=== PATIENT | female | born 1950 | race Caucasian/White ===

== ENCOUNTER → 2017-03-04 | Outpatient (CLI) | payer OTHER ==
[2017-03-04 13:47] LABS: LYME DISEASE AB IGG NEG (NEG); LYME DISEASE AB IGM NEG (NEG)
== END | disposition home or self-care (01) ==
LOC: C.LABMFLN 07:49
PROVIDERS: ATTEND Physician Assistant
DX: H91.22 Sudden idiopathic hearing loss, left ear (principal)

== ENCOUNTER 2025-03-25 11:18 | Inpatient (IN) ==
--- NOTE | 2025-03-25 11:37 | Emergency Department Note ---
Impression & Plan Hypoxia Admission ED Provider Note HPI: History obtained from The patient is a 74-year-old female with history of atrial fibrillation, on Coumadin, and amiodarone, who presents the emergency department with chief complaint of shortness of breath. Patient states she has had some progressive shortness of breath for about the past 2 weeks. Patient states that she had a CT image of her chest done without contrast on 03/11 that showed "progressive lung disease". Patient states that it also noted possible amiodarone toxicity based on some abnormal findings in her liver. Patient states she continued to have some shortness of breath and today she had a slight amount of chest pain off to the right side of her chest and therefore she came to the ER to be assessed. On arrival here to the ED the patient was noted to be hypoxic at 72% on room air and therefore was brought back and placed in a room, she is otherwise hemodynamically stable, she was placed on nasal cannula oxygen with good improvement in her initial hypoxia. ROS: - Per HPI Differential Diagnosis: Acute CHF exacerbation, pulmonary embolism, ACS, pneumonia, pleural effusion, viral upper respiratory infection with respiratory failure, amongst other potential pathologies. *Outpatient medications and allergy history reviewed. 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 Lab work shows no leukocytosis, hemoglobin is normal, platelet count is normal, CMP does not show any evidence of any critical findings. BNP is elevated at 403, troponin is negative, procalcitonin is low, TSH is within normal limits, urinalysis does not show any evidence of infection, chest x-ray shows pattern of pulmonary edema which I suspect is the reason for the patient's respiratory failure/hypoxia. She was therefore treated with IV Lasix. Patient did remained stable on nasal cannula oxygen. I discussed all of the above findings with the patient and her family at the bedside. It was noted that her INR was slightly subtherapeutic at 1.8. Patient is not tachycardic and at this point I suspect her hypoxia secondary to fluid overload. I discussed the patient's presentation with the on-call hospitalist service for [facility], patient was placed for admission to the service of Dr. Al for further management. Patient was in agreement to this plan. Consultants/Discussions held with other healthcare providers: - Hospitalist, Dr. Al Disposition discussion held by myself with: - Patient and family members at the bedside * CRITICAL CARE TIME: (45) minutes - Stabilization of hypoxia with oxygen saturation at 72% on room air requiring nasal cannula oxygen for correction, time spent at the bedside, interpretation of diagnostic studies, discussion with other healthcare providers and arrangement of admission. Diagnosis: 1. Hypoxia, acute 2. Pulmonary edema, acute 3. Elevated BNP, acute 4. 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 Subtherapeutic international normalized ratio (INR) Acute heart failure with preserved ejection fraction (HFpEF) Medical History (Updated 03/25/25 @ 15:11 by Tom Hsieh DO) PAT (paroxysmal atrial tachycardia) CKD (chronic kidney disease), stage III Tricuspid valve insufficiency Mitral valve insufficiency Pulmonary HTN Hypothyroidism [place] (hard of hearing) History of uterine fibroid Surgical History (Updated 03/25/25 @ 14:45 by May Villela PA-C) H/O mitral valve replacement History of myomectomy History of hysterectomy History of esophagogastroduodenoscopy (EGD) History of colonoscopy History of cardiac catheterization 2021 pre op valve replacement. no stents. History of heart valve replacement 02/2022. follows with Dr. Henning. History of tonsillectomy History of right hip replacement History of x 2 History of bilateral knee replacement + Rt knee revision Social History Smoking Status: Never smoker Second Hand Exposure: No; Do You Dip or Chew Tobacco: No; Hx Alcohol Use: Yes Hx Substance Use: No Preferred Language: Persian Communication Ability: Effective Hand Icer Required: No Beliefs That Will Affect Care: None Current Living Situation: Alone Feels Safe at Home: Yes Assistive Devices: Denture - Upper, Denture - Lower and Glasses Allergies Allergies Allergy/AdvReac Type Severity Reaction Status Date / Time sulfamethoxazole Allergy Rash Verified 07/09/23 07:26 [From Bactrim] trimethoprim [From Bactrim] Allergy Rash Verified 07/09/23 07:26 Home Meds Home Medications Medication Instructions Recorded Confirmed Acetaminophen Extra Strength 2 tab PO Q6 PRN Pain 01/30/21 03/25/25 amiodarone 200 mg tablet 200 mg PO QAM 07/03/23 03/25/25 furosemide 40 mg tablet 40 mg PO QAM 07/03/23 03/25/25 metoprolol succinate 25 mg 25 mg PO QAM 07/03/23 03/25/25 tablet,extended release 24 hr albuterol sulfate 90 mcg/actuation 2 inh inhalation Q4H PRN Shortness 03/25/25 03/25/25 aerosol inhaler Of Breath Or Wheezing levothyroxine 50 mcg tablet 50 mcg PO DAILY 03/25/25 03/25/25 potassium 99 mg tablet 99 mg PO DAILY 03/25/25 03/25/25 warfarin 2.5 mg tablet 1.25 mg PO MOFR@1600 03/25/25 03/25/25 warfarin 2.5 mg tablet 2.5 mg PO SUTUWETHSA@1600 03/25/25 03/25/25 Results & Data (ED) Vital Signs Vital Signs - 24 hr 03/25/25 11:26 03/25/25 11:33 03/25/25 11:51 Temperature 37.0 C Temperature Source Oral Pulse Rate 82 Pulse Rate [Apical] Respiratory Rate 22 Respiratory Effort / Characteristics Short of Breath Respiratory Depth Normal Blood Pressure 136/76 Blood Pressure [Left Arm] Blood Pressure Mean 96 Blood Pressure Mean [Left Arm] Pulse Oximetry 72 L 96 Oxygen Delivery Method Room Air Nasal Cannula Nasal Cannula Oxygen Flow Rate 4 4 Sepsis Recent Fever Within 48 Hours No Sepsis New/Unexplained Change in Mental Status N/A Sepsis Action Taken by Nursing No Action Required 03/25/25 11:52 03/25/25 13:13 Temperature Temperature Source Pulse Rate 86 Pulse Rate [Apical] 83 Respiratory Rate 20 Respiratory Effort / Characteristics Respiratory Depth Blood Pressure Blood Pressure [Left Arm] 142/78 H Blood Pressure Mean Blood Pressure Mean [Left Arm] 99 Pulse Oximetry 96 Oxygen Delivery Method Nasal Cannula Oxygen Flow Rate 5 Sepsis Recent Fever Within 48 Hours Sepsis New/Unexplained Change in Mental Status Sepsis Action Taken by Nursing Laboratory Data 03/25/25 11:51 03/25/25 11:51 Lab Results 03/25/25 03/25/25 03/25/25 Range/Units 11:51 11:55 13:10 WBC 10.57 (4.8-10.8) K/ul RBC 4.48 (4.20-5.40) M/uL Hgb 13.4 (12.0-16.0) g/dl Hct 40.3 (37.0-47.0) % MCV 90.0 (80.0-100.0) fL MCH 29.9 (25.0-34.0) pg MCHC 33.3 (32.0-36.0) g/dL RDW Std Deviation 49.8 H (36.4-46.3) fL RDW Coeff of Win 15.2 H (11.5-14.5) % Plt Count 278 (130-400) K/uL MPV 10.9 (9.4-12.4) fL Immature Gran % (Auto) 0.3 % Neut % (Auto) 77.9 % Lymph % (Auto) 6.7 % [place] % (Auto) 14.2 % Eos % (Auto) 0.6 % Baso % (Auto) 0.3 % Neut # (Auto) 8.24 H (1.40-6.50) K/uL Lymph # (Auto) 0.71 L (1.20-3.40) K/uL [place] # (Auto) 1.50 H (0.11-0.59) K/uL Eos # (Auto) 0.06 (0.00-0.50) K/uL Baso # (Auto) 0.03 (0.00-0.20) K/uL Immature Gran # (Auto) 0.03 (0.01-0.20) K/uL PT 18.3 H (9.0-12.0) Seconds INR 1.8 H (0.9-1.1) Sodium 136 (136-145) mmol/L Potassium 3.4 L (3.5-5.1) mmol/L Chloride 99 (98-107) mmol/L Carbon Dioxide 30 (21-32) mmol/L Anion Gap 7 (3-11) BUN 17 (6-23) mg/dl Creatinine 1.00 (0.6-1.2) mg/dl Est Cr Clr Drug Dosing 51.9 ml/min eGFR 58.39 BUN/Creatinine Ratio 17.0 (10-20) Glucose 127 H (70-99(Fasting)) mg/dl Calcium 8.9 (8.6-10.3) mg/dl Magnesium 1.9 (1.7-2.4) mg/dl Total Bilirubin 0.6 (0.2-1.0) mg/dl AST 26 (13-39) U/L ALT 13 (7-52) U/L Alkaline Phosphatase 135 H (34-104) U/L Troponin I High Sens 10.5 (0-14) pg/ml B-Natriuretic Peptide 403 H (0-100) pg/ml Total Protein 8.2 (6.0-8.3) gm/dl Albumin 3.6 (3.4-5.0) gm/dl Globulin 4.6 H (2.5-4.0) gm/dl Albumin/Globulin Ratio 0.8 L (0.9-2) Procalcitonin 0.10 (0-0.5) ng/ml TSH 2.583 (0.300-4.500) uIu/ml Urine Color Yellow Urine Appearance Clear (Clear) Urine pH 7.0 (4.5-7.5) Ur Specific [place] 1.007 (1.000-1.030) Urine Protein Negative (Negative) Urine Glucose (UA) Negative (Negative) Urine Ketones Negative (Negative) Urine Blood Trace H (Negative) Urine Nitrite Negative (Negative) Urine Bilirubin Negative (Negative) Urine Urobilinogen Negative (Negative) Ur Leukocyte Esterase Negative (Negative) Urine WBC (Auto) 0-5 (0-5) /hpf Urine RBC (Auto) 0-2 (0-2) /hpf U Hyaline Cast (Auto) 0-2 (0-2) /lpf U Epithel Cells (Auto) 0-2 (0-2) /hpf Urine Bacteria (Auto) None Seen (None Seen) Adenovirus (PCR) Not Detected (NotDetected) B. pertussis DNA (PCR) Not Detected (NotDetected) B.parapertussis DNA PCR Not Detected (NotDetected) C. pneumoniae DNA (PCR) Not Detected (NotDetected) Coronavirus OC43 (PCR) Not Detected (NotDetected) Coronavirus HKU1 (PCR) Not Detected (NotDetected) Coronavirus 229E (PCR) Not Detected (NotDetected) SARS-CoV-2 (PCR) Not Detected (NotDetected) Coronavirus NL63 (PCR) Not Detected (NotDetected) Human Metapneumovir PCR Not Detected (NotDetected) Influenza Type A (PCR) Not Detected (NotDetected) Influenza Type B (PCR) Not Detected (NotDetected) M. pneumoniae (PCR) Not Detected (NotDetected) Parainfluenza 1 (PCR) Not Detected (NotDetected) Parainfluenza 2 (PCR) Not Detected (NotDetected) Parainfluenza 3 (PCR) Not Detected (NotDetected) Parainfluenza 4 (PCR) Not Detected (NotDetected) RSV (PCR) Not Detected (NotDetected) Entero/Rhino (PCR) Not Detected (NotDetected) Administered Medications Discontinued Medications Furosemide (Furosemide 40 Mg/4 Ml Vial) 40 mg IV ONE ONE Stop: 03/25/25 12:53 Last Admin: 03/25/25 13:08 Dose: 40 mg Documented By: ROSALES Potassium Chloride (Potassium Chloride Crtab 20 Meq Tabcr) 40 meq PO NOW STA Stop: 03/25/25 13:21 Last Admin: 03/25/25 13:56 Dose: 40 meq Documented By: ROSALES Imaging Data Radiologist's Impression: Chest X-Ray 03/25/25 11:33 XR chest 1V portable CLINICAL HISTORY: Dyspnea. COMPARISON STUDY: No previous studies for comparison. FINDINGS: Status post median sternotomy. Heart is moderately enlarged. There is no pneumothorax. Small bilateral pleural effusions are present. There is interstitial thickening and extensive bilateral airspace opacities. IMPRESSION: 1. Cardiomegaly with small bilateral pleural effusions. Interstitial thickening suggestive of interstitial pulmonary edema. 2. Superimposed airspace opacities which may represent multifocal pneumonia or alveolar pulmonary edema. Radiographic follow-up to ensure resolution is recommended. ACT 112: Negative or not required by law. Electronically signed by: Dayo John M.D. 03/25/2025 12:47 PM Discharge Plan Visit Data Chief Complaint: Shortness of Breath/Dyspnea Stated Complaint: SOB ED Provider: Tom Hsieh Discharge Problem: Hypoxia Patient Disposition: Admitted As Inpatient Condition: Fair Forms Stand Alone Forms: [facility] [employer] Prescriptions Prescriptions: No Action Acetaminophen Extra Strength 500 mg 2 tab PO Q6 PRN (Reason: Pain) furosemide 40 mg Tablet 40 mg PO QAM amiodarone 200 mg Tablet 200 mg PO QAM Rx Instructions: Patient stopped taking 1 week ago metoprolol succinate 25 mg Tablet Extended Release 24 Hr 25 mg PO QAM levothyroxine 50 mcg tablet 50 mcg PO DAILY potassium 99 mg Tablet 99 mg PO DAILY albuterol sulfate 90 mcg/actuation HFA aerosol inhaler 2 inh INHALATION Q4H PRN (Reason: Shortness Of Breath Or Wheezing) warfarin 2.5 mg tablet 2.5 mg PO SUTUWETHSA@1600 warfarin 2.5 mg tablet 1.25 mg PO MOFR@1600 Referrals Referrals: Julius Lucas MD [Primary Care Provider] -
[2025-03-25 12:10] LABS: Basophils # (auto) 0.03 K/uL (0.00-0.20); Basophils % (auto) 0.3 %; Eosinophils # (auto) 0.06 K/uL (0.00-0.50); Eosinophils % (auto) 0.6 %; Hematocrit (blood only) 40.3 % (37.0-47.0); Hemoglobin 13.4 g/dl (12.0-16.0); Immature Granulocytes # (auto) 0.03 K/uL (0.01-0.20); Immature Granulocytes % (auto) 0.3 %; Lymphocytes # (auto) 0.71 K/uL (1.20-3.40); Lymphocytes % (auto) 6.7 %; Mean Corpuscular Hemoglobin 29.9 pg (25.0-34.0); Mean Corpuscular Hgb Conc 33.3 g/dL (32.0-36.0); Mean Platelet Volume 10.9 fL (9.4-12.4); Monocytes % (auto) 14.2 %; Neutrophils # (auto) 8.24 K/uL (1.40-6.50); Neutrophils % (auto) 77.9 %; Platelet Count 278 K/uL (130-400); RDW Coefficient of Variation 15.2 % (11.5-14.5); RDW Standard Deviation 49.8 fL (36.4-46.3); Red Blood Count 4.48 M/uL (4.20-5.40); White Blood Count 10.57 K/ul (4.8-10.8)
[2025-03-25 12:38] LABS: Albumin Globulin Ratio 0.8 (0.9-2); Albumin Level 3.6 gm/dl (3.4-5.0); Bilirubin,Total 0.6 mg/dl (0.2-1.0); Calcium 8.9 mg/dl (8.6-10.3); Creatinine Clr Calc Pharmacy 51.9 ml/min; Globulin 4.6 gm/dl (2.5-4.0); Potassium 3.4 mmol/L (3.5-5.1); Total Protein 8.2 gm/dl (6.0-8.3)
[2025-03-25 12:39] LABS: INR 1.8 (0.9-1.1); Prothrombin Time 18.3 Seconds (9.0-12.0)
[2025-03-25 12:44] LABS: Troponin I High Sensitivity 10.5 pg/ml (0-14)
--- NOTE | 2025-03-25 12:48 | XRay Report ---
XR chest 1V portable CLINICAL HISTORY: Dyspnea. COMPARISON STUDY: No previous studies for comparison. FINDINGS: Status post median sternotomy. Heart is moderately enlarged. There is no pneumothorax. Smal l bilateral pleural effusions are present. There is interstitial thickening and extensive bilateral a irspace opacities. IMPRESSION: 1. Cardiomegaly with small bilateral pleural effusions. Interstitial thickening suggestive of interst itial pulmonary edema. 2. Superimposed airspace opacities which may represent multifocal pneumonia or alveolar pulmonary ed christa. Radiographic follow-up to ensure resolution is recommended. ACT 112: Negative or not required by law. Electronically signed by: Dayo John M.D. 03/25/2025 12:47 PM
[2025-03-25 12:54] LABS: Adenovirus PCR Not Detected (NotDetected); Bordetella parapertussis PCR Not Detected (NotDetected); Bordetella pertussis PCR Not Detected (NotDetected); Chlamydia pneumoniae PCR Not Detected (NotDetected); Coronavirus 229E PCR Not Detected (NotDetected); Coronavirus CoV-2 (COVID19)PCR Not Detected (NotDetected); Coronavirus HKU1 PCR Not Detected (NotDetected); Coronavirus NL63 PCR Not Detected (NotDetected); Coronavirus OC43PCR Not Detected (NotDetected); Human Metapneumovirus PCR Not Detected (NotDetected); Influenza A PCR Not Detected (NotDetected); Influenza B PCR Not Detected (NotDetected); Mycoplasma pneumoniae PCR Not Detected (NotDetected); Parainfluenza Virus 1 PCR Not Detected (NotDetected); Parainfluenza Virus 2 PCR Not Detected (NotDetected); Parainfluenza Virus 3 PCR Not Detected (NotDetected); Parainfluenza Virus 4 PCR Not Detected (NotDetected); Respiratory Syncytial VirusPCR Not Detected (NotDetected); Rhinovirus/Enterovirus PCR Not Detected (NotDetected)
[2025-03-25] MEDS: FUROSEMIDE 40 MG/4 ML VIAL IV ONE (13:08)
--- NOTE | 2025-03-25 13:23 | History & Physical Report ---
Date of Service March 25, 2025 Assessment & Plan (1) Acute hypoxic respiratory failure: (2) Acute heart failure with preserved ejection fraction (HFpEF): (3) Pulmonary HTN: Plan: This is a 74-year-old female with PMH of paroxysmal atrial tachycardia, history of mitral valve replacement on anticoagulation, drug-induced interstitial lung disorder, HFpEF, pulmonary hypertension, CKD 3, hypothyroidism and other medical process of below who presents from home with progressive shortness of breath x 2 weeks consistent with decompensated heart failure. Initially hypoxic at 72% on room air and improved to 96% on 5 L nasal cannula In setting of HFpEF and ILD CXR with cardiomegaly with small bilateral pleural effusions. Interstitial thickening suggestive of interstitial pulmonary edema. Superimposed airspace opacities present Does not appear infectious given clinical history - afebrile, no leukocytosis, resp viral panel negative, procal negative CT PE protocol ordered for further evaluation given subtherapeutic INR as below Consider pulm eval based on CT chest results Given 40mg IV lasix in ED x 1 Monitor I&Os, daily weights, continue Lasix 40mg IV daily Wean supplemental O2 as tolerated (4) At risk for amiodarone toxicity with alf use: (5) Prolonged QT interval: Plan: Underwent outpatient CT chest from 03/11/25 revealed a hyperdense liver, suggesting amiodarone toxicity. Patient stopped taking amiodarone 1 week ago LFTs reassuring. TSH WNL ECG with prolonged QTc, continue to monitor Cardiology consulted given HFpEF and further direction given possible amiodarone toxicity Repeat ECG in AM (6) H/O mitral valve replacement: (7) Subtherapeutic international normalized ratio (INR): Plan: INR 1.8 today, will give coumadin 5mg x 1 this afternoon and recheck INR tomorrow Home regimen: 1.25mg MoFr, 2.5mg all other days (goal INR 2-3, bioprosthetic valve) (8) PAT (paroxysmal atrial tachycardia): Plan: Patient stopped amiodarone 1 week ago (had previously been on for 3 years). Continue Toprol (9) CKD (chronic kidney disease), stage III: Plan: Cr 1.0, at baseline Continue to monitor with daily BMP (10) Hypothyroidism: Plan: Continue levothyroxine DVT Ppx: coumadin Code status: FULL PCP: Shayy Dispo: Admitted to PCU Patient seen in collaboration with Dr. Al. Please see addendum. I spent a total of 75 minutes coordinating, documenting, and providing care for this patient excluding time spent in the performance of separately billed services or time spent by another provider/QHP. History of Present Illness Chief Complaint: SOB Primary Care Provider: Julius Lucas MD This is a 74-year-old female with PMH of paroxysmal atrial tachycardia, history of mitral valve replacement on anticoagulation, drug-induced interstitial lung disorder, HFpEF, pulmonary hypertension, CKD 3, hypothyroidism and other medical process of below who presents from home with progressive shortness of breath x 2 weeks. Patient has had a dry cough for the past few months and feels that she never fully recovered from a bout of pneumonia at the beginning of the year. However, she does not require home oxygen. Lives with her daughter and ambulates independently at baseline. Does take 40 mg p.o. Lasix daily for HFpEF and is compliant with medication. Had a dry cough in January and was seen in urgent care with suspected URI-completed steroid course and prescribed albuterol inhaler. Cough persisted, so underwent CT chest scan on 03/11/2025 which noted previously described irregular nodular and consolidative opacities throughout both lungs, trace bilateral pleural effusions, evidence of pulmonary arterial hypertension. Also noted a hyperdense liver, suggesting amiodarone toxicity. Patient stopped taking amiodarone 1 week ago. Is waiting to be seen in cardiology office. Developed sharp pain near her right breast earlier today that lasted for a minute at a time before resolving. Pain is nonradiating and occurred at rest. Not made any worse with exertion. No associated nausea or diaphoresis. Came to ED for further evaluation of chest pain and progressive shortness of breath. In ED, noted to be hypoxic at 72% on room air and improved to 96% on 5 L nasal cannula. Currently comfortable. Chest pain resolved prior to arrival and has not recurred. Continues to have a dry cough. No fever, chills, increased congestion, palpitations, nausea, vomiting, abdominal pain, dysuria, diarrhea or constipation. Allergies Allergy/AdvReac Type Severity Reaction Status Date / Time sulfamethoxazole Allergy Rash Verified 07/09/23 07:26 [From Bactrim] trimethoprim [From Bactrim] Allergy Rash Verified 07/09/23 07:26 Home Medications Medication Instructions Recorded Confirmed Type Acetaminophen Extra Strength 2 tab PO Q6 PRN Pain 01/30/21 03/25/25 History amiodarone 200 mg tablet 200 mg PO QAM 07/03/23 03/25/25 History furosemide 40 mg tablet 40 mg PO QAM 07/03/23 03/25/25 History metoprolol succinate 25 mg 25 mg PO QAM 07/03/23 03/25/25 History tablet,extended release 24 hr albuterol sulfate 90 mcg/actuation 2 inh inhalation Q4H PRN Shortness 03/25/25 03/25/25 History aerosol inhaler Of Breath Or Wheezing levothyroxine 50 mcg tablet 50 mcg PO DAILY 03/25/25 03/25/25 History potassium 99 mg tablet 99 mg PO DAILY 03/25/25 03/25/25 History warfarin 2.5 mg tablet 1.25 mg PO MOFR@1600 03/25/25 03/25/25 History warfarin 2.5 mg tablet 2.5 mg PO SUTUWETHSA@1600 03/25/25 03/25/25 History Past Med/Surg History Problem List (Updated 03/25/25 @ 15:11 by Tom Hsieh DO) Hypoxia (Acute) Prolonged QT interval Acute hypoxic respiratory failure 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 Subtherapeutic international normalized ratio (INR) Acute heart failure with preserved ejection fraction (HFpEF) Medical History (Updated 03/25/25 @ 15:11 by Tom Hsieh DO) PAT (paroxysmal atrial tachycardia) CKD (chronic kidney disease), stage III Tricuspid valve insufficiency Mitral valve insufficiency Pulmonary HTN Hypothyroidism [place] (hard of hearing) History of uterine fibroid Surgical History (Updated 03/25/25 @ 14:45 by May Villela PA-C) H/O mitral valve replacement History of myomectomy History of hysterectomy History of esophagogastroduodenoscopy (EGD) History of colonoscopy History of cardiac catheterization 2021 pre op valve replacement. no stents. History of heart valve replacement 02/2022. follows with Dr. Henning. History of tonsillectomy History of right hip replacement History of x 2 History of bilateral knee replacement + Rt knee revision Social History Smoking Status: Never smoker Second Hand Exposure: No; Do You Dip or Chew Tobacco: No; Hx Alcohol Use: Yes Hx Substance Use: No Preferred Language: Azeri Communication Ability: Effective Supervisor Line Department Required: No Beliefs That Will Affect Care: None Current Living Situation: Alone Feels Safe at Home: Yes Assistive Devices: Denture - Upper, Denture - Lower and Glasses Review of Systems Review of Systems: At least ten systems reviewed and negative except as noted in the HPI. Physical Exam Physical Exam: Please see Dr. Al's PE in addendum. Results & Data Results & Data Vital Signs (Past 12 Hours) Vital Signs Temp Pulse Pulse Resp BP BP Pulse Ox 03/25/25 13:13 83 20 142/78 H 96 03/25/25 11:52 86 03/25/25 11:51 96 03/25/25 11:33 03/25/25 11:26 37.0 C 82 22 136/76 72 L O2 Del Method O2 Flow Rate 03/25/25 13:13 Nasal Cannula 5 03/25/25 11:52 03/25/25 11:51 Nasal Cannula 4 03/25/25 11:33 Nasal Cannula 4 03/25/25 11:26 Room Air Laboratory Results Short CBC 03/25/25 Range/Units 11:51 WBC 10.57 (4.8-10.8) K/ul Hgb 13.4 (12.0-16.0) g/dl Hct 40.3 (37.0-47.0) % Plt Count 278 (130-400) K/uL BMP 03/25/25 11:51 Sodium 136 Potassium 3.4 L Chloride 99 Carbon Dioxide 30 BUN 17 Creatinine 1.00 Glucose 127 H Calcium 8.9 Liver Function 03/25/25 Range/Units 11:51 Total Bilirubin 0.6 (0.2-1.0) mg/dl AST 26 (13-39) U/L ALT 13 (7-52) U/L Alkaline Phosphatase 135 H (34-104) U/L Albumin 3.6 (3.4-5.0) gm/dl Urine 03/25/25 Range/Units 13:10 Urine Color Yellow Urine Appearance Clear (Clear) Urine pH 7.0 (4.5-7.5) Ur Specific [place] 1.007 (1.000-1.030) Urine Protein Negative (Negative) Urine Glucose (UA) Negative (Negative) Diagnostic Findings Chest X-Ray 03/25/25 11:33 XR chest 1V portable CLINICAL HISTORY: Dyspnea. COMPARISON STUDY: No previous studies for comparison. FINDINGS: Status post median sternotomy. Heart is moderately enlarged. There is no pneumothorax. Small bilateral pleural effusions are present. There is interstitial thickening and extensive bilateral airspace opacities. IMPRESSION: 1. Cardiomegaly with small bilateral pleural effusions. Interstitial thickening suggestive of interstitial pulmonary edema. 2. Superimposed airspace opacities which may represent multifocal pneumonia or alveolar pulmonary edema. Radiographic follow-up to ensure resolution is recommended. ACT 112: Negative or not required by law. Electronically signed by: Dayo John M.D. 03/25/2025 12:47 PM Code Status & VTE Plan VTE Prophylaxis Plan VTE Prophylaxis will be ordered: Yes Supervising Physician Co-Signing Physician Notes Patient is a 74-year-old female with history of paroxysmal atrial tachycardia, mitral valve replacement on chronic anticoagulation with Coumadin, HFpEF, pulmonary hypertension, drug-induced interstitial lung disease and other medical problems presents with history of worsening shortness of breath associated with cough for many weeks which gradually worsened especially since last 2 weeks. She also states having transient right-sided, nonradiating chest pain today which currently resolved. She denies any orthopnea, PND, weight gain, any worsening leg edema. She completed a course of steroid for URI in January. She was hypoxic in the ED requiring supplemental oxygen to maintain saturations. Outpatient CT chest showed findings suggestive of progressive lung disease and concern for possible amiodarone toxicity. CT also showed hyperdense liver. She denies any recent fever, chills, nausea, vomiting, abdominal pain, diarrhea, change in vision. She admits to quit taking amiodarone 1 week ago. Please review HPI for complete details of presentation. I personally reviewed blood work and imaging studies. INR noted to be subtherapeutic 1.8. Potassium 3.4, glucose 127, alkaline phosphatase 135, troponin 10.5, BNP 403, normal TSH, total bilirubin, AST, ALT within normal limits. Procalcitonin 0.10. Urine analysis normal. Bio fire negative. Chest x-ray showed small bilateral pleural effusions, interstitial thickening suggestive of pulmonary edema, with superimposed airspace opacities. EKG showed sinus rhythm with first-degree AV block, prolonged QTc 506. Physical Exam: Vitals signs as noted above General Appearance:Moderately built and nourished, no apparent distress Head: normocephalic, Atraumatic Eyes: normal inspection, EOMI Neck: supple, Trachea midline Respiratory/Chest: Normal breath sounds, B/L basal Crackles, , No accessory muscle use Cardiovascular: S1, S2, +murmur Abdomen/GI:Soft, Non tender, Bowel sounds present Extremities/Musculoskeletal:normal inspection, 1+ B/L LE edema Neurologic/Psych:AAOX3, grossly no focal neurological deficits Skin: normal color, warm Acute respiratory failure with hypoxia Acute on chronic HFpEF Insetting of interstitial lung disease, pulmonary hypertension Concern for amiodarone toxicity Less likely infectious process Subtherapeutic INR 1.8 Hypokalemia Prolonged QTc Will obtain chest CTA to further evaluate Received IV Lasix Patient stopped taking amiodarone 1 week ago Monitor I's and O's, daily weight, volume status Replete electrolytes as needed Request cardiology evaluation Will increase home Coumadin dose given subtherapeutic INR Monitor INR closely Avoid QTc prolonging meds Update echo as needed Continue IV Lasix for now Continue metoprolol succinate, levothyroxine Will hold off on antibiotics for now Repeat chest x-ray tomorrow Consider pulmonology evaluation based on CT results I personally interviewed and examined the patient at bedside. I have reviewed the advanced practitioner's documentation on the date of service referred in note and agree with plan. Patient's care is coordinated with May Villela PA-C. Please refer to the documentation above for details of patient's presentation and for discussion of other issues. I spent a total [id number] coordinating, documenting, and providing care for this patient excluding time spent in the performance of separately billed services or time spent by another provider/QHP.
[2025-03-25 13:29] LABS: Appearance Urine Clear (Clear); Bacteria Urine Automated None Seen (None Seen); Bilirubin Urine Negative (Negative); Blood Urine Trace (Negative); Cast Urine Automated 0-2 /lpf (0-2); Color Urine Yellow; Epithelial Cell Urine Auto 0-2 /hpf (0-2); Glucose Urine UA Negative (Negative); Ketones Urine Negative (Negative); Leukocyte Esterase Urine Negative (Negative); Nitrite Urine Negative (Negative); Protein Urine Negative (Negative); RBC Urine Automated 0-2 /hpf (0-2); Specific Gravity Urine 1.007 (1.000-1.030); Urobilinogen Urine Negative (Negative); WBC Urine Automated 0-5 /hpf (0-5)
[2025-03-25] MEDS: POTASSIUM CHLORIDE CRTAB 20 MEQ TABCR PO STA (13:56)
[2025-03-25 14:28] LABS: Magnesium 1.9 mg/dl (1.7-2.4)
[2025-03-25 14:43] LABS: Thyroid Stimulating Hormone 2.583 uIu/ml (0.300-4.500)
--- NOTE | 2025-03-25 14:50 | Cardiology Consultation ---
Date of Consultation March 25, 2025 Assessment & Plan (1) Acute hypoxic respiratory failure: (2) At risk for amiodarone toxicity with fdc use: (3) Acute heart failure with preserved ejection fraction (HFpEF): Plan Assessment: 74 year old female who presented with worsening dyspnea and recent CT chest concerning for interstitial lung disease and likely amiodarone toxicity. chest xray questions HF component and cardiology service was requested. Plan: 1. Acute hypoxic respiratory failure 2. Possible drug induced interstitial lung disease 3. Acute on Chronic HFpEF -Patient is saturating well on supplemental O2 5LPM -Self discontinued Amiodarone after recent CT chest which shows interstitial lung disease as well as evidence of a hyperdense liver. -Telemetry shows SR with 1st degree AVB, will continue to monitor. No ectopy. -BNP with mild elevation -Troponin negative -Patient received one time dose of IV Lasix upon arrival to the ER, does not appear volume overloaded on exam. -will obtain echocardiogram to assess overall structure and function, paying beka se attention to LVEF, prior mitral valve replacement and evaluate for TR. Tech currently at bedside obtaining. -Recommend pulmonology consultation. Dr. Grande has spoken directly to primary team -Avoid Amiodarone. Please continue Metoprolol succinate 25mg PO Daily as per home regimen. -Continue warfarin -TSH stable, continue Levothyroxine - Will continue to follow Case has been discussed with Dr. Grande. Further recommendations regarding plan of care as per his assessment. I spent a total of 40 minutes on the date of service in preparation, delivery, documentation of the care provided to the patient excluding any time spent in the performance of separately billed services. REN [facility] Cardiology [facility] Patient was seen and personally examined. Chart medical records and prior x-ray studies reviewed. Full assessment and plan as outlined by advanced provider as above. Care and management discussed in detail with provider and personally endorsed Impression: 74-year-old female status post mitral valve replacement with bioprosthetic (31 mm epic) February 2022 postoperative issues include difficulties with recurrent atrial arrhythmias treated with oral amiodarone. Patient presents with difficulties with gradually progressive dyspnea now hypoxia and dyspnea with minimal exertion. Chest x-rays and outpatient CT scans have demonstrated progressively worsening interstitial lung disease as well as hyperdense liver. Patient self discontinued amiodarone slightly greater than 1 week ago but still dyspneic and hypoxic on presentation. Chest x-ray today demonstrates diffuse patchy infiltrative disease Examination not notable for significant volume overload with neck veins flat at 30 degrees fine crackles basilar Preliminary echocardiogram done at bedside demonstrates normal to hyperdynamic LV function EF 65% or greater. Bioprosthetic mitral valve functioning normally without valvular insufficiency. Trace tricuspid insufficiency Recommendations: Progressive interstitial lung disease in the setting of amiodarone use suggesting possible drug-induced toxicity versus progressive underlying interstitial lung disease. Volume status does not suggest findings that would concur with pulmonary edema Patient has received 1 dose of IV furosemide May require more but cautiously with following her renal function Would recommend consultation pulmonology question indications for corticosteroids/immunosuppressive treatment History of Present Illness Reason for Consultation: Decompensated HF, concern for amio toxicity 03/11/25 [facility] History of Present Illness HPI. Patient is a pleasant 74 year female with pMHx as noted below that presents to the ER with progressively worsening shortness of breath for the past two weeks. Initially the patient was seen at urgent care in early january for a dry cough and was treated for a suspected URI and treated with a course of steroids and albuterol inhaler. Her cough persisted and she underwent a lung CT on 03/11/25 which noted progressive lung disease with trace BL effusions and additional chronic findings. Also of note is a hyperdense liver, giving consideration to Amiodarone toxicity. Upon seeing patient today she is resting comfortably in bed on supplemental O2, Rate 5LPM via nasal cannula. She denies chest pain, pressure or palpitations. Does endorse shortness of breath, but denies any pre-syncope, syncope or edema. Patient's daughters Janee and Nallely are at bedside. Patient states she stopped her Amiodarone right after the CT scan out of concern of drug induced toxicity. Patient has been compliant on all other medication therapies. she has had adjustments to her thyroid medication dosing and she also mentioned she has had rashes which likely have been s/t the amiodarone. Cardiac Problems 1. Severe MR s/p mitral valve replacement 31mm Epic valve 02/26/22 (pre MVR cardiac catheterization with angiographically normal coronaries. Mean PA pressure of 30 mmHg. Pulmonary capillary wedge pressure 21 mmHg with elevated V waves a size 40 mmHg consistent with severe mitral regurgitation) 2. PAT s/p DCCV 03/2022 but did not work; started on amiodarone 03/2022 3. Moderate AI 4. Moderate TR 5. Chronic heart failure with preserved EF diastolic/valvular, NYHA Class II 6. drug induced interstitial lung disorder (recent CT chest) 7. Pulmonary HTN 8. CKD stage III 9. Hypothyroidism EKG today shows SR with 1st degree AVB Rate 89bpm Chest xray shows IMPRESSION: 1. Cardiomegaly with small bilateral pleural effusions. Interstitial thickening suggestive of interstitial pulmonary edema. 2. Superimposed airspace opacities which may represent multifocal pneumonia or alveolar pulmonary edema. Radiographic follow-up to ensure resolution is recommended Serum K 3.4 Initial troponin negative BNP 403 Patient received one dose of Furosemide 40mg IV along with potassium supplementation. Echo ordered. Allergies Allergy/AdvReac Type Severity Reaction Status Date / Time sulfamethoxazole Allergy Rash Verified 07/09/23 07:26 [From Bactrim] trimethoprim [From Bactrim] Allergy Rash Verified 07/09/23 07:26 Home Medications Medication Instructions Recorded Confirmed Type Acetaminophen Extra Strength 2 tab PO Q6 PRN Pain 01/30/21 03/25/25 History amiodarone 200 mg tablet 200 mg PO QAM 07/03/23 03/25/25 History furosemide 40 mg tablet 40 mg PO QAM 07/03/23 03/25/25 History metoprolol succinate 25 mg 25 mg PO QAM 07/03/23 03/25/25 History tablet,extended release 24 hr albuterol sulfate 90 mcg/actuation 2 inh inhalation Q4H PRN Shortness 03/25/25 03/25/25 History aerosol inhaler Of Breath Or Wheezing levothyroxine 50 mcg tablet 50 mcg PO DAILY 03/25/25 03/25/25 History potassium 99 mg tablet 99 mg PO DAILY 03/25/25 03/25/25 History warfarin 2.5 mg tablet 1.25 mg PO MOFR@159903/25/25 03/25/25 History warfarin 2.5 mg tablet 2.5 mg PO SUTUWETHSA@159903/25/25 03/25/25 History Patient History Medical History (Updated 03/25/25 @ 15:11 by Tom Hsieh DO) PAT (paroxysmal atrial tachycardia) CKD (chronic kidney disease), stage III Tricuspid valve insufficiency Mitral valve insufficiency Pulmonary HTN Hypothyroidism [place] (hard of hearing) History of uterine fibroid Surgical History (Updated 03/25/25 @ 14:45 by May Villela PA-C) H/O mitral valve replacement History of myomectomy History of hysterectomy History of esophagogastroduodenoscopy (EGD) History of colonoscopy History of cardiac catheterization 2021 pre op valve replacement. no stents. History of heart valve replacement 02/2022. follows with Dr. Henning. 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 Beliefs That Will Affect Care: None Current Living Situation: Alone Feels Safe at Home: Yes Assistive Devices: Denture - Upper, Denture - Lower and Glasses Review of Systems Review of Systems: All systems reviewed & are unremarkable except as noted in HPI & below Physical Exam Constitutional: well developed, well nourished and + ill appearing Neck: normal visual inspection and trachea midline Respiratory: normal respiratory effort; no respiratory distress, no labored breathing and no retractions Auscultation: + diminished lung sounds (diminished bilateral bases ) and + wheezes (faint exp wheeze ); no crackles, no rales and no rhonchi Cardiovascular: Rate/Rhythm: regular rate and regular rhythm Heart Sounds: normal S1, normal S2 and + murmur (+1/6) Vessels: dorsalis pedis pulses present; no JVD Extremities: no edema Skin: no rashes, warm and dry Psychiatric: A+Ox3, euthymic affect Results & Data Vital Signs (Past 12 Hours) Vital Signs Temp Pulse Pulse Resp BP BP Pulse Ox 03/25/25 13:13 83 20 142/78 H 96 03/25/25 11:52 86 03/25/25 11:51 96 03/25/25 11:33 03/25/25 11:26 37.0 C 82 22 136/76 72 L O2 Del Method O2 Flow Rate 03/25/25 13:13 Nasal Cannula 5 03/25/25 11:52 03/25/25 11:51 Nasal Cannula 4 03/25/25 11:33 Nasal Cannula 4 03/25/25 11:26 Room Air Laboratory Results Cardiac Enzymes 03/25/25 Range/Units 11:51 AST 26 (13-39) U/L Troponin I High Sens 10.5 (0-14) pg/ml B-Natriuretic Peptide 403 H (0-100) pg/ml Coagulation 03/25/25 Range/Units 11:51 PT 18.3 H (9.0-12.0) Seconds B-Natriuretic Peptide 403 H (0-100) pg/ml CBC 03/25/25 Range/Units 11:51 WBC 10.57 (4.8-10.8) K/ul RBC 4.48 (4.20-5.40) M/uL Hgb 13.4 (12.0-16.0) g/dl Hct 40.3 (37.0-47.0) % Plt Count 278 (130-400) K/uL Neut # (Auto) 8.24 H (1.40-6.50) K/uL Lymph # (Auto) 0.71 L (1.20-3.40) K/uL [place] # (Auto) 1.50 H (0.11-0.59) K/uL Eos # (Auto) 0.06 (0.00-0.50) K/uL Baso # (Auto) 0.03 (0.00-0.20) K/uL Comprehensive Metabolic Panel 03/25/25 Range/Units 11:51 Sodium 136 (136-145) mmol/L Potassium 3.4 L (3.5-5.1) mmol/L Chloride 99 (98-107) mmol/L Carbon Dioxide 30 (21-32) mmol/L BUN 17 (6-23) mg/dl Creatinine 1.00 (0.6-1.2) mg/dl Glucose 127 H (70-99(Fasting)) mg/dl Calcium 8.9 (8.6-10.3) mg/dl AST 26 (13-39) U/L ALT 13 (7-52) U/L Alkaline Phosphatase 135 H (34-104) U/L Total Protein 8.2 (6.0-8.3) gm/dl Albumin 3.6 (3.4-5.0) gm/dl Intake and Output 03/24/25 03/25/25 03/25/25 22:59 06:59 14:59 Other: Weight 86.3 kg Weight Measurement Method Chair Scale Patient Weight 03/26/25 06:59 Weight 86.3 kg Diagnostic Findings Echocardiogram obtained from [facility] 01/05/2024 Interpretation Summary The primary indication after review was deemed appropriate and the examination was performed. The examination is adequate to evaluate the referral indication. The qualitative LV ejection fraction is 55-59% (normal). The LV wall thickness is borderline increased (concentric). Left atrial enlargement suggests diastolic left ventricular dysfunction. The left atrium is moderately enlarged (42-48 ml/m^2). The right atrium is enlarged (> 18 cm^2). s/p Mitral valve replacement 31mm Epic valve. Mean/ Peak gradient across the prosthetic mitral valve is 6.9/20 mmHg with a heart rate of 73bpm. Mild to moderate aortic regurgitation is present. There is a mitral valve bioprosthesis present. Significant mitral valve prosthesis stenosis is absent. Doppler reveals mitral regurgitation through the orifice of the prosthetic valve that is physiologic (normal). Significant mitral valve prosthesis regurgitation is absent. Mild tricuspid regurgitation is present. There is mild pulmonary regurgitation. When compared to prior study in 10/2022 there is no significant change.
[2025-03-25 15:08] LABS: Base Excess VBG 7.4 mEq/L; HCO3 VBG 32 mmol/L; Oxygen Saturation VBG < 60.0 %; PCO2 VBG 44 mmHg (38-50); PO2 VBG 30 mmHg; pH VBG 7.47 (7.36-7.41)
--- OUTSIDE RECORDS SUMMARY | 2025-03-25 15:18 | External Medical Summary | Summary of Care ---
Author Name Unknown Organization [facility] Address [address] [place] [address] Phone [phone] Care Team Providers Care Flame Hardener Name Role Phone Julius Lucas MD Primary Care Provider Reason for Visit * Reason Comments Short of Breath Cough Cough with wheezing Encounter Details Date Type Department Care Team (Latest Contact Info) Description 02/07/2025 9:00 AM EDT Convenient Care Visit [facility] [place] [address] [place] [address] Venus Nolasco PA-C [address] [facility] [address] [place] [address] Upper respiratory tract infection, unspecified type*; Dyspnea, unspecified type Allergies Active Allergy Reactions Criticality Noted Date Comments Sulfa Antibiotics 08/28/2023 Bactrim DS gave a rash documented as of this encounter (statuses as of 02/07/2025) Medications Triamcinolone Acetonide 0.1 % External Ointment (Aristocort) Apply to rash on lower legs twice daily for a week 60 g 03/10/20 23 Active Multivitamin Adult Oral Tablet Take 1 Tablet by mouth in the morning. Active Potassium 99 MG Oral Tablet Take 1 Tablet by mouth in the morning. Active Metoprolol Succinate ER 25 MG Oral Tablet Extended Release 24 Hour (toPROL XL)Indications:PA T (paroxysmal atrial tachycardia) (HCC) TAKE 1 TABLET BY MOUTH EVERY DAY 90 Tablet 3 03/26/20 24 Active Furosemide 40 MG Oral Tablet (Lasix)Indication s:Pulmonary HTN (HCC) Take 1 Tablet by mouth in the morning. 90 Tablet 3 04/28/20 24 Active Warfarin Sodium 2.5 MG Oral Tablet (Coumadin)Indicat ions:S/P MVR (mitral valve replacement) Take 0.5-1 Tablets by mouth every evening. As directed by Anticoagulation Clinic 90 Tablet 4 05/03/20 24 Active Amiodarone HCl 200 MG Oral Tablet (Cordarone)Indica tions:History of cardioversion TAKE 1 TABLET BY MOUTH EVERY DAY IN THE MORNING 90 Tablet 1 01/05/20 25 Active Levothyroxine Sodium 50 MCG Oral Tablet (Levoxyl)Indicati ons:Acquired hypothyroidism Take 1 Tablet by mouth daily first thing in the morning. 90 Tablet 1 01/05/20 25 Active predniSONE 20 MG Oral Tablet (Deltasone) Take 2 Tablets by mouth in the morning for 5 days. 10 Tablet 02/08/20 25 025 Active Albuterol Sulfate HFA 108 (90 Base) MCG/ACT Inhalation Aerosol Solution Inhale 2 Puffs by mouth every 4 hours as needed for Shortness of Breath. 6.7 g 1 02/08/20 25 Active documented as of this encounter (statuses as of 02/07/2025) Active Problems Problem Noted Date Diagnosed Date Drug-induced interstitial lung disorders 025 Hypertensive heart and kidne y disease with chronic diastolic congestive heart failure and stage 3a chronic kidney disease 01/05/2025 Acquired hypothyroidism 03/16/2024 Chronic kidney disease, stage 3a 03/01/2024 Overview: Per CKD protocol S/P revision of total knee, right 06/17/2022 History of cardioversion 04/08/2022 Abnormal gait 02/26/2022 S/P MVR (mitral valve replacement) 02/26/2022 Mitral valve insufficiency 05/25/2021 Pulmonary HTN 05/25/2021 Tricuspid valve insufficiency 05/25/2021 Chronic heart failure with preserved ejection fr action 05/25/2021 PAT (paroxysmal atrial tachycardia) 05/25/2021 At risk for venous thromboembolism (VTE) 021 Overview (02/26/2022): Problem added by Discern Expert Rule: EBN_VTERISKPROB_3 Status post bilateral knee replacements 01/25/20 21 INFORMATION 12/10/2017 Overview (12/10/2017): Rolando does not work. Osteoarthritis of hip 11/02/2015 S/P total hip arthroplasty 11/02/2015 Family history of breast cancer in sister 2012 Cataract, right eye 09/01/2013 documented as of this encounter (statuses as of 02/07/2025) Resolved Problems Problem Noted Date Diagnosed Date Resolved Date Postoperative anemia due to acute blood loss 2 10/30/2022 PAT (paroxysmal atrial tachycardia) 04/08/2022 10/24/2022 Overview (10/24/2022): duplicate Mitral valve insufficiency 10/25/2021 1 12/25/2021 Overview (10/24/2022): duplicate Tricuspid valve insufficiency 10/25/2021 10/24/2022 Overview (10/24/2022): duplicate ADVANCE DIRECTIVE INFORMATION 10/31/2006 01/13/2020 Overview (10/31/2006): Yes, Patient instructed to provide copy of advance directive for provider to review and to be scanned into Electronic Medical Record documented as of this encounter (statuses as of 02/07/2025) Immunizations Name Administration Dates Next Due Season Influenza, Quad, PF, Adjuvanted, 65+ Yrs, IM (FLUAD) 01/26/2021(Deferred: Patient Refused - Dr Caery aware) Seasonal Influenza Vac., MDV , IM, 0.5 mL (Fluzone) 08/14/2011 TDAP, Age 7 and older, IM (Adacel) 06/28/2010 documented as of this encounter Social History Tobacco Use Types Packs/Day Years Used Date Smoking Tobacco: Never Passive Smoke Exposure: Past Smokeless Tobacco: Never Tobacco Cessation:Counseling Given: Not Answered Alcohol Use Standard Drinks/Week Comments Yes 0 (1 standard drink = 0.6 oz pur e alcohol) socially PHQ-2 Answer Date Recorded PHQ Adult Total Score 0 01/05/2025 Hunger Vital Sign Answer Date Recorded Within the past 12 months, y ou worried that your food would run out before you got the money to buy more. Never true 01/05/20 25 Within the past 12 months, t he food you bought just didn't last and you didn't have money to get more. Never true 01/05/2025 Childcare Answer Date Recorded Do you feel overwhelmed with taking care of a child, family member or friend? No 01/05/2025 Does your family need help f inding childcare? (Household - for ages 0-17 years) Not on file 01/05/2025 Clothing Answer Date Recorded Have you been unable to get clothing when it was really needed? No 01/05/2025 Is your family able to get c lothes or diapers when needed? (Household - for ages 0-17 years) Not on file 01/05/2025 Personal Safety Answer Date Recorded Do you feel unsafe or have concerns for your saf ety? No 01/05/2025 Do you have concerns for you r family's safety? (Household - for ages 0-17 years) Not on file 01/05/2025 Utilities Answer Date Recorded Do you have trouble paying y our heating, water, or electric bill? No 01/05/2025 Is your family able to pay t he heat, water, or electric bill? (Household - for ages 0-17 years) Not on file 01/05/2025 Does your family have access to good internet? (Household - for ages 0-17 years) Not on file 01/05/2025 Employment Status Answer Date Recorded Are you unemployed or without regular income? No 01/05/2025 Does the household have a re gular source of income? (Household - for ages 0-17 years) Not on file 01/05/2025 Social Connections Answer Date Recorded How often do you feel lonely or isolated from th ose around you? Never 01/05/2025 Financial Resource Strain Answer Date R ecorded Do you have any trouble payi ng for your medications, or do you think you might in the future? No 01/05/2025 Does your family have troubl e paying for medicine? (Household - for ages 0-17 years) Not on file 01/05/2025 Transportation Needs Answer Date Record ed Do you have trouble getting a ride to medical visits or work? (Adult - for ages 18 years and over) Not on file 01/05/2025 Does your family have a hard time getting a ride to doctors visits? (Household - for ages 0-17 years) Not on file 01/05/2025 Has lack of transportation k ept you from medical appointments, meetings, work, or from getting things needed for daily living? Check all that apply. No 01/05/2025 Do you (or your family) have trouble finding or paying for a ride (transportation)? (Household - for ages 0-17 years) Not on file 01/05/2025 Housing Stability Answer Date Recorded Do you currently live in a s helter or have no steady place to sleep at night? No 01/05/2025 Do you think you are at risk of becoming homeless? (Adult - for ages 18 years and over) Not on file 01/05/2025 Does your family worry about paying for your home or becoming homeless? (Household - for ages 0-17 years) Not on file 0 01/05/2025 Are you homeless or worried that you might be in the future? No 01/05/2025 Are you (or your family) zahira eless or worried that you might be in the future? (Household - for ages 0-17 years) Not on file Food Insecurity Answer Date Recorded Do you need food for this week? No 08/28/2023 Are you able to get enough f ood for your family? (Household - for ages 0-17 years) Not on file 08/28/2023 Does your family need food t his week? (Household - for ages 0-17 years) Not on file 08/28/2023 Do you always have enough fo od for your family? (Household - for ages 0-17 years) Not on file 08/28/2023 Food Insecurity Answer Date Recorded Within the past 12 months, y ou worried that your food would run out before you got the money to buy more. Never true 01/05/20 25 Within the past 12 months, t he food you bought just didn't last and you didn't have money to get more. Never true 01/05/2025 Do you need food for this week? No 01/05/2025 Comments No Sex and Gender Information Value Date Recorded Sex Assigned at Female 01/13/2020 9:23 AM EST Legal Sex Female 5:00 AM EST Gender Identity Female 01/13/2020 9:23 AM EST Sexual Orientation Straight 01/13/2020 9: 23 AM EST documented as of this encounter Last Filed Vital Signs Vital Sign Reading Time Taken Comments Blood Pressure 128/72 02/07/2025 9:07 AM EDT Pulse 68 02/07/2025 9:07 AM EDT Temperature 35.4 °C (95.7 °F) 02/07/2025 9:07 AM ED T Respiratory Rate 16 02/07/2025 9:07 AM EDT Oxygen Saturation 94% 02/07/2025 9:07 AM EDT Inhaled Oxygen Concentration - - Weight 87.2 kg (192 lb 3.2 oz) 02/07/2025 9:07 A M EDT Height 170.2 cm (5' 7") 02/07/2025 9:07 AM EDT Body Mass Index 30.1 02/07/2025 9:07 AM EDT documented in this encounter Functional Status * Are you deaf or do you have serious difficulty hearing? Answer Date of Assessment Author No 06/17/2022 8:23 PM EDT Brad Gonsales ma, RN * Are you blind or do you have serious difficulty seeing, even when wearing glasses? Answer Date of Assessment Author No 06/17/2022 8:23 PM EDT Brad Gonsales ma RN * Do you have serious difficulty walking or climbing stairs? (5 years old or older) Answer Date of Assessment Author Yes 06/17/2022 8:23 PM EDT Brad Gonsales ma RN * Do you have difficulty dressing or bathing? (5 years old or older) Answer Date of Assessment Author No 06/17/2022 8:23 PM EDT Brad Gonsales ma, RN * Because of a physical, mental, or emotional condition, do you have difficulty doing errands alone such as visiting a doctor’s office or shopping? (15 years old or older) Answer Date of Assessment Author Yes 06/17/2022 8:23 PM EDT Brad Gonsales ma RN documented as of this encounter Mental Status * Because of a physical, mental, or emotional condition, do you have serious difficulty concentrating, remembering, or making decisions? (5 years old or older) Answer Entry Date Author No 06/17/2022 8:23 PM EDT Brad Gonsales ma RN documented in this encounter Patient Instructions * Patient Instructions* Venus Nolasco PA-C - 02/07/2025 10:11 AM EDT Stay well rested and hydrated. You can use the inhaler as needed for wheezing, shortness of breath. Finish the prednisone as directed. I have messaged your family doctor and they will be contacting you to make a follow up appt. Return to the clinic or go to the ER with any worsening. documented in this encounter Progress Notes * Venus Nolasco PA-C - 02/07/2025 9:32 AM EDT Subjective: Marta Villela is a 74 year old female. Chief Complaint Patient presents with Short of Breath Cough Cough with wheezing HPI: 74 yo female PMH HTN, CKD, MVR on coumadin, ILD presents c/o post nasal drainage, rhinorrhea, cough x 1 week. She states she is now feeling wheezy and slightly SOB at times. No fever, body aches, h/a, cp, abd pain, v/d. No OTC meds PMH: Patient Active Problem List Diagnosis Family history of breast cancer in sister Cataract, right eye Osteoarthritis of hip S/P total hip arthroplasty INFORMATION Status post bilateral knee replacements Mitral valve insufficiency Pulmonary HTN (HCC) Tricuspid valve insufficiency Chronic heart failure with preserved ejection fraction (HCC) PAT (paroxysmal atrial tachycardia) (HCC) Abnormal gait At risk for venous thromboembolism (VTE) S/P MVR (mitral valve replacement) History of cardioversion S/P revision of total knee, right Chronic kidney disease, stage 3a (HCC) Acquired hypothyroidism Hypertensive heart and kidney disease with chronic diastolic congestive heart failure and stage 3a chronic kidney disease (HCC) Drug-induced interstitial lung disorders (HCC) Current Outpatient Medications Medication Sig Dispense Refill Multivitamin Adult Oral Tablet Take 1 Tablet by mouth in the morning. Potassium 99 MG Oral Tablet Take 1 Tablet by mouth in the morning. Metoprolol Succinate ER 25 MG Oral Tablet Extended Release 24 Hour (toPROL XL) TAKE 1 TABLET BY MOUTH EVERY DAY 90 Tablet 3 Furosemide 40 MG Oral Tablet (Lasix) Take 1 Tablet by mouth in the morning. 90 Tablet 3 Warfarin Sodium 2.5 MG Oral Tablet (Coumadin) Take 0.5-1 Tablets by mouth every evening. As directed by Anticoagulation Clinic 90 Tablet 4 Amiodarone HCl 200 MG Oral Tablet (Cordarone) TAKE 1 TABLET BY MOUTH EVERY DAY IN THE MORNING 90 Tablet 1 Levothyroxine Sodium 50 MCG Oral Tablet (Levoxyl) Take 1 Tablet by mouth daily first thing in the morning. 90 Tablet 1 Triamcinolone Acetonide 0.1 % External Ointment (Aristocort) Apply to rash on lower legs twice daily for a week 60 g 0 No current facility-administered medications for this visit. Past Medical History: Diagnosis Date Arthritis COVID-19 12/2021 Past Surgical History: Procedure Laterality Date ARTHROPLASTY KNEE TOTAL Bilateral 01/24/2021 ROBOTIC ARTHROPLASTY KNEE TOTAL performed by Ha Wallace MD at [facility] DELIVERY x 2 COLORECTAL CANCER SCREEN; NOT AT RISK 04/28/08 normal,repeat in 10 yrs CORONARY ANGIOGRAPHY W/RIGHT+LEFT CATH 12/05/2021 CORONARY ANGIOGRAPHY W/RIGHT+LEFT CATH performed by Luke Lynn DO at [facility] DEXA SCAN/BONE MINERAL PERIPH 11/30 +0.9 and -0.6 readings; repeat in 5 years PELVIS/HIP JOINT SURGERY NEC Right 11/02/2015 ANTERIOR ARTHROPLASTY TOTAL HIP performed by Wyatt Mane MD at [facility] REMOVAL OF FIBROID UTERUS TUMOR prior to hyst. REMOVAL OF TONSILS, UNDER AGE 10 age 3 Tonsillectomy REMOVE CATARACT, INSERT LENS PROSTH 03/10/2014 left lens -Dr. Deven Beltran MD at [facility] REMOVE CATARACT, INSERT LENS PROSTH 03/30/2014 right- Dr. Beltran REPLACE MITRAL VALVE W/BYPASS N/A 02/26/2022 REPLACEMENT MITRAL VALVE performed by Jeff Arreola MD at [facility] REVISE KNEE JOINT REPLACEMENT Right 06/17/2022 TOTAL KNEE REVISION FEMUR AND TIBIA performed by Ha Wallace MD at [facility] TOTAL ABD HYSTERECTOMY W/WO REMOVAL OF TUBE(S) 1987 TOTAL HYSTERECTOMY ovaries remain Review of patient's allergies indicates: Allergen Reactions Sulfa Antibiotics Bactrim DS gave a rash Family History Problem Relation Name Age of Onset Mental Disorder Mother age 70's- Alzheimer's No Past Hx Father age 95- assisted living Cancer Sister [place] thyroid cancer- onset age early30's Breast Cancer Sister [place] Cancer Sister breast cancer- age late 30's(same person as above) No Past Hx Brother age 62 No Past Hx Sister age 68 No Past Hx Sister 60 Family Status Relation Status Mo (Not Specified) Fa (Not Specified) Sis (Not Specified) Sis (Not Specified) Bro (Not Specified) Sis (Not Specified) Sis (Not Specified) Social History Socioeconomic History Marital status: Spouse name: Not on file Number of children: Not on file Years of education: Not on file Highest education level: Not on file Occupational History Not on file Tobacco Use Smoking status: Never Passive exposure: Past Smokeless tobacco: Never Vaping Use Vaping status: Never Used Substance and Sexual Activity Alcohol use: Yes Comment: socially Drug use: No Sexual activity: Yes Other Topics Concern Not on file Social History Narrative Jaime Mosqueda. for 13 years. Two daughters. [place] and [place]. No grands yet. Marta has one brother and three sisters. Social Needs Financial Resource Strain: Low Risk (01/05/2025) Financial Resource Strain Do you have any trouble paying for your medications, or do you think you might in the future? (Adult - for ages 18 years and over): No Does your family have trouble paying for medicine? (Household - for ages 0-17 years): Not on file Food Insecurity: No Food Insecurity (01/05/2025) Food Insecurity Worried About Running Out of Food in the Last Year: Never true Ran Out of Food in the Last Year: Never true Do you need food for this week? (Adult - for ages 18 years and over): No Transportation Needs: No Transportation Needs (01/05/2025) Transportation Needs Do you have trouble getting a ride to medical visits or work? (Adult - for ages 18 years and over):Not on file Does your family have a hard time getting a ride to doctors’ visits? (Household - for ages 0-17 years): Not on file Has lack of transportation kept you from medical appointments, meetings, work, or from getting things needed for daily living? Check all that apply. (Adult - for ages 18 years and over): No Do you (or your family) have trouble finding or paying for a ride (transportation)? (Household - for ages 0-17 years): Not on file Social Connections: Socially Integrated (01/05/2025) Social Connections How often do you feel lonely or isolated from those around you? (Adult - for ages 18 years and over): Never Housing Stability: Low Risk (01/05/2025) Housing Stability Do you currently live in a fpc or have no steady place to sleep at night? (Adult - for ages 18 years and over): No Do you think you are at risk of becoming homeless? (Adult - for ages 18 years and over): Not on file Does your family worry about paying for your home or becoming homeless? (Household - for ages 0-17 years): Not on file Are you homeless or worried that you might be in the future? (Adult - for ages 18 years and over): No Are you (or your family) homeless or worried that you might be in the future? (Household - for ages0-17 years): Not on file Review of Systems All other systems reviewed and are negative. Objective: BP 128/72 | Pulse 68 | Temp 35.4 °C (95.7 °F) (Tympanic) | Resp 16 | Ht 1.702 m (5' 7") | Wt 87.2kg (192 lb 3.2 oz) | SpO2 94% | BMI 30.10 kg/m² | BSA 2.03 m² Physical Exam Vitals and nursing note reviewed. Constitutional: General: She is not in acute distress. Appearance: Normal appearance. HENT: Head: Normocephalic and atraumatic. Nose: Congestion present. Mouth/Throat: Mouth: Mucous membranes are moist. Pharynx: Oropharynx is clear. Eyes: Extraocular Movements: Extraocular movements intact. Conjunctiva/sclera: Conjunctivae normal. Pupils: Pupils are equal, round, and reactive to light. Cardiovascular: Rate and Rhythm: Normal rate. Heart sounds: No murmur heard. No friction rub. No gallop. Pulmonary: Effort: Pulmonary effort is normal. Breath sounds: Wheezing present. No decreased breath sounds, rhonchi or rales. Comments: 1-2 scattered wheezes heard, crackles noted throughout Abdominal: General: Abdomen is flat. Bowel sounds are normal. Palpations: Abdomen is soft. There is no hepatomegaly, splenomegaly or mass. Tenderness: There is no abdominal tenderness. Musculoskeletal: Cervical back: Neck supple. Skin: General: Skin is warm and dry. Findings: No rash. Neurological: General: No focal deficit present. Mental Status: She is alert and oriented to person, place, and time. Per last PCP visit, he suspects amiodarone pulmonary toxicity due to pt cough and findings on CXR. It is recommended that amiodarone be stopped and pt treated with prednisone. I am going to send message to PCP, to see if he wants to touch base with cardiology regarding amiodarone/medication management. I am going to give pt some steroids and an inhaler to help with her symptoms currently. ASSESSMENT: Upper respiratory tract infection, unspecified type (Primary) - XR CHEST 2 VIEWS Dyspnea, unspecified type Other orders - predniSONE 20 MG Oral Tablet (Deltasone); Take 2 Tablets by mouth in the morning for 5 days. - Albuterol Sulfate HFA 108 (90 Base) MCG/ACT Inhalation Aerosol Solution; Inhale 2 Puffs by mouth every 4 hours as needed for Shortness of Breath. Refer to pt handout for further instructions. Venus Nolasco PA-C documented in this encounter Nursing Notes * Zee Suarez CMA - 02/07/2025 9:06 AM EDT Marta Villela is a 74 year old female who presents to walk-in clinic today complaining of Chief Complaint Patient presents with Short of Breath Cough Cough with wheezing X 1 week. Denies anything otc. Alone in exam room. documented in this encounter Plan of Treatment Upcoming Encounters Date Type Department Care Team (Late st Contact Info) Description 03/01/2025 11:00 AM EDT Laboratory Laboratory, [place] [address] [place] [address] Demetrius Angelo [address] [place] [id number] 03/02/2025 6:15 AM EDT Anticoagulation [facility], Angelic Campbell [address] [place] [address] [place] [address] [facility] [address] [place] [id number] 06/30/2025 10:30 AM EDT Office Visit Cardiology, [place] [address] [place] [address] Milana Mahajan CRNP [address] [place] [phone] 07/21/2025 12:20 PM EDT Office Visit Family [facility] [address] [place] [phone] Julius Lucas MD [address] [place] [phone] Health Maintenance Due Date Last Done Comments Pneumococcal Vaccine: 50+ Years (1 of 1 - PCV) 1998 Zoster Vaccines (1 of 2) 1998 DTap/Tdap Vaccines (2 - Td or Tdap) 06/28/2020 06/28/2010, 09/17/2000, 11/11/1989 COVID-19 Vaccine ( - season) 2024 Influenza Vaccine (FLU shot) (#1) 2024 08/14/2011 Adult Wellness Visit 01/27/2025 01/28/2024 GFR 02/02/2025 08/05/2024, 02/22, 02/17/2024, Additional history exists Mammogram 06/11/2025 06/11/2024, 09/25, 07/29/2019, Additional history exists Albumin/Creatinine Ratio 08/05/2025 08/05/2024 CKD HGB USE SMARTSET 67707 08/05/202508/05, 02/17/2024, 11/10/2023, Additional history exists CKD PHOS USE SMARTSET 20361 08/05/202507/25, 06/22/2022, 06/21/2022, Additional history exists Depression Screening 01/05/2026 01/05/2025 TSH 01/25/2026 01/25/2025, 05/2025, 08/05/2024, Additional history exists DXA Scan 06/11/2031 06/11/2024, 02/2013, 09/27/2013, Additional history exists Fecal Occult Blood Test Discontinued 07/04/2003, 10/11 Colonoscopy Discontinued 04/28/2008 Cologuard Discontinued 06/21/2023, 05/25, 06/16/2023, Additional history exists Colorectal Cancer Screening Discontinued HPV (Gardasil) Vaccine Aged Out No lo nger eligible based on patient's age to complete this topic Hepatitis B Vaccine Aged Out No longe r eligible based on patient's age to complete this topic MENINGOCOCCAL (MENACTRA/MENVEO) Aged Out No longer eligible based on patient's age to complete this topic Meningitis B Vaccine (Bexsero/Trumemba) Aged Out No longer eligible based on patient's age to complete this topic Sigmoidoscopy Discontinued documented as of this encounter Medical Devices Implanted Type Area Family Day Care Provider Device Identifier Shelf Expiration Date Model / Serial / Lot Shell 54mm - [id number] Implanted:Qty: 1 on 11/02/2015 by Wyatt Mane MD at [facility] Right: Hip [employer] : [employer] 07/03/2020 [id number] 4E / / Trident Acetabular X3 0 36 E - [id number] Implanted:Qty: 1 on 11/02/2015 by Waytt Mane MD at [facility] Right: Hip [employer] : [employer] 08/22/2020 [id number] 6E / / Screw Acetabular 6.5mm Kristina 20m - [id number] Implanted:Qty: 1 on 11/02/2015 by Wyatt Mane MD at [facility] Right: Hip [employer] : [employer] 06/02/2020 2030-652 0-1 / / Screw Acetabular 6.5mm Kristina 25m - [id number] Implanted:Qty: 1 on 11/02/2015 by Wyatt Mane MD at [facility] Right: Hip [employer] : [employer] 08/29/2020 2030-652 5-1 / / Hip Hd Nk Alumina Mod D 36/+5 - [id number] Implanted:Qty: 1 on 11/02/2015 by Wyatt Mane MD at [facility] Right: Hip [employer] : [employer] 07/03/2020 [id number] 36 / / Stem Hip Sz6 - [id number] Implanted:Qty: 1 on 11/02/2015 by Wyatt Mane MD at [place] [facility] Right: Hip ULYSSES : ORTHOPAEDICS 07/08/2020 6721-063 5 / / Triathlon All Poly Tibial Comp - [id number] Implanted:Qty: 1 on 01/24/2021 by Ha Wallace MD at OR [facility] Right: Knee ULYSSES : ORTHOPAEDICS 11/09/2025 5534-A-4 09 / / [id number] Cement Antibiotic Bone - [id number] Implanted:Qty: 1 on 01/24/2021 by Ha Wallace MD at OR [facility] Left: Knee ULYSSES : ORTHOPAEDICS 12/24/2021 6197-9-0 10 / / [id number] Triathlon All Poly Tibial Comp - [id number] Implanted:Qty: 1 on 01/24/2021 by Ha Wallace MD at OR [facility] Left: Knee ULYSSES : ORTHOPAEDICS 10/04/2025 5534-A-4 09 / / [id number] Knee Triathlon Bead No Audi L 5 - [id number] Implanted:Qty: 1 on 01/24/2021 by Ha Wallace MD at OR [facility] Left: Knee ULYSSES : ORTHOPAEDICS 12/12/2025 5517-F-5 01 / / [id number] Cement Antibiotic Bone - [id number] Implanted:Qty: 1 on 01/24/2021 by Ha Wallace MD at OR [facility] Right: Knee ULYSSES : ORTHOPAEDICS 12/24/2021 6197-9-0 10 / / [id number] Component Femoral Rt Size 5 T - [id number] Implanted:Qty: 1 on 01/24/2021 by Ha Wallace MD at OR [facility] Right: Knee ULYSSES : ORTHOPAEDICS 12/30/2024 5510-F-5 02 / / [id number] Triathlon X3 Symmetric Patella Implanted:Qty: 1 on 01/24/2021 by Ha Wallace MD at OR [facility] Right: Knee ULYSSES : ORTHOPAEDICS 01/10/2025 5550-G-3 60-E / / [id number] Cath Thermodilution 6fr - [id number] Implanted:Qty: 1 on 12/05/2021 by Luke Lynn DO at [facility] [employer] MARY [id number] 10/31/2023 096F6P / / [id number] Suture Steel 6 B&S19 M654g - [id number] Implanted:Qty: 7 on 02/26/2022 by Jeff Arreola MD at OR [facility] N/A: Sternum JNJ : [employer] 10/23/2026 M654G / / [id number] Valve Heart Mitral Epic 31mm - [id number] - [id number] Implanted:Qty: 1 on 02/26/2022 by Jeff Arreola MD at OR [facility] N/A: Heart ST ERIN : CARDIOVASCULAR [id number] 04/18/2025 Z227-05R -00 / [id number] / [id number] Cement Antibiotic Bone - [id number] Implanted:Qty: 2 on 06/17/2022 by Ha Wallace MD at OR [facility] Right: Knee ULYSSES : ORTHOPAEDICS 08/23/2023 6197-9-0 10 / / [id number] Tibia Implanted:Qty: 1 on 06/17/2022 by Ha Wallace MD at OR [facility] Right: Knee KYE KNEE 10/07/2030 42-5420- 075-02 / / [id number] Insert Tib Sz 7-9+Cd Rt - [id number] Implanted:Qty: 1 on 06/17/2022 by Ha Wallace MD at OR [facility] Right: Knee [employer] 09/30/2026 42-5228- 005-10 / / [id number] Stem Tib Ext 9q25w122tp - [id number] Implanted:Qty: 1 on 06/17/2022 by Ha Wallace MD at OR [facility] Right: Knee [employer] 09/06/2030 42-5603- 135-12 / / [id number] Stem Extention Implanted:Qty: 1 on 06/17/2022 by Ha Wallace MD at OR [facility] Right: Knee KYE KNEE 03/16/2032 42-5601- 135-15 / / [id number] Femoral Distal Augment Implanted:Qty: 1 on 06/17/2022 by Ha Wallace MD at OR [facility] Right: Knee KYE KNEE 03/26/2032 42-5566- 062-05 / / [id number] Fem Comp Ccr Std Sz 7 - [id number] Implanted:Qty: 1 on 06/17/2022 by Ha Wallace MD at OR [facility] Right: Knee [employer] 01/28/2031 42-5046- 062-02 / / [id number] documented as of this encounter Procedures Procedure Name Priority Date/Time Associated Diagnosis Comments XR CHEST 2 VIEWS STAT 02/07/2025 9:46 AM EDT Upper respiratory tract infection, unspecified type documented in this encounter Results * XR CHEST 2 VIEWS (02/07/2025 9:46 AM EDT) Anatomical Region Laterality Modality Chest Digital Radiogra phy 02/07/2025 9:53 AM EDT Impressions 02/07/2025 9:50 AM EDT IMPRESSION 1. Persistent patchy/nodular bilateral opacities. 2. Small pleural effusions. Narrative 02/07/2025 9:50 AM EDT EXAM XR CHEST 2 VIEWS - 02/07/2025 9:46 am HISTORY "cough x 1 week, feels wheezy/SOB" TECHNIQUE Frontal and lateral views of the chest were obtained. COMPARISON XR CHEST 2 VIEWS, ACC: [id number], dated 2025-01-05 13:35:29; CT CHEST WO CONTRAST, ACC: [id number], dated 2024-09-17 10:49:16 FINDINGS There are patchy/nodular bilateral opacities again demonstrated. Small are pleural effusions. No pneumothorax. Stable cardiomediastinal silhouette. Median sternotomy wires. Procedure Note Wilfrid De La Cruz MD - 02/07/2025 EXAM XR CHEST 2 VIEWS - 02/07/2025 9:46 am HISTORY "cough x 1 week, feels wheezy/SOB" TECHNIQUE Frontal and lateral views of the chest were obtained. COMPARISON XR CHEST 2 VIEWS, ACC: [id number], dated 2025-01-05 13:35:29; CT CHEST WO CONTRAST, ACC: [id number], dated 2024-09-17 10:49:16 FINDINGS There are patchy/nodular bilateral opacities again demonstrated. Smallare pleural effusions. No pneumothorax. Stable cardiomediastinalsilhouette. Median sternotomy wires. IMPRESSION IMPRESSION 1. Persistent patchy/nodular bilateral opacities. 2. Small pleural effusions. Venus Nolasco PA-C RADIOLOGY (RAD GENERAL) Final Result documented in this encounter Visit Diagnoses Diagnosis Upper respiratory tract infection, unspecified type- Primary Dyspnea, unspecified type documented in this encounter Advance Directives * Full Code (Latest Code Status on File) Date Activated Date Inactivated Comments 06/17/2022 5:54 PM 06/22/2022 7:47 PM This order r eflects the patients wishes and were consensually agreed upon. * Full Code Date Activated Date Inactivated Comments 02/26/2022 3:22 PM 03/03/2022 4:58 PM This order re flects the patients wishes and were consensually agreed upon. * Full Code Date Activated Date Inactivated Comments 01/24/2021 3:55 PM 01/26/2021 7:59 PM This order ref lects the patients wishes and were consensually agreed upon. * Full Code Date Activated Date Inactivated Comments 11/02/2015 10:00 AM 11/04/2015 5:10 PM . Question Answer Comments Discussion of Advance Directives occurred with: Not Discussed Care Teams Flame Hardener Relationship Specialty Start Date End Date Julius Lucas MD PCP - General Family Medicine 11/29/16 documented as of this encounter
--- OUTSIDE RECORDS SUMMARY | 2025-03-25 15:18 | External Medical Summary | Summary of Care ---
Author Name Unknown Organization [facility] Address [address] [place] [address] Phone [phone] Care Team Providers Care Stockkeeper Name Role Phone Julius Lucas MD Primary Care Provider Reason for Referral * Precert (Within 10 days (routine)) - Authorized Specialty Diagnoses / Procedures Referred By Contac t Referred To Contact Radiology Diagnoses Encounter for monitoring amiodarone therapy Chronic heart failure with preserved ejection fraction (HCC) PAT (paroxysmal atrial tachycardia) (HCC) Pulmonary HTN (HCC) PURI (dyspnea on exertion) Procedures CT CHEST WO CONTRAST Milana Mahajan CRNP [address] [place] [address] Phone: tel: fax: Referral ID Status Reason Start Date Expiration Date V isits Requested Visits Authorized [id number] Authorized 03/10/2025 999 999 Reason for Visit * Reason Onset Date Comments Advice 02/09/2025 Encounter Details Date Type Department Care Team (Late st Contact Info) Description 02/09/2025 Telephone Cardiology, [facility] [address] [place] [address] Brittany Henning DO [address] [place] [phone] Advice Allergies Active Allergy Reactions Criticality Noted Date Comments Sulfa Antibiotics 08/28/2023 Bactrim DS gave a rash documented as of this encounter (statuses as of 03/10/2025) Medications Triamcinolone Acetonide 0.1 % External Ointment (Aristocort) Apply to rash on lower legs twice daily for a week 60 g 03/10/20 23 Active Multivitamin Adult Oral Tablet Take 1 Tablet by mouth in the morning. Active Potassium 99 MG Oral Tablet Take 1 Tablet by mouth in the morning. Active Furosemide 40 MG Oral Tablet (Lasix)Indication [...] morning. 90 Tablet 1 01/05/20 25 Active Albuterol Sulfate HFA 108 (90 Base) MCG/ACT Inhalation Aerosol Solution Inhale 2 Puffs by mouth every 4 hours as needed for Shortness of Breath. 6.7 g 1 02/08/20 25 Active Hospital, Clinic, or Other Facility Administered Medication Ordered Dose Route Frequency Start Date End Date Status Albuterol Sulfate (Proventil) (2.5 MG/3ML) 0.083% inhalation solution 2.5 mg 2.5 mg NEBULIZER PRN 03/10/2025 03/10/2026 Active albuterol (VENTOLIN HFA/PROVENTIL HFA) inhaler 3 Puff IN PRN 03/10/2025 03/10/2026 Active documented as of this encounter (statuses as of 03/10/2025) Active Problems Problem Noted Date Diagnosed Date [...] as of this encounter (statuses as of 03/10/2025) Resolved Problems Problem Noted Date Diagnosed Date [...] as of this encounter (statuses as of 03/10/2025) Immunizations Name Administration Dates Next Due Season Influenza, Quad, PF, Adjuvanted, 65+ Yrs, IM (FLUAD) 01/26/2021(Deferred: Patient Refused - Dr Carey aware) Seasonal Influenza Vac., MDV , IM, 0.5 mL (Fluzone) 08/14/2011 TDAP, Age 7 and older, IM (Adacel) 06/28/2010 documented as of this encounter Social History Tobacco Use Types Packs/Day Years Used Date Smoking Tobacco: Never Passive Smoke Exposure: Past Smokeless Tobacco: Never Alcohol Use Standard Drinks/Week Comments Yes 0 [...] AM EST documented as of this encounter Functional Status * Are you deaf or do you have serious difficulty hearing? Answer Date of Assessment Author No 06/17/2022 8:23 PM Brad Neri ma, RN * Are you blind or do you have serious difficulty seeing, even when wearing glasses? Answer Date of Assessment Author No 06/17/2022 8:23 PM Brad Neri ma RN * Do you have serious difficulty walking or climbing stairs? (5 years old or older) Answer Date of Assessment Author Yes 06/17/2022 8:23 PM Brad Neri ma RN * Do you have difficulty dressing or bathing? (5 years old or older) Answer Date of Assessment Author No 06/17/2022 8:23 PM Brad Neri ma RN * Because of a physical, mental, or emotional condition, do you have difficulty doing errands alone such as visiting a doctor’s office or shopping? (15 years old or older) Answer Date of Assessment Author Yes 06/17/2022 8:23 PM Brad Neri ma RN documented as of this encounter Mental Status * Because of a physical, mental, or emotional condition, do you have serious difficulty concentrating, remembering, or making decisions? (5 years old or older) Answer Entry Date Author No 06/17/2022 8:23 PM EDT Brad Gonsales ma RN documented in this encounter Miscellaneous Notes * Telephone Encounter - Milana Mahajan CRNP - 03/10/2025 1:14 PM EDT Orders placed. Thanks * Telephone Encounter - Estella John NRCMA - 03/10/2025 11:25 AM EDT Pt called back to state that she does still have the SOB with any activities and cough-dry in morning and late evening. Pt is agreeable to both tests. Please place orders. Lucina Menon * Telephone Encounter - Do Musa OSA - 03/10/2025 11:10 AM EDT Person calling: Marta Relationship to patient: patient Phone/Fax to return call: [phone] Reason for call(brief): return call Pharmacy: n/a Provider Name:Milady Detailed message to office:patient retuning call for nurses. Attempted to transfer to office, Janice stated nurse is not at the desk and requested I let patient know she will call patient back when she is available- relayed message to patient. Anytime before noon patient will be available, she will be out during the afternoon and unsure whenshe will return. Thank you CORINA Matthews * Telephone Encounter - Estella John NRCMA - 03/10/2025 10:54 AM EDT Pt's daughter called back and states that the SOB has improved but still has a dry persistent coughthat family is concerned with. This is unchanged from previous. Daughter thinks pt ahd CT chest at the beginning of the year. She is asking if there can be a different workup, reduce amount of amiodarone or an appt to discuss the cough. Per daughter PCP and urgent care both told pt that symptoms are from Amiodarone. YUE Wilcox * Telephone Encounter - Estella John NRCMA - 03/09/2025 11:35 AM EDT I left a message on patient's answering machine asking patient to call us back. * Telephone Encounter - Milana Mahajan CRNP - 03/09/2025 11:13 AM EDT [facility] office visit note reviewed. Please reach out to see if she is feeling better with the short course of steroids and inhaler. Per documentation on 02/07/25 appears that she may have been having upper respiratory symptoms possibly due to viral illness. If symptoms have improved I have a low suspicion that this is related to amiodarone if she is having persistent symptoms of SOB recommend additional workup with PFTs and a CT chest. Thank You REN Newberry * Telephone Encounter - Milo Baez OSA - 02/09/2025 11:40 AM EDT Person calling: Janee Relationship to patient: Daughter Phone/Fax to return call: [phone] Reason for call(brief): Advice Provider Name: Dr. Henning Detailed message to office: Janee is calling to request that notes from convenient care visit on 02/[address] Henning. Stated they believe pt had a SOB episode due to her Amiodarone andwould like Dr. Henning's opinion. Pt can be reached via Mychart or with a phone call, please advise. documented in this encounter Plan of Treatment Upcoming Encounters Date Type Department Care Team (Late st Contact Info) Description 03/29/2025 11:00 AM EDT Laboratory Laboratory, [place] [address] [place] [phone] [facility] [address] [place] [address] 03/30/2025 6:15 AM EDT Anticoagulation Centralized Clinical Pharmacy Services, Angelic Campbell [address] [place] [address] [place] [address] [facility], [address] [place] [address] 06/30/2025 10:30 AM EDT Office Visit Cardiology, [place] [address] [place] [address] Milana Mahajan CRNP [address] [place] [address] 07/21/2025 12:20 PM EDT Office Visit [facility] [address] [place] [phone] Julius Lucas MD [address] [place] [phone] Scheduled Orders Name Type Priority Associated Diagnoses Order Schedule CT CHEST WO CONTRAST Medical Imaging Routine Encounter for monitoring amiodarone therapy Chronic heart failure with preserved ejection fraction (HCC) PAT (paroxysmal atrial tachycardia) (HCC) Pulmonary HTN (HCC) PURI (dyspnea on exertion) Expected: 03/10/2025, Expires: 04/09/2026 SPIROMETRY B/A BRONCHODILATOR Procedures Routine Encounter for monitoring amiodarone therapy Chronic heart failure with preserved ejection fraction (HCC) PAT (paroxysmal atrial tachycardia) (HCC) Pulmonary HTN (HCC) PURI (dyspnea on exertion) Expected: 03/10/2025, Expires: 04/09/2026 LUNG VOLUMES (PLETHYSMOGRAPHY) Procedures Routine Encounter for monitoring amiodarone therapy Chronic heart failure with preserved ejection fraction (HCC) PAT (paroxysmal atrial tachycardia) (HCC) Pulmonary HTN (HCC) PURI (dyspnea on exertion) Expected: 03/10/2025, Expires: 04/09/2026 DIFFUSION CAPACITY (DLCO) Procedures Routine Encounter for monitoring amiodarone therapy Chronic heart failure with preserved ejection fraction (HCC) PAT (paroxysmal atrial tachycardia) (HCC) Pulmonary HTN (HCC) PURI (dyspnea on exertion) Expected: 03/10/2025, Expires: 04/09/2026 Health Maintenance Due Date Last Done Comments Pneumococcal Vaccine: 50+ Years (1 of 1 - PCV) 1998 Zoster Vaccines (1 of 2) 1998 DTap/Tdap Vaccines (2 - Td or Tdap) 06/28/2020 06/28/2010, 09/17/2000, 11/11/1989 COVID-19 Vaccine ( - season) 2024 Adult Wellness Visit 01/27/2025 01/28/2024 GFR 02/02/2025 08/05/2024, 02/22, 02/17/2024, Additional history exists Mammogram 06/11/2025 06/11/2024, 09/25, 07/29/2019, Additional history exists Influenza Vaccine (FLU shot) (Season Ended) 2025 08/14/2011 Albumin/Creatinine Ratio 08/05/2025 08/05/2024 CKD HGB USE SMARTSET 96994 08/05/202508/05, 02/17/2024, 11/10/2023, Additional history exists CKD PHOS USE SMARTSET 22130 08/05/202507/25, 06/22/2022, 06/21/2022, Additional history exists Depression [...] this encounter Medical Devices Implanted Type Area Zinc Plating Machine Operator Device Identifier Shelf Expiration Date Model / Serial / Lot Shell 54mm - [id number] Implanted:Qty: 1 on 11/02/2015 by Wyatt Mane MD at OR [facility] Right: Hip [employer] : ORTHOPAEDICS 07/03/2020 502-03-5 4E / / Trident Acetabular X3 0 36 E - [id number] Implanted:Qty: 1 on 11/02/2015 by Wyatt Mane MD at OR [facility] Right: Hip [employer] : ORTHOPAEDICS 08/22/2020 623-00-3 6E / / Screw Acetabular 6.5mm Kristina 20m - [id number] Implanted:Qty: 1 on 11/02/2015 by Wyatt Mane MD at OR [facility] Right: Hip [employer]ES : ORTHOPAEDICS 06/02/2020 0-1 / / Screw Acetabular 6.5mm Kristina 25m - [id number] Implanted:Qty: 1 on 11/02/2015 by Wyatt Mane MD at OR [facility] Right: Hip [employer]ES : ORTHOPAEDICS 08/29/2020652 5-1 / / Hip Hd Nk Alumina Mod D 36/+5 - [id number] Implanted:Qty: 1 on 11/02/2015 by Wyatt Mane MD at OR [facility] Right: Hip [employer]ES : ORTHOPAEDICS 07/03/2020 6570-0-2 36 / / Stem Hip Sz6 - [id number] Implanted:Qty: 1 on 11/02/2015 by Wyatt Mane MD at OR [facility] Right: Hip [employer] : ORTHOPAEDICS 07/08/2020 6721-063 5 / / Triathlon All Poly Tibial Comp - [id number] Implanted:Qty: 1 on 01/24/2021 by Ha Wallace MD at OR [facility] Right: Knee [employer] : ORTHOPAEDICS 11/09/2025 5534-A-4 09 / / [id number] Cement Antibiotic Bone - [id number] Implanted:Qty: 1 on 01/24/2021 by Ha Wallace MD at OR [facility] Left: Knee [employer] : ORTHOPAEDICS 12/24/2021 6197-9-0 10 / / [id number] Triathlon All Poly Tibial Comp - [id number] Implanted:Qty: 1 on 01/24/2021 by Ha Wallace MD at OR [facility] Left: Knee [employer] : ORTHOPAEDICS 10/04/2025 5534-A-4 09 / / [id number] Knee Triathlon Bead No Audi L 5 - [id number] Implanted:Qty: 1 on 01/24/2021 by Ha Wallace MD at OR [facility] Left: Knee [employer] : ORTHOPAEDICS 12/12/2025 5517-F-5 01 / / [id number] Cement Antibiotic Bone - [id number] Implanted:Qty: 1 on 01/24/2021 by Ha Wallace MD at OR [facility] Right: Knee [employer] : ORTHOPAEDICS 12/24/2021 6197-9-0 10 / / [id number] Component Femoral Rt Size 5 T - [id number] Implanted:Qty: 1 on 01/24/2021 by Ha Wallace MD at OR [facility] Right: Knee [employer] : ORTHOPAEDICS 12/30/2024 5510-F-5 02 / / [id number] Triathlon X3 Symmetric Patella Implanted:Qty: 1 on 01/24/2021 by Ha Wallace MD at OR [facility] Right: Knee [employer] : ORTHOPAEDICS 01/10/2025 5550-G-3 60-E / / XTTY Cath Thermodilution 6fr - [id number] Implanted:Qty: 1 on 12/05/2021 by Luke Lynn DO at [facility] [employer] [id number] 10/31/2023 096F6P / / [id number] Suture Steel 6 B&S19 M654g - [id number] Implanted:Qty: 7 on 02/26/2022 by Jeff Arreola MD at OR [facility] N/A: Sternum JNJ : [employer] 10/23/2026 M654G / / [id number] Valve Heart Mitral Epic 31mm - [id number] - [id number] Implanted:Qty: 1 on 02/26/2022 by Jeff Arreola MD at OR [facility] N/A: Heart ST ERIN : CARDIOVASCULAR [id number] 04/18/2025 G269-25J -00 / [id number] 3 / [id number] Cement Antibiotic Bone - [id number] Implanted:Qty: 2 on 06/17/2022 by aH Wallace MD at OR [facility] Right: Knee [employer] : ORTHOPAEDICS 08/23/2023 6197-9-0 10 / / [id number] Tibia Implanted:Qty: 1 on 06/17/2022 by Ha Wallace MD at OR [facility] Right: Knee [employer] 10/07/2030 42-5420- 075-02 / / [id number] Insert Tib Sz 7-9+Cd Rt - [id number] Implanted:Qty: 1 on 06/17/2022 by Ha Wallace MD at OR [facility] Right: Knee [employer] 09/30/2026 42-5228- 005-10 / / [id number] Stem Tib Ext 9w67g193sx - [id number] Implanted:Qty: 1 on 06/17/2022 by Ha Wallace MD at OR [facility] Right: Knee [employer] 09/06/2030 42-5603- 135-12 / / [id number] Stem Extention Implanted:Qty: 1 on 06/17/2022 by Ha Wallace MD at OR [facility] Right: Knee [employer]EE 03/16/2032 42-5601- 135-15 / / [id number] Femoral Distal Augment Implanted:Qty: 1 on 06/17/2022 by Ha Wallace MD at OR [facility] Right: Knee [employer] 03/26/2032 42-5566- 062- [id number] Fem Comp [facility] Std 7 - [id number] Implanted:Qty: 1 on 06/17/2022 by Ha Wallace MD at OR [facility] Right: Knee [employer] 01/28/2031 42-5046- 062- [id number] documented as of this encounter Visit Diagnoses Diagnosis Encounter for monitoring amiodarone therapy- Primary Encounter for therapeutic drug monitoring Chronic heart failure with preserved ejection fraction (HCC) PAT (paroxysmal atrial tachycardia) (HCC) Paroxysmal supraventricular tachycardia Pulmonary HTN (HCC) Other chronic pulmonary heart diseases PURI (dyspnea on exertion) Other dyspnea and respiratory abnormality documented in this encounter Advance Directives * [...] Directives occurred with: Not Discussed Care Teams Stockkeeper Relationship Specialty Start Date End Date Julius Lucas MD [address] [place] [address] PCP - General Family Medicine 03/01/25 documented as of this encounter
--- OUTSIDE RECORDS SUMMARY | 2025-03-25 15:18 | External Medical Summary | Summary of Care ---
Author Name Unknown Organization [facility] Address [address] [place] [address] Phone [phone] Care Team Providers Care Supervisor Conditioning Yard Name Role Phone Julius Lucas MD Primary [...] CHEST WO CONTRAST Milana Mahajan CRNP [address] [place] [address] Phone: tel: fax: Referral ID Status Reason Start Date Expiration Date V isits Requested Visits Authorized [id number] Authorized 03/10/2025 999 999 Reason for Visit * Precert (Within 10 days (routine)) - Authorized Specialty Diagnoses / Procedures Referred By Contac t Referred To Contact Radiology Diagnoses Encounter for monitoring amiodarone therapy Chronic heart failure with preserved ejection fraction (HCC) PAT (paroxysmal atrial tachycardia) (HCC) Pulmonary HTN (HCC) PURI (dyspnea on exertion) Procedures CT CHEST WO CONTRAST Milana Mahajan CRNP [address] [place] [address] Phone: tel: fax: Referral ID Status Reason Start Date Expiration Date V isits Requested Visits Authorized [id number] Authorized 03/10/2025 999 999 Encounter Details Date Type Department Care Team (Latest Contact Info) Description 03/11/2025 2:35 PM EDT - 03/11/2025 11:59 PM EDT Hospital Encounter Radiology, [facility] [address] [place] [address] Arrived Discharge Disposition: Home - Self Care Allergies Active Allergy Reactions Criticality Noted Date Comments Sulfa Antibiotics 08/28/2023 Bactrim DS gave a rash documented as of this encounter (statuses as of 03/12/2025) Medications Triamcinolone Acetonide 0.1 % External Ointment [...] Breath. 6.7 g 1 02/08/20 25 Active Metoprolol Succinate ER 25 MG Oral Tablet Extended Release 24 Hour (toPROL XL)Indications:PA T (paroxysmal atrial tachycardia) (HCC) Take 1 Tablet by mouth in the morning. 90 Tablet 3 03/01/20 25 Active Hospital, Clinic, or Other Facility Administered Medication Ordered Dose Route Frequency Start Date End Date Status Albuterol Sulfate (Proventil) (2.5 MG/3ML) 0.083% inhalation solution 2.5 mg 2.5 mg NEBULIZER PRN 03/10/2025 03/10/2026 Active albuterol (VENTOLIN HFA/PROVENTIL HFA) inhaler 3 Puff IN PRN 03/10/2025 03/10/2026 Active documented as of this encounter (statuses as of 03/12/2025) Active Problems Problem Noted Date Diagnosed Date [...] replacements 01/25/20 21 INFORMATION 12/10/2017 Overview (12/10/2017): [facility]iler does not work. Osteoarthritis of hip 11/02/2015 S/P total hip arthroplasty 11/02/2015 Family history of breast cancer in sister 2012 Cataract, right eye 09/01/2013 documented as of this encounter (statuses as of 03/12/2025) Resolved Problems Problem Noted Date Diagnosed Date [...] as of this encounter (statuses as of 03/12/2025) Immunizations Name Administration Dates Next Due Season [...] 01/05/2025 Does the household have a re lar source of income? (Household - for ages [...] Yes 06/17/2022 8:23 PM EDT Brad Gonsales ma, RN * Do you have difficulty dressing [...] Yes 06/17/2022 8:23 PM EDT Brad Gonsales ma, RN documented as of this encounter Mental Status * Because of a physical, mental, or emotional condition, do you have serious difficulty concentrating, remembering, or making decisions? (5 years old or older) Answer Entry Date Author No 06/17/2022 8:23 PM EDT Brad Gonsales ma, RN documented in this encounter Plan of Treatment Upcoming Encounters Date Type Department Care Team (Late st Contact Info) Description 03/29/2025 11:00 AM EDT Laboratory Laboratory, [place] [address] [place] [address] [facility] [address] [place] [address] 03/30/2025 6:15 AM EDT Anticoagulation Centralized Clinical Pharmacy Services, Angelic Shannan [address] [place] [address] [place] [address] [place] [address] 06/30/2025 10:30 AM EDT Office Visit Cardiology, [place] [address] [place] [address] Milana Mahajan CRNP [address] [place] [address] 07/21/2025 12:20 PM EDT Office Visit Family Practice, [place] [address] [place] [address] ShayyJulius hernandez MD [address] [place] [address] Pending Results Name Type Priority Associated Diagnoses Date /Time CT CHEST WO CONTRAST Medical Imaging Routine Encounter for monitoring amiodarone therapy Chronic heart failure with preserved ejection fraction (HCC) PAT (paroxysmal atrial tachycardia) (HCC) Pulmonary HTN (HCC) PURI (dyspnea on exertion) 03/11/2025 2:45 PM EDT Scheduled Orders Name Type Priority Associated Diagnoses Orde r Schedule CT CHEST WO CONTRAST Medical Imaging Routine Encounter for monitoring amiodarone therapy Chronic heart failure with preserved ejection fraction (HCC) PAT (paroxysmal atrial tachycardia) (HCC) Pulmonary HTN (HCC) PURI (dyspnea on exertion) 1 Occurrences starting 03/11/2025 until 03/11/2025 Health Maintenance Due Date Last Done Comments [...] Ratio 08/05/2025 08/05/2024 CKD HGB USE SMARTSET 79376 08/05/202508/05, 02/17/2024, 11/10/2023, Additional history exists CKD PHOS USE SMARTSET 36405 08/05/202507/25, 06/22/2022, 06/21/2022, Additional history exists Depression [...] this encounter Medical Devices Implanted Type Area Hand Ii Blocker Device Identifier Shelf Expiration Date Model / Serial / Lot Shell 54mm - [id number] Implanted:Qty: 1 on 11/02/2015 by Wyatt Mane MD at [place] [facility] [place] Right: Hip ULYSSES : ORTHOPAEDICS 07/03/2020 502-03-5 4E / / Trident Acetabular X3 0 36 E - [id number] Implanted:Qty: 1 on 11/02/2015 by Wyatt Mane MD at [place] [facility] [place] Right: Hip ULYSSES : ORTHOPAEDICS 08/22/2020 623-00-3 6E / / Screw Acetabular 6.5mm Kristina 20m - [id number] Implanted:Qty: 1 on 11/02/2015 by Wyatt Mane MD at [place] [facility] [place] Right: Hip ULYSSES : ORTHOPAEDICS 06/02/2020 0-1 / / Screw Acetabular 6.5mm Kristina 25m - [id number] Implanted:Qty: 1 on 11/02/2015 by Wyatt Mane MD at [place] [facility] [place] Right: Hip ULYSSES : ORTHOPAEDICS 08/29/2020652 5-1 / / Hip Hd Nk Alumina Mod D 36/+5 - [id number] Implanted:Qty: 1 on 11/02/2015 by Wyatt Mane MD at [place] [facility] [place] Right: Hip ULYSSES : ORTHOPAEDICS 07/03/2020 6570-0-2 36 / / Stem Hip Sz6 - [id number] Implanted:Qty: 1 on 11/02/2015 by Wyatt Mane MD at [place] [facility] [place] Right: Hip ULYSSES : ORTHOPAEDICS 07/08/2020 6721-063 5 / / Triathlon All Poly Tibial Comp - [id number] Implanted:Qty: 1 on 01/24/2021 by Ha Wallace MD at [facility] Right: Knee ULYSSES : ORTHOPAEDICS 11/09/2025 5534-A-4 09 / / [id number] Cement Antibiotic Bone - [id number] Implanted:Qty: 1 on 01/24/2021 by Ha Wallace MD at [facility] Left: Knee ULYSSES : ORTHOPAEDICS 12/24/2021 6197-9-0 10 / / [id number] Triathlon All Poly Tibial Comp - [id number] Implanted:Qty: 1 on 01/24/2021 by Ha Wallace MD at [facility] Left: Knee ULYSSES : ORTHOPAEDICS 10/04/2025 5534-A-4 09 / / [id number] Knee Triathlon Bead No Audi L 5 - [id number] Implanted:Qty: 1 on 01/24/2021 by Ha Wallace MD at [facility] Left: Knee [employer]LYSSES : ORTHOPAEDICS 12/12/2025 5517-F-5 01 / / [id number] Cement Antibiotic Bone - [id number] Implanted:Qty: 1 on 01/24/2021 by Ha Wallace MD at [facility] Right: Knee [employer]LYSSES : ORTHOPAEDICS 12/24/2021 6197-9-0 10 / / [id number] Component Femoral Rt Size 5 T - [id number] Implanted:Qty: 1 on 01/24/2021 by Ha Wallace MD at [facility] Right: Knee [employer]ES : ORTHOPAEDICS 12/30/2024 5510-F-5 02 / / [id number] Triathlon X3 Symmetric Patella Implanted:Qty: 1 on 01/24/2021 by Ha Wallace MD at [facility] Right: Knee [employer]SSES : ORTHOPAEDICS 01/10/2025 5550-G-3 60-E / / XTTY Cath Thermodilution 6fr - [id number] Implanted:Qty: 1 on 12/05/2021 by Luke Lynn DO at [facility] [employer] [id number] 10/31/2023 096F6P / / [id number] Suture Steel 6 B&S19 M654g - [id number] Implanted:Qty: 7 on 02/26/2022 by Jeff Arreola MD at [place] [facility] N/A: Sternum JNJ : [employer] 10/23/2026 M654G / / [id number] Valve Heart Mitral Epic 31mm - [id number] - [id number] Implanted:Qty: 1 on 02/26/2022 by Jeff Arreola MD at [place] [facility] [place] N/A: Heart ST ERIN : CARDIOVASCULAR [id number] 04/18/2025 V800-60H -00 / [id number] 3 / [id number] Cement Antibiotic Bone - [id number] Implanted:Qty: 2 on 06/17/2022 by Ha Wallace MD at [place] [facility] [place] Right: Knee ULYSSES : ORTHOPAEDICS 08/23/2023 6197-9-0 10 / / [id number] Tibia Implanted:Qty: 1 on 06/17/2022 by Ha Wallace MD at [place] [facility] [place] Right: Knee KYE KNEE 10/07/2030 42-5420- 075-02 / / [id number] Insert Tib Sz 7-9+Cd Rt - [id number] Implanted:Qty: 1 on 06/17/2022 by Ha Wallace MD at [place] [facility] [facility] Right: Knee [employer] 09/30/2026 42-5228- 005-10 / / [id number] Stem Tib Ext 1v70i398ti - [id number] Implanted:Qty: 1 on 06/17/2022 by Ha Wallace MD at [place] [facility] [place] Right: Knee [employer] 09/06/2030 42-5603- 135-12 / / [id number] Stem Extention Implanted:Qty: 1 on 06/17/2022 by Ha Wallace MD at [place] [facility] Right: Knee KYE KNEE 03/16/2032 42-5601- 135-15 / / [id number] Femoral Distal Augment Implanted:Qty: 1 on 06/17/2022 by Ha Wallace MD at [place] [facility] [place] [facility] Right: Knee KYE KNEE 03/26/2032 42-5566- 062-05 / / [id number] Fem Comp Ccr Std Sz 7 - [id number] Implanted:Qty: 1 on 06/17/2022 by Ha Wallace MD at [place] [facility] Right: Knee [employer] 01/28/2031 42-5046- 062-02 / / [id number] documented as of this encounter Visit Diagnoses Diagnosis Encounter for monitoring amiodarone therapy Encounter for therapeutic drug monitoring Chronic heart [...] Directives occurred with: Not Discussed Care Teams Supervisor Conditioning Yard Relationship Specialty Start Date End Date Julius Lucas MD [address] [place] [address] PCP - General Family Medicine 03/01/25 documented as of this encounter
--- OUTSIDE RECORDS SUMMARY | 2025-03-25 15:18 | External Medical Summary | Summary of Care ---
Author Name Unknown Organization [facility] Address [address] [place] [address] Phone [phone] Care Team Providers Care Chief Accountant Name Role Phone Julius Lucas MD Primary Care Provider Reason for Visit * Reason Onset Date Comments Protime Testing 02/22/2025 Encounter Details Date Type Department Care Team ([facility] st Contact Info) Description 02/22/2025 Telephone Centralized Clinical Pharmacy Services, Angelic Campbell [address] [place] [address] [place] [address] Carin Byrnes, [facility] [address] [place] [address] Protime Testing (/) Allergies Active Allergy Reactions Criticality Noted Date Comments Sulfa Antibiotics 08/28/2023 Bactrim DS gave a rash documented as of this encounter (statuses as of 02/23/2025) Medications Triamcinolone Acetonide 0.1 % External Ointment [...] BY MOUTH EVERY DAY 90 Tablet 3 02/17/20 24 Active Furosemide 40 MG Oral Tablet [...] as of this encounter (statuses as of 02/23/2025) Active Problems Problem Noted Date Diagnosed Date [...] replacements 01/25/20 21 INFORMATION 12/10/2017 Overview (12/10/2017): [facility] not work. Osteoarthritis of hip 11/02/2015 S/P total hip arthroplasty 11/02/2015 Family history of breast cancer in sister 2012 Cataract, right eye 09/01/2013 documented as of this encounter (statuses as of 02/23/2025) Resolved Problems Problem Noted Date Diagnosed Date [...] as of this encounter (statuses as of 02/23/2025) Immunizations Name Administration Dates Next Due Season [...] Gonsales ma, RN * Do you have serious difficulty [...] Author No 06/17/2022 8:23 PM EDT Brad Gonasles ma, RN documented in this encounter Miscellaneous Notes * Telephone Encounter - Carin Byrnes RPh - 02/22/2025 4:14 PM EDT PT/INR order signed Carin Byrnes Rph, Pharm.D. Clinical Pharmacist Centralized Clinical Pharmacy Services ([facility]) [phone] 02/22/2025,4:15 PM documented in this encounter Plan of Treatment Upcoming Encounters Date Type Department Care Team (Late st Contact Info) Description 03/01/2025 11:00 AM EDT Laboratory Laboratory, [place] [address] [place] [address] Demetrius Angelo [address] [place] [address] 03/02/2025 6:15 AM EDT Anticoagulation Centralized Clinical Pharmacy Services, Angelic Campbell [address] [place] [address] [place] [address] [facility] [address] [place] [address] 06/30/2025 10:30 AM EDT [facility] [place] [facility] [address] Milana Mahajan CRNP [address] [facility] [place], [place] [phone] 07/21/2025 12:20 PM EDT Office Visit 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 Other, Please specify in Comments field for 26 Occurrences starting 02/22/2025 until 02/22/2026 Health Maintenance Due Date Last Done Comments [...] Ratio 08/05/2025 08/05/2024 CKD HGB USE SMARTSET 07093 08/05/202508/05, 02/17/2024, 11/10/2023, Additional history exists CKD PHOS USE SMARTSET 32253 08/05/202507/25, 06/22/2022, 06/21/2022, Additional history exists Depression [...] this encounter Medical Devices Implanted Type Area Executive Staff Assistant Device Identifier Shelf Expiration Date Model / Serial / Lot Shell 54mm - [id number] Implanted:Qty: 1 on 11/02/2015 [place] [facility] [place] Hip ULYSSES : ORTHOPAEDICS 07/03/2020 502-03-5 4E / / Trident Acetabular X3 0 36 E - [id number] Implanted:Qty: 1 on 11/02/2015 by Wyatt Mane [place] [facility] [place]: Hip ULYSSES : ORTHOPAEDICS 08/22/2020 623-00-3 6E / / Screw Acetabular 6.5mm Kristina 20m - [id number] Implanted:Qty: 1 on 11/02/2015 by Wyatt Mane MD [place] [facility] [place]: Hip ULYSSES : ORTHOPAEDICS 06/02/20202029-652 0-1 / / Screw Acetabular 6.5mm Kristina 25m - [id number] Implanted:Qty: 1 on 11/02/2015 by Wyatt Mane [place] [facility] [place]: Hip ULYSSES : ORTHOPAEDICS 08/29/20202029-652 5-1 / / Hip Hd Nk Alumina Mod D 36/+5 - [id number] Implanted:Qty: 1 on 11/02/2015 by Wyatt Mane MD [place] [facility] [place]: Hip ULYSSES : ORTHOPAEDICS 07/03/2020 6570-0-2 36 / / Stem Hip Sz6 - [id number] Implanted:Qty: 1 on 11/02/2015 by Wyatt Mane MD [place] [facility] [place]: Hip ULYSSES : ORTHOPAEDICS 07/08/2020 6721-063 5 / / Triathlon All Poly Tibial Comp - [id number] Implanted:Qty: 1 on 01/24/2021 by Ha Wallace MD at [facility] Right: Knee ULYSSES : ORTHOPAEDICS 11/09/2025 5534-A-4 09 / / [id number] Cement Antibiotic Bone - [id number] Implanted:Qty: 1 on 01/24/2021 by Ha Wallace MD at OR [facility] Left: Knee ULYSSES : ORTHOPAEDICS 12/24/2021 6197-9-0 10 / / [id number] Triathlon All Poly Tibial Comp - [id number] Implanted:Qty: 1 on 01/24/2021 by Ha Wallace MD at [facility] Left: Knee ULYSSES : ORTHOPAEDICS 10/04/2025 5534-A-4 09 / / [id number] Knee Triathlon Bead No Audi L 5 - [id number] Implanted:Qty: 1 on 01/24/2021 by Ha Wlalace MD at [facility] Left: Knee ULYSSES : ORTHOPAEDICS 12/12/2025 5517-F-5 01 / / [id number] Cement Antibiotic Bone - [id number] Implanted:Qty: 1 on 01/24/2021 by Ha Wallace MD at [facility] Right: Knee ULYSSES : ORTHOPAEDICS 12/24/2021 6197-9-0 10 / / [id number] Component Femoral Rt Size 5 T - [id number] Implanted:Qty: 1 on 01/24/2021 by Ha Wallace MD at [facility] Right: Knee ULYSSES : ORTHOPAEDICS 12/30/2024 5510-F-5 02 / / [id number] Triathlon X3 Symmetric Patella Implanted:Qty: 1 on 01/24/2021 by Ha Wallace MD at [facility] Right: Knee ULYSSES : ORTHOPAEDICS 01/10/2025 5550-G-3 60-E / / XTTY Cath Thermodilution 6fr - [id number] Implanted:Qty: 1 on 12/05/2021 by Luke Lynn DO [place] [facility] [employer] AMRY [id number] 10/31/2023 096F6P / / [id number] Suture Steel 6 B&S19 M654g - [id number] Implanted:Qty: 7 on 02/26/2022 by Jeff Arreola MD [place] [facility] N/A: Sternum JNJ : [employer] 10/23/2026 M654G / / RPBCTE Valve Heart Mitral Epic 31mm - [id number] - [id number] Implanted:Qty: 1 on 02/26/2022 by Jeff Arreola MD at [place] [facility] N/A: Heart ST ERIN : CARDIOVASCULAR [id number] 04/18/2025 U154-30L -00 / [id number] 3 / [id number] Cement Antibiotic Bone - [id number] Implanted:Qty: 2 on 06/17/2022 by Ha Wallace MD at [place] [facility] Right: Knee ULYSSES : ORTHOPAEDICS 08/23/2023 6197-9-0 10 / / [id number] Tibia Implanted:Qty: 1 on 06/17/2022 by Ha Wallace MD [place] [facility] Right: Knee KYE K[employer] 10/07/2030 42-5420- 075-02 / / [id number] Insert Tib Sz 7-9+Cd Rt - [id number] Implanted:Qty: 1 on 06/17/2022 by Ha Wallace MD [place] [facility] Right: Knee [employer] 09/30/2026 42-5228- 005-10 / / [id number] Stem Tib Ext 5c52c084qd - [id number] Implanted:Qty: 1 on 06/17/2022 by Ha Wallace MD [place] [facility] Right: Knee [employer] 09/06/2030 42-5603- 135-12 / / [id number] Stem Extention Implanted:Qty: 1 on 06/17/2022 by Ha Wallace MD at [place] [facility] Right: Knee [employer]YE K[employer] 03/16/2032 42-5601- 135-15 / / [id number] Femoral Distal Augment Implanted:Qty: 1 on 06/17/2022 by Ha Wallace MD at [place] [facility] Right: Knee [employer]EE 03/26/2032 42-5566- 062- / / [id number] Fem Comp Ccr Std Sz 7 - [id number] Implanted:Qty: 1 on 06/17/2022 by Ha Wallace MD [place] [facility] Right: Knee [employer] 01/28/2031 42-5046- 062-02 / / [id number] documented as of this encounter 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
--- OUTSIDE RECORDS SUMMARY | 2025-03-25 15:18 | External Medical Summary | Summary of Care ---
Author Name Unknown Organization [facility] Address [address] [place] [address] Phone [phone] Care Team Providers Care District Claims Manager Name Role Phone Julius Lucas MD Primary Care Provider Reason for Visit * Reason Onset Date Comments Fax Refill 03/01/2025 Encounter Details Date Type Department Care Team (Late st Contact Info) Description 03/01/2025 Refill Cardiology, [facility] [address] [place] [phone] Natali Sloan PA-C [address] [facility] [place] [id number] PAT (paroxysmal atrial tachycardia) ([facility]) Allergies Active Allergy Reactions Criticality Noted Date Comments Sulfa Antibiotics 08/28/2023 Bactrim DS gave a rash documented as of this encounter (statuses as of 03/01/2025) Medications Triamcinolone Acetonide 0.1 % External Ointment [...] morning. 90 Tablet 3 03/01/20 25 Active Metoprolol Succinate ER 25 MG Oral Tablet Extended Release 24 Hour (toPROL XL)Indications:PA T (paroxysmal atrial tachycardia) (HCC) TAKE 1 TABLET BY MOUTH EVERY DAY 90 Tablet 3 02/17/20 24 2024 Disconti nued(Ref ill) documented as of this encounter (statuses as of 03/01/2025) Active Problems Problem Noted Date Diagnosed Date [...] replacements 01/25/20 21 INFORMATION 12/10/2017 Overview (12/10/2017): Jonahisinger does not work. Osteoarthritis of hip 11/02/2015 S/P total hip arthroplasty 11/02/2015 Family history of breast cancer in sister 2012 Cataract, right eye 09/01/2013 documented as of this encounter (statuses as of 03/01/2025) Resolved Problems Problem Noted Date Diagnosed Date [...] as of this encounter (statuses as of 03/01/2025) Immunizations Name Administration Dates Next Due Season [...] encounter Miscellaneous Notes * Telephone Encounter - Natali Sloan PA-C - 03/01/2025 1:22 PM EDT Signed Prescriptions: Disp Refills Metoprolol Succinate ER 25 MG Oral Tablet *90 Tab*3 Sig: Take 1 Tablet by mouth in the morning. Authorizing Provider: NATALI SLOAN * Telephone Encounter - Jessica Tellez CMA - 03/01/2025 12:57 PM EDT Did you pend patient's preferred pharmacy and medication before forwarding?yes Pharmacy: [facility] [address] [facility] Pending Prescriptions: Disp Refills Metoprolol Succinate ER 25 MG Oral Tablet*90 Tab*3 Sig: Take 1 Tablet by mouth in the morning. Last Visit: 06/17/2024 Next Visit: 06/30/2025 If no future appointments scheduled, and last appointment is greater than a year ago, please schedule patient for a follow-up appointment Last date the medication was ordered: 02/17/2024 Is this request for a controlled substance?No Urine Drug Screen:No results found for this or any previous visit. Patient Phone Numbers Labs: Lab Results Component Value Date/Time CREAT 1.1 (H) 08/05/2024 11:54 AM CREAT 0.8 12/06/2020 01:43 PM POTASSIUM 4.0 08/05/2024 11:54 AM POTASSIUM 3.7 02/26/2022 03:30 PM POTASSIUM 4.3 12/06/2020 01:43 PM TSH 3.10 01/25/2025 11:06 AM TSH 2.43 01/16/2017 08:04 AM LDL 150 (H) 11/11/2022 04:25 PM LDL 116 01/16/2017 08:04 AM ALT 19 08/05/2024 11:54 AM ALT 26 04/22/2008 07:54 AM HGBA1C 5.9 (H) 06/05/2022 11:56 AM HGBA1C 5.8 (H) 12/06/2020 01:43 PM documented in this encounter Plan of Treatment Upcoming Encounters Date Type Department Care Team (Late st Contact Info) Description 03/02/2025 6:15 AM EDT Anticoagulation Centralized Clinical Pharmacy Services, Angelic Campbell [address] [place] [address] [place] [address] [facility], [facility] [address] [place] [address] 06/30/2025 10:30 AM EDT Office Visit Cardiology, [place] [address] [place] [address] Milana Mahajan CRNP [address] [place] [address] 07/21/2025 12:20 PM EDT Office Visit Family Practice, [place] [address] [place] [phone] Julius Lucas MD [address] [place] [address] Health Maintenance Due Date Last Done Comments [...] Ratio 08/05/2025 08/05/2024 CKD HGB USE SMARTSET 51741 08/05/202508/05, 02/17/2024, 11/10/2023, Additional history exists CKD PHOS USE SMARTSET 43104 08/05/202507/25, 06/22/2022, 06/21/2022, Additional history exists Depression [...] this encounter Medical Devices Implanted Type Area Flux Plant Operator Device Identifier Shelf Expiration Date Model / Serial / Lot Shell 54mm - [id number] Implanted:Qty: 1 on 11/02/2015 by Wyatt Mane MD at [place] [facility] Right: Hip ULYSSES : ORTHOPAEDICS 07/03/2020 502-03-5 4E / / Trident Acetabular X3 0 36 E - [id number] Implanted:Qty: 1 on 11/02/2015 by Wyatt Mane MD at [place] [facility] Right: Hip [employer]SSES : ORTHOPAEDICS 08/22/2020 623-00-3 6E / / Screw Acetabular 6.5mm Kristina 20m - [id number] Implanted:Qty: 1 on 11/02/2015 by Wyatt Mane MD at [place] [facility] Right: Hip [employer]ES : ORTHOPAEDICS 06/02/2020 0-1 / / Screw Acetabular 6.5mm Kristina 25m - [id number] Implanted:Qty: 1 on 11/02/2015 by Wyatt Mane MD at [place] [facility] [place] Right: Hip [employer]SSES : ORTHOPAEDICS 08/29/20202 5-1 / / Hip Hd Nk Alumina Mod D 36/+5 - [id number] Implanted:Qty: 1 on 11/02/2015 by Wyatt Mane MD at [place] [facility] [place] Right: Hip [employer]ES : ORTHOPAEDICS 07/03/2020 6570-0-2 36 / / Stem Hip Sz6 - [id number] Implanted:Qty: 1 on 11/02/2015 by Wyatt Mane MD at [place] [facility] [place] Right: Hip [employer]ES : ORTHOPAEDICS 07/08/2020 6721-063 5 / / Triathlon All Poly Tibial Comp - [id number] Implanted:Qty: 1 on 01/24/2021 by Ha Wallace MD at [facility] Right: Knee [employer]ES : ORTHOPAEDICS 11/09/2025 5534-A-4 09 / / [id number] Cement Antibiotic Bone - [id number] Implanted:Qty: 1 on 01/24/2021 by Ha Wallace MD at [facility] Left: Knee [employer]ES : ORTHOPAEDICS 12/24/2021 6197-9-0 10 / / [id number] Triathlon All Poly Tibial Comp - [id number] Implanted:Qty: 1 on 01/24/2021 by Ha Wallace MD at [facility] Left: Knee [employer]ES : ORTHOPAEDICS 10/04/2025 5534-A-4 09 / / [id number] Knee Triathlon Bead No Audi L 5 - [id number] Implanted:Qty: 1 on 01/24/2021 by Ha Wallace MD at [facility] Left: Knee [employer]ES : ORTHOPAEDICS 12/12/2025 5517-F-5 01 / / [id number] Cement Antibiotic Bone - [id number] Implanted:Qty: 1 on 01/24/2021 by Ha Wallace MD at [facility] Right: Knee [employer]ES : ORTHOPAEDICS 12/24/2021 6197-9-0 10 / / [id number] Component Femoral Rt Size 5 T - [id number] Implanted:Qty: 1 on 01/24/2021 by Ha Wallace MD at [facility] Right: Knee [employer] : ORTHOPAEDICS 12/30/2024 5510-F-5 02 / / [id number] Triathlon X3 Symmetric Patella Implanted:Qty: 1 on 01/24/2021 by Ha Wallace MD at [facility] Right: Knee [employer] : ORTHOPAEDICS 01/10/2025 5550-G-3 60-E / / XTTY Cath Thermodilution 6fr - [id number] Implanted:Qty: 1 on 12/05/2021 by Luke Lynn DO at [facility] [employer] [id number] 10/31/2023 096F6P / / [id number] Suture Steel 6 B&S19 M654g - [id number] Implanted:Qty: 7 on 02/26/2022 by Jeff Arreola MD at [place] [facility] N/A: Sternum JNJ : [employer] 10/23/2026 M654G / / RPBCTE Valve Heart Mitral Epic 31mm - [id number] - [id number] Implanted:Qty: 1 on 02/26/2022 by Jeff Arreola MD at [place] [facility] N/A: Heart ST ERIN : CARDIOVASCULAR [id number] 04/18/2025 J968-03A -00 / [id number] 3 / [id number] Cement Antibiotic Bone - [id number] Implanted:Qty: 2 on 06/17/2022 by Ha Wallace MD at [place] [facility] [place] Right: Knee [employer]ES : ORTHOPAEDICS 08/23/2023 6197-9-0 10 / / [id number] Tibia Implanted:Qty: 1 on 06/17/2022 by Ha Wallace MD at [place] [facility] Right: Knee [employer] 10/07/2030 42-5420- 075-02 / / [id number] Insert Tib Sz 7-9+Cd Rt - [id number] Implanted:Qty: 1 on 06/17/2022 by Ha Wallace MD at [place] [facility] Right: Knee [employer] 09/30/2026 42-5228- 005-10 / / [id number] Stem Tib Ext 8p02m909wb - [id number] Implanted:Qty: 1 on 06/17/2022 by Ha Wallace MD at [place] [facility] Right: Knee [employer] 09/06/2030 42-5603- 135-12 / / [id number] Stem Extention Implanted:Qty: 1 on 06/17/2022 by Ha Wallace MD at [place] [facility] Right: Knee [employer] 03/16/2032 42-5601- 135-15 / / [id number] Femoral Distal Augment Implanted:Qty: 1 on 06/17/2022 by Ha Wallace MD at [place] [facility] Right: Knee [employer] 03/26/2032 42-5566- 062-05 / / [id number] Fem Comp Ccr Std Sz 7 - [id number] Implanted:Qty: 1 on 06/17/2022 by Ha Wallace MD at [place] [facility] Right: Knee [employer] 01/28/2031 42-5046- 062-02 / / [id number] documented as of this encounter Visit Diagnoses Diagnosis PAT (paroxysmal atrial tachycardia) (HCC) Paroxysmal supraventricular tachycardia documented in this encounter Advance Directives * [...] Directives occurred with: Not Discussed Care Teams District Claims Manager Relationship Specialty Start Date End Date Julius Lucas MD [address] [place] [address] PCP - General Family Medicine 03/01/25 documented as of this encounter
--- OUTSIDE RECORDS SUMMARY | 2025-03-25 15:18 | External Medical Summary | Summary of Care ---
Author Name Unknown Organization [facility] Address [address] [place] [address] Phone [phone] Care Team Providers Care Fruit Dumper Name Role Phone Julius Lucas MD Primary Care Provider Reason for Visit * Reason Comments Outpatient Testing Encounter Details Date Type Department Care Team (Late st Contact Info) Description 03/01/2025 11:00 AM EDT Laboratory Laboratory, [place] [address] [place] [phone] [place], Lab [address] [place] [address] detention current use of anticoagulant therapy Allergies Active Allergy Reactions Criticality Noted Date [...] Anticoagulation Centralized Clinical Pharmacy Services, Angelic Campbell [address] [place] [address] [place] [address] [place] [address] 06/30/2025 10:30 AM EDT Office Visit Cardiology, [place] [address] [place] [address] Milana Mahajan CRNP [address] [place] [address] 07/21/2025 12:20 PM EDT Office Visit [facility] [address] [place] [address] Julius Lucas MD [address] [place] [address] Pending Results Name Type Priority Associated Diagnoses Date /Time PT INR Lab Routine detention current use of anticoagulant therapy 03/01/2025 10:44 AM EDT Health Maintenance Due Date Last Done Comments [...] Ratio 08/05/2025 08/05/2024 CKD HGB USE SMARTSET 92365 08/05/202508/05, 02/17/2024, 11/10/2023, Additional history exists CKD PHOS USE SMARTSET 27311 08/05/202507/25, 06/22/2022, 06/21/2022, Additional history exists Depression [...] this encounter Medical Devices Implanted Type Area Noodle Press Operator Device Identifier Shelf Expiration Date Model / Serial / Lot Shell 54mm - [id number] Implanted:Qty: 1 on 11/02/2015 by Wyatt Mane MD at [facility] [place] Right: Hip [employer] : ORTHOPAEDICS 07/03/2020 502-03-5 4E / / Trident Acetabular X3 0 36 E - [id number] Implanted:Qty: 1 on 11/02/2015 by Wyatt Mane MD at [facility] Right: Hip [employer]ES : ORTHOPAEDICS 08/22/2020 623-00-3 6E / / Screw Acetabular 6.5mm Kristina 20m - [id number] Implanted:Qty: 1 on 11/02/2015 by Wyatt Mane MD at [facility] Right: Hip [employer] : ORTHOPAEDICS 06/02/2020652 0-1 / / Screw Acetabular 6.5mm Kristina 25m - [id number] Implanted:Qty: 1 on 11/02/2015 by Wyatt Mane MD at [facility] Right: Hip [employer] : ORTHOPAEDICS 08/29/2020652 5-1 / / Hip Hd Nk Alumina Mod D 36/+5 - [id number] Implanted:Qty: 1 on 11/02/2015 by Wyatt Mane MD at [place] [facility] Right: Hip [employer] : ORTHOPAEDICS 07/03/2020 6570-0-2 36 / / Stem Hip Sz6 - [id number] Implanted:Qty: 1 on 11/02/2015 by Wyatt Mane MD at [facility] Right: Hip [employer] : ORTHOPAEDICS 07/08/2020 6721-063 5 / / Triathlon All Poly Tibial Comp - [id number] Implanted:Qty: 1 on 01/24/2021 by Ha Wallace MD at OR [facility] Right: Knee [employer] : ORTHOPAEDICS 11/09/2025 5534-A-4 09 / / [id number] Cement Antibiotic Bone - [id number] Implanted:Qty: 1 on 01/24/2021 by Ha Wallace MD at OR [facility] Left: Knee [employer] : ORTHOPAEDICS 12/24/2021 6197-9-0 10 / / [id number] Triathlon All Poly Tibial Comp - [id number] Implanted:Qty: 1 on 01/24/2021 by Ha Wallace MD at [facility] Left: Knee [employer] : ORTHOPAEDICS 10/04/2025 5534-A-4 09 / / [id number] Knee Triathlon Bead No Audi L 5 - [id number] Implanted:Qty: 1 on 01/24/2021 by Ha Wallace MD at [facility] Left: Knee [employer] : ORTHOPAEDICS 12/12/2025 5517-F-5 01 / / [id number] Cement Antibiotic Bone - [id number] Implanted:Qty: 1 on 01/24/2021 by Ha Wallace MD at OR [facility] Right: Knee [employer] : ORTHOPAEDICS 12/24/2021 6197-9-0 10 / / [id number] Component Femoral Rt Size 5 T - [id number] Implanted:Qty: 1 on 01/24/2021 by Ha Wallace MD at OR [facility] Right: Knee [employer] : ORTHOPAEDICS 12/30/2024 5510-F-5 02 / / [id number] Triathlon X3 Symmetric Patella Implanted:Qty: 1 on 01/24/2021 by Ha Wallace MD at OR [facility] Right: Knee [employer] : ORTHOPAEDICS 01/10/2025 5550-G-3 60-E / / XTTY Cath Thermodilution 6fr - [id number] Implanted:Qty: 1 on 12/05/2021 by Luke Lynn DO at [facility] [employer] [id number] 10/31/2023 096F6P / / [id number] Suture Steel 6 B&S19 M654g - [id number] Implanted:Qty: 7 on 02/26/2022 by Jeff Arreola MD at [facility] N/A: Sternum JNJ : [employer] 10/23/2026 M654G / / RPBCTE Valve Heart Mitral Epic 31mm - [id number] - [id number] Implanted:Qty: 1 on 02/26/2022 by Jeff Arreola MD at [facility] N/A: Heart ST ERIN : CARDIOVASCULAR [id number] 04/18/2025 D209-48E -00 / [id number] 3 / [id number] Cement Antibiotic Bone - [id number] Implanted:Qty: 2 on 06/17/2022 by Ha Wallace MD at [facility] Right: Knee [employer] : ORTHOPAEDICS 08/23/2023 6197-9-0 10 / / [id number] Tibia Implanted:Qty: 1 on 06/17/2022 by Ha Wallace MD at [facility] Right: Knee [employer] 10/07/2030 42-5420- 075-02 / / [id number] Insert Tib Sz 7-9+Cd Rt - [id number] Implanted:Qty: 1 on 06/17/2022 by Ha Wallace MD at [facility] Right: Knee [employer] 09/30/2026 42-5228- 005-10 / / [id number] Stem Tib Ext 2l04t063tk - [id number] Implanted:Qty: 1 on 06/17/2022 by Ha Wallace MD at [facility] Right: Knee [employer] 09/06/2030 42-5603- 135-12 / / [id number] Stem Extention Implanted:Qty: 1 on 06/17/2022 by Ha Wallace MD at [facility] Right: Knee [employer] 03/16/2032 42-5601- 135-15 / / [id number] Femoral Distal Augment Implanted:Qty: 1 on 06/17/2022 by Ha Wallace MD at [facility] Right: Knee [employer] 03/26/2032 42-5566- 062- / [id number] Fem Comp Ccr Std Sz 7 - [id number] Implanted:Qty: 1 on 06/17/2022 by Ha Wallace MD at [facility] Right: Knee [employer] 01/28/2031 42-5046- 062- / [id number] documented as of this encounter Visit Diagnoses Diagnosis joint terminal attack controller current use of anticoagulant therapy documented in this encounter Advance Directives * [...] Directives occurred with: Not Discussed Care Teams Fruit Dumper Relationship Specialty Start Date End Date Julius Lucas MD [address] [place] [phone] PCP - General Family Medicine 03/01/25 documented as of this encounter
--- OUTSIDE RECORDS SUMMARY | 2025-03-25 15:18 | External Medical Summary | Summary of Care ---
Author Name Unknown Organization [facility] Address [address] [place] [address] Phone [phone] Care Team Providers Care Bioprocessing Manufacturing Technician Name Role Phone Julius Lucas MD Primary Care Provider Reason for Visit * Reason Comments Dosage Adjustment Via Phone (anticoag Cl inic) Encounter Details Date Type Department Care Team ([facility] st Contact Info) Description 03/02/2025 6:15 AM EDT Anticoagulation Centralized Clinical Pharmacy Services, Angelic Campbell [address] [place] [address] [place] [address] [place] [address] S/P MVR (mitral valve replacement)*; S/P revision of total knee, right Allergies Active Allergy Reactions Criticality Noted Date Comments Sulfa Antibiotics 08/28/2023 Bactrim DS gave a rash documented as of this encounter (statuses as of 03/02/2025) Medications Triamcinolone Acetonide 0.1 % External Ointment [...] morning. 90 Tablet 3 03/01/20 25 Active documented as of this encounter (statuses as of 03/02/2025) Active Problems Problem Noted Date Diagnosed Date [...] as of this encounter (statuses as of 03/02/2025) Resolved Problems Problem Noted Date Diagnosed Date [...] as of this encounter (statuses as of 03/02/2025) Immunizations Name Administration Dates Next Due Season [...] Gonsales ma RN documented in this encounter Progress Notes * Miri Francisco RPh - 03/02/2025 1:51 PM EDT Contacts Contact Date/Time Type Contact Phone/Fax 03/02/2025 04:15 AM EDT Email SMS () [phone] Patient not accepting updates 03/02/2025 01:48 PM EDT Phone (Outgoing) Marta Villela (Self) [phone] (M) Left Message Subjective Advised patient to contact Anticoagulation Clinic if any unusual bruising or bleeding, recent illness, changes in medication, or questions/concerns. PT/INR results, Coumadin dose instructions, and next PT/INR date communicated as noted by Pharmacist: Yes Miri Francisco RPh 03/02/2025, 1:51 PM * Carin Byrnes RPh - 03/02/2025 8:12 AM EDT Coumadin Clinic (region specific) Objective Current Warfarin Dose As of 03/02/2025 Warfarin maintenance plan: 1.25 mg (2.5 mg x 0.5) every Mon, Fri; 2.5 mg (2.5 mg x 1) all other days INR Result As of 03/02/2025 INR goal: 2.0-3.0 INR used for dosin.0 (03/01/2025) Assessment & Plan Warfarin Plan As of 03/02/2025 Full warfarin instructions: 1.25 mg every Mon, Fri; 2.5 mg all other days No change documented: Carin yBrnes serena Next INR check: 03/29/2025 Repeat PT/INR in 4 week(s) Weekly dose: not changed Additional Dosing Information: Description [facility] to contact patient with dose instructions as noted. Carin Byrnes RPh 03/02/2025, 8:12 AM documented in this encounter Plan of Treatment Upcoming Encounters Date Type Department Care Team (Late st Contact Info) Description 03/29/2025 11:00 AM EDT Laboratory Laboratory, [place] [address] [place] [address] [facility] [address] [place] [address] 03/30/2025 6:15 AM EDT Anticoagulation Centralized Clinical Pharmacy Services, Angelic Campbell [address] [place] [address] [place] [address] [place] [address] 06/30/2025 10:30 AM EDT Office Visit Cardiology, [address] [place] [address] Milana Mahajan CRNP [address] [place] [address] 07/21/2025 12:20 PM EDT Office Visit [facility] [address] [place] [address] Julius Lucas MD [address] [place] [address] Health Maintenance Due Date Last Done Comments Pneumococcal Vaccine: 50+ Years (1 of 1 - PCV) 1998 Zoster Vaccines (1 of 2) 1998 DTap/Tdap Vaccines (2 - Td or Tdap) 06/28/2020 06/28/2010, 09/17/2000, 11/11/1989 COVID-19 Vaccine ( season) 2024 Adult Wellness Visit 01/27/2025 01/28/2024 GFR 02/02/2025 08/05/2024, 02/22, 02/17/2024, Additional history exists Mammogram 06/11/2025 06/11/2024, 09/25, 07/29/2019, Additional history exists Influenza Vaccine (FLU shot) (Season Ended) 2025 08/14/2011 Albumin/Creatinine Ratio 08/05/2025 08/05/2024 CKD HGB USE SMARTSET 61349 08/05/202508/05, 02/17/2024, 11/10/2023, Additional history exists CKD PHOS USE SMARTSET 87975 08/05/202507/25, 06/22/2022, 06/21/2022, Additional history exists Depression [...] this encounter Medical Devices Implanted Type Area Director Of Application Development Device Identifier Shelf Expiration Date Model / Serial / Lot Shell 54mm - [id number] Implanted:Qty: 1 on 11/02/2015 by Wyatt Mane MD [place] [facility] [place]: Hip [employer] : [employer] 07/03/2020 502-03-5 4E / / Trident Acetabular X3 0 36 E - [id number] Implanted:Qty: 1 on 11/02/2015 by Wyatt Mane MD at [place] [facility] [place] Right: Hip [employer] : [employer] 08/22/2020 623-00-3 6E / / Screw Acetabular 6.5mm Kristina 20m - [id number] Implanted:Qty: 1 on 11/02/2015 by Wyatt Mane MD [place] [facility] [place] Right: Hip [employer] : [employer] 06/02/2020 0-1 / / Screw Acetabular 6.5mm Kristina 25m - [id number] Implanted:Qty: 1 on 11/02/2015 by Wyatt Mane MD [place] [facility] [place] Right: Hip [employer] : [employer] 08/29/2020 5-1 / / Hip Hd Nk Alumina Mod D 36/+5 - [id number] Implanted:Qty: 1 on 11/02/2015 by Wyatt Mane MD at [place] [facility] [place] Right: Hip [employer] : [employer] 07/03/2020 6570-0-2 36 / / Stem Hip Sz6 - [id number] Implanted:Qty: 1 on 11/02/2015 by Wyatt Mane MD at [place] [facility] [place] Right: Hip [employer] : [employer] 07/08/2020 6721-063 5 / / Triathlon All Poly Tibial Comp - [id number] Implanted:Qty: 1 on 01/24/2021 by Ha Wallace MD at [facility] Right: Knee [employer] : [employer] 11/09/2025 5534-A-4 09 / / [id number] Cement Antibiotic Bone - [id number] Implanted:Qty: 1 on 01/24/2021 by Ha Wallace MD at [facility] Left: Knee [employer] : [employer] 12/24/2021 6197-9-0 10 / / [id number] Triathlon All Poly Tibial Comp - [id number] Implanted:Qty: 1 on 01/24/2021 by Ha Wallace MD at [facility] Left: Knee [employer] : OR[employer] 10/04/2025 5534-A-4 09 / / [id number] Knee Triathlon Bead No Audi L 5 - [id number] Implanted:Qty: 1 on 01/24/2021 by Ha Wallace MD at [facility] Left: Knee [employer] : OR[employer] 12/12/2025 5517-F-5 01 / / [id number] Cement Antibiotic Bone - [id number] Implanted:Qty: 1 on 01/24/2021 by Ha Wallace MD at [facility] Right: Knee [employer] : OR[employer] 12/24/2021 6197-9-0 10 / / [id number] Component Femoral Rt Size 5 T - [id number] Implanted:Qty: 1 on 01/24/2021 by Ha Wallace MD at [facility] Right: Knee [employer] : [employer] 12/30/2024 5510-F-5 02 / / [id number] Triathlon X3 Symmetric Patella Implanted:Qty: 1 on 01/24/2021 by Ha Wallace MD at [facility] Right: Knee [employer] : [employer] 01/10/2025 5550-G-3 60-E / / XTTY Cath Thermodilution 6fr - [id number] Implanted:Qty: 1 on 12/05/2021 by Luke Lynn DO at [facility] [place] [employer] [id number] 10/31/2023 096F6P / / [id number] Suture Steel 6 B&S19 M654g - [id number] Implanted:Qty: 7 on 02/26/2022 by Jeff Arreola MD at [place] [facility] [place] N/A: Sternum JNJ : [employer] 10/23/2026 M654G / / [id number] Valve Heart Mitral Epic 31mm - [id number] - [id number] Implanted:Qty: 1 on 02/26/2022 by Jeff Arreola MD at [place] [facility] [place] N/A: Heart ST ERIN : CARDIOVASCULAR [id number] 04/18/2025 S574-42M -00 / [id number] / [id number] Cement Antibiotic Bone - [id number] Implanted:Qty: 2 on 06/17/2022 by Ha Wallace MD at [place] [facility] [place] Right: Knee [employer] : [employer] 08/23/2023 6197-9-0 10 / / [id number] Tibia Implanted:Qty: 1 on 06/17/2022 by Ha Wallace MD at [place] [facility] [place] Right: Knee [employer] 10/07/2030 42-5420- 075-02 / / [id number] Insert Tib Sz 7-9+Cd Rt - [id number] Implanted:Qty: 1 on 06/17/2022 by Ha Wallace MD at [place] [facility] [place] Right: Knee [employer] 09/30/2026 42-5228- 005-10 / / [id number] Stem Tib Ext 1m20d141bg - [id number] Implanted:Qty: 1 on 06/17/2022 by Ha Wallaec MD at [place] [facility] [place] Right: Knee [employer] 09/06/2030 42-5603- 135-12 / / [id number] Stem Extention Implanted:Qty: 1 on 06/17/2022 by Ha Wallace MD at [place] [facility] [place] Right: Knee [employer] 03/16/2032 42-5601- 135-15 / / [id number] Femoral Distal Augment Implanted:Qty: 1 on 06/17/2022 by Ha Wallace MD at [place] [facility] [place] Right: Knee [employer] 03/26/2032 42-5566- 062-05 / / [id number] Fem Comp Ccr Std Sz 7 - [id number] Implanted:Qty: 1 on 06/17/2022 by Ha Wallace MD at [place] [facility] [place] Right: Knee [employer] 01/28/2031 42-5046- 062- / [id number] documented as of this encounter Visit Diagnoses Diagnosis S/P MVR (mitral valve replacement)- Primary Heart valve replaced by other means S/P revision of total knee, right documented in this encounter Advance Directives * [...] Directives occurred with: Not Discussed Care Teams Bioprocessing Manufacturing Technician Relationship Specialty Start Date End Date Julius Lucas MD [address] [place] [id number] PCP - General Family Medicine 03/01/25 documented as of this encounter
--- OUTSIDE RECORDS SUMMARY | 2025-03-25 15:18 | External Medical Summary ---
Author Name Unknown Address Unknown Organization K1F:[facility] - [address] [place] [address] Laboratory Report Ordering Provider Test Date Status JASON ESCALONA 03/01/2025 10:44:20 Final Standing order for pt/inr.
Please draw pt/inr every 1 to 4 weeks as requested
Results to [facility]

Warfarin Therapy
INR: 2.0-3.0 conventional anticoagulation
INR: 2.5-3.5 high intensity anticoagulation Observation Date Value Abnormality Reference (Units ) Status PT 03/01/2025 10:44:20 23.2 Above high normal 11 .6-15.2 (seconds) Final INR 03/01/2025 10:44:20 2.0 Above high normal 0. 8-1.2 Final Performing Location [facility] - [address] [place] [address]
--- OUTSIDE RECORDS SUMMARY | 2025-03-25 15:19 | External Medical Summary | Summary of Care ---
Author Name Unknown Organization [facility] Address [address] [facility] [place] [address] Phone [phone] Care Team Providers Care Business Management Associate Name Role Phone Julius Lucas MD Primary Care Provider Reason for Visit * Reason Comments Dosage Adjustment Via Phone (anticoag Cl inic) * Evaluate & Treat - Unlimited Visits (Within 10 days (routine)) - Authorized Specialty Diagnoses / Procedures Referred By Contulices t Referred To Contact ANTI-COAG CLINIC / Pharmacy Diagnoses S/P MVR (mitral valve replacement) Carin Byrnes, [facility] [address] [place] [address] Phone: tel: fax: Referral ID Status Reason Start Date Expiration Date Visits Requested Visits Authorized [id number] Authorized Specialty Services Required 12/01/2024 05/30/2025 99 99 Encounter Details Date Type Department Care Team (Late st Contact Info) Description 12/29/2024 6:15 AM EST Anticoagulation Centralized Clinical Pharmacy Services, [facility] [address] [place] [address] [place] [address] [place] [address] S/P MVR (mitral valve replacement)*; S/P revision of total knee, right Allergies Active Allergy Reactions Criticality Noted Date Comments Sulfa Antibiotics 08/28/2023 Bactrim DS gave a rash documented as of this encounter (statuses as of 12/29/2024) Medications Triamcinolone Acetonide 0.1 % External Ointment (Aristocort) Apply to rash on lower legs twice daily for a week 60 g 03/10/20 23 Active Amiodarone HCl 200 MG Oral Tablet (Cordarone)Indica tions:History of cardioversion TAKE 1 TABLET BY MOUTH EVERY DAY IN THE MORNING 90 Tablet 3 01/05/20 24 Active Multivitamin Adult Oral Tablet Take 1 [...] Clinic 90 Tablet 4 05/03/20 24 Active Levothyroxine Sodium 50 MCG Oral Tablet (Levoxyl)Indicati ons:Hypothyroidis m due to acquired atrophy of thyroid (at least 30 min prior to breakfast or other meds)TAKE 1/2 TABLET BY MOUTH IN THE MORNING. (AT LEAST 30 MIN PRIOR TO BREAKFAST OR OTHER MEDS). 45 Tablet 1 11/19/20 24 Active documented as of this encounter (statuses as of 12/29/2024) Active Problems Problem Noted Date Diagnosed Date Acquired hypothyroidism 03/16/2024 Chronic kidney disease, stage [...] as of this encounter (statuses as of 12/29/2024) Resolved Problems Problem Noted Date Diagnosed Date [...] as of this encounter (statuses as of 12/29/2024) Immunizations Name Administration Dates Next Due Season [...] Date Recorded PHQ Adult Total Score 0 08/28/2023 Hunger Vital Sign Answer Date Recorded Within the past 12 months, y ou worried that your food would run out before you got the money to buy more. Never true 08/28/20 23 Within the past 12 months, t he food you bought just didn't last and you didn't have money to get more. Never true 08/28/2023 Childcare Answer Date Recorded Do you feel overwhelmed with taking care of a child, family member or friend? No 08/28/2023 Does your family need help f inding childcare? (Household - for ages 0-17 years) Not on file 08/28/2023 Clothing Answer Date Recorded Have you been unable to get clothing when it was really needed? No 08/28/2023 Is your family able to get c lothes or diapers when needed? (Household - for ages 0-17 years) Not on file 08/28/2023 Personal Safety Answer Date Recorded Do you feel unsafe or have concerns for your saf ety? No 08/28/2023 Do you have concerns for you r family's safety? (Household - for ages 0-17 years) Not on file 08/28/2023 Utilities Answer Date Recorded Do you have trouble paying y our heating, water, or electric bill? No 08/28/2023 Is your family able to pay t he heat, water, or electric bill? (Household - for ages 0-17 years) Not on file 08/28/2023 Does your family have access to good internet? (Household - for ages 0-17 years) Not on file 08/28/2023 Employment Status Answer Date Recorded Are you unemployed or without regular income? No 08/28/2023 Does the household have a re gular source of income? (Household - for ages 0-17 years) Not on file 08/28/2023 Social Connections Answer Date Recorded How often do you feel lonely or isolated from th ose around you? Rarely 08/28/2023 Financial Resource Strain Answer Date R ecorded Do you have any trouble payi ng for your medications, or do you think you might in the future? No 08/28/2023 Does your family have troubl e paying for medicine? (Household - for ages 0-17 years) Not on file 08/28/2023 Transportation Needs Answer Date Record ed READ ONLY Do you have troubl e getting a ride to medical visits or work? Never True 08/28/2023 Does your family have a hard time getting a ride to doctors visits? (Household - for ages 0-17 years) Not on file 08/28/2023 Has lack of transportation k ept you from medical appointments, meetings, work, or from getting things needed for daily living? Check all that apply. (Adult - for ages 18 years and over) Not on file 08/28/2023 Do you (or your family) have trouble finding or paying for a ride (transportation)? (Household - for ages 0-17 years) Not on file 08/28/2023 Housing Stability Answer Date Recorded Do you currently live in a s helter or have no steady place to sleep at night? No 08/28/2023 READ ONLY Do you think you a re at risk of becoming homeless? No 08/28/2023 Does your family worry about paying for your home or becoming homeless? (Household - for ages 0-17 years) Not on file 1 Are you homeless or worried that you might be in the future? (Adult - for ages 18 years and over) Not on file Are you (or your family) zahira eless [...] ages 0-17 years) Not on file 08/28/2023 Comments No Sex and Gender Information Value [...] Author Yes 06/17/2022 8:23 PM Brad Neri ma, RN documented as of this encounter Mental Status * Because of a physical, mental, or emotional condition, do you have serious difficulty concentrating, remembering, or making decisions? (5 years old or older) Answer Entry Date Author No 06/17/2022 8:23 PM Brad Neri ma, RN documented in this encounter Progress Notes * Carin Byrnes RPh - 12/29/2024 2:25 PM EST Tracker updated Carin Byrnes Rph, Pharm.D. Clinical Pharmacist Centralized Clinical Pharmacy Services ([facility]) [phone] 12/29/2024,2:25 PM * Judit Prakash [facility] - 12/29/2024 10:18 AM EST Contacts Contact Date/Time Type Contact Phone/Fax 12/29/2024 10:12 AM EST Phone (Outgoing) Marta Villela (Self) [phone] (M) Spoke to Patient Subjective Patient Findings Positives: Other complaints (Patient reports she takes 1.25MG every M/F;2.5MG AOD - [facility] Marie aware,Patient to continue with this dose.) Negatives: Signs/symptoms of thrombosis, Signs/symptoms of bleeding, Change in health, Change in alcohol use, Change in activity, Upcoming invasive procedure, Missed doses, Extra doses, Change in medications, Change in diet/appetite, Bruising Advised patient to contact Anticoagulation Clinic if any unusual bruising or bleeding, recent illness, changes in medication, or questions/concerns. PT/INR results, Coumadin dose instructions, and next PT/INR date communicated as noted by Pharmacist: Yes JUDIT PRAKASH CPhT 12/29/2024, 10:18 AM * Carin Byrnes RPh - 12/29/2024 8:49 AM EST Coumadin Clinic (region specific) Objective Current Warfarin Dose As of 12/29/2024 Warfarin maintenance plan: 1.25 mg (2.5 mg x 0.5) every Fri; 2.5 mg (2.5 mg x 1) all other days INR Result As of 12/29/2024 INR goal: 2.0-3.0 INR used for dosin.8 (12/28/2024) Assessment & Plan Warfarin Plan As of 12/29/2024 Full warfarin instructions: 1.25 mg every Fri; 2.5 mg all other days No change documented: Carin Byrnes RPh Next INR check: 01/25/2025 Patient is eligible for [facility] Mail Order. Please ask patient if they are interested in switching medications to GMO. Repeat PT/INR in 4 week(s) Weekly dose: not changed Additional Dosing Information: Description [facility] to contact patient with dose instructions as noted. Carin Byrnes RPh 12/29/2024, 8:49 AM documented in this encounter Plan of Treatment Upcoming Encounters Date Type Department Care Team (Late st Contact Info) Description 01/05/2025 12:20 PM EST Office Visit Family Practice, [place] [address] [place] [address] Julius Lucas MD [address] [place] [address] 01/25/2025 11:00 AM EST Laboratory Laboratory, [place] [address] [place] [address] [place] [address] [place] [address] 01/26/2025 6:15 AM EST Anticoagulation Centralized Clinical Pharmacy Services, [address] [place] [address] [place] [address] Scheduled Referrals Name Type Priority Associated Diagnoses Orde r Schedule ANTI-COAGULATION REFERRAL OP Referral Within 10 days (routine) S/P MVR (mitral valve replacement) Ordered: 12/01/2024 Health Maintenance Due Date Last Done Comments Pneumococcal Vaccine: 50+ Years (1 of 1 - PCV) 1998 Zoster Vaccines (1 of 2) 1998 DTap/Tdap Vaccines (2 - Td or Tdap) 06/28/2020 06/28/2010, 09/17/2000, 11/11/1989 COVID-19 Vaccine ( - season) 2024 Influenza Vaccine (FLU shot) (#1) 2024 08/14/2011 Depression Screening 08/28/2024 08/28/2023 Adult Wellness Visit 01/27/2025 01/28/2024 GFR 02/02/2025 08/05/2024, 02/22, 02/17/2024, Additional history exists Mammogram 06/11/2025 06/11/2024, 09/25, 07/29/2019, Additional history exists Albumin/Creatinine Ratio 08/05/2025 08/05/2024 CKD HGB USE SMARTSET 21998 08/05/202508/05, 02/17/2024, 11/10/2023, Additional history exists CKD PHOS USE SMARTSET 28601 08/05/202507/25, 06/22/2022, 06/21/2022, Additional history exists TSH 11/30/2025 11/30/2024, 07/25, 04/06/2024, Additional history exists DXA Scan 06/11/2031 06/11/2024, [...] this encounter Medical Devices Implanted Type Area Welding Machine Operator Electro Gas Device Identifier Shelf Expiration Date Model / Serial / Lot Shell 54mm - [id number] Implanted:Qty: 1 on 11/02/2015 by Wyatt Mane MD at [place] [facility] [place] Right: Hip ULYSSES : ORTHOPAEDICS 07/03/2020 502-03-5 4E / / Trident Acetabular X3 0 36 E - [id number] Implanted:Qty: 1 on 11/02/2015 by Wyatt Mane MD at OR [facility] [place] Right: Hip ULYSSES : ORTHOPAEDICS 08/22/2020 623-00-3 6E / / Screw Acetabular 6.5mm Kristina 20m - [id number] Implanted:Qty: 1 on 11/02/2015 by Wyatt Mane MD at [place] [facility] [place] Right: Hip ULYSSES : ORTHOPAEDICS 06/02/2020 2030-652 0-1 / / Screw Acetabular 6.5mm Kristina 25m - [id number] Implanted:Qty: 1 on 11/02/2015 by Wyatt Mane MD at [place] [facility] [place] Right: Hip ULYSSES : ORTHOPAEDICS 08/29/2020 2030-652 5-1 / / Hip Hd Nk Alumina Mod D 36/+5 - [id number] Implanted:Qty: 1 on 11/02/2015 by Wyatt Mane MD at OR [facility] [place] Right: Hip ULYSSES : ORTHOPAEDICS 07/03/2020 6570-0-2 36 / / Stem Hip Sz6 - [id number] Implanted:Qty: 1 on 11/02/2015 by Wyatt Mane MD at [place] [facility] [place] Right: Hip ULYSSES : ORTHOPAEDICS 07/08/2020 6721-063 5 / / Triathlon All Poly Tibial Comp - [id number] Implanted:Qty: 1 on 01/24/2021 by Ha Wallace MD at OR [facility] Right: Knee ULYSSES : ORTHOPAEDICS 11/09/2025 5534-A-4 09 / / [id number] Cement Antibiotic Bone - [id number] Implanted:Qty: 1 on 01/24/2021 by aH Wallace MD at OR [facility] Left: Knee ULYSSES : ORTHOPAEDICS 12/24/2021 6197-9-0 10 / / [id number] Triathlon All Poly Tibial Comp - [id number] Implanted:Qty: 1 on 01/24/2021 by Ha Wallace MD at OR [facility] Left: Knee ULYSSES : ORTHOPAEDICS 10/04/2025 5534-A-4 09 / / [id number] Knee Triathlon Bead No Audi L 5 - [id number] Implanted:Qty: 1 on 01/24/2021 by Ha Wallace MD at OR [facility] Left: Knee ULYSSES : ORTHOPAEDICS 12/12/2025 5517-F-5 01 / / [id number] Cement Antibiotic Bone - [id number] Implanted:Qty: 1 on 01/24/2021 by Ha Wallace MD at OR [facility] Right: Knee ULYSSES : ORTHOPAEDICS 12/24/2021 6197-9-0 10 / / [id number] Femoral Rt Size 5 T - [id number] Implanted:Qty: 1 on 01/24/2021 by Ha Wallace MD at OR [facility] Right: Knee [employer]LYSSES : ORTHOPAEDICS 12/30/2024 5510-F-5 02 / / [id number] Triathlon X3 Symmetric Patella Implanted:Qty: 1 on 01/24/2021 by Ha Wallace MD at OR [facility] Right: Knee [employer]LY[employer]ES : ORTHOPAEDICS 01/10/2025 5550-G-3 60-E / / XTTY Cath Thermodilution 6fr - [id number] Implanted:Qty: 1 on 12/05/2021 by Luke Lynn DO at [facility] [place] [employer] MARY [id number] 10/31/2023 096F6P / / [id number] Suture Steel 6 B&S19 M654g - [id number] Implanted:Qty: 7 on 02/26/2022 by Jeff Arreola MD at OR [facility] [place] N/A: Sternum JNJ : [employer] 10/23/2026 M654G / / [id number] Valve Heart Mitral Epic 31mm - [id number] - [id number] Implanted:Qty: 1 on 02/26/2022 by Jeff Arreola MD at OR [facility] [place] N/A: Heart ST ERIN : CARDIOVASCULAR [id number] 04/18/2025 L240-94J -00 / [id number] / [id number] Cement Antibiotic Bone - [id number] Implanted:Qty: 2 on 06/17/2022 by Ha Wallace MD at OR [facility] [place] Right: Knee [employer]LYSSES : ORTHOPAEDICS 08/23/2023 6197-9-0 10 / / [id number] Tibia Implanted:Qty: 1 on 06/17/2022 by Ha Wallace MD at OR [facility] [place] Right: Knee KYE KNEE 10/07/2030 42-5420- 075-02 / / [id number] Insert Tib Sz 7-9+Cd Rt - [id number] Implanted:Qty: 1 on 06/17/2022 by Ha Wallace MD at OR [facility] [place] Right: Knee [employer] 09/30/2026 42-5228- 005-10 / / [id number] Stem Tib Ext 6c71c099mk - [id number] Implanted:Qty: 1 on 06/17/2022 by Ha Wallace MD at OR [facility] [place] Right: Knee [employer] 09/06/2030 42-5603- 135-12 / / [id number] Stem Extention Implanted:Qty: 1 on 06/17/2022 by Ha Wallace MD at [place] [facility] [place] Right: Knee KYE KNEE 03/16/2032 42-5601- 135-15 / / [id number] Femoral Distal Augment Implanted:Qty: 1 on 06/17/2022 by Ha Wallace MD at [place] [facility] [place] Right: Knee KYE KNEE 03/26/2032 42-5566- 062-05 / / [id number] Fem Comp Ccr Std Sz 7 - [id number] Implanted:Qty: 1 on 06/17/2022 by Ha Wallace MD at [place] [facility] [place] Right: Knee [employer] 01/28/2031 42-5046- 062-02 / / [id number] documented as of this encounter Visit Diagnoses [...] Directives occurred with: Not Discussed Care Teams Business Management Associate Relationship Specialty Start Date End Date Shayy, Julius Franz, MD [address] [facility] [place] [address] PCP - General Family Medicine 11/29/16 documented as of this encounter
--- OUTSIDE RECORDS SUMMARY | 2025-03-25 15:19 | External Medical Summary ---
Author Name Unknown Address Unknown Organization K1F:[facility] - [address] [place] [address] Laboratory Report Ordering Provider Test Date Status TEAGAN DSOUZA 01/25/2025 11:06:41 Final Warfarin Therapy
INR: 2 .0-3.0 conventional anticoagulation
INR: 2.5- 3.5 high intensity anticoagulation Observation Date Value Abnormality Reference (Units ) Status PT 01/25/2025 11:06:41 26.2 Above high normal 11 .6-15.2 (seconds) Final INR 01/25/2025 11:06:41 2.4 Above high normal 0. 8-1.2 Final Performing Location [facility] - [address] [place] [address]
--- OUTSIDE RECORDS SUMMARY | 2025-03-25 15:19 | External Medical Summary | Summary of Care ---
Author Name Unknown Organization [facility] Address [address] [place] [address] Phone [phone] Care Team Providers Care Miner Name Role Phone Julius Lucas MD Primary Care Provider Reason for Visit * Reason Comments Outpatient Testing Encounter Details Date Type Department Care Team (Late st Contact Info) Description 01/25/2025 11:00 AM EST Laboratory Laboratory, [place] [address] [place] [id number] [place], [address] [place] [address] S/P MVR (mitral valve replacement); S/P revision of total knee, right; Anticoagulation management encounter; Acquired hypothyroidism Allergies Active Allergy Reactions Criticality Noted Date Comments Sulfa Antibiotics 08/28/2023 Bactrim DS gave a rash documented as of this encounter (statuses as of 01/25/2025) Medications Triamcinolone Acetonide 0.1 % External Ointment [...] morning. 90 Tablet 1 01/05/20 25 Active documented as of this encounter (statuses as of 01/25/2025) Active Problems Problem Noted Date Diagnosed Date [...] as of this encounter (statuses as of 01/25/2025) Resolved Problems Problem Noted Date Diagnosed Date [...] as of this encounter (statuses as of 01/25/2025) Immunizations Name Administration Dates Next Due Season [...] of Assessment Author No 06/17/2022 8:23 PM EDBrad Reinoso ma, RN * Are you blind or do you have serious difficulty seeing, even when wearing glasses? Answer Date of Assessment Author No 06/17/2022 8:23 PM Brad Neri ma, RN * Do you have serious difficulty walking or climbing stairs? (5 years old or older) Answer Date of Assessment Author Yes 06/17/2022 8:23 PM DEE DEET Brad Gonsales ma, RN * Do you have difficulty dressing or bathing? (5 years old or older) Answer Date of Assessment Author No 06/17/2022 8:23 PM Brad Neri ma, RN * Because of a physical, [...] 8:23 PM Brad Neri ma RN documented in this encounter Plan of Treatment Upcoming Encounters Date Type Department Care Team (Late st Contact Info) Description 01/26/2025 6:15 AM EST Anticoagulation Centralized Clinical Pharmacy Services, [facility] Shannan [address] [place] [address] [place] [address] [place] [address] 06/30/2025 10:30 AM EDT Office Visit Cardiology, [place] [address] [place] [address] Milana Mahajan CRNP [address] [place] [address] 07/21/2025 12:20 PM EDT Office Visit [facility] [address] [place] [address] Julius Lucas MD [address] [place] [address] Pending Results Name Type Priority Associated Diagnoses Date /Time PT INR Lab Routine S/P MVR (mitral valve replacement) S/P revision of total knee, right Anticoagulation management encounter 01/25/2025 11:06 AM EST TSH Lab Routine Acquired hypothyroidism 01/25/2025 11:06 AM EST Health Maintenance Due Date Last Done Comments [...] Ratio 08/05/2025 08/05/2024 CKD HGB USE SMARTSET 83246 08/05/202508/05, 02/17/2024, 11/10/2023, Additional history exists CKD PHOS USE SMARTSET 96686 08/05/202507/25, 06/22/2022, 06/21/2022, Additional history exists TSH 11/30/2025 11/30/2024, 07/25, 04/06/2024, Additional history exists Depression Screening 01/05/2026 01/05/2025 DXA Scan 06/11/2031 06/11/2024, 02/2013, 09/27/2013, Additional [...] this encounter Medical Devices Implanted Type Area Utilities Equipment Repairer Device Identifier Shelf Expiration Date Model / Serial / Lot Shell 54mm - [id number] Implanted:Qty: 1 on 11/02/2015 by Wyatt Mane MD at OR [facility] Right: Hip ULYSSES : ORTHOPAEDICS 07/03/2020 502-03-5 4E / / Trident Acetabular X3 0 36 E - [id number] Implanted:Qty: 1 on 11/02/2015 by Wyatt Mane MD at OR [facility] Right: Hip ULYSSES : ORTHOPAEDICS 08/22/2020 623-00-3 6E / / Screw Acetabular 6.5mm Kristina 20m - [id number] Implanted:Qty: 1 on 11/02/2015 by Wyatt Mane MD at OR [facility] Right: Hip ULYSSES : ORTHOPAEDICS 06/02/202065 0-1 / / Screw Acetabular 6.5mm Kristina 25m - [id number] Implanted:Qty: 1 on 11/02/2015 by Wyatt Mane MD at OR [facility] Right: Hip ULYSSES : ORTHOPAEDICS 08/29/2020652 5-1 / / Hip Hd Nk Alumina Mod D 36/+5 - [id number] Implanted:Qty: 1 on 11/02/2015 by Wyatt Mane MD at OR [facility] Right: Hip ULYSSES : ORTHOPAEDICS 07/03/2020 6570-0-2 36 / / Stem Hip Sz6 - [id number] Implanted:Qty: 1 on 11/02/2015 by Wyatt Mane MD at OR [facility] Right: Hip ULYSSES : ORTHOPAEDICS 07/08/2020 6721-063 5 / / Triathlon All Poly Tibial Comp - [id number] Implanted:Qty: 1 on 01/24/2021 by Ha Wallace MD at [facility] Right: Knee ULYSSES : ORTHOPAEDICS 11/09/2025 5534-A-4 09 / / [id number] Cement Antibiotic Bone - [id number] Implanted:Qty: 1 on 01/24/2021 by Ha Wallace MD at OR [facility] Left: Knee ULYSSES : ORTHOPAEDICS 12/24/2021 6197-9-0 10 / / [id number] Triathlon All Poly Tibial Comp - [id number] Implanted:Qty: 1 on 01/24/2021 by Ha Wallace MD at OR [facility] Left: Knee ULYSSES : ORTHOPAEDICS 10/04/2025 5534-A-4 09 / / [id number] Knee Triathlon Bead No Audi L 5 - [id number] Implanted:Qty: 1 on 01/24/2021 by Ha Wallace MD at OR [facility] Left: Knee ULYSSES : ORTHOPAEDICS 12/12/2025 5517-F-5 01 / / [id number] Cement Antibiotic Bone - [id number] Implanted:Qty: 1 on 01/24/2021 by Ha Wallace MD at [facility] Right: Knee ULYSSES : ORTHOPAEDICS 12/24/2021 6197-9-0 10 / / [id number] Component Femoral Rt Size 5 T - [id number] Implanted:Qty: 1 on 01/24/2021 by Ha Wallace MD at [facility] Right: Knee ULYSSES : ORTHOPAEDICS 12/30/2024 5510-F-5 02 / / [id number] Triathlon X3 Symmetric Patella Implanted:Qty: 1 on 01/24/2021 by Ha Wallace MD at OR [facility] Right: Knee ULYSSES : ORTHOPAEDICS 01/10/2025 5550-G-3 60-E / / XTTY Cath Thermodilution 6fr - [id number] Implanted:Qty: 1 on 12/05/2021 by Luke Lynn DO at [facility] [email or web address] [place] [id number] 10/31/2023 096F6P / / [id number] Suture Steel 6 B&S19 M654g - [id number] Implanted:Qty: 7 on 02/26/2022 by Jeff Arreola MD at OR [facility] N/A: Sternum JNJ : [employer] 10/23/2026 M654G / / RPBCTE Valve Heart Mitral Epic 31mm - [id number] - [id number] Implanted:Qty: 1 on 02/26/2022 by Jeff Arreola MD at OR [facility] N/A: Heart ST ERIN : CARDIOVASCULAR [id number] 04/18/2025 Y580-54U -00 / [id number] 3 / [id number] Cement Antibiotic Bone - [id number] Implanted:Qty: 2 on 06/17/2022 by Ha Wallace MD at OR [facility] Right: Knee ULYSSES : ORTHOPAEDICS 08/23/2023 6197-9-0 10 / / [id number] Tibia Implanted:Qty: 1 on 06/17/2022 by Ha Wallace MD at OR [facility] Right: Knee KYE KNEE 10/07/2030 42-5420- 075-02 / / [id number] Insert Tib Sz 7-9+Cd Rt - [id number] Implanted:Qty: 1 on 06/17/2022 by Ha Wallace MD at OR [facility] Right: Knee [employer] 09/30/2026 42-5228- 005-10 / / [id number] Stem Tib Ext 0t12t948lp - [id number] Implanted:Qty: 1 on 06/17/2022 by Ha Wallace MD at OR [facility] Right: Knee [employer] 09/06/2030 42-5603- 135-12 / / [id number] Stem Extention Implanted:Qty: 1 on 06/17/2022 by Ha Wallace MD at OR [facility] Right: Knee KYE KNEE 03/16/2032 42-5601- 135-15 / / [id number] Femoral Distal Augment Implanted:Qty: 1 on 06/17/2022 by Ha Wallace MD at OR [facility] Right: Knee KYE KNEE 03/26/2032 42-5566- 062- / [id number] Fem Comp Ccr Std Sz 7 - [id number] Implanted:Qty: 1 on 06/17/2022 by Ha Wallace MD at OR [facility] Right: Knee [employer] 01/28/2031 42-5046- 062- / [id number] documented as of this encounter Visit Diagnoses Diagnosis S/P MVR (mitral valve replacement) Heart valve replaced by other means S/P revision of total knee, right Anticoagulation management encounter Encounter for therapeutic drug monitoring Acquired hypothyroidism Unspecified hypothyroidism documented in this encounter Advance Directives * [...] Directives occurred with: Not Discussed Care Teams Miner Relationship Specialty Start Date End Date Julius Lucas MD PCP - General Family Medicine 11/29/16 documented as of this encounter
--- OUTSIDE RECORDS SUMMARY | 2025-03-25 15:19 | External Medical Summary | Summary of Care ---
Author Name Unknown Organization [facility] Address [address] [place] [address] Phone [phone] Care Team Providers Care Pipe Chipper Name Role Phone Julius Lucas MD Primary Care Provider Reason for Visit * Reason Comments Follow Up Pt arrives today for an 8 month follow up appointment. Discuss lab results. Encounter Details Date Type Department Care Team ([facility] st Contact Info) Description 01/05/2025 12:20 PM EST Office Visit [facility] [address] [place] [address] Julius Lucas MD [address] [place] [address] Pulmonary HTN ([facility])*; PAT (paroxysmal atrial tachycardia) ([facility]); Chronic kidney disease, stage 3a ([facility]); Interstitial lung abnormality present on imaging study; Hypertensive heart and kidney disease with chronic diastolic congestive heart failure and stage 3a chronic kidney disease (HCC); Acquired hypothyroidism; Drug-induced interstitial lung disorders ([facility]) Allergies Active Allergy Reactions Criticality Noted Date Comments Sulfa Antibiotics 08/28/2023 Bactrim DS gave a rash documented as of this encounter (statuses as of 01/07/2025) Medications Triamcinolone Acetonide 0.1 % External Ointment [...] morning. 90 Tablet 1 01/05/20 25 Active Levothyroxine Sodium 50 MCG Oral Tablet (Levoxyl)Indicati ons:Hypothyroidis m due to acquired atrophy of thyroid (at least 30 min prior to breakfast or other meds)TAKE 1/2 TABLET BY MOUTH IN THE MORNING. (AT LEAST 30 MIN PRIOR TO BREAKFAST OR OTHER MEDS). 45 Tablet 1 11/19/20 24 2024 Disconti nued(Ref ill) Amiodarone HCl 200 MG Oral Tablet (Cordarone)Indica tions:History of cardioversion TAKE 1 TABLET BY MOUTH EVERY DAY IN THE MORNING 90 Tablet 3 12/31/19 25 2024 Disconti nued(Ref ill) documented as of this encounter (statuses as of 01/07/2025) Active Problems Problem Noted Date Diagnosed Date [...] as of this encounter (statuses as of 01/07/2025) Resolved Problems Problem Noted Date Diagnosed Date [...] as of this encounter (statuses as of 01/07/2025) Immunizations Name Administration Dates Next Due Season [...] money to buy more. Never true 01/05/20 Within the past 12 months, t he [...] Sign Reading Time Taken Comments Blood Pressure 124/72 01/05/2025 12:23 PM EST Pulse 64 01/05/2025 12:23 PM EST Temperature 36.1 °C (96.9 °F) 01/05/2025 12:[address] Respiratory Rate 16 01/05/2025 12:23 PM EST Oxygen Saturation 99% 01/05/2025 12:23 PM EST Inhaled Oxygen Concentration - - Weight 89.2 kg (196 lb 9.6 oz) 01/05/2025 12:23 PM EST Height 167.4 cm (5' 5.9") 01/05/2025 12:23 PM ES T Body Mass Index 31.83 01/05/2025 12:23 PM EST documented in this encounter Functional Status * Are you deaf or do you have serious difficulty hearing? Answer Date of Assessment Author No 06/17/2022 8:23 PM Brad Neri ma RN * Are you blind or do [...] documented in this encounter Progress Notes * Julius Lucas MD - 01/06/2025 10:50 PM EST Identification: Marta Villela is an 74 year old female who reports to clinic . Reports to the nurse: Chief Complaint Patient presents with Follow Up Pt arrives today for an 8 month follow up appointment. Discuss lab results. Chief Complaint to myself: check up History of Present Illness: Brief Clinical History Ms. Villela is a 74 year old female last seen in [facility] on 12/08/2024 by Nithin Martínez She has a h/o the following chronic conditions indicated on the problem list: Chronic Conditions Chronic heart failure with preserved ejection fraction (HCC) PAT (paroxysmal atrial tachycardia) (HCC) Pulmonary HTN (HCC) Nursing Notes: Nany Zepeda CCMA 01/05/25 1225 Signed Chief Complaint Patient presents with Follow Up Pt arrives today for an 8 month follow up appointment. Discuss lab results. HPI: Very pleasant 74-year-old female reports to clinic for routine checkup Like to review her thyroid testing Her breathing has been doing pretty good and she is functioning at home without any difficulty We reviewed her testing we reviewed her upcoming appointments in her healthcare maintenance Review of Systems: Patient denies: Constitutional: Fevers, chills, sweats or night sweats Eyes: Visual changes or eye redness/discharge Ears, nose, mouth, throat: Sinus congestion or ear pain Cardiovascular: Chest pressure or paroxysmal nocturnal dyspnea Respiratory: Chronic cough or hemoptysis GI: Vomiting or melanotic stool : Dysuria hematuria Patient Active Problem List Diagnosis Date Noted Hypertensive heart and kidney disease with chronic diastolic congestive heart failure and stage 3a chronic kidney disease (HCC) [I13.0, I50.32, N18.31] 01/05/2025 Acquired hypothyroidism [E03.9] 03/16/2024 Chronic kidney disease, stage 3a (HCC) [N18.31] 03/01/2024 Per CKD protocol S/P revision of total knee, right [Z96.651] 06/17/2022 History of cardioversion [Z92.89] 04/08/2022 Abnormal gait [R26.9] 02/26/2022 S/P MVR (mitral valve replacement) [Z95.2] 02/26/2022 Mitral valve insufficiency [I34.0] 05/25/2021 Pulmonary HTN (HCC) [I27.20] 05/25/2021 Tricuspid valve insufficiency [I07.1] 05/25/2021 Chronic heart failure with preserved ejection fraction (HCC) [I50.32] 05/25/2021 PAT (paroxysmal atrial tachycardia) ([facility]) [I47.19] 05/25/2021 At risk for venous thromboembolism (VTE) [Z91.89] 01/27/2021 Problem added by Discern Expert Rule: EBN_VTERISKPROB_3 Status post bilateral knee replacements [Z96.653] 01/24/2021 INFORMATION [INFO] 12/10/2017 Rolando does not work. Osteoarthritis of hip [M16.9] 11/02/2015 S/P total hip arthroplasty [Z96.649] 11/02/2015 Family history of breast cancer in sister [Z80.3] 09/01/2013 Cataract, right eye [H26.9] 09/01/2013 Past Medical History: Diagnosis Date Arthritis COVID-19 12/2021 Past Surgical History: Procedure Laterality Date ARTHROPLASTY KNEE TOTAL Bilateral 01/24/2021 ROBOTIC ARTHROPLASTY KNEE TOTAL performed by Ha Wallace MD at [facility] DELIVERY x 2 COLORECTAL CANCER SCREEN; NOT AT RISK 04/28/08 normal,repeat in 10 yrs CORONARY ANGIOGRAPHY W/RIGHT+LEFT CATH 12/05/2021 CORONARY ANGIOGRAPHY W/RIGHT+LEFT CATH performed by Luke Lynn DO at [facility] DEXA SCAN/BONE MINERAL PERIPH 11/30 +0.9 and -0.6 readings; repeat in 5 years PELVIS/HIP JOINT SURGERY NEC Right 11/02/2015 ANTERIOR ARTHROPLASTY TOTAL HIP performed by Wyatt Mane MD at [facility] REMOVAL OF FIBROID UTERUS TUMOR prior to hyst. REMOVAL OF TONSILS, UNDER AGE 10 age 3 Tonsillectomy REMOVE CATARACT, INSERT LENS PROSTH 03/10/2014 left lens -Dr. Deven Beltran MD at [facility] REMOVE CATARACT, INSERT LENS PROSTH 03/30/2014 right- Dr. Beltran REPLACE MITRAL VALVE W/BYPASS N/A 02/26/2022 REPLACEMENT MITRAL VALVE performed by Jeff Arreola MD at [facility] REVISE KNEE JOINT REPLACEMENT Right 06/17/2022 TOTAL KNEE REVISION FEMUR AND TIBIA performed by Ha Wallace MD at [facility] TOTAL ABD HYSTERECTOMY W/WO REMOVAL OF TUBE(S) 1987 TOTAL HYSTERECTOMY ovaries remain I reviewed current medications: Current Outpatient Medications Medication Sig Dispense Refill Levothyroxine Sodium 50 MCG Oral Tablet (Levoxyl) Take 1 Tablet by mouth daily first thing in the morning. 90 Tablet 1 Warfarin Sodium 2.5 MG Oral Tablet (Coumadin) Take 0.5-1 Tablets by mouth every evening. As directed by Anticoagulation Clinic 90 Tablet 4 Furosemide 40 MG Oral Tablet (Lasix) Take 1 Tablet by mouth in the morning. 90 Tablet 3 Metoprolol Succinate ER 25 MG Oral Tablet Extended Release 24 Hour (toPROL XL) TAKE 1 TABLET BY MOUTH EVERY DAY 90 Tablet 3 Multivitamin Adult Oral Tablet Take 1 Tablet by mouth in the morning. Potassium 99 MG Oral Tablet Take 1 Tablet by mouth in the morning. Triamcinolone Acetonide 0.1 % External Ointment (Aristocort) Apply to rash on lower legs twice daily for a week 60 g 0 Amiodarone HCl 200 MG Oral Tablet (Cordarone) TAKE 1 TABLET BY MOUTH EVERY DAY IN THE MORNING 90 Tablet 1 No current facility-administered medications for this visit. I reviewed allergies: Review of patient's allergies indicates: Allergen Reactions Sulfa Antibiotics Bactrim DS gave a rash I reviewed Family/Social History: Family History Problem Relation Name Age of Onset Mental Disorder Mother age 70's- Alzheimer's No Past Hx Father age 95- assisted living Cancer Sister Unice thyroid cancer- onset age early30's Breast Cancer Sister Unice Cancer Sister breast cancer- age late 30's(same person as above) No Past Hx Brother age 62 No Past Hx Sister age 68 No Past Hx Sister 60 Social History Socioeconomic History Marital status: Spouse [...] Jaime Mosqueda. for 13 years. Two daughters. [place] and [place]. No grands yet. Marta has one brother [...] Stability Do you currently live in a longterm or have no steady place to sleep [...] - for ages0-17 years): Not on file OBJECTIVE: Filed Vitals: 01/05/25 1223 BP: 124/72 Pulse: 64 Resp: 16 Temp: 96.9 °F (36.1 °C) TempSrc: Temporal Artery SpO2: 99% Weight: 196 lb 9.6 oz (89.2 kg) Height: 5' 5.9" (1.674 m) BP Readings from Last 7 Encounters: 01/05/25 124/72 12/08/24 122/78 09/06/24 138/78 08/05/24 154/82 06/17/24 126/74 05/20/24 140/68 04/28/24 138/80 Wt Readings from Last 7 Encounters: 01/05/25 196 lb 9.6 oz (89.2 kg) 12/08/24 200 lb 9.6 oz (91 kg) 09/06/24 201 lb 9.6 oz (91.4 kg) 08/05/24 206 lb (93.4 kg) 06/17/24 211 lb 3.2 oz (95.8 kg) 05/20/24 217 lb 9.6 oz (98.7 kg) 04/28/24 219 lb 8 oz (99.6 kg) General Appearance: Alert, cooperative, and in no distress. Pupils were reactive to light equally bilaterally and conjunctiva were not inflamed. Eye lids clear External ear canals without exudate and observed portions of tympanic membranes revealed good lightreflex and landmarks noted. Oral Pharynx is moist with no tonsillar hypertrophy, erythema or exudate noted Lips and buccal mucosa unremarkable. Neck: Supple, no lymphadenopathy noted, no masses, thyroid is symmetric. Pulmonary: Interstitial findings throughout the lung hope Heart with regular rate and rhythm S1-S2 prominent murmur Marta was seen today for follow up. Diagnoses and all orders for this visit: Pulmonary HTN (HCC) PAT (paroxysmal atrial tachycardia) (HCC) Chronic kidney disease, stage 3a (HCC) Interstitial lung abnormality present on imaging study - XR CHEST 2 VIEWS Hypertensive heart and kidney disease with chronic diastolic congestive heart failure and stage 3a chronic kidney disease (HCC) Acquired hypothyroidism - Levothyroxine Sodium 50 MCG Oral Tablet (Levoxyl); Take 1 Tablet by mouth daily first thing in the morning. Increase her thyroid medication Follow-up chest x-ray. 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 We reviewed Health Care Maintenance, and any Health Care Maintenance that is not ordered, the patient declined. I spent a total of 40-54 minutes (exact time 42 mins) on the date of service in preparation, delivery, and documentation of the care provided to Marta Villela excluding any time spent in the performance of separately billed services or time spent by another provider/QHP. Creatinine Results: Lab Results Component Value Date/Time CREATININE - [facility] 1.1 (H) 08/05/2024 11:54 AM CREATININE - [facility] 1.1 (H) 03/11/2024 11:11 AM CREATININE - [facility] 1.1 (H) 02/17/2024 02:53 PM CREATININE - [facility] 0.8 12/06/2020 01:43 PM CREATININE - [facility] 0.9 08/24/2020 09:18 AM CREATININE - [facility] 0.8 04/06/2018 09:52 AM CREATININE, RANDOM URINE - [facility] 13 08/05/2024 12:10 PM Hemoglobin A1C last 3 results: Lab Results Component Value Date/Time HEMATOCRIT POCT - [facility] 38 02/26/2022 03:30 PM HEMATOCRIT POCT - [facility] 34 (L) 02/26/2022 02:17 PM HEMATOCRIT POCT - [facility] 28 (L) 02/26/2022 01:34 PM HEMATOCRIT, WHOLE BLOOD - [facility] 33.5 (L) 02/26/2022 08:26 PM HEMATOCRIT, WHOLE BLOOD - [facility] 33.2 (L) 02/26/2022 06:16 PM HEMATOCRIT, WHOLE BLOOD - [facility] 35.8 (L) 02/26/2022 04:27 PM HEMOGLOBIN A1C - [facility] 5.9 (H) 06/05/2022 11:56 AM HEMOGLOBIN A1C - [facility] 6.2 (H) 02/13/2022 02:32 PM HEMOGLOBIN A1C - [facility] 5.8 (H) 12/06/2020 01:43 PM HEMOGLOBIN I-STAT POCT - [facility] 12.9 02/26/2022 03:30 PM HEMOGLOBIN I-STAT POCT - [facility] 11.6 (L) 02/26/2022 02:17 PM HEMOGLOBIN I-STAT POCT - [facility] 9.5 (L) 02/26/2022 01:34 PM HEMOGLOBIN, MEASURED POCT - [facility] 13.5 12/05/2021 11:15 AM HEMOGLOBIN, MEASURED POCT - [facility] 13.3 12/05/2021 11:14 AM @LABBRIEFR@ There are no Patient Instructions on file for this visit. 07/21/2025 Julius Lucas MD 01/06/2025 10:50 PM This chart was completed in part utilizing [employer] Speech Voice Recognition Software. Grammatical errors, random word insertions, prounoun errors, and incomplete sentences are an occasional consequence of this system due to software limitations, ambient noise, and hardware issues. Any formal questions or concerns about the content, text, or information contained within the body of this dictation should be directly addressed to the provider for clarification. documented in this encounter Nursing Notes * Nany Zepeda CCMA - 01/05/2025 12:21 PM EST Chief Complaint Patient presents with Follow Up Pt arrives today for an 8 month follow up appointment. Discuss lab results. documented in this encounter Plan of Treatment Upcoming Encounters Date Type Department Care Team (Late st Contact Info) Description 01/25/2025 11:00 AM EST Laboratory Laboratory, [place] [address] [place] [id number] Demetrius [place] [address] [place] [address] 01/26/2025 6:15 AM EST Anticoagulation [facility], [place]ic Campbell [address] [place] [address] [place] [address] [place] [address] 06/30/2025 10:30 AM EDT [facility] [place] [address] [facility] [address] Milana Mahajan CRNP [address] [place] [address] 07/21/2025 12:20 PM EDT Office Visit Family [facility], [place] [address] [place] [address] Julius Lucas MD [address] [place] [address] Scheduled Orders Name Type Priority Associated Diagnoses Orde r Schedule TSH Lab Routine Acquired hypothyroidism Expected: 01/06/2025 (Approximate), Expires: 01/06/2026 Health Maintenance Due Date Last Done Comments [...] Ratio 08/05/2025 08/05/2024 CKD HGB USE SMARTSET 18635 08/05/202508/05, 02/17/2024, 11/10/2023, Additional history exists CKD PHOS USE SMARTSET 60141 08/05/202507/25, 06/22/2022, 06/21/2022, Additional history exists TSH [...] this encounter Medical Devices Implanted Type Area Clinical Laboratory Technologist Device Identifier Shelf Expiration Date Model / Serial / Lot Shell 54mm - [id number] Implanted:Qty: 1 on 11/02/2015 by Wyatt Mane MD at OR [facility] Right: Hip [employer]SSES : ORTHOPAEDICS 07/03/2020 502-03-5 4E / / Trident Acetabular X3 0 36 E - [id number] Implanted:Qty: 1 on 11/02/2015 by Wyatt Mane MD at OR [facility] Right: Hip [employer] : ORTHOPAEDICS 08/22/2020 623-00-3 6E / / Screw Acetabular 6.5mm Kristina 20m - [id number] Implanted:Qty: 1 on 11/02/2015 by Wyatt Mane MD at OR [facility] Right: Hip [employer] : ORTHOPAEDICS 06/02/2020 2030-652 0-1 / / Screw Acetabular 6.5mm Kristina 25m - [id number] Implanted:Qty: 1 on 11/02/2015 by Wyatt Mane MD at OR [facility] Right: Hip [employer] : ORTHOPAEDICS 08/29/2020 2030-652 5-1 / / Hip Hd Nk Alumina Mod D 36/+5 - [id number] Implanted:Qty: 1 on 11/02/2015 by Wyatt Mane MD at OR [facility] Right: Hip [employer] : ORTHOPAEDICS 07/03/2020 6570-0-2 36 / / Stem Hip Sz6 - [id number] Implanted:Qty: 1 on 11/02/2015 by Wyatt Mane MD at OR [facility] Right: Hip [employer] : ORTHOPAEDICS 07/08/2020 6721-063 5 / / Triathlon All Poly Tibial Comp - [id number] Implanted:Qty: 1 on 01/24/2021 by Ha Wallace MD at OR [facility] Right: Knee [employer] : ORTHOPAEDICS 11/09/2025 5534-A-4 / / [id number] Cement Antibiotic Bone - [id number] Implanted:Qty: 1 on 01/24/2021 by Ha Wallace MD at OR [facility] Left: Knee [employer] : ORTHOPAEDICS 12/24/2021 6197-9-0 10 / / [id number] Triathlon All Poly Tibial Comp - [id number] Implanted:Qty: 1 on 01/24/2021 by Ha Wallace MD at OR [facility] Left: Knee [employer] : ORTHOPAEDICS 10/04/2025 5534-A-4 09 / / [id number] Knee Triathlon Bead No Audi L 5 - [id number] Implanted:Qty: 1 on 01/24/2021 by Ha Wallace MD at OR [facility] Left: Knee [employer] : ORTHOPAEDICS 12/12/2025 5517-F-5 01 / / [id number] Cement Antibiotic Bone - [id number] Implanted:Qty: 1 on 01/24/2021 by Ha Wallace MD at OR [facility] Right: Knee [employer] : ORTHOPAEDICS 12/24/2021 6197-9-0 10 / / [id number] Femoral Rt Size 5 T - [id number] Implanted:Qty: 1 on 01/24/2021 by Ha Wallace MD at OR [facility] Right: Knee [employer] : ORTHOPAEDICS 12/30/2024 5510-F-5 02 / / [id number] Triathlon X3 Symmetric Patella Implanted:Qty: 1 on 01/24/2021 by Ha Wallace MD at OR [facility] Right: Knee [employer] : ORTHOPAEDICS 01/10/2025 5550-G-3 60-E / / [id number] Cath Thermodilution 6fr - [id number] Implanted:Qty: 1 on 12/05/2021 by Luke Lynn DO at [facility] JOSEPH [employer] MARY [id number] 10/31/2023 096F6P / / [id number] Suture Steel 6 B&S19 M654g - [id number] Implanted:Qty: 7 on 02/26/2022 by Jeff Arreola MD at OR [facility] N/A: Sternum JNJ : [employer] 10/23/2026 M654G / / [id number] Valve Heart Mitral Epic 31mm - [id number] - [id number] Implanted:Qty: 1 on 02/26/2022 by Jeff Arreola MD at OR [facility] N/A: Heart ST ERIN : CARDIOVASCULAR [id number] 04/18/2025 I566-13B -00 / [id number] / [id number] Cement Antibiotic Bone - [id number] Implanted:Qty: 2 on 06/17/2022 by Ha Wallace MD at OR [facility] Right: Knee [employer] : ORTHOPAEDICS 08/23/2023 6197-9-0 10 / / [id number] Tibia Implanted:Qty: 1 on 06/17/2022 by Ha Wallace MD at OR [facility] Right: Knee [employer] 10/07/2030 42-5420- 075-02 / / [id number] Insert Tib Sz 7-9+Cd Rt - [id number] Implanted:Qty: 1 on 06/17/2022 by Ha Wallace MD at OR [facility] Right: Knee [employer] 09/30/2026 42-5228- 005-10 / / [id number] Stem Tib Ext [id number] - [id number] Implanted:Qty: 1 on 06/17/2022 by Ha Wallace MD at OR [facility] Right: Knee [employer] 09/06/2030 42-5603- 135-12 / / [id number] Stem Extention Implanted:Qty: 1 on 06/17/2022 by Ha Wallace MD at OR [facility] Right: Knee KYE KNEE 03/16/2032 42-5601- 135-15 / / [id number] Femoral Distal Augment Implanted:Qty: 1 on 06/17/2022 by Ha Wallace MD at OR [facility] Right: Knee [employer] KNEE 03/26/2032 42-5566- 062- / / [id number] Fem Comp Ccr Std Sz 7 - [id number] Implanted:Qty: 1 on 06/17/2022 by Ha Wallace MD at OR [facility] Right: Knee [employer] 01/28/2031 42-5046- 062- / / [id number] documented as of this encounter Procedures Procedure Name Priority Date/Time Associated Diagnosis Comments XR CHEST 2 VIEWS Routine 01/05/2025 1:22 PM EST Interstitial lung abnormality present on imaging study documented in this encounter Results * XR CHEST 2 VIEWS (01/05/2025 1:22 PM EST) Anatomical Region Laterality Modality Chest Digital Radiogra phy 01/05/2025 3:28 PM EST Impressions 01/05/2025 3:25 PM EST IMPRESSION 1. Slightly improved bilateral airspace opacities. 2. Questionable trace left pleural effusion. Narrative 01/05/2025 3:25 PM EST EXAM XR CHEST 2 VIEWS-01/05/2025 1:22 pm HISTORY interstitial findings on lung exam, see previous chest CT, for follow up COMPARISON Chest radiograph 08/05/2024. CT chest 09/17/2024. TECHNIQUE PA and lateral views of the chest are examined. FINDINGS Slightly improved patchy bilateral airspace opacities. Questionable trace left pleural effusion. The pulmonary vasculature and cardiomediastinal silhouette are within normal limits status post median sternotomy. No acute osseous finding. Procedure Note Sidney Sandoval MD - 01/05/2025 EXAM XR CHEST 2 VIEWS-01/05/2025 1:22 pm HISTORY interstitial findings on lung exam, see previous chest CT, for follow up COMPARISON Chest radiograph 08/05/2024. CT chest 09/17/2024. TECHNIQUE PA and lateral views of the chest are examined. FINDINGS Slightly improved patchy bilateral airspace opacities. Questionable traceleft pleural effusion. The pulmonary vasculature and cardiomediastinalsilhouette are within normal limits status post median sternotomy. Noacute osseous finding. IMPRESSION IMPRESSION 1. Slightly improved bilateral airspace opacities. 2. Questionable trace left pleural effusion. Julius Lucas MD RADIOLOGY ([facility] ) Final Result documented in this encounter Visit Diagnoses Diagnosis Pulmonary HTN (HCC)- Primary Other chronic pulmonary heart diseases PAT (paroxysmal atrial tachycardia) (HCC) Paroxysmal supraventricular tachycardia Chronic kidney disease, stage 3a (HCC) Interstitial lung abnormality present on imaging study Hypertensive heart and kidney disease with chronic diastolic congestive heart failure and stage 3a chronic kidney disease (HCC) Acquired hypothyroidism Unspecified hypothyroidism Drug-induced interstitial lung disorders (HCC) Other specified allergic alveolitis and pneumonitis documented in this encounter Advance Directives * [...] Directives occurred with: Not Discussed Care Teams Pipe Chipper Relationship Specialty Start Date End Date Julius Lucas MD [address] [facility] [place] [address] PCP - General Family Medicine 11/29/16 documented as of this encounter
--- OUTSIDE RECORDS SUMMARY | 2025-03-25 15:19 | External Medical Summary | Summary of Care ---
Author Name Unknown Organization [facility] Address [address] [place] [address] Phone [phone] Care Team Providers Care Manager Merchandise Name Role Phone Julius Lucas MD Primary Care Provider Encounter Details Date Type Department Care Team (Late st Contact Info) Description 12/14/2024 Population Health External Data Unspecified Department Allergies Active Allergy Reactions Criticality Noted Date Comments Sulfa Antibiotics 08/28/2023 Bactrim DS gave a rash documented as of this encounter (statuses as of 12/14/2024) Medications Triamcinolone Acetonide 0.1 % External Ointment [...] as of this encounter (statuses as of 12/14/2024) Active Problems Problem Noted Date Diagnosed Date [...] as of this encounter (statuses as of 12/14/2024) Resolved Problems Problem Noted Date Diagnosed Date [...] as of this encounter (statuses as of 12/14/2024) Immunizations Name Administration Dates Next Due Season [...] Care Team (Late st Contact Info) Description 12/28/2024 11:00 AM EST Laboratory Laboratory, [place] [address] [place] [address] [place], [address] [place] [address] 12/29/2024 6:15 AM EST Anticoagulation Centralized Clinical Pharmacy Services, [address] [place] [address] [place] [address] 01/05/2025 12:20 PM EST Office Visit Family Practice, [place] [address] [place] [address] Julius Lucas MD [address] [place] [phone] Health Maintenance Due Date Last Done Comments Pneumococcal Vaccine: 50+ Years (1 of 1 - PCV) 1998 Zoster Vaccines (1 of 2) 1998 DTap/Tdap Vaccines (2 - Td or Tdap) 06/28/2020 06/28/2010, 09/17/2000, 11/11/1989 COVID-19 Vaccine ( - 2023- season) 2024 Influenza Vaccine (FLU shot) (#1) 2024 08/14/2011 Depression Screening 08/28/2024 08/28/2023 Adult Wellness Visit 01/27/2025 01/28/2024 GFR 02/02/2025 08/05/2024, 02/22, 02/17/2024, Additional history exists Mammogram 06/11/2025 06/11/2024, 09/25, 07/29/2019, Additional history exists Albumin/Creatinine Ratio 08/05/2025 08/05/2024 CKD HGB USE SMARTSET 93919 08/05/202508/05, 02/17/2024, 11/10/2023, Additional history exists CKD PHOS USE SMARTSET 02587 08/05/202507/25, 06/22/2022, 06/21/2022, Additional history exists TSH [...] this encounter Medical Devices Implanted Type Area Tentmaker Device Identifier Shelf Expiration Date Model / Serial / Lot Shell 54mm - [id number] Implanted:Qty: 1 on 11/02/2015 by Wyatt Mane MD at [place] [facility] Right: Hip ULYSSES : ORTHOPAEDICS 07/03/2020 502-03-5 4E / / Trident Acetabular X3 0 36 E - [id number] Implanted:Qty: 1 on 11/02/2015 by Wyatt Mane MD at OR [facility] Right: Hip ULYSSES : ORTHOPAEDICS 08/22/2020 623-00-3 6E / / Screw Acetabular 6.5mm Kristina 20m - [id number] Implanted:Qty: 1 on 11/02/2015 by Wyatt Mane MD at OR [facility] Right: Hip ULYSSES : ORTHOPAEDICS 06/02/20202029-652 0-1 / / Screw Acetabular 6.5mm Kristina 25m - [id number] Implanted:Qty: 1 on 11/02/2015 by Wyatt Mane MD at [place] [facility] Right: Hip ULYSSES : ORTHOPAEDICS 08/29/20202029-652 5-1 / / Hip Hd Nk Alumina Mod D 36/+5 - [id number] Implanted:Qty: 1 on 11/02/2015 by Wyatt Mane MD at OR [facility] Right: Hip ULYSSES : ORTHOPAEDICS 07/03/2020 6570-0-2 36 / / Stem Hip Sz6 - [id number] Implanted:Qty: 1 on 11/02/2015 by Wyatt Mane MD at [place] [facility] Right: Hip [employer]SSES : ORTHOPAEDICS 07/08/2020 6721-063 5 / / Triathlon All Poly Tibial Comp - [id number] Implanted:Qty: 1 on 01/24/2021 by Ha Wallace MD at OR [facility] Right: Knee ULYSSES : ORTHOPAEDICS 11/09/2025 5534-A-4 09 / / [id number] Cement Antibiotic Bone - [id number] Implanted:Qty: 1 on 01/24/2021 by Ha Wallace MD at OR [facility] Left: Knee [employer]LYSSES : ORTHOPAEDICS 12/24/2021 6197-9-0 10 / / [id number] Triathlon All Poly Tibial Comp - [id number] Implanted:Qty: 1 on 01/24/2021 by Ha Wallace MD at OR [facility] Left: Knee [employer]LYSSES : ORTHOPAEDICS 10/04/2025 5534-A-4 09 / / [id number] Knee Triathlon Bead No Audi L 5 - [id number] Implanted:Qty: 1 on 01/24/2021 by Ha Wallace MD at OR [facility] Left: Knee [employer]LYSSES : ORTHOPAEDICS 12/12/2025 5517-F-5 01 / / [id number] Cement Antibiotic Bone - [id number] Implanted:Qty: 1 on 01/24/2021 by Ha Wallace MD at OR [facility] Right: Knee [employer]SSES : ORTHOPAEDICS 12/24/2021 6197-9-0 10 / / [id number] Component Femoral Rt Size 5 T - [id number] Implanted:Qty: 1 on 01/24/2021 by Ha Wallace MD at OR [facility] Right: Knee [employer]SSES : ORTHOPAEDICS 12/30/2024 5510-F-5 02 / / [id number] Triathlon X3 Symmetric Patella Implanted:Qty: 1 on 01/24/2021 by Ha Wallace MD at OR [facility] Right: Knee [employer]ES : ORTHOPAEDICS 01/10/2025 5550-G-3 60-E / / XTTY Cath Thermodilution 6fr - [id number] Implanted:Qty: 1 on 12/05/2021 by Luke Lynn DO at [facility]ARD[facility] [employer]PH [employer] MARY [id number] 10/31/2023 096F6P / / [id number] Suture Steel 6 B&S19 M654g - [id number] Implanted:Qty: 7 on 02/26/2022 by Jeff Arreola MD at OR [facility] N/A: Sternum JNJ : [employer] 10/23/2026 M654G / / RPBCTE Valve Heart Mitral Epic 31mm - [id number] - [id number] Implanted:Qty: 1 on 02/26/2022 by Jeff Arreola MD at OR [facility] N/A: Heart ST ERIN : CARDIOVASCULAR [id number] 04/18/2025 F460-98N -00 / [id number] / [id number] Cement Antibiotic Bone - [id number] Implanted:Qty: 2 on 06/17/2022 by Ha Wallace MD at OR [facility] Right: Knee [employer]LYSSES : ORTHOPAEDICS 08/23/2023 6197-9-0 10 / / [id number] Tibia Implanted:Qty: 1 on 06/17/2022 by Ha Wallace MD at OR [facility] Right: Knee KYE KNEE 10/07/2030 42-5420- 075-02 / / [id number] Insert Tib Sz 7-9+Cd Rt - [id number] Implanted:Qty: 1 on 06/17/2022 by Ha Wallace MD at OR [facility] Right: Knee [employer] 09/30/2026 42-5228- 005-10 / / [id number] Stem Tib Ext 0s10i391gw - [id number] Implanted:Qty: 1 on 06/17/2022 by Ha Wallace MD at OR [facility] Right: Knee [employer] 09/06/2030 42-5603- 135-12 / / [id number] Stem Extention Implanted:Qty: 1 on 06/17/2022 by Ha Wallace MD at OR [facility] Right: Knee KYE KNEE 03/16/2032 42-5601- 135-15 / / [id number] Femoral Distal Augment Implanted:Qty: 1 on 06/17/2022 by Ha Wallace MD at [place] [facility] Right: Knee KYE KNEE 03/26/2032 42-5566- 062- / / [id number] Fem Comp Ccr Std Sz 7 - [id number] Implanted:Qty: 1 on 06/17/2022 by Ha Wallace MD at [place] [facility] Right: Knee [employer] 01/28/2031 42-5046- 062-02 / / [id number] documented as of this encounter Advance Directives * Full Code [...] Directives occurred with: Not Discussed Care Teams Manager Merchandise Relationship Specialty Start Date End Date Julius Lucas MD [address] [facility] [place] [address] PCP - General Family Medicine 11/29/16 documented as of this encounter
--- OUTSIDE RECORDS SUMMARY | 2025-03-25 15:19 | External Medical Summary | Summary of Care ---
Author Name Unknown Organization [facility] Address [address] [facility] [place] [address] Phone [phone] Care Team Providers Care Traveling Secretary Name Role Phone Julius Lucas MD Primary Care Provider Reason for Visit * Reason Comments Dosage Adjustment Via Phone (anticoag Cl inic) Encounter Details Date Type Department Care Team ([facility] st Contact Info) Description 01/26/2025 6:15 AM EST Anticoagulation Centralized Clinical Pharmacy Services, Angelic Campbell [address] [place] [address] [place] [address] [facility] [place] [address] S/P MVR (mitral valve replacement)*; S/P revision of total knee, right Allergies Active Allergy Reactions Criticality Noted Date Comments Sulfa Antibiotics 08/28/2023 Bactrim DS gave a rash documented as of this encounter (statuses as of 01/26/2025) Medications Triamcinolone Acetonide 0.1 % External Ointment [...] as of this encounter (statuses as of 01/26/2025) Active Problems Problem Noted Date Diagnosed Date [...] as of this encounter (statuses as of 01/26/2025) Resolved Problems Problem Noted Date Diagnosed Date [...] as of this encounter (statuses as of 01/26/2025) Immunizations Name Administration Dates Next Due Season [...] Gonsales ma, RN documented in this encounter Progress Notes * Carin Byrnes RPh - 01/26/2025 9:54 AM EST Agree with plan. Carin Byrnes Rph, Pharm.D. Clinical Pharmacist [facility] [phone] 01/26/2025,9:54 AM * Clif Glynn, PHARM Student - 01/26/2025 8:35 AM EST Medication Therapy Disease Management - Anticoagulation Patient: Marta Villela | : 1950 Subjective Contacts Contact Date/Time Type Contact Phone/Fax 01/26/2025 09:58 AM EST Phone (Outgoing) Marta Villela (Self) [phone] (M) Spoke to Patient Patient-Reported Symptoms: Patient Findings Negatives: Signs/symptoms of bleeding, Change in health, Upcoming invasive procedure, Missed doses,Extra doses, Change in medications, Change in diet/appetite, Bruising Objective Current Warfarin Dose As of 01/26/2025 Warfarin maintenance plan: 1.25 mg (2.5 mg x 0.5) every Mon, Fri; 2.5 mg (2.5 mg x 1) all other days INR Result As of 01/26/2025 INR goal: 2.0-3.0 INR used for dosin.4 (01/25/2025) Assessment & Plan Warfarin Plan As of 01/26/2025 Full warfarin instructions: 1.25 mg every Mon, Fri; 2.5 mg all other days No change documented: Clif Glynn, PHARM Student Next INR check: 03/01/2025 Repeat PT/INR in 5 week(s) Weekly dose: not changed Additional Dosing Information: Description Petey Frank, PHARM Student Clinical Pharmacist 01/26/2025, 8:35 AM Cosigned by Carin Byrnes RP at 01/26/2025 4:00 PM EST documented in this encounter Plan of Treatment Upcoming Encounters Date Type Department Care Team (Late st Contact Info) Description 03/01/2025 11:00 AM EDT Laboratory Laboratory, [place] [address] [place] [address] [place], [address] [place] [address] 03/02/2025 6:15 AM EDT Anticoagulation Centralized Clinical Pharmacy Services, Angelic Campbell [address] [place] [address] [place] [address] [place] [address] 06/30/2025 10:30 AM EDT Office [address]iology[address] [address] Milana Mahajan CR[facility] [address] [facility] [address] 07/21/2025 12:20 PM EDT Office Visit [facility] [address] [place] [address] Julius Lucas MD [address] [place] [phone] Health Maintenance Due Date Last Done Comments [...] Ratio 08/05/2025 08/05/2024 CKD HGB USE SMARTSET 54237 08/05/202508/05, 02/17/2024, 11/10/2023, Additional history exists CKD PHOS USE SMARTSET 01977 08/05/202507/25, 06/22/2022, 06/21/2022, Additional history exists Depression [...] this encounter Medical Devices Implanted Type Area Player Services Representative Device Identifier Shelf Expiration Date Model / Serial / Lot Shell 54mm - [id number] Implanted:Qty: 1 on 11/02/2015 by Wyatt Mane MD at [place] [facility] Right: Hip ULYSSES : ORTHOPAEDICS 07/03/2020 502-03-5 4E / / Trident Acetabular X3 0 36 E - [id number] Implanted:Qty: 1 on 11/02/2015 by Wyatt aMne MD at [place] [facility] Right: Hip ULYSSES : ORTHOPAEDICS 08/22/2020 623-00-3 6E / / Screw Acetabular 6.5mm Kristina 20m - [id number] Implanted:Qty: 1 on 11/02/2015 by Wyatt Mane MD at [place] [facility] Right: Hip ULYSSES : ORTHOPAEDICS 06/02/2020652 0-1 / / Screw Acetabular 6.5mm Kristina 25m - [id number] Implanted:Qty: 1 on 11/02/2015 by Wyatt Mane MD at [place] [facility] Right: Hip ULYSSES : ORTHOPAEDICS 08/29/2020652 5-1 / / Hip Hd Nk Alumina Mod D 36/+5 - [id number] Implanted:Qty: 1 on 11/02/2015 by Wyatt Mane MD at [place] [facility] Right: Hip ULYSSES : ORTHOPAEDICS 07/03/2020 6570-0-2 36 / / Stem Hip Sz6 - [id number] Implanted:Qty: 1 on 11/02/2015 by Wyatt Mane MD at [place] [facility] Right: Hip ULYSSES : ORTHOPAEDICS 07/08/2020 6721-063 5 / / Triathlon All Poly Tibial Comp - [id number] Implanted:Qty: 1 on 01/24/2021 by Ha Wallace MD at OR [facility] Right: Knee ULYSSES : ORTHOPAEDICS 11/09/2025 5534-A-4 09 / / [id number] Cement Antibiotic Bone - [id number] Implanted:Qty: 1 on 01/24/2021 by Ha Wallace MD at OR [facility] Left: Knee ULYSSES : ORTHOPAEDICS 12/24/2021 6197-9-0 10 / / [id number] Triathlon All Poly Tibial Comp - [id number] Implanted:Qty: 1 on 01/24/2021 by Ha Wallace MD at OR [facility] Left: Knee ULYSSES : ORTHOPAEDICS 10/04/2025 5534-A-4 09 / / [id number] Knee Triathlon Bead No Audi L 5 - [id number] Implanted:Qty: 1 on 01/24/2021 by Ha Wallace MD at OR [facility] Left: Knee ULYSSES : ORTHOPAEDICS 12/12/2025 5517-F-5 01 / / [id number] Cement Antibiotic Bone - [id number] Implanted:Qty: 1 on 01/24/2021 by Ha Wallace MD at OR [facility] Right: Knee ULYSSES : ORTHOPAEDICS 12/24/2021 6197-9-0 10 / / [id number] Component Femoral Rt Size 5 T - [id number] Implanted:Qty: 1 on 01/24/2021 by Ha Wallace MD at OR [facility] Right: Knee ULYSSES : ORTHOPAEDICS 12/30/2024 5510-F-5 02 / / [id number] Triathlon X3 Symmetric Patella Implanted:Qty: 1 on 01/24/2021 by Ha Wallace MD at OR [facility] Right: Knee ULYSSES : ORTHOPAEDICS 01/10/2025 5550-G-3 60-E / / XTTY Cath Thermodilution 6fr - [id number] Implanted:Qty: 1 on 12/05/2021 by Luke Lynn DO at [facility]ARD[facility] [employer] MARY [id number] 10/31/2023 096F6P / / [id number] Suture Steel 6 B&S19 M654g - [id number] Implanted:Qty: 7 on 02/26/2022 by Jeff Arreola MD at [place] [facility] N/A: Sternum JNJ : [employer] 10/23/2026 M654G / / RPBCTE Valve Heart Mitral Epic 31mm - [id number] - [id number] Implanted:Qty: 1 on 02/26/2022 by Jeff Arreola MD at [place] [facility] N/A: Heart ST ERIN : CARDIOVASCULAR [id number] 04/18/2025 Z181-97G -00 / [id number] 3 / [id number] Cement Antibiotic Bone - [id number] Implanted:Qty: 2 on 06/17/2022 by Ha Wallace MD at [place] [facility] Right: Knee ULYSSES : ORTHOPAEDICS 08/23/2023 6197-9-0 10 / / [id number] Tibia Implanted:Qty: 1 on 06/17/2022 by Ha Wallace MD at [place] [facility] Right: Knee KYE KNEE 10/07/2030 42-5420- 075-02 / / [id number] Insert Tib Sz 7-9+Cd Rt - [id number] Implanted:Qty: 1 on 06/17/2022 by Ha Wallace MD at [place] [facility] Right: Knee [employer] 09/30/2026 42-5228- 005-10 / / [id number] Stem Tib Ext [id number] - [id number] Implanted:Qty: 1 on 06/17/2022 by Ha Wallace MD at [place] [facility] Right: Knee [employer] 09/06/2030 42-5603- 135-12 / / [id number] Stem Extention Implanted:Qty: 1 on 06/17/2022 by Ha Wallace MD at [place] [facility] Right: Knee KYE K[employer] 03/16/2032 42-5601- 135-15 / / [id number] Femoral Distal Augment Implanted:Qty: 1 on 06/17/2022 by Ha Wallace MD at [place] [facility] Right: Knee KEY KNEE 03/26/2032 42-5566- 062- [id number] Fem Comp Ccr Std Sz 7 - [id number] Implanted:Qty: 1 on 06/17/2022 by Ha Wallace MD at [place] [facility] Right: Knee [employer] 01/28/2031 42-5046- 062- [id number] documented as of this encounter Visit Diagnoses [...] Directives occurred with: Not Discussed Care Teams Traveling Secretary Relationship Specialty Start Date End Date Julius Lucas MD PCP - General Family Medicine 11/29/16 documented as of this encounter"
--- OUTSIDE RECORDS SUMMARY | 2025-03-25 15:19 | External Medical Summary | Summary of Care ---
Author Name Unknown Organization [facility] Address [address] [place] [address] Phone [phone] Care Team Providers Care Deaf Interpreter Name Role Phone Julius Lucas MD Primary Care Provider Reason for Visit * Reason Comments eRx-Medication Refill Encounter Details Date Type Department Care Team (Late st Contact Info) Description 12/30/2024 Refill [facility], [place] [address] [facility] [place] [phone] Arun Mahajan CRNP [address] [place], [place] [phone] History of cardioversion Allergies Active Allergy Reactions Criticality Noted Date Comments Sulfa Antibiotics 08/28/2023 Bactrim DS gave a rash documented as of this encounter (statuses as of 12/31/2024) Medications Triamcinolone Acetonide 0.1 % External Ointment (Aristocort) Apply to rash on lower legs twice daily for a week 60 g 023 Active Multivitamin Adult Oral Tablet Take 1 Tablet by mouth in the morning. Active Potassium 99 MG Oral Tablet Take 1 Tablet by mouth in the morning. Active Metoprolol Succinate ER 25 MG Oral Tablet Extended Release 24 Hour (toPROL XL)Indications:P AT (paroxysmal atrial tachycardia) (HCC) TAKE 1 TABLET BY MOUTH EVERY DAY 90 Tablet 3 024 Active Furosemide 40 MG Oral Tablet (Lasix)Indicatio ns:Pulmonary HTN (HCC) Take 1 Tablet by mouth in the morning. 90 Tablet 3 024 Active Warfarin Sodium 2.5 MG Oral Tablet (Coumadin)Indica tions:S/P MVR (mitral valve replacement) Take 0.5-1 Tablets by mouth every evening. As directed by Anticoagulation Clinic 90 Tablet 4 024 Active Levothyroxine Sodium 50 MCG Oral Tablet (Levoxyl)Indicat ions:Hypothyroid ism due to acquired atrophy of thyroid (at least 30 min prior to breakfast or other meds)TAKE 1/2 TABLET BY MOUTH IN THE MORNING. (AT LEAST 30 MIN PRIOR TO BREAKFAST OR OTHER MEDS). 45 Tablet 1 024 Active Amiodarone HCl 200 MG Oral Tablet (Cordarone)Indic ations:History of cardioversion TAKE 1 TABLET BY MOUTH EVERY DAY IN THE MORNING 90 Tablet 3 025 Active Amiodarone HCl 200 MG Oral Tablet (Cordarone)Indic ations:History of cardioversion TAKE 1 TABLET BY MOUTH EVERY DAY IN THE MORNING 90 Tablet 3 024 2024 Discontinued documented as of this encounter (statuses as of 12/31/2024) Active Problems Problem Noted Date Diagnosed Date [...] replacements 01/25/20 21 INFORMATION 12/10/2017 Overview (12/10/2017): [facility] does not work. Osteoarthritis of hip 11/02/2015 S/P total hip arthroplasty 11/02/2015 Family history of breast cancer in sister 2012 Cataract, right eye 09/01/2013 documented as of this encounter (statuses as of 12/31/2024) Resolved Problems Problem Noted Date Diagnosed Date [...] as of this encounter (statuses as of 12/31/2024) Immunizations Name Administration Dates Next Due Season [...] 08/28/2023 Does the household have a re lar [...] Gonsales ma, RN documented in this encounter Miscellaneous Notes * Telephone Encounter - Arun Mahajan CRNP - 12/31/2024 7:44 AM ESTSigned Prescriptions: Disp Refills Amiodarone HCl 200 MG Oral Tablet (Cordaro*90 Tab*3 Sig: TAKE 1 TABLET BY MOUTH EVERY DAY IN THE MORNING Authorizing Provider: ARUN MAHAJAN * Telephone Encounter - Hank Zuleta [facility] - 12/30/2024 2:01 PM EST Pending Prescriptions: Disp Refills Amiodarone HCl 200 MG Oral Tablet [Pharmac*90 Tab*3 Sig: TAKE 1 TABLET BY MOUTH EVERY DAY IN THE MORNING * Telephone Encounter - Hank Zuleta RPh - 12/30/2024 2:00 PM EST [facility] is currently not authorized to approve refills for the pended medication(s) per refill protocol. Please approve if appropriate. Thanks, Hank Zuleta, PharmD Clinical Pharmacist Centralized Clinical Pharmacy Services [phone] 12/30/2024, 2:00 PM documented in this encounter Plan of Treatment Upcoming Encounters Date Type Department Care Team (Late st Contact Info) Description 01/05/2025 12:20 PM EST Office Visit [facility] [address] [place] [address] Julius Lucas MD [address] [place] [address] 01/25/2025 11:00 AM EST Laboratory Laboratory, [place] [address] [place] [address] [place], Lab [address] [place] [address] 01/26/2025 6:15 AM EST Anticoagulation [facility] Services, Angelic Campbell [address] [place] [address] [place] [address] [place] [address] 06/30/2025 10:30 AM EDT Office Visit Cardiology, [place] [address] [place] [address] Arun Mahajan CRNP [address] [place] [address] Health Maintenance Due Date Last Done Comments [...] Ratio 08/05/2025 08/05/2024 CKD HGB USE SMARTSET 23836 08/05/202508/05, 02/17/2024, 11/10/2023, Additional history exists CKD PHOS USE SMARTSET 76709 08/05/202507/25, 06/22/2022, 06/21/2022, Additional history exists TSH [...] this encounter Medical Devices Implanted Type Area Bicycle Courier Device Identifier Shelf Expiration Date Model / Serial / Lot Shell 54mm - [id number] Implanted:Qty: 1 on 11/02/2015 by Wyatt Mane MD [place] [facility] [place]: Hip ULYSSES : ORTHOPAEDICS 07/03/2020 502-03-5 4E / / Trident Acetabular X3 0 36 E - [id number] Implanted:Qty: 1 on 11/02/2015 by Wyatt Mane MD at [place] [facility] Right: Hip ULYSSES : ORTHOPAEDICS 08/22/2020 623-00-3 6E / / Screw Acetabular 6.5mm Kristina 20m - [id number] Implanted:Qty: 1 on 11/02/2015 by Wyatt Mane MD at [place] [facility] Right: Hip ULYSSES : ORTHOPAEDICS 06/02/2020652 0-1 / / Screw Acetabular 6.5mm Kristina 25m - [id number] Implanted:Qty: 1 on 11/02/2015 by Wyatt Mane MD at [place] [facility] Right: Hip ULYSSES : ORTHOPAEDICS 08/29/20202029-652 5-1 / / Hip Hd Nk Alumina Mod D 36/+5 - [id number] Implanted:Qty: 1 on 11/02/2015 by Wyatt Mane MD at [place] [facility] Right: Hip ULYSSES : ORTHOPAEDICS 07/03/2020 6570-0-2 36 / / Stem Hip Sz6 - [id number] Implanted:Qty: 1 on 11/02/2015 by Wyatt Mane MD at [place] [facility] Right: Hip ULYSSES : ORTHOPAEDICS 07/08/2020 6721-063 5 / / Triathlon All Poly Tibial Comp - [id number] Implanted:Qty: 1 on 01/24/2021 by Ha Wallace MD at OR [facility] Right: Knee U[employer]SSES : ORTHOPAEDICS 11/09/2025 5534-A-4 / / [id number] Cement Antibiotic Bone - [id number] Implanted:Qty: 1 on 01/24/2021 by Ha Wallace MD at OR [facility] Left: Knee [employer]LYSSES : ORTHOPAEDICS 12/24/2021 6197-9-0 10 / / [id number] Triathlon All Poly Tibial Comp - [id number] Implanted:Qty: 1 on 01/24/2021 by Ha Wallcae MD at OR [facility] Left: Knee [employer]LYSSES : ORTHOPAEDICS 10/04/2025 5534-A-4 09 / / [id number] Knee Triathlon Bead No Audi L 5 - [id number] Implanted:Qty: 1 on 01/24/2021 by Ha Wallace MD at OR [facility] Left: Knee [employer]LYSSES : ORTHOPAEDICS 12/12/2025 5517-F-5 01 / / [id number] Cement Antibiotic Bone - [id number] Implanted:Qty: 1 on 01/24/2021 by Ha Wallace MD at OR [facility] Right: Knee [employer]SSES : ORTHOPAEDICS 12/24/2021 6197-9-0 10 / / [id number] Component Femoral Rt Size 5 T - [id number] Implanted:Qty: 1 on 01/24/2021 by Ha Wallace MD at OR [facility] Right: Knee [employer]LYSSES : ORTHOPAEDICS 12/30/2024 5510-F-5 02 / / [id number] Triathlon X3 Symmetric Patella Implanted:Qty: 1 on 01/24/2021 by Ha Wallace MD at OR [facility] Right: Knee [employer]SSES : ORTHOPAEDICS 01/10/2025 5550-G-3 60-E / / XTTY Cath Thermodilution 6fr - [id number] Implanted:Qty: 1 on 12/05/2021 by Luke Lynn DO at [facility] [employer] MARY [id number] 10/31/2023 096F6P / / [id number] Suture Steel 6 B&S19 M654g - [id number] Implanted:Qty: 7 on 02/26/2022 by Jeff Arreola MD at [place] [facility] N/A: Sternum JNJ : [employer] 10/23/2026 M654G / / RPBCTE Valve Heart Mitral Epic 31mm - [id number] - [id number] Implanted:Qty: 1 on 02/26/2022 by Jeff Arreola MD at [place] [facility] N/A: Heart ST ERIN : CARDIOVASCULAR [id number] 04/18/2025 Y656-38L -00 / [id number] 3 / [id number] 3 Cement Antibiotic Bone - [id number] Implanted:Qty: 2 on 06/17/2022 by Ha Wallace MD at [place] [facility] Right: Knee ULYSSES : ORTHOPAEDICS 08/23/2023 6197-9-0 10 / [id number] Tibia Implanted:Qty: 1 on 06/17/2022 by Ha Wallace MD at [place] [facility] Right: Knee KYE KNEE 10/07/2030 42-5420- 075-02 / / [id number] Insert Tib Sz 7-9+Cd Rt - [id number] Implanted:Qty: 1 on 06/17/2022 by Ha Wallace MD at [place] [facility] Right: Knee [employer] 09/30/2026 42-5228- 005- / / [id number] Stem Tib Ext 2l64e151lq - [id number] Implanted:Qty: 1 on 06/17/2022 by Ha Wallace MD at [place] [facility] Right: Knee [employer] 09/06/2030 42-5603- 135-12 / / [id number] Stem Extention Implanted:Qty: 1 on 06/17/2022 by Ha Wallace MD at [place] [facility] Right: Knee [employer] 03/16/2032 42-5601- 135-15 / / [id number] Femoral Distal Augment Implanted:Qty: 1 on 06/17/2022 by Ha Wallace MD at [place] [facility] Right: Knee K[employer]EE 03/26/2032 42-5566- 062-05 / / [id number] Fem Comp Ccr Std Sz 7 - [id number] Implanted:Qty: 1 on 06/17/2022 by Ha Wallace MD at [place] [facility] Right: Knee [employer] 01/28/2031 42-5046- 062-02 / / [id number] documented as of this encounter Visit Diagnoses Diagnosis History of cardioversion Personal history of surgery to heart and great vessels, presenting hazards to health documented in this encounter Advance Directives * [...] Directives occurred with: Not Discussed Care Teams Deaf Interpreter Relationship Specialty Start Date End Date Julius Lucas MD [address] [facility] [address] [place] [address] PCP - General Family Medicine 11/29/16 documented as of this encounter
--- OUTSIDE RECORDS SUMMARY | 2025-03-25 15:19 | External Medical Summary ---
Author Name Unknown Address Unknown Organization K01:LABORATORY [facility] - [address] [place] [address] Laboratory Report Ordering Provider Test Date Status WILMAR NUGENT 01/25/2025 11:06:41 Final Observation Date Value Abnormality Reference (Units ) Status TSH 01/25/2025 11:06:41 3.10 0.27-4.20 (uIU/mL) Final Performing Location LABORATORY [facility] - [address] [place] [address]
--- OUTSIDE RECORDS SUMMARY | 2025-03-25 15:19 | External Medical Summary | Summary of Care ---
Author Name Unknown Organization [facility] Address [address] [place] [address] Phone [phone] Care Team Providers Care Society Reporter Name Role Phone Raffi Urban MD Primary Care Provider Reason for Visit * Reason Onset Date Comments Medication Refill 01/05/2025 Encounter Details Date Type Department Care Team ([facility] st Contact Info) Description 01/05/[address] [place], [place] [phone] [facility] [address] [place], [place] [phone] History of cardioversion Allergies Active Allergy Reactions Criticality Noted Date Comments Sulfa Antibiotics 08/28/2023 Bactrim DS gave a rash documented as of this encounter (statuses as of 01/05/2025) Medications Triamcinolone Acetonide 0.1 % External Ointment [...] morning. 90 Tablet 1 01/05/20 25 Active Amiodarone HCl 200 MG Oral Tablet (Cordarone)Indica tions:History of cardioversion TAKE 1 TABLET BY MOUTH EVERY DAY IN THE MORNING 90 Tablet 3 12/31/19 25 2024 Disconti nued(Ref ill) documented as of this encounter (statuses as of 01/05/2025) Active Problems Problem Noted Date Diagnosed Date Hypertensive heart and kidne y disease with [...] as of this encounter (statuses as of 01/05/2025) Resolved Problems Problem Noted Date Diagnosed Date [...] as of this encounter (statuses as of 01/05/2025) Immunizations Name Administration Dates Next Due Season [...] Neri ma, RN documented in this encounter Miscellaneous Notes * Telephone Encounter - Raffi Urban MD - 01/05/2025 1:48 PM EST Signed Prescriptions: Disp Refills Amiodarone HCl 200 MG Oral Tablet (Cordaro*90 Tab*1 Sig: TAKE 1TABLET BY MOUTH EVERY DAY IN THE MORNINGAuthorizing Provider: RAFFI URBAN documented in this encounter Plan of Treatment Upcoming Encounters Date Type Department Care Team (Late st Contact Info) Description 01/25/2025 11:00 AM EST Laboratory Laboratory, [place] [address] [place] [address] [place], [address] [place] [address] 01/26/2025 6:15 AM EST Anticoagulation Central[facility] Pharmacy Services, Angelic Campbell [address] [place] [address] [place] [address] [place] [address] 06/30/2025 10:30 AM EDT Office Visit Cardiology, [place] [address] [place] [address] Milana Mahajan CRNP [address] [place] [address] 07/21/2025 12:20 PM EDT Office Visit Family Practice, [place] [address] [place] [phone] Raffi Urban MD [address] [place] [phone] Health Maintenance Due Date Last Done Comments [...] Ratio 08/05/2025 08/05/2024 CKD HGB USE SMARTSET 16650 08/05/202508/05, 02/17/2024, 11/10/2023, Additional history exists CKD PHOS USE SMARTSET 17918 08/05/202507/25, 06/22/2022, 06/21/2022, Additional history exists TSH [...] this encounter Medical Devices Implanted Type Area Production Control Expert Device Identifier Shelf Expiration Date Model / Serial / Lot Shell 54mm - [id number] Implanted:Qty: 1 on 11/02/2015 by Wyatt Mane [place] [facility] [place] Hip ULYSSES : ORTHOPAEDICS 07/03/2020 502-03-5 4E / / Trident Acetabular X3 0 36 E - [id number] Implanted:Qty: 1 on 11/02/2015 by Wyatt Mane MD [place] [facility] [place]: Hip ULYSSES : ORTHOPAEDICS 08/22/2020 623-00-3 6E / / Screw Acetabular 6.5mm Kristina 20m - [id number] Implanted:Qty: 1 on 11/02/2015 by Wyatt Mane MD [place] [facility] [place]: Hip ULYSSES : ORTHOPAEDICS 06/02/2020 2030-652 0-1 / / Screw Acetabular 6.5mm Kristina 25m - [id number] Implanted:Qty: 1 on 11/02/2015 by Wyatt Mane MD [place] [facility] [place]: Hip ULYSSES : ORTHOPAEDICS 08/29/2020 2030-652 5-1 / / Hip Hd Nk Alumina Mod D 36/+5 - [id number] Implanted:Qty: 1 on 11/02/2015 by Wyatt Mane MD [place] [facility] [place]: Hip ULYSSES : ORTHOPAEDICS 07/03/2020 6570-0-2 36 / / Stem Hip Sz6 - [id number] Implanted:Qty: 1 on 11/02/2015 by Wyatt Mane MD [place] [facility] [place]: Hip ULYSSES : ORTHOPAEDICS 07/08/2020 6721-063 5 / / Triathlon All Poly Tibial Comp - [id number] Implanted:Qty: 1 on 01/24/2021 by Ha Wallace MD at OR [facility] Right: Knee ULYSSES : ORTHOPAEDICS 11/09/2025 5534-A-4 09 / / [id number] Cement Antibiotic Bone - [id number] Implanted:Qty: 1 on 01/24/2021 by Ha Wallace MD at OR [facility] Left: Knee ULYSSSE : ORTHOPAEDICS 12/24/2021 6197-9-0 10 / / [id number] Triathlon All Poly Tibial Comp - [id number] Implanted:Qty: 1 on 01/24/2021 by Ha Wallace MD at OR [facility] Left: Knee ULYSSSE : ORTHOPAEDICS 10/04/2025 5534-A-4 09 / / [id number] Knee Triathlon Bead No Audi L 5 - [id number] Implanted:Qty: 1 on 01/24/2021 by Ha Wallace MD at OR [facility] Left: Knee ULYSSES : ORTHOPAEDICS 12/12/2025 5517-F-5 01 / / [id number] Cement Antibiotic Bone - [id number] Implanted:Qty: 1 on 01/24/2021 by Ha Wallace MD at OR [facility] Right: Knee ULYSSES : ORTHOPAEDICS 12/24/2021 6197-9-0 10 / / [id number] Component Femoral Rt Size 5 T - [id number] Implanted:Qty: 1 on 01/24/2021 by Ha Wallace MD at OR [facility] Right: Knee ULYSSES : ORTHOPAEDICS 12/30/2024 5510-F-5 02 / / [id number] Triathlon X3 Symmetric Patella Implanted:Qty: 1 on 01/24/2021 by Ha Wallace MD at OR [facility] Right: Knee ULYSSES : ORTHOPAEDICS 01/10/2025 5550-G-3 60-E / / XTTY Cath Thermodilution 6fr - [id number] Implanted:Qty: 1 on 12/05/2021 by Luke Lynn DO [place] [facility] [email or web address] MARY [id number] 10/31/2023 096F6P / / [id number] Suture Steel 6 B&S19 M654g - [id number] Implanted:Qty: 7 on 02/26/2022 by Jeff Arreola MD [place] [facility] N/A: Sternum JNJ : [employer] 10/23/2026 M654G / / RPBCTE Valve Heart Mitral Epic 31mm - [id number] - [id number] Implanted:Qty: 1 on 02/26/2022 by Jeff Arreola MD [place] [facility] N/A: Heart ST ERIN : CARDIOVASCULAR [id number] 04/18/2025 B235-61L -00 / [id number] 3 / [id number] 3 Cement Antibiotic Bone - [id number] Implanted:Qty: 2 on 06/17/2022 by Ha Wallace MD [place] [facility] [place]: Knee ULYSSES : ORTHOPAEDICS 08/23/2023 6197-9-0 10 / / [id number] Tibia Implanted:Qty: 1 on 06/17/2022 by Ha Wallace MD [place] [facility] Right: Knee KYE KNEE 10/07/2030 42-5420- 075-02 / / [id number] Insert Tib Sz 7-9+Cd Rt - [id number] Implanted:Qty: 1 on 06/17/2022 by Ha Wallace MD [place] [facility] Right: Knee [employer] 09/30/2026 42-5228- 005-10 / / [id number] Stem Tib Ext 4t53d054ev - [id number] Implanted:Qty: 1 on 06/17/2022 by Ha Wallace MD [place] [facility] Right: Knee [employer] 09/06/2030 42-5603- 135-12 / / [id number] Stem Extention Implanted:Qty: 1 on 06/17/2022 by Ha Wallace MD [place] [facility] Right: Knee KYE K[employer] 03/16/2032 42-5601- 135-15 / / [id number] Femoral Distal Augment Implanted:Qty: 1 on 06/17/2022 by Ha Wallace MD [place] [facility] Right: Knee [employer]YE K[employer]EE 03/26/2032 42-5566- 062-05 / / [id number] Fem Comp Ccr Std Sz 7 - [id number] Implanted:Qty: 1 on 06/17/2022 by Ha Wallace MD [place] [facility] Right: Knee [employer] 01/28/2031 42-5046- 062-02 / / [id number] documented as of this encounter Visit Diagnoses [...] Directives occurred with: Not Discussed Care Teams Society Reporter Relationship Specialty Start Date End Date Raffi Urban MD [address] [place] [address] [place] [address] PCP - General Family Medicine 11/29/16 documented as of this encounter
--- OUTSIDE RECORDS SUMMARY | 2025-03-25 15:19 | External Medical Summary | Summary of Care ---
Author Name Unknown Organization [facility] Address [address] [place] [address] Phone [phone] Care Team Providers Care Shotgun Shell Assembly Machine Adjuster Name Role Phone Julius Lucas MD Primary Care Provider Reason for Visit * Reason Comments Outpatient Testing Encounter Details Date Type Department Care Team (Late st Contact Info) Description 12/28/2024 11:00 AM EST Laboratory Laboratory, [place] [address] [place] [phone] [place], [facility] [address] [place] [phone] S/P MVR (mitral valve replacement); S/P revision of total knee, right; Anticoagulation management encounter Allergies Active Allergy Reactions Criticality Noted Date Comments Sulfa Antibiotics 08/28/2023 Bactrim DS gave a rash documented as of this encounter (statuses as of 12/28/2024) Medications Triamcinolone Acetonide 0.1 % External Ointment [...] as of this encounter (statuses as of 12/28/2024) Active Problems Problem Noted Date Diagnosed Date [...] as of this encounter (statuses as of 12/28/2024) Resolved Problems Problem Noted Date Diagnosed Date [...] as of this encounter (statuses as of 12/28/2024) Immunizations Name Administration Dates Next Due Season [...] No 08/28/2023 Does the household have a [facility] source of income? (Household - for ages [...] Neri ma, RN * Do you have difficulty [...] Neri ma, RN documented in this encounter Plan of Treatment Upcoming Encounters Date Type Department Care Team (Late st Contact Info) Description 12/29/2024 6:15 AM EST Anticoagulation [facility] Clinical Pharmacy Services, [place] [address] [place] [address] [place] [address] 01/05/2025 12:20 PM EST Office Visit Family [facility] [address] [place] [phone] Julius Lucas MD [address] [place] [address] Health Maintenance Due Date Last Done Comments Pneumococcal Vaccine: 50+ Years (1 of 1 - PCV) 1998 Zoster Vaccines (1 of 2) 1998 DTap/Tdap Vaccines (2 - Td or Tdap) 06/28/2020 06/28/2010, 09/17/2000, 11/11/1989 COVID-19 Vaccine (1 - 2023- season) 2024 Influenza Vaccine (FLU shot) (#1) 2024 08/14/2011 Depression Screening 08/28/2024 08/28/2023 Adult Wellness Visit 01/27/2025 01/28/2024 GFR 02/02/2025 08/05/2024, 02/22, 02/17/2024, Additional history exists Mammogram 06/11/2025 06/11/2024, 09/25, 07/29/2019, Additional history exists Albumin/Creatinine Ratio 08/05/2025 08/05/2024 CKD HGB USE SMARTSET 91198 08/05/202508/05, 02/17/2024, 11/10/2023, Additional history exists CKD PHOS USE SMARTSET 73913 08/05/202507/25, 06/22/2022, 06/21/2022, Additional history exists TSH [...] this encounter Medical Devices Implanted Type Area Sales Representative Education Courses Device Identifier Shelf Expiration Date Model / Serial / Lot Shell 54mm - [id number] Implanted:Qty: 1 on 11/02/2015 by Wyatt Mane MD at [place] [facility] Right: Hip [employer]ES : ORTHOPAEDICS 07/03/2020 502-03-5 4E / / Trident Acetabular X3 0 36 E - [id number] Implanted:Qty: 1 on 11/02/2015 by Wyatt Mane MD at [place] [facility] Right: Hip [employer]ES : ORTHOPAEDICS 08/22/2020 623-00-3 6E / / Screw Acetabular 6.5mm Kristina 20m - [id number] Implanted:Qty: 1 on 11/02/2015 by Wyatt Mane MD at [place] [facility] Right: Hip [employer] : ORTHOPAEDICS 06/02/20202029-652 0-1 / / Screw Acetabular 6.5mm Kristina 25m - [id number] Implanted:Qty: 1 on 11/02/2015 by Wyatt Mane MD at [place] [facility] Right: Hip [employer]ES : ORTHOPAEDICS 08/29/20202029-652 5-1 / / Hip Hd Nk Alumina Mod D 36/+5 - [id number] Implanted:Qty: 1 on 11/02/2015 by Wyatt Mane MD at [place] [facility] Right: Hip [employer]ES : ORTHOPAEDICS 07/03/2020 6570-0-2 36 / / Stem Hip Sz6 - [id number] Implanted:Qty: 1 on 11/02/2015 by Wyatt Mane MD at [place] [facility] Right: Hip [employer] : ORTHOPAEDICS 07/08/2020 6721-063 5 / / Triathlon All Poly Tibial Comp - [id number] Implanted:Qty: 1 on 01/24/2021 by Ha Wallace MD at OR [facility] Right: Knee [employer] : ORTHOPAEDICS 11/09/2025 5534-A-4 09 / / [id number] Cement Antibiotic Bone - [id number] Implanted:Qty: 1 on 01/24/2021 by Ha Wallace MD at OR [facility] Left: Knee [employer] : ORTHOPAEDICS 12/24/2021 6197-9-0 10 / / [id number] Triathlon All Poly Tibial Comp - [id number] Implanted:Qty: 1 on 01/24/2021 by Ha Wallace MD at OR [facility] Left: Knee [employer]ES : ORTHOPAEDICS 10/04/2025 5534-A-4 09 / / [id number] Knee Triathlon Bead No Audi L 5 - [id number] Implanted:Qty: 1 on 01/24/2021 by Ha Wallace MD at OR [facility] Left: Knee [employer]ES : ORTHOPAEDICS 12/12/2025 5517-F-5 01 / / [id number] Cement Antibiotic Bone - [id number] Implanted:Qty: 1 on 01/24/2021 by Ha Wallace MD at OR [facility] Right: Knee [employer] : ORTHOPAEDICS 12/24/2021 6197-9-0 10 / / [id number] Femoral Rt Size 5 T - [id number] Implanted:Qty: 1 on 01/24/2021 by Ha Wallace MD at OR [facility] Right: Knee [employer] : ORTHOPAEDICS 12/30/2024 5510-F-5 02 / / [id number] Triathlon X3 Symmetric Patella Implanted:Qty: 1 on 01/24/2021 by Ha Wallace MD at OR [facility] Right: Knee [employer] : ORTHOPAEDICS 01/10/2025 5550-G-3 60-E / / XTTY Cath Thermodilution 6fr - [id number] Implanted:Qty: 1 on 12/05/2021 by Luke Lynn DO at [facility] [employer] MARY [id number] 10/31/2023 096F6P / / [id number] Suture Steel 6 B&S19 M654g - [id number] Implanted:Qty: 7 on 02/26/2022 by Jeff Arreola MD at [place] [facility] N/A: Sternum JNJ : [employer] 10/23/2026 M654G / / [id number] Valve Heart Mitral Epic 31mm - [id number] - [id number] Implanted:Qty: 1 on 02/26/2022 by Jeff Arreola MD at [place] [facility] N/A: Heart ST ERIN : CARDIOVASCULAR [id number] 04/18/2025 N823-06A -00 / [id number] / [id number] Cement Antibiotic Bone - [id number] Implanted:Qty: 2 on 06/17/2022 by Ha Wallace MD at [place] [facility] Right: Knee [employer]ES : ORTHOPAEDICS 08/23/2023 6197-9-0 10 / / [id number] Tibia Implanted:Qty: 1 on 06/17/2022 by Ha Wallace MD at [place] [facility] Right: Knee K[employer] 10/07/2030 42-5420- 075-02 / / [id number] Insert Tib Sz 7-9+Cd Rt - [id number] Implanted:Qty: 1 on 06/17/2022 by Ha Wallace MD at [place] [facility] Right: Knee [employer] 09/30/2026 42-5228- 005-10 / / [id number] Stem Tib Ext 5m33y207ts - [id number] Implanted:Qty: 1 on 06/17/2022 by Ha Wallace MD at [place] [facility] Right: Knee [employer] 09/06/2030 42-5603- 135-12 / / [id number] Stem Extention Implanted:Qty: 1 on 06/17/2022 by Ha Wallace MD at [place] [facility] Right: Knee [employer] 03/16/2032 42-5601- 135-15 / / [id number] Femoral Distal Augment Implanted:Qty: 1 on 06/17/2022 by Ha Wallace MD at [place] [facility] Right: Knee [employer] 03/26/2032 42-5566- 062-05 / / [id number] Fem Comp Ccr Std Sz 7 - [id number] Implanted:Qty: 1 on 06/17/2022 by Ha Wallace MD at [place] [facility] Right: Knee [employer] 01/28/2031 42-5046- 062-02 / / [id number] documented as of this encounter Procedures Procedure Name Priority Date/Time Associated Diagnosis Comments PT INR Routine 12/28/2024 11:01 AM EST S/P MVR (mitral valve replacement) S/P revision of total knee, right Anticoagulation management encounter documented in this encounter Results * (ABNORMAL) PT INR (12/28/2024 11:01 AM EST) Prothrombin Time 29.7(H) 11.6 - 15.2 seconds 12/28/2024 4:42 PM EST LABORATORY [facility] INR 2.8(H) 0.8 - 1.2 12/28/2024 4:42 PM EST LABORATORY GL Blood Venous blood specimen / Unknown Venipuncture / Unknown 12/28/2024 11:01 AM EST 12/28/2024 11:01 AM EST Narrative LAB[facility]ATORY [facility] - 12/28/2024 4:42 PM EST Warfarin Therapy INR: 2.0-3.0 conventional anticoagulation INR: 2.5-3.5 high intensity anticoagulation us Juan M R Zakia [facility] LAB BLOOD ORDERABLES Final R esult LAB[facility]ATORY [facility] [address] [facility] [place] [address] documented in this encounter Visit Diagnoses Diagnosis S/P MVR (mitral valve replacement) Heart valve replaced by other means S/P revision of total knee, right Anticoagulation management encounter Encounter for therapeutic drug monitoring documented in this encounter Advance Directives * [...] Directives occurred with: Not Discussed Care Teams Shotgun Shell Assembly Machine Adjuster Relationship Specialty Start Date End Date Julius Lucas MD [facility] [address] [facility] [place] [address] PCP - General Family Medicine 11/29/16 documented as of this encounter
--- OUTSIDE RECORDS SUMMARY | 2025-03-25 15:19 | External Medical Summary ---
Author Name Unknown Address Unknown Organization K1F:[facility]AT[facility] - [address] [place] [address] Laboratory Report Ordering Provider Test Date Status TEAGAN DSOUZA 12/28/2024 11:01:44 Final Warfarin Therapy
INR: 2 .0-3.0 conventional anticoagulation
INR: 2.5- 3.5 high intensity anticoagulation Observation Date Value Abnormality Reference (Units ) Status PT 12/28/2024 11:01:44 29.7 Above high normal 11 .6-15.2 (seconds) Final INR 12/28/2024 11:01:44 2.8 Above high normal 0. 8-1.2 Final Performing Location [facility] - [address] [place] [address]
--- OUTSIDE RECORDS SUMMARY | 2025-03-25 15:20 | External Medical Summary ---
Author Name Unknown Address Unknown Organization K1F:[facility]AT[facility] - [address] [place] [address] Laboratory Report Ordering Provider Test Date Status TEAGAN DSOUZA 10/25/2024 11:33:15 Final Warfarin Therapy
INR: 2 .0-3.0 conventional anticoagulation
INR: 2.5- 3.5 high intensity anticoagulation Observation Date Value Abnormality Reference (Units ) Status PT 10/25/2024 11:33:15 20.7 Above high normal 11 .6-15.2 (seconds) Final INR 10/25/2024 11:33:15 1.8 Above high normal 0. 8-1.2 Final Performing Location LABORATORY [facility] - [address] [place] [address]
--- OUTSIDE RECORDS SUMMARY | 2025-03-25 15:20 | External Medical Summary | Summary of Care ---
Author Name Unknown Organization [facility] Address [address] [place] [address] Phone [phone] Care Team Providers Care Doorperson Name Role Phone Julius Lucas MD Primary Care Provider Reason for Visit * Reason Comments Outpatient Testing Encounter Details Date Type Department Care Team (Late st Contact Info) Description 10/25/2024 11:10 AM EST Laboratory Laboratory, [place] [address] [place] [id number] [place], Lab [address] [place] [address] S/P MVR (mitral valve replacement); S/P revision of total knee, right; Anticoagulation management encounter Allergies Active Allergy Reactions Criticality Noted Date Comments Sulfa Antibiotics 08/28/2023 Bactrim DS gave a rash documented as of this encounter (statuses as of 10/25/2024) Medications Triamcinolone Acetonide 0.1 % External Ointment [...] m due to acquired atrophy of thyroid TAKE 1/2 TABLET BY MOUTH IN THE MORNING. (AT LEAST 30 MIN PRIOR TO BREAKFAST OR OTHER MEDS). 45 Tablet 3 08/24/20 24 Active documented as of this encounter (statuses as of 10/25/2024) Active Problems Problem Noted Date Diagnosed Date [...] as of this encounter (statuses as of 10/25/2024) Resolved Problems Problem Noted Date Diagnosed Date [...] as of this encounter (statuses as of 10/25/2024) Immunizations Name Administration Dates Next Due Season [...] y our heating, water, or electric bill? (Adult - for ages 18 years and over) Not on file 08/30/2024 Is your family able to pay t he heat, water, or electric bill? (Household - for ages 0-17 years) Not on file 08/30/2024 Does your family have access to good internet? (Household - for ages 0-17 years) Not on file 08/30/2024 Employment Status Answer Date Recorded Are you unemployed or without regular income? No 08/28/2023 Does the household have a re lar source of income? (Household - for ages 0-17 years) Not on file 08/28/2023 Social Connections Answer Date Recorded How often do you feel lonely or isolated from those around you? (Adult - for ages 18 years and over) Not on file 08/30/2024 Financial Resource Strain Answer Date R ecorded [...] 9:23 AM EST Sexual Orientation Straight 01/13/2020 9 :23 AM EST documented as of this encounter [...] Entry Date Author No 06/17/2022 8:23 PM EDBrad Reinoso ma, RN documented in this encounter Plan of Treatment Upcoming Encounters Date Type Department Care Team (Late st Contact Info) Description 10/26/2024 6:15 AM EST Anticoagulation Centralized Clinical Pharmacy Services, [place] [address] [place] [address] [place] [address] [place] [address] 01/05/2025 12:20 PM EST Office Visit [facility] [address] [place] [phone] Julius Lucas MD [address] [place] [phone] Pending Results Name Type Priority Associated Diagnoses Date /Time PT INR Lab Routine S/P MVR (mitral valve replacement) S/P revision of total knee, right Anticoagulation management encounter 10/25/2024 11:33 AM EST Health Maintenance Due Date Last Done Comments Zoster Vaccines (1 of 2) 1998 Pneumococcal Vaccine: 65+ Years (1 of 1 - PCV) 2013 DTap/Tdap Vaccines (2 - Td or Tdap) 06/28/2020 06/28/2010, 09/17/2000, 11/11/1989 COVID-19 Vaccine (1 - season) 2024 Influenza Vaccine (FLU shot) (#1) 2024 08/14/2011 Depression Screening 08/28/2024 08/28/2023 Adult Wellness Visit 01/27/2025 01/28/2024 GFR 02/02/2025 08/05/2024, 02/22, 02/17/2024, Additional history exists Mammogram 06/11/2025 06/11/2024, 09/25, 07/29/2019, Additional history exists Albumin/Creatinine Ratio 08/05/2025 08/05/2024 CKD HGB USE SMARTSET 40316 08/05/202508/05, 02/17/2024, 11/10/2023, Additional history exists CKD PHOS USE SMARTSET 99300 08/05/202507/25, 06/22/2022, 06/21/2022, Additional history exists TSH 08/05/2025 08/05/2024, 03/24, 02/17/2024, Additional history exists DXA Scan 06/11/2031 06/11/2024, [...] this encounter Medical Devices Implanted Type Area Birth Certificate Clerk Device Identifier Shelf Expiration Date Model / Serial / Lot Shell 54mm - [id number] Implanted:Qty: 1 on 11/02/2015 by Wyatt Mane MD at [facility] Right: Hip [employer] : ORTHOPAEDICS 07/03/2020 502-03-5 4E / / Trident Acetabular X3 0 36 E - [id number] Implanted:Qty: 1 on 11/02/2015 [place] Wy[place] [facility] [place]: Hip [employer]ES : ORTHOPAEDICS 08/22/2020 623-00-3 6E / / Screw Acetabular 6.5mm Kristina 20m - [id number] Implanted:Qty: 1 on 11/02/2015 by Wyatt Mane MD [place] [facility] Right: Hip [employer] : ORTHOPAEDICS 06/02/20202029-652 0-1 / / Screw Acetabular 6.5mm Kristina 25m - [id number] Implanted:Qty: 1 on 11/02/2015 by Wyatt Mane MD [place] [facility] Right: Hip [employer] : ORTHOPAEDICS 08/29/20202029-652 5-1 / / Hip Hd Nk Alumina Mod D 36/+5 - [id number] Implanted:Qty: 1 on 11/02/2015 by Wyatt Mane MD [place] [facility] Right: Hip [employer] : ORTHOPAEDICS 07/03/2020 6570-0-2 36 / / Stem Hip Sz6 - [id number] Implanted:Qty: 1 on 11/02/2015 by Wyatt Mane MD [place] [facility] Right: Hip [employer] : ORTHOPAEDICS 07/08/2020 6721-063 5 / / Triathlon All Poly Tibial Comp - [id number] Implanted:Qty: 1 on 01/24/2021 by Ha Wallace MD at OR [facility] Right: Knee [employer] : ORTHOPAEDICS 11/09/2025 5534-A-4 09 / / [id number] Cement Antibiotic Bone - [id number] Implanted:Qty: 1 on 01/24/2021 by Ha Wallace MD at OR [facility] Left: Knee [employer] : ORTHOPAEDICS 12/24/2021 6197-9-0 10 / / [id number] Triathlon All Poly Tibial Comp - [id number] Implanted:Qty: 1 on 01/24/2021 by Ha Wallace MD at OR [facility] Left: Knee [employer] : ORTHOPAEDICS 10/04/2025 5534-A-4 09 / / [id number] Knee Triathlon Bead No Audi L 5 - [id number] Implanted:Qty: 1 on 01/24/2021 by Ha Wallace MD at OR [facility] Left: Knee [employer] : ORTHOPAEDICS 12/12/2025 5517-F-5 01 / / [id number] Cement Antibiotic Bone - [id number] Implanted:Qty: 1 on 01/24/2021 by Ha Wallace MD at [facility] Right: Knee [employer] : ORTHOPAEDICS 12/24/2021 6197-9-0 10 / / [id number] Component Femoral Rt Size 5 T - [id number] Implanted:Qty: 1 on 01/24/2021 by Ha Wallace MD at [facility] Right: Knee [employer] : ORTHOPAEDICS 12/30/2024 5510-F-5 02 / / [id number] Triathlon X3 Symmetric Patella Implanted:Qty: 1 on 01/24/2021 by Ha Wallace MD at [facility] Right: Knee [employer] : ORTHOPAEDICS 01/10/2025 5550-G-3 60-E / / XTTY Cath Thermodilution 6fr - [id number] Implanted:Qty: 1 on 12/05/2021 by Luke Lynn DO at [facility] [employer] [id number] 10/31/2023 096F6P / / [id number] Suture Steel 6 B&S19 M654g - [id number] Implanted:Qty: 7 on 02/26/2022 by Jeff Arreola MD [place] [facility] N/A: Sternum JNJ : [employer] 10/23/2026 M654G / / [id number] Valve Heart Mitral Epic 31mm - [id number] - [id number] Implanted:Qty: 1 on 02/26/2022 by Jeff Arreola MD at [place] [facility] N/A: Heart ST ERIN : CARDIOVASCULAR [id number] 04/18/2025 I996-46S -00 / [id number] 3 / [id number] Cement Antibiotic Bone - [id number] Implanted:Qty: 2 on 06/17/2022 by Ha Wallace MD at [place] [facility] Right: Knee [employer] : ORTHOPAEDICS 08/23/2023 6197-9-0 10 / / [id number] Tibia Implanted:Qty: 1 on 06/17/2022 by Ha Wallace MD at [place] [facility] Right: Knee [employer] 10/07/2030 42-5420- 075-02 / / [id number] Insert Tib Sz 7-9+Cd Rt - [id number] Implanted:Qty: 1 on 06/17/2022 by Ha Wallace MD [place] [facility] Right: Knee [employer] 09/30/2026 42-5228- 005-10 / / [id number] Stem Tib Ext 2b94y835xi - [id number] Implanted:Qty: 1 on 06/17/2022 by Ha Wallace MD [place] [facility] Right: Knee [employer] 09/06/2030 42-5603- 135-12 / / [id number] Stem Extention Implanted:Qty: 1 on 06/17/2022 by Ha Wallace MD at [place] [facility] Right: Knee [employer] 03/16/2032 42-5601- 135-15 / / [id number] Femoral Distal Augment Implanted:Qty: 1 on 06/17/2022 by Ha Wallace MD at [place] [facility] Right: Knee [employer] 03/26/2032 42-5566- 062-05 / / [id number] Fem Comp Ccr Std Sz 7 - [id number] Implanted:Qty: 1 on 06/17/2022 by Ha Wallace MD [place] [facility] Right: Knee [employer] 01/28/2031 42-5046- 062-02 / / [id number] documented as of this encounter Visit Diagnoses [...] Directives occurred with: Not Discussed Care Teams Doorperson Relationship Specialty Start Date End Date Julius Lucas MD [address] [address] [place] [address] PCP - General Family Medicine 11/29/16 documented as of this encounter
--- OUTSIDE RECORDS SUMMARY | 2025-03-25 15:20 | External Medical Summary | Summary of Care ---
Author Name Unknown Organization [facility] Address [address] [place] [address] Phone [phone] Care Team Providers Care Stopper Maker Name Role Phone Julius Lucas MD Primary Care Provider Reason for Visit * Reason Comments Dosage Adjustment Via Phone (anticoag Cl inic) Encounter Details Date Type Department Care Team ([facility] st Contact Info) Description 10/26/2024 6:15 AM EST Anticoagulation Centralized Clinical Pharmacy Services, Angelic Campbell [address] [place] [address] [place] [address] [facility] [place] [address] S/P MVR (mitral valve replacement)*; S/P revision of total knee, right Allergies Active Allergy Reactions Criticality Noted Date Comments Sulfa Antibiotics 08/28/2023 Bactrim DS gave a rash documented as of this encounter (statuses as of 10/26/2024) Medications Triamcinolone Acetonide 0.1 % External Ointment [...] as of this encounter (statuses as of 10/26/2024) Active Problems Problem Noted Date Diagnosed Date [...] as of this encounter (statuses as of 10/26/2024) Resolved Problems Problem Noted Date Diagnosed Date [...] as of this encounter (statuses as of 10/26/2024) Immunizations Name Administration Dates Next Due Season [...] PM EDT Brad Gonsales ma RN * Because of a physical, mental, or emotional condition, do you have difficulty doing errands alone such as visiting a doctor’s office or shopping? (15 years old or older) Answer Date of Assessment Author Yes 06/17/2022 8:23 PM EDBrad Reinoso ma RN documented as of this encounter Mental Status * Because of a physical, mental, or emotional condition, do you have serious difficulty concentrating, remembering, or making decisions? (5 years old or older) Answer Entry Date Author No 06/17/2022 8:23 PM EDBrad Reinoso ma, RN documented in this encounter Progress Notes * Lindsay Michael CPhT - 10/26/2024 10:58 AM EST Contacts Contact Date/Time Type Contact Phone/Fax 10/26/2024 10:53 AM EST Phone (Outgoing) Marta Villela (Self) [phone] (M) Spoke to Patient Subjective Patient Findings Negatives: Signs/symptoms of thrombosis, Signs/symptoms of bleeding, [...] date communicated as noted by Pharmacist: Yes LINDSAY MICHAEL CPhT 10/26/2024, 10:58 AM * Carin Byrnes [facility] - 10/26/2024 8:58 AM EST Images from the original note were not included. Coumadin Clinic (region specific) Objective Current Warfarin Dose As of 10/26/2024 Warfarin maintenance plan: 1.25 mg (2.5 mg x 0.5) every Mon, Fri; 2.5 mg (2.5 mg x 1) all other days INR Result As of 10/26/2024 INR goal: 2.0-3.0 INR used for dosin.8 (10/25/2024) Assessment & Plan Warfarin Plan As of 10/26/2024 Full warfarin instructions: 10/26: 5 mg; Otherwise 1.25 mg every Mon, Fri; 2.5 mg all other days Next INR check: 11/29/2024 Repeat PT/INR in 5 week(s) Weekly dose: not changed Additional Dosing Information: Description [facility] to contact patient with dose instructions as noted. Carin Byrnes RPh 10/26/2024, 8:58 AM documented in this encounter Plan of Treatment Upcoming Encounters Date Type Department Care Team (Late st Contact Info) Description 11/29/2024 11:00 AM EST Laboratory Laboratory, [place] [address] [place] [address] [place] [address] [place] [address] 11/30/2024 6:15 AM EST Anticoagulation Centralized Clinical Pharmacy Services, [facility] Shannan [address] [place] [address] [place] [address] [place] [address] 01/05/2025 12:20 PM EST Office Visit Family [facility], [place] [address] [place] [phone] Julius Lucas MD [address] [place] [phone] Health Maintenance Due Date Last Done Comments Zoster Vaccines (1 of 2) 1998 Pneumococcal Vaccine: 65+ Years (1 of 1 - PCV) 2013 DTap/Tdap Vaccines (2 - Td or Tdap) 06/28/2020 06/28/2010, 09/17/2000, 11/11/1989 COVID-19 Vaccine ( season) 2024 Influenza Vaccine (FLU shot) (#1) 2024 08/14/2011 Depression Screening 08/28/2024 08/28/2023 Adult Wellness Visit 01/27/2025 01/28/2024 GFR 02/02/2025 08/05/2024, 02/22, 02/17/2024, Additional history exists Mammogram 06/11/2025 06/11/2024, 09/25, 07/29/2019, Additional history exists Albumin/Creatinine Ratio 08/05/2025 08/05/2024 CKD HGB USE SMARTSET 50005 08/05/202508/05, 02/17/2024, 11/10/2023, Additional history exists CKD PHOS USE SMARTSET 40493 08/05/202507/25, 06/22/2022, 06/21/2022, Additional history exists TSH [...] this encounter Medical Devices Implanted Type Area Safety Companion Device Identifier Shelf Expiration Date Model / Serial / Lot Shell 54mm - [id number] Implanted:Qty: 1 on 11/02/2015 by Wyatt Mane MD at [place] [facility] Right: Hip [employer] : [employer] 07/03/2020 502-03-5 4E / / Trident Acetabular X3 0 36 E - [id number] Implanted:Qty: 1 on 11/02/2015 by Wyatt Mane MD at [place] [facility] Right: Hip [employer] : [employer] 08/22/2020 623-00-3 6E / / Screw Acetabular 6.5mm Kristina 20m - [id number] Implanted:Qty: 1 on 11/02/2015 by Wyatt Mane MD at [place] [facility] Right: Hip [employer] : [employer] 06/02/20202029-652 0-1 / / Screw Acetabular 6.5mm Kristina 25m - [id number] Implanted:Qty: 1 on 11/02/2015 by Wyatt Mane MD at [place] [facility] Right: Hip [employer] : [employer] 08/29/2020 2030-652 5-1 / / Hip Hd Nk Alumina Mod D 36/+5 - [id number] Implanted:Qty: 1 on 11/02/2015 by Wyatt Mane MD at [place] [facility] Right: Hip [employer] : [employer] 07/03/2020 6570-0-2 36 / / Stem Hip Sz6 - [id number] Implanted:Qty: 1 on 11/02/2015 by Wyatt Mane MD at [place] [facility] Right: Hip [employer] : [employer] 07/08/2020 6721-063 5 / / Triathlon All Poly Tibial Comp - [id number] Implanted:Qty: 1 on 01/24/2021 by Ha Wallace MD at OR [facility] Right: Knee [employer] : [employer] 11/09/2025 5534-A-4 09 / / [id number] Cement Antibiotic Bone - [id number] Implanted:Qty: 1 on 01/24/2021 by Ha Wallace MD at OR [facility] Left: Knee [employer] : OR[employer] 12/24/2021 6197-9-0 10 / / [id number] Triathlon All Poly Tibial Comp - [id number] Implanted:Qty: 1 on 01/24/2021 by Ha Wallace MD at OR [facility] Left: Knee [employer] : ORTH[employer] 10/04/2025 5534-A-4 09 / / [id number] Knee Triathlon Bead No Audi L 5 - [id number] Implanted:Qty: 1 on 01/24/2021 by Ha Wallace MD at OR [facility] Left: Knee [employer] : ORTH[employer] 12/12/2025 5517-F-5 01 / / [id number] Cement Antibiotic Bone - [id number] Implanted:Qty: 1 on 01/24/2021 by Ha Wallace MD at OR [facility] Right: Knee [employer] : OR[employer] 12/24/2021 6197-9-0 10 / / [id number] Component Femoral Rt Size 5 T - [id number] Implanted:Qty: 1 on 01/24/2021 by Ha Wallace MD at OR [facility] Right: Knee [employer] : [employer] 12/30/2024 5510-F-5 02 / / [id number] Triathlon X3 Symmetric Patella Implanted:Qty: 1 on 01/24/2021 by Ha Wallace MD at OR [facility] Right: Knee [employer] : OR[employer] 01/10/2025 5550-G-3 60-E / / XTTY Cath Thermodilution 6fr - [id number] Implanted:Qty: 1 on 12/05/2021 by Luke Lynn DO at [facility] [employer] M[employer] [id number] 10/31/2023 096F6P / / [id number] Suture Steel 6 B&S19 M654g - [id number] Implanted:Qty: 7 on 02/26/2022 by Jeff Arreola MD at [place] [facility] N/A: Sternum JNJ : [employer] 10/23/2026 M654G / / [id number] Valve Heart Mitral Epic 31mm - [id number] - [id number] Implanted:Qty: 1 on 02/26/2022 by Jeff Arreola MD at [place] [facility] N/A: Heart ST ERIN : CARDIOVASCULAR [id number] 04/18/2025 Z410-02B -00 / [id number] / [id number] Cement Antibiotic Bone - [id number] Implanted:Qty: 2 on 06/17/2022 by Ha Wallace MD at [place] [facility] Right: Knee [employer] : OR[employer] 08/23/2023 6197-9-0 10 / [id number] Tibia Implanted:Qty: 1 on 06/17/2022 by Ha Wallace MD at [place] [facility] Right: Knee [employer] 10/07/2030 42-5420- 075- / / [id number] Insert Tib Sz 7-9+Cd Rt - [id number] Implanted:Qty: 1 on 06/17/2022 by Ha Wallace MD at [place] [facility] Right: Knee [employer] 09/30/2026 42-5228- 005- / / [id number] Stem Tib Ext 9y34r170cg - [id number] Implanted:Qty: 1 on 06/17/2022 by Ha Wallace MD at [place] [facility] Right: Knee [employer] 09/06/2030 42-5603- 135-12 / / [id number] Stem Extention Implanted:Qty: 1 on 06/17/2022 by Ha Wallace MD at [place] [facility] Right: Knee [employer] 03/16/2032 42-5601- 135-15 / / [id number] Femoral Distal Augment Implanted:Qty: 1 on 06/17/2022 by Ha Wallace MD at [place] [facility] Right: Knee [employer] 03/26/2032 42-5566- 062- / / [id number] Fem Comp Ccr Std Sz 7 - [id number] Implanted:Qty: 1 on 06/17/2022 by Ha Wallace MD at [place] [facility] Right: Knee [employer] 01/28/2031 42-5046- 062- / / [id number] documented as of this encounter Visit Diagnoses [...] Directives occurred with: Not Discussed Care Teams Stopper Maker Relationship Specialty Start Date End Date Julius Lucas MD [address] [address] [place] [phone] PCP - General Family Medicine 11/29/16 documented as of this encounter
--- OUTSIDE RECORDS SUMMARY | 2025-03-25 15:20 | External Medical Summary | Summary of Care ---
Author Name Unknown Organization [facility] Address [address] [place] [address] Phone [phone] Care Team Providers Care Catalog Specialist Name Role Phone Julius Lucas MD Primary Care Provider Reason for Visit * Reason Comments Acute Pt is here for pain on the right side of her face that goes from her ear to her jaw, pt states that it hurts to chew and swallow Encounter Details Date Type Department Care Team (Late st Contact Info) Description 12/08/2024 3:20 PM EST Office Visit [facility] [address] [place] [phone] Nithin Broderick [address] [place] [address] Facial pain*; Chronic kidney disease, stage 3a ([facility]); Acquired hypothyroidism; Chronic heart failure with preserved ejection fraction ([facility]); PAT (paroxysmal atrial tachycardia) ([facility]); Pulmonary HTN ([facility]) Allergies Active Allergy Reactions Criticality Noted Date Comments Sulfa Antibiotics 08/28/2023 Bactrim DS gave a rash documented as of this encounter (statuses as of 12/08/2024) Medications Triamcinolone Acetonide 0.1 % External Ointment [...] MEDS). 45 Tablet 1 11/19/20 24 Active predniSONE 20 MG Oral Tablet (Deltasone) Take 2 Tablets by mouth in the morning for 5 days. 10 Tablet 12/08/19 25 025 Active documented as of this encounter (statuses as of 12/08/2024) Active Problems Problem Noted Date Diagnosed Date [...] as of this encounter (statuses as of 12/08/2024) Resolved Problems Problem Noted Date Diagnosed Date [...] as of this encounter (statuses as of 12/08/2024) Immunizations Name Administration Dates Next Due Season [...] Past Smokeless Tobacco: Never Tobacco Cessation:Counseling Given: No Alcohol Use Standard Drinks/Week Comments Yes 0 [...] Sign Reading Time Taken Comments Blood Pressure 122/78 12/08/2024 3:12 PM EST Pulse 73 12/08/2024 3:12 PM EST Temperature 36 °C (96.8 °F) 12/08/2024 3:12 PM EST Respiratory Rate 16 12/08/2024 3:12 PM EST Oxygen Saturation 97% 12/08/2024 3:12 PM EST Inhaled Oxygen Concentration - - Weight 91 kg (200 lb 9.6 oz) 12/08/2024 3:12 PM EST Height 167.6 cm (5' 5.98") 12/08/2024 3:12 PM ES T Body Mass Index 32.39 12/08/2024 3:12 PM EST documented in this encounter Functional Status * Are you deaf or do you have serious difficulty hearing? Answer Date of Assessment Author No 06/17/2022 8:23 PM EDT Brad Gonsales ma RN * Are you blind or do you have serious difficulty seeing, even when wearing glasses? Answer Date of Assessment Author No 06/17/2022 8:23 PM EDT Brad Gonsales ma RN * Do you have serious difficulty walking or climbing stairs? (5 years old or older) Answer Date of Assessment Author Yes 06/17/2022 8:23 PM DEE DEET Brad Gonsales ma RN * Do you [...] Entry Date Author No 06/17/2022 8:23 PM DEE DEET Brad Gonsales ma RN documented in this encounter Progress Notes * Nithin Broderick, - 12/08/2024 3:23 PM EST Subjective: Marta Villela is a 74 year old female. Chief Complaint Patient presents with Acute Pt is here for pain on the right side of her face that goes from her ear to her jaw, pt states thatit hurts to chew and swallow HPI: patient presents today with LEFT (reported as right previously) facial pain. Starts just in front of the left ear, moving forward along jaw line. Started yesterday, never had before. Pain constant but worse with jaw movement. Using APAP at home for this. Does using hearing aids- not sure if related, etc. PHM: Patient Active Problem List Diagnosis Family history [...] kidney disease, stage 3a (HCC) Acquired hypothyroidism Current Outpatient Medications Medication Sig Dispense Refill Triamcinolone Acetonide 0.1 % External Ointment (Aristocort) Apply to rash on lower legs twice daily for a week 60 g 0 Amiodarone HCl 200 MG Oral Tablet (Cordarone) TAKE 1 TABLET BY MOUTH EVERY DAY IN THE MORNING 90 Tablet 3 Multivitamin Adult Oral Tablet [...] directed by Anticoagulation Clinic 90 Tablet 4 Levothyroxine Sodium 50 MCG Oral Tablet (Levoxyl) (at least 30 min prior to breakfast or other meds)TAKE 1/2 TABLET BY MOUTH IN THE MORNING. (AT LEAST 30 MIN PRIOR TO BREAKFAST OR OTHER MEDS). 45 Tablet 1 predniSONE 20 MG Oral Tablet (Deltasone) Take 2 Tablets by mouth in the morning for 5 days. 10 Tablet 0 No current facility-administered medications for this visit. Past Medical History: Diagnosis Date Arthritis COVID-19 12/2021 Past Surgical History: Procedure Laterality Date ARTHROPLASTY KNEE TOTAL Bilateral 01/24/2021 ROBOTIC ARTHROPLASTY KNEE TOTAL performed by Ha Wallace MD at [facility] DELIVERY x 2 COLORECTAL CANCER SCREEN; NOT AT RISK 04/28/08 normal,repeat in 10 yrs CORONARY ANGIOGRAPHY W/RIGHT+LEFT CATH 12/05/2021 CORONARY ANGIOGRAPHY W/RIGHT+LEFT CATH performed by Luke Lynn DO at [facility] DEXA SCAN/BONE MINERAL PERIPH 11/30 +0.9 and -0.6 readings; repeat in 5 years PELVIS/HIP JOINT SURGERY NEC Right 11/02/2015 ANTERIOR ARTHROPLASTY TOTAL HIP performed by Wyatt Mane MD at [facility] REMOVAL OF FIBROID UTERUS TUMOR prior to hyst. REMOVAL OF TONSILS, UNDER AGE 10 age 3 Tonsillectomy REMOVE CATARACT, INSERT LENS PROSTH 03/10/2014 left lens -Dr. Deven Beltran MD at [facility] REMOVE CATARACT, INSERT LENS PROSTH 03/30/2014 right- Dr. Beltran REPLACE MITRAL VALVE W/BYPASS N/A 02/26/2022 REPLACEMENT MITRAL VALVE performed by Jeff Arreola MD at [facility] REVISE KNEE JOINT REPLACEMENT Right 06/17/2022 TOTAL KNEE REVISION FEMUR AND TIBIA performed by Ha Wallace MD at [facility] TOTAL ABD HYSTERECTOMY W/WO REMOVAL OF TUBE(S) 1987 TOTAL HYSTERECTOMY ovaries remain Family History Problem Relation Name Age of Onset Mental Disorder Mother age 70's- Alzheimer's No Past Hx Father age 95- assisted living Cancer Sister Unice thyroid cancer- onset age early30's Breast Cancer Sister Unice Cancer Sister breast cancer- age late 30's(same person as above) No Past Hx Brother age 62 No Past Hx Sister age 68 No Past Hx Sister 60 Review of patient's allergies indicates: Allergen Reactions Sulfa Antibiotics Bactrim DS gave a rash Extensive ROS Constitutional (f/c/wt/vision/hearing): Negative Resp (cough/sob/barger): Negative CV (cp/palp/fluttering/diaphoresis/barger/pnd):Negative GI (n/v/d/hrtburn): Negative Objective: BP 122/78 | Pulse 73 | Temp 96.8 °F (36 °C) (Tympanic) | Resp 16 | Ht 5' 5.98" (1.676 m) | Wt 200lb 9.6 oz (91 kg) | SpO2 97% | BMI 32.39 kg/m² | BSA 2.06 m² Physical Exam: General: alert, healthy, and no distress Head: Normocephalic, No masses, lesions, tenderness or abnormalities Ears: External ears normal, Canals clear, TM's Normal Oropharynx: no exudate, no erythema, lips, buccal mucosa, and tongue normal, mucous membranes are moist, and had dentures- no ulcerations appreciated. Neck: supple, no adenopathy, no bruits, no masses. Skin: skin color, texture, turgor are normal, no rashes or significant lesions ASSESSMENT: ICD-10-CM 1. Facial pain R51.9 2. Chronic kidney disease, stage 3a (HCC) N18.31 3. Acquired hypothyroidism E03.9 4. Chronic heart failure with preserved ejection fraction (HCC) I50.32 5. PAT (paroxysmal atrial tachycardia) ([facility]) I47.19 6. Pulmonary HTN ([facility]) I27.20 PLAN: (R51.9) Facial pain (primary encounter diagnosis) Plan: Overall benign appearance- possible facial nerve irrigation. Possible start of Shingles- instructed to watch out for rash. No infection otherwise. Will start prednisone burst- if not improving in 5-7 days or getting worse, contact the office. If getting rash, contact the office. (N18.31) Chronic kidney disease, stage 3a (HCC) (E03.9) Acquired hypothyroidism (I50.32) Chronic heart failure with preserved ejection fraction (HCC) (I47.19) PAT (paroxysmal atrial tachycardia) ([facility]) (I27.20) Pulmonary HTN ([facility]) Plan: Continue to follow with PCP at regular check up exams for this. Follow Up: Return if symptoms worsen or fail to improve. Return to the office as ordered. Return sooner if having any other problems or concerns. Nithin Broderick DO documented in this encounter Nursing Notes * Angelina Best CCMA - 12/08/2024 3:11 PM EST Chief Complaint Patient presents with Acute Pt is here for pain on the right side of her face that goes from her ear to her jaw, pt states thatit hurts to chew and swallow documented in this encounter Plan of Treatment Upcoming Encounters Date Type Department Care Team (Late st Contact Info) Description 12/28/2024 11:00 AM EST Laboratory Laboratory, [place] [address] [place] [phone] [place], [facility] [address] [place] [phone] 12/29/2024 6:15 AM EST Anticoagulation [facility] Clinical Pharmacy Services, Angelic Campbell [address] [place] [address] [place] [address] [place] [address] 01/05/2025 12:20 PM EST Office Visit Family Practice, [place] [address] [place] [phone] Julius Lucas MD [address] [place] [phone] Health Maintenance Due Date Last Done Comments [...] Ratio 08/05/2025 08/05/2024 CKD HGB USE SMARTSET 31236 08/05/202508/05, 02/17/2024, 11/10/2023, Additional history exists CKD PHOS USE SMARTSET 77578 08/05/202507/25, 06/22/2022, 06/21/2022, Additional history exists TSH [...] this encounter Medical Devices Implanted Type Area Environmental Designer Device Identifier Shelf Expiration Date Model / Serial / Lot Shell 54mm - [id number] Implanted:Qty: 1 on 11/02/2015 by Wyatt Mane MD at [place] [facility] Right: Hip ULYSSES : ORTHOPAEDICS 07/03/2020 502-03-5 4E / / Trident Acetabular X3 0 36 E - [id number] Implanted:Qty: 1 on 11/02/2015 by Wyatt Mane MD at [place] [facility] Right: Hip [employer]ES : ORTHOPAEDICS 08/22/2020 623-00-3 6E / / Screw Acetabular 6.5mm Kristina 20m - [id number] Implanted:Qty: 1 on 11/02/2015 by Wyatt Mane MD at [place] [facility] Right: Hip [employer]ES : ORTHOPAEDICS 06/02/2020 2030-652 0-1 / / Screw Acetabular 6.5mm Kristina 25m - [id number] Implanted:Qty: 1 on 11/02/2015 by Wyatt Mane MD at [place] [facility] Right: Hip [employer]ES : ORTHOPAEDICS 08/29/2020 2030-652 5-1 / / Hip Hd Nk Alumina Mod D 36/+5 - [id number] Implanted:Qty: 1 on 11/02/2015 by Wyatt Mane MD at [place] [facility] Right: Hip [employer]ES : ORTHOPAEDICS 07/03/2020 6570-0-2 36 / / Stem Hip Sz6 - [id number] Implanted:Qty: 1 on 11/02/2015 by Wyatt Mane MD at [place] [facility] Right: Hip [employer]ES : ORTHOPAEDICS 07/08/2020 6721-063 5 / / Triathlon All Poly Tibial Comp - [id number] Implanted:Qty: 1 on 01/24/2021 by Ha Wallace MD at OR [facility] Right: Knee [employer] : ORTHOPAEDICS 11/09/2025 5534-A-4 / / [id number] Cement Antibiotic Bone - [id number] Implanted:Qty: 1 on 01/24/2021 by Ha Wallace MD at OR [facility] Left: Knee [employer] : ORTHOPAEDICS 12/24/2021 6197-9-0 10 / / [id number] Triathlon All Poly Tibial Comp - [id number] Implanted:Qty: 1 on 01/24/2021 by Ha Wallace MD at OR [facility] Left: Knee [employer]ES : ORTHOPAEDICS 10/04/2025 5534-A-4 / / [id number] Knee Triathlon Bead No Audi L 5 - [id number] Implanted:Qty: 1 on 01/24/2021 by Ha Wallace MD at OR [facility] Left: Knee [employer]ES : ORTHOPAEDICS 12/12/2025 5517-F-5 01 / / [id number] Cement Antibiotic Bone - [id number] Implanted:Qty: 1 on 01/24/2021 by Ha Wallace MD at OR [facility] Right: Knee [employer]LY[employer]ES : ORTHOPAEDICS 12/24/2021 6197-9-0 10 / / [id number] Component Femoral Rt Size 5 T - [id number] Implanted:Qty: 1 on 01/24/2021 by Ha Wallace MD at OR [facility] Right: Knee [employer] : ORTHOPAEDICS 12/30/2024 5510-F-5 02 / / [id number] Triathlon X3 Symmetric Patella Implanted:Qty: 1 on 01/24/2021 by Ha Wallace MD at OR [facility] Right: Knee [employer] : ORTHOPAEDICS 01/10/2025 5550-G-3 60-E / / XTTY Cath Thermodilution 6fr - [id number] Implanted:Qty: 1 on 12/05/2021 by Luke Lynn DO at [facility] [employer] MARY [id number] 10/31/2023 096F6P / / [id number] Suture Steel 6 B&S19 M654g - [id number] Implanted:Qty: 7 on 02/26/2022 by Jeff Arreola MD at [place] [facility] N/A: Sternum JNJ : [employer] 10/23/2026 M654G / / [id number] Valve Heart Mitral Epic 31mm - [id number] - [id number] Implanted:Qty: 1 on 02/26/2022 by Jeff Arreola MD at [place] [facility] N/A: Heart ST ERIN : CARDIOVASCULAR [id number] 04/18/2025 I590-59X -00 / [id number] / [id number] Cement Antibiotic Bone - [id number] Implanted:Qty: 2 on 06/17/2022 by Ha Wallace MD at [place] [facility] Right: Knee [employer]LY[employer]ES : ORTHOPAEDICS 08/23/2023 6197-9-0 10 / / [id number] Tibia Implanted:Qty: 1 on 06/17/2022 by Ha Wallace MD at [place] [facility] Right: Knee KYE KNEE 10/07/2030 42-5420- 075-02 / / [id number] Insert Tib Sz 7-9+Cd Rt - [id number] Implanted:Qty: 1 on 06/17/2022 by Ha Wallace MD at [place] [facility] Right: Knee [employer] 09/30/2026 42-5228- 005-10 / / [id number] Stem Tib Ext 5f65p221fz - [id number] Implanted:Qty: 1 on 06/17/2022 by Ha Wallace MD at [place] [facility] Right: Knee [employer] 09/06/2030 42-5603- 135-12 / / [id number] Stem Extention Implanted:Qty: 1 on 06/17/2022 by Ha Wallace MD at [place] [facility] Right: Knee KYE KNEE 03/16/2032 42-5601- 135-15 / / [id number] Femoral Distal Augment Implanted:Qty: 1 on 06/17/2022 by Ha Wallace MD at [place] [facility] Right: Knee KYE KNEE 03/26/2032 42-5566- 062-05 / / [id number] Fem Comp Ccr Std Sz 7 - [id number] Implanted:Qty: 1 on 06/17/2022 by Ha Wallace MD at [place] [facility] Right: Knee [employer] 01/28/2031 42-5046- 062-02 / / [id number] documented as of this encounter Visit Diagnoses Diagnosis Facial pain- Primary Headache Chronic kidney disease, stage 3a (HCC) Acquired hypothyroidism Unspecified hypothyroidism Chronic heart failure with preserved ejection fraction (HCC) PAT (paroxysmal atrial tachycardia) (HCC) Paroxysmal supraventricular tachycardia Pulmonary HTN (HCC) Other chronic pulmonary heart diseases documented in this encounter Advance Directives * [...] Directives occurred with: Not Discussed Care Teams Catalog Specialist Relationship Specialty Start Date End Date Julius Lucas MD [address] [facility] [address] [place] [address] PCP - General Family Medicine 11/29/16 documented as of this encounter
--- OUTSIDE RECORDS SUMMARY | 2025-03-25 15:20 | External Medical Summary | Summary of Care ---
Author Name Unknown Organization [facility] Address [address] [place] [address] Phone [phone] Care Team Providers Care Humidifier Attendant Name Role Phone Julius Lucas MD Primary Care Provider Reason for Visit * Reason Comments Dosage Adjustment Via Phone (anticoag Cl inic) Encounter Details Date Type Department Care Team ([facility] st Contact Info) Description 12/01/2024 6:15 AM EST Anticoagulation Centralized Clinical Pharmacy Services, Angelic Campbell [address] [place] [address] [place] [address] [facility] [place] [address] S/P MVR (mitral valve replacement)*; S/P revision of total knee, right Allergies Active Allergy Reactions Criticality Noted Date Comments Sulfa Antibiotics 08/28/2023 Bactrim DS gave a rash documented as of this encounter (statuses as of 12/01/2024) Medications Triamcinolone Acetonide 0.1 % External Ointment [...] as of this encounter (statuses as of 12/01/2024) Active Problems Problem Noted Date Diagnosed Date [...] as of this encounter (statuses as of 12/01/2024) Resolved Problems Problem Noted Date Diagnosed Date [...] as of this encounter (statuses as of 12/01/2024) Immunizations Name Administration Dates Next Due Season [...] No 08/28/2023 Does the household have a [facility] source of income? (Household - for ages [...] documented in this encounter Progress Notes * Janice Shankar PHARM Tech - 12/01/2024 9:06 AM EST Contacts Contact Date/Time Type Contact Phone/Fax 12/01/2024 09:03 AM EST Phone (Outgoing) Marta Villela (Self) [phone] (M) Spoke to Patient Subjective Patient Findings Negatives: Signs/symptoms of bleeding, Change in health, Change in activity, Upcoming invasive procedure, Missed doses, Extra doses, Change in medications, Change in diet/appetite, Bruising Advised patient to contact Anticoagulation Clinic if any unusual bruising or bleeding, recent illness, changes in medication, or questions/concerns. PT/INR results, Coumadin dose instructions, and next PT/INR date communicated as noted by Pharmacist: Yes JOSE ALBERTO Purdy 12/01/2024, 9:06 AM * Carin Byrnes [facility] - 12/01/2024 8:52 AM EST Images from the original note were not included. Coumadin Clinic (region specific) Objective Current Warfarin Dose As of 12/01/2024 Warfarin maintenance plan: 1.25 mg (2.5 mg x 0.5) every Mon, Fri; 2.5 mg (2.5 mg x 1) all other days INR Result As of 12/01/2024 INR goal: 2.0-3.0 INR used for dosin.9 (11/30/2024) Assessment & Plan Warfarin Plan As of 12/01/2024 Full warfarin instructions: 12/01: 3.75 mg; Otherwise 1.25 mg every Fri; 2.5 mg all other days Next INR check: 12/28/2024 Repeat PT/INR in 4 week(s) Weekly dose: increased Additional Dosing Information: Description [facility] to contact patient with dose instructions as noted. Carin Byrnes RPh 12/01/2024, 8:53 AM documented in this encounter Plan of Treatment Upcoming Encounters Date Type Department Care Team (Late st Contact Info) Description 12/28/2024 11:00 AM EST Laboratory Laboratory, [place] [address] [place] [address] [place], [facility] [address] [place] [address] 12/29/2024 6:15 AM EST Anticoagulation Centralized Clinical Pharmacy Services, Minerzina Campbell [address] [place] [address] [place] [address] [place] [address] 01/05/2025 12:20 PM EST Office Visit Family Practice, [place] [address] [place] [address] Julius Lucas MD [address] [place] [address] Health Maintenance Due Date Last Done Comments [...] Ratio 08/05/2025 08/05/2024 CKD HGB USE SMARTSET 25393 08/05/202508/05, 02/17/2024, 11/10/2023, Additional history exists CKD PHOS USE SMARTSET 33165 08/05/202507/25, 06/22/2022, 06/21/2022, Additional history exists TSH [...] this encounter Medical Devices Implanted Type Area Shrimp Peeling Machine Tender Device Identifier Shelf Expiration Date Model / Serial / Lot Shell 54mm - [id number] Implanted:Qty: 1 on 11/02/2015 by Waytt Mane MD at [place] [facility] Right: Hip [employer]ES : ORTHOPAEDICS 07/03/2020 502-03-5 4E / / Trident Acetabular X3 0 36 E - [id number] Implanted:Qty: 1 on 11/02/2015 by Wyatt Mane MD at OR [facility] Right: Hip [employer]ES : ORTHOPAEDICS 08/22/2020 623-00-3 6E / / Screw Acetabular 6.5mm Kristina 20m - [id number] Implanted:Qty: 1 on 11/02/2015 by Wyatt Mane MD at OR [facility] Right: Hip [employer]ES : ORTHOPAEDICS 06/02/20202029-652 0-1 / / Screw Acetabular 6.5mm Kristina 25m - [id number] Implanted:Qty: 1 on 11/02/2015 by Wyatt Mane MD at OR [facility] Right: Hip [employer]ES : ORTHOPAEDICS 08/29/20202029-652 5-1 / / Hip Hd Nk Alumina Mod D 36/+5 - [id number] Implanted:Qty: 1 on 11/02/2015 by Wyatt Mane MD at OR [facility] Right: Hip ULY[employer]ES : ORTHOPAEDICS 07/03/2020 6570-0-2 36 / / Stem Hip Sz6 - [id number] Implanted:Qty: 1 on 11/02/2015 by Wyatt Mane MD at OR [facility] Right: Hip [employer]ES : ORTHOPAEDICS 07/08/2020 6721-063 5 / / Triathlon All Poly Tibial Comp - [id number] Implanted:Qty: 1 on 01/24/2021 by Ha Wallace MD at OR [facility] Right: Knee [employer]ES : ORTHOPAEDICS 11/09/2025 5534-A-4 09 / / [id number] Cement Antibiotic Bone - [id number] Implanted:Qty: 1 on 01/24/2021 by Ha Wallace MD at OR [facility] Left: Knee [employer]ES : ORTHOPAEDICS 12/24/2021 6197-9-0 10 / / [id number] Triathlon All Poly Tibial Comp - [id number] Implanted:Qty: 1 on 01/24/2021 by Ha Wallace MD at OR [facility] Left: Knee ULYSSES : ORTHOPAEDICS 10/04/2025 5534-A-4 09 / / [id number] Knee Triathlon Bead No Audi L 5 - [id number] Implanted:Qty: 1 on 01/24/2021 by Ha Wallace MD at OR [facility] Left: Knee ULY[employer]ES : ORTHOPAEDICS 12/12/2025 5517-F-5 01 / / [id number] Cement Antibiotic Bone - [id number] Implanted:Qty: 1 on 01/24/2021 by Ha Wallace MD at OR [facility] Right: Knee [employer]ES : ORTHOPAEDICS 12/24/2021 6197-9-0 10 / / [id number] Femoral Rt Size 5 T - [id number] Implanted:Qty: 1 on 01/24/2021 by Ha Wallace MD at OR [facility] Right: Knee ULY[employer]ES : ORTHOPAEDICS 12/30/2024 5510-F-5 02 / / [id number] Triathlon X3 Symmetric Patella Implanted:Qty: 1 on 01/24/2021 by Ha Wallace MD at OR [facility] Right: Knee [employer]ES : ORTHOPAEDICS 01/10/2025 5550-G-3 60-E / / XTTY Cath Thermodilution 6fr - [id number] Implanted:Qty: 1 on 12/05/2021 by Luke Lynn DO at [facility] [employer] [id number] 10/31/2023 096F6P / / [id number] Suture Steel 6 B&S19 M654g - [id number] Implanted:Qty: 7 on 02/26/2022 by Jeff Arreola MD at OR [facility] N/A: Sternum JNJ : [employer] 10/23/2026 M654G / / RPBCTE Valve Heart Mitral Epic 31mm - [id number] - [id number] Implanted:Qty: 1 on 02/26/2022 by Jeff Arreola MD at OR [facility] N/A: Heart ST ERIN : CARDIOVASCULAR [id number] 04/18/2025 S173-89F -00 / [id number] Cement Antibiotic Bone - [id number] Implanted:Qty: 2 on 06/17/2022 by Ha Wallace MD at OR [facility] Right: Knee [employer]ES : ORTHOPAEDICS 08/23/2023 6197-9-0 10 / [id number] Tibia Implanted:Qty: 1 on 06/17/2022 by Ha Wallace MD at OR [facility] Right: Knee KYE KNEE 10/07/2030 42-5420- 075-02 / / [id number] Insert Tib Sz 7-9+Cd Rt - [id number] Implanted:Qty: 1 on 06/17/2022 by Ha Wallace MD at OR [facility] Right: Knee [employer] 09/30/2026 42-5228- 005-10 / / [id number] Stem Tib Ext 8o57w809cy - [id number] Implanted:Qty: 1 on 06/17/2022 by Ha Wallace MD at [place] [facility] Right: Knee [employer] 09/06/2030 42-5603- 135-12 / / [id number] Stem Extention Implanted:Qty: 1 on 06/17/2022 by Ha Wallace MD at OR [facility] Right: Knee KYE KNEE 03/16/2032 42-5601- 135-15 / / [id number] Femoral Distal Augment Implanted:Qty: 1 on 06/17/2022 by Ha Wallace MD at OR [facility] Right: Knee [employer]YE K[employer]EE 03/26/2032 42-5566- 062- / / [id number] Fem Comp Ccr Std Sz 7 - [id number] Implanted:Qty: 1 on 06/17/2022 by Ha Wallace MD at [place] [facility] Right: Knee [employer] 01/28/2031 42-5046- 062-02 / / [id number] documented as of this encounter Visit Diagnoses [...] Directives occurred with: Not Discussed Care Teams Humidifier Attendant Relationship Specialty Start Date End Date Julius Lucas MD [address] [place] [address] [place] [address] PCP - General Family Medicine 11/29/16 documented as of this encounter
--- OUTSIDE RECORDS SUMMARY | 2025-03-25 15:20 | External Medical Summary | Summary of Care ---
Author Name Unknown Organization [facility] Address [address] [place] [address] Phone [phone] Care Team Providers Care Button Buttonhole Marker Name Role Phone Julius Lucas MD Primary Care Provider Reason for Visit * Reason Onset Date Comments Med Request 11/19/2024 Encounter Details Date Type Department Care Team (Late st Contact Info) Description 11/19/2024 Telephone [facility] [address] [place] [address] Julius Lucas MD [address] [place] [address] Med Request Allergies Active Allergy Reactions Criticality Noted Date Comments Sulfa Antibiotics 08/28/2023 Bactrim DS gave a rash documented as of this encounter (statuses as of 11/23/2024) Medications Triamcinolone Acetonide 0.1 % External Ointment [...] 24 Active Furosemide 40 MG Oral Tablet (Lasix)Indicatio [...] MEDS). 45 Tablet 1 11/19/20 24 Active Levothyroxine Sodium 50 MCG Oral Tablet (Levoxyl)Indicat ions:Hypothyroid ism due to acquired atrophy of thyroid TAKE 1/2 TABLET BY MOUTH IN THE MORNING. (AT LEAST 30 MIN PRIOR TO BREAKFAST OR OTHER MEDS). 45 Tablet 3 08/24/20 24 024 Disconti nued(Ref ill) documented as of this encounter (statuses as of 11/23/2024) Active Problems Problem Noted Date Diagnosed Date [...] as of this encounter (statuses as of 11/23/2024) Resolved Problems Problem Noted Date Diagnosed Date [...] as of this encounter (statuses as of 11/23/2024) Immunizations Name Administration Dates Next Due Diptheria/Tetanus Adult (TD) 11/11/1989 PPD 07/01/2003 Season Influenza, Quad, PF, Adjuvanted, 65+ Yrs, IM (FLUAD) 01/26/2021(Deferred: Patient Refused - Dr Carey aware) Seasonal Influenza Vac., MDV , IM, 0.5 mL (Fluzone) 08/14/2011 TD - Tetanus/Diptheria (ADULT) 09/17/2000 TDAP, Age 7 and older, IM (Adacel) [...] PM DEE DEET Brad Gonsales ma, RN documented as of this encounter Mental Status * Because of a physical, mental, or emotional condition, do you have serious difficulty concentrating, remembering, or making decisions? (5 years old or older) Answer Entry Date Author No 06/17/2022 8:23 PM Brad Neri ma, RN documented in this encounter Miscellaneous Notes * Telephone Encounter - Jeanine Harris CPhT - 11/23/2024 9:22 AM EST Pt calling to request Levothyroxine Sodium 50 MCG Oral Tablet (Levoxyl) . Informed pt that RX is available at their pharmacy. Pt verbalized understanding and stated they will check with their pharmacy regarding this medication. Thank you, Britt Harris CPhT [facility] ([facility]) 11/23/2024,9:22 AM * Telephone Encounter - Reyna Costa LPN - 11/19/2024 9:54 AM EST Did you pend patient's preferred pharmacy and medication before forwarding?yes Pharmacy: [facility] [address] [facility] Pending Prescriptions: Disp Refills Levothyroxine Sodium 50 MCG Oral Tablet (*45 Tab*3 Sig: (at least 30 min prior to breakfast or other meds) Last Visit: 08/05/2024 (in office), Visit date not found (telemedicine) Next Visit: 01/05/2025 If no future appointments scheduled, and last appointment is greater than a year ago, please schedule patient for a follow-up appointment Last date the medication was ordered: 08/24/24 Is this request for a controlled substance?No Urine Drug Screen:No results found for this or any previous visit. Patient Phone Numbers Labs: Lab Results Component Value Date/Time CREAT 1.1 (H) 08/05/2024 11:54 AM CREAT 0.8 12/06/2020 01:43 PM POTASSIUM 4.0 08/05/2024 11:54 AM POTASSIUM 3.7 02/26/2022 03:30 PM POTASSIUM 4.3 12/06/2020 01:43 PM TSH 3.89 08/05/2024 11:54 AM TSH 2.43 01/16/2017 08:04 AM LDL 150 (H) 11/11/2022 04:25 PM LDL 116 01/16/2017 08:04 AM ALT 19 08/05/2024 11:54 AM ALT 26 04/22/2008 07:54 AM HGBA1C 5.9 (H) 06/05/2022 11:56 AM HGBA1C 5.8 (H) 12/06/2020 01:43 PM * Telephone Encounter - Macie Vega OSA - 11/19/2024 9:47 AM EST Pt requesting refill for levothyroxine. documented in this encounter Plan of Treatment Upcoming Encounters Date Type Department Care Team (Late st Contact Info) Description 11/29/2024 11:00 AM EST Laboratory Laboratory, [place] [address] [place] [address] [place], [facility] [address] [place] [address] 11/30/2024 6:15 AM EST Anticoagulation Centralized Clinical Pharmacy Services, [facility] [place] [address] [place] [address] [place] [address] [place] [address] 01/05/2025 12:20 PM EST Office Visit Family Practice, [place] [address] [place] [address] Julius Lucas MD [address] [place] [address] Scheduled Orders Name Type Priority Associated Diagnoses Orde r Schedule TSH Lab Routine Hypothyroidism due to acquired atrophy of thyroid Expected: 11/19/2024 (Approximate), Expires: 11/19/2025 Health Maintenance Due Date Last Done Comments Pneumococcal Vaccine: 50+ Years (1 of 1 - PCV) 1998 Zoster Vaccines (1 of 2) 1998 DTap/Tdap Vaccines (2 - Td or Tdap) 06/28/2020 06/28/2010, 09/17/2000, 11/11/1989 COVID-19 Vaccine ( - season) 2024 Influenza Vaccine (FLU shot) (#1) 2024 08/14/2011 Depression Screening 08/28/2024 08/28/2023 Adult Wellness Visit 01/27/2025 01/28/2024 GFR 02/02/2025 08/05/2024, 04/06/2024, 02/17/2024, Additional history exists Mammogram 06/11/2025 06/11/2024, 09/25, 07/29/2019, Additional history exists Albumin/Creatinine Ratio 08/05/2025 08/05/2024 CKD HGB USE SMARTSET 87579 08/05/202508/05, 02/17/2024, 11/10/2023, Additional history exists CKD PHOS USE SMARTSET 29629 08/05/202507/25, 06/22/2022, 06/21/2022, Additional history exists TSH [...] this encounter Medical Devices Implanted Type Area Vp Product Management Device Identifier Shelf Expiration Date Model / Serial / Lot Shell 54mm - [id number] Implanted:Qty: 1 on 11/02/2015 by Wyatt Mane MD at OR [facility] Right: Hip ULYSSES : ORTHOPAEDICS 07/03/2020 502-03-5 4E / / Trident Acetabular X3 0 36 E - [id number] Implanted:Qty: 1 on 11/02/2015 by Wyatt Mane MD at OR [facility] Right: Hip ULYSSES : ORTHOPAEDICS 08/22/2020 623-00-3 6E / / Screw Acetabular 6.5mm Kristina 20m - [id number] Implanted:Qty: 1 on 11/02/2015 by Wyatt Mane MD at OR [facility] Right: Hip ULYSSES : ORTHOPAEDICS 06/02/2020 0-1 / / Screw Acetabular 6.5mm Kristina 25m - [id number] Implanted:Qty: 1 on 11/02/2015 by Wyatt Mane MD at OR [facility] Right: Hip ULYSSES : ORTHOPAEDICS 08/29/2020 5-1 / / Hip Hd Nk Alumina Mod D 36/+5 - [id number] Implanted:Qty: 1 on 11/02/2015 by Wyatt Mane MD at OR [facility] Right: Hip [employer]ES : ORTHOPAEDICS 07/03/2020 6570-0-2 36 / / Stem Hip Sz6 - [id number] Implanted:Qty: 1 on 11/02/2015 by Wyatt Mane MD at OR [facility] Right: Hip [employer]ES : ORTHOPAEDICS 07/08/2020 6721-063 5 / / Triathlon All Poly Tibial Comp - [id number] Implanted:Qty: 1 on 01/24/2021 by Ha Wallace MD at OR [facility] Right: Knee [employer]ES : ORTHOPAEDICS 11/09/2025 5534-A-4 / / [id number] Cement Antibiotic Bone - [id number] Implanted:Qty: 1 on 01/24/2021 by Ha Wallace MD at OR [facility] Left: Knee [employer]ES : ORTHOPAEDICS 12/24/2021 6197-9-0 10 / / [id number] Triathlon All Poly Tibial Comp - [id number] Implanted:Qty: 1 on 01/24/2021 by Ha Wallace MD at OR [facility] Left: Knee [employer]ES : ORTHOPAEDICS 10/04/2025 5534-A-4 09 / / [id number] Knee Triathlon Bead No Audi L 5 - [id number] Implanted:Qty: 1 on 01/24/2021 by Ha Wallace MD at OR [facility] Left: Knee [employer]ES : ORTHOPAEDICS 12/12/2025 5517-F-5 01 / / [id number] Cement Antibiotic Bone - [id number] Implanted:Qty: 1 on 01/24/2021 by Ha Wallace MD at OR [facility] Right: Knee [employer]ES : ORTHOPAEDICS 12/24/2021 6197-9-0 10 / / [id number] Component Femoral Rt Size 5 T - [id number] Implanted:Qty: 1 on 01/24/2021 by Ha Wallace MD at OR [facility] Right: Knee [employer]ES : ORTHOPAEDICS 12/30/2024 5510-F-5 02 / / [id number] Triathlon X3 Symmetric Patella Implanted:Qty: 1 on 01/24/2021 by Ha Wallace MD at OR [facility] Right: Knee [employer]ES : ORTHOPAEDICS 01/10/2025 5550-G-3 60-E / / XTTY Cath Thermodilution 6fr - [id number] Implanted:Qty: 1 on 12/05/2021 by Luke Lynn DO at [facility]ARD[facility] [employer] M[employer] [id number] 10/31/2023 096F6P / / [id number] Suture Steel 6 B&S19 M654g - [id number] Implanted:Qty: 7 on 02/26/2022 by Jeff Arreola MD at OR [facility] N/A: Sternum JNJ : [employer] 10/23/2026 M654G / / RPBCTE Valve Heart Mitral Epic 31mm - [id number] - [id number] Implanted:Qty: 1 on 02/26/2022 by Jeff Arreola MD at OR [facility] N/A: Heart ST ERIN : CARDIOVASCULAR [id number] 04/18/2025 I410-02S -00 / [id number] 3 / [id number] Cement Antibiotic Bone - [id number] Implanted:Qty: 2 on 06/17/2022 by Ha Wallace MD at OR [facility] Right: Knee ULYSSES : ORTHOPAEDICS 08/23/2023 6197-9-0 10 / / [id number] Tibia Implanted:Qty: 1 on 06/17/2022 by Ha Wallace MD at OR [facility] Right: Knee [employer] 10/07/2030 42-5420- 075-02 / / [id number] Insert Tib Sz 7-9+Cd Rt - [id number] Implanted:Qty: 1 on 06/17/2022 by Ha Wallace MD at OR [facility] Right: Knee [employer] 09/30/2026 42-5228- 005-10 / / [id number] Stem Tib Ext [id number] - [id number] Implanted:Qty: 1 on 06/17/2022 by Ha Wallace MD at OR [facility] Right: Knee [employer] 09/06/2030 42-5603- 135-12 / / [id number] Stem Extention Implanted:Qty: 1 on 06/17/2022 by Ha Wallace MD at OR [facility] Right: Knee [employer] 03/16/2032 42-5601- 135-15 / / [id number] Femoral Distal Augment Implanted:Qty: 1 on 06/17/2022 by Ha Wallace MD at OR [facility] Right: Knee [employer] 03/26/2032 42-5566- 062-05 / / [id number] Fem Comp Ccr Std Sz 7 - [id number] Implanted:Qty: 1 on 06/17/2022 by Ha Wallace MD at OR [facility] Right: Knee [employer] 01/28/2031 42-5046- 062-02 / / [id number] documented as of this encounter Visit Diagnoses Diagnosis Hypothyroidism due to acquired atrophy of thyroid documented in this encounter Advance Directives * [...] Directives occurred with: Not Discussed Care Teams Button Buttonhole Marker Relationship Specialty Start Date End Date Julius Lucas MD [address] [facility] [address] [facility] [place] [address] PCP - General Family Medicine 11/29/16 documented as of this encounter
--- OUTSIDE RECORDS SUMMARY | 2025-03-25 15:20 | External Medical Summary ---
Author Name Unknown Address Unknown Organization [id number]:LABORATORY [facility] - [address] [place] [address] Laboratory Report Ordering Provider Test Date Status TEAGAN DSOUZA 11/30/2024 11:09:34 Final Warfarin Therapy
INR: 2 .0-3.0 conventional anticoagulation
INR: 2.5- 3.5 high intensity anticoagulation Observation Date Value Abnormality Reference (Units ) Status PT 11/30/2024 11:09:34 22.4 Above high normal 11 .6-15.2 (seconds) Final INR 11/30/2024 11:09:34 1.9 Above high normal 0. 8-1.2 Final Performing Location [facility] - [address] [place] [address]
--- OUTSIDE RECORDS SUMMARY | 2025-03-25 15:20 | External Medical Summary | Summary of Care ---
Author Name Unknown Organization [facility] Address [address] [place] [address] Phone [phone] Care Team Providers Care Nozzle Cement Sprayer Helper Name Role Phone Julius Lucas MD Primary Care Provider Reason for Visit * Reason Comments Outpatient Testing Encounter Details Date Type Department Care Team (Late st Contact Info) Description 11/30/2024 11:00 AM [facility] Laboratory Laboratory, [place] [address] [place] [id number] [place], [facility] [address] [place] [address] S/P MVR (mitral valve replacement); S/P revision of total knee, right; Anticoagulation management encounter; Hypothyroidism due to acquired atrophy of thyroid Allergies Active Allergy Reactions Criticality Noted Date Comments Sulfa Antibiotics 08/28/2023 Bactrim DS gave a rash documented as of this encounter (statuses as of 11/30/2024) Medications Triamcinolone Acetonide 0.1 % External Ointment [...] as of this encounter (statuses as of 11/30/2024) Active Problems Problem Noted Date Diagnosed Date [...] replacements 01/25/20 21 INFORMATION 12/10/2017 Overview (12/10/2017): MyRoberter does not work. Osteoarthritis of hip 11/02/2015 S/P total hip arthroplasty 11/02/2015 Family history of breast cancer in sister 2012 Cataract, right eye 09/01/2013 documented as of this encounter (statuses as of 11/30/2024) Resolved Problems Problem Noted Date Diagnosed Date [...] as of this encounter (statuses as of 11/30/2024) Immunizations Name Administration Dates Next Due Season [...] No 08/28/2023 Does the household have a [facility] source of income? (Household - for [...] Gonsales ma RN documented in this encounter Plan of Treatment Upcoming Encounters Date Type Department Care Team (Late st Contact Info) Description 12/01/2024 6:15 AM EST Anticoagulation [facility], [facility] [address] [place] [address] [place] [address] [place] [address] 01/05/2025 12:20 PM EST Office Visit [facility] [address] [place] [phone] Julius Lucas MD [address] [place] [address] Pending Results Name Type Priority Associated Diagnoses Date /Time PT INR Lab Routine S/P MVR (mitral valve replacement) S/P revision of total knee, right Anticoagulation management encounter 11/30/2024 11:09 AM EST TSH Lab Routine Hypothyroidism due to acquired atrophy of thyroid 11/30/2024 11:09 AM EST Health Maintenance Due Date Last [...] Ratio 08/05/2025 08/05/2024 CKD HGB USE SMARTSET 68019 08/05/202508/05, 02/17/2024, 11/10/2023, Additional history exists CKD PHOS USE SMARTSET 51334 08/05/202507/25, 06/22/2022, 06/21/2022, Additional history exists TSH [...] this encounter Medical Devices Implanted Type Area Assembler Tractor Device Identifier Shelf Expiration Date Model / Serial / Lot Shell 54mm - [id number] Implanted:Qty: 1 on 11/02/2015 by Wyatt Mane MD at [place] [facility] Right: Hip ULYSSES : ORTHOPAEDICS 07/03/2020 502-03-5 4E / / Trident Acetabular X3 0 36 E - [id number] Implanted:Qty: 1 on 11/02/2015 by Wyatt Mane MD at [place] [facility] Right: Hip [employer]LYSSES : ORTHOPAEDICS 08/22/2020 623-00-3 6E / / Screw Acetabular 6.5mm Kristina 20m - [id number] Implanted:Qty: 1 on 11/02/2015 by Wyatt Mane MD at [place] [facility] Right: Hip [employer]LYSSES : ORTHOPAEDICS 06/02/20202029-652 0-1 / / Screw Acetabular 6.5mm Kristina 25m - [id number] Implanted:Qty: 1 on 11/02/2015 by Wyatt Mane MD at [place] [facility] Right: Hip [employer]ES : ORTHOPAEDICS 08/29/20202029-652 5-1 / / Hip Hd Nk Alumina Mod D 36/+5 - [id number] Implanted:Qty: 1 on 11/02/2015 by Wyatt Mane MD at [place] [facility] Right: Hip ULYSSES : ORTHOPAEDICS 07/03/2020 6570-0-2 36 / / Stem Hip Sz6 - [id number] Implanted:Qty: 1 on 11/02/2015 by Wyatt Mane MD at [place] [facility] Right: Hip [employer]ES : ORTHOPAEDICS 07/08/2020 6721-063 5 / / Triathlon All Poly Tibial Comp - [id number] Implanted:Qty: 1 on 01/24/2021 by Ha Wallace MD at OR [facility] Right: Knee [employer]ES : ORTHOPAEDICS 11/09/2025 5534-A-4 09 / / [id number] Cement Antibiotic Bone - [id number] Implanted:Qty: 1 on 01/24/2021 by Ha Wallace MD at OR [facility] Left: Knee ULY[employer]ES : ORTHOPAEDICS 12/24/2021 6197-9-0 10 / / [id number] Triathlon All Poly Tibial Comp - [id number] Implanted:Qty: 1 on 01/24/2021 by Ha Wallace MD at OR [facility] Left: Knee [employer]ES : ORTHOPAEDICS 10/04/2025 5534-A-4 / / [id number] Knee Triathlon Bead No Audi L 5 - [id number] Implanted:Qty: 1 on 01/24/2021 by Ha Wallace MD at OR [facility] Left: Knee [employer]ES : ORTHOPAEDICS 12/12/2025 5517-F-5 01 / / [id number] Cement Antibiotic Bone - [id number] Implanted:Qty: 1 on 01/24/2021 by Ha Wallace MD at OR [facility] Right: Knee [employer]ES : ORTHOPAEDICS 12/24/2021 6197-9-0 10 / / [id number] Femoral Rt Size 5 T - [id number] Implanted:Qty: 1 on 01/24/2021 by Ha Wallace MD at OR [facility] Right: Knee [employer]ES : ORTHOPAEDICS 12/30/2024 5510-F-5 02 / / [id number] Triathlon X3 Symmetric Patella Implanted:Qty: 1 on 01/24/2021 by Ha Wallace MD at OR [facility] Right: Knee [employer]ES : ORTHOPAEDICS 01/10/2025 5550-G-3 60-E / / XTTY Cath Thermodilution 6fr - [id number] Implanted:Qty: 1 on 12/05/2021 by Luke Lynn DO at [facility] [employer] [id number] 10/31/2023 096F6P / / [id number] Suture Steel 6 B&S19 M654g - [id number] Implanted:Qty: 7 on 02/26/2022 by Jeff Arreola MD at [place] [facility] N/A: Sternum JNJ : [employer] 10/23/2026 M654G / / RPBCTE Valve Heart Mitral Epic 31mm - [id number] - [id number] Implanted:Qty: 1 on 02/26/2022 by Jeff Arreola MD at OR [facility] N/A: Heart ST ERIN : CARDIOVASCULAR [id number] 04/18/2025 H652-07W -00 / [id number] 3 / [id number] Cement Antibiotic Bone - [id number] Implanted:Qty: 2 on 06/17/2022 by Ha Wallace MD at OR [facility] Right: Knee ULYSSES : ORTHOPAEDICS 08/23/2023 6197-9-0 10 / [id number] Tibia Implanted:Qty: 1 on 06/17/2022 by Ha Wallace MD at OR [facility] Right: Knee [employer] 10/07/2030 42-5420- 075-02 / / [id number] Insert Tib Sz 7-9+Cd Rt - [id number] Implanted:Qty: 1 on 06/17/2022 by Ha Wallace MD at [place] [facility] Right: Knee [employer] 09/30/2026 42-5228- 005-10 / / [id number] Stem Tib Ext [id number] - [id number] Implanted:Qty: 1 on 06/17/2022 by Ha Wallace MD at [place] [facility] Right: Knee [employer] 09/06/2030 42-5603- 135-12 / / [id number] Stem Extention Implanted:Qty: 1 on 06/17/2022 by Ha Wallace MD at [place] [facility] Right: Knee [employer] 03/16/2032 42-5601- 135-15 / / [id number] Femoral Distal Augment Implanted:Qty: 1 on 06/17/2022 by Ha Wallace MD at OR [facility] Right: Knee [employer] 03/26/2032 42-5566- 062-05 / / [id number] Fem Comp Ccr Std Sz 7 - [id number] Implanted:Qty: 1 on 06/17/2022 by Ha Wallace MD at [place] [facility] Right: Knee [employer] 01/28/2031 42-5046- 062-02 / / [id number] documented as of this encounter Visit Diagnoses Diagnosis S/P MVR (mitral valve replacement) Heart valve replaced by other means S/P revision of total knee, right Anticoagulation management encounter Encounter for therapeutic drug monitoring Hypothyroidism due to acquired atrophy of thyroid [...] Directives occurred with: Not Discussed Care Teams Nozzle Cement Sprayer Helper Relationship Specialty Start Date End Date Julius Lucas MD [address] [facility] [address] [facility] [place] [address] PCP - General Family Medicine 11/29/16 documented as of this encounter
--- OUTSIDE RECORDS SUMMARY | 2025-03-25 15:20 | External Medical Summary ---
Author Name Unknown Address Unknown Organization K01:[facility] [place] [address] [place] [address] Laboratory Report Ordering Provider Test Date Status EMILI NUGENTLTZFUS 11/30/2024 11:09:34 Final Observation Date Value Abnormality Reference (Units ) Status TSH 11/30/2024 11:09:34 4.71 Above high normal 0. 27-4.20 (uIU/mL) Final Performing Location [facility] - [address] [place] [place] [address]
--- OUTSIDE RECORDS SUMMARY | 2025-03-25 15:20 | External Medical Summary | Summary of Care ---
Author Name Unknown Organization [facility] Address [address] [place] [address] Phone [phone] Care Team Providers Care Supervisor Twisting Department Name Role Phone Julius Lucas MD Primary Care Provider Reason for Visit * Reason Onset Date Comments Med Request 11/19/2024 Encounter Details Date Type Department Care Team (Late st Contact Info) Description 11/19/2024 Telephone [facility] [address] [place] [address] Julius Lucas MD [address] [place] [address] Med Request Allergies Active Allergy Reactions Criticality Noted Date Comments Sulfa Antibiotics 08/28/2023 Bactrim DS gave a rash documented as of this encounter (statuses as of 11/19/2024) Medications Triamcinolone Acetonide 0.1 % External Ointment [...] as of this encounter (statuses as of 11/19/2024) Active Problems Problem Noted Date Diagnosed Date [...] as of this encounter (statuses as of 11/19/2024) Resolved Problems Problem Noted Date Diagnosed Date [...] as of this encounter (statuses as of 11/19/2024) Immunizations Name Administration Dates Next Due Season [...] encounter Miscellaneous Notes * Telephone Encounter - Reyna Costa LPN - 11/19/2024 9:54 AM EST Did you pend patient's preferred pharmacy and medication before forwarding?yes Pharmacy: [facility] - [address] Pending Prescriptions: Disp Refills Levothyroxine Sodium 50 [...] or any previous visit. Patient Phone Numbers mobile [phone] Labs: Lab Results Component Value Date/Time CREAT [...] Description 11/29/2024 11:00 AM EST Laboratory Laboratory, [place] [address] [place] [address] [place] [address] [place] [address] 11/30/2024 6:15 AM EST Anticoagulation Centralized Clinical Pharmacy Services, Angelic Campbell [address] [place] [address] [place] [address] [place] [address] 01/05/2025 12:20 PM EST Office Visit [facility] [address] [place] [address] Julius Lucas MD [address] [place] [id number] Scheduled Orders Name Type Priority Associated Diagnoses [...] Ratio 08/05/2025 08/05/2024 CKD HGB USE SMARTSET 42700 08/05/202508/05, 02/17/2024, 11/10/2023, Additional history exists CKD PHOS USE SMARTSET 55820 08/05/202507/25, 06/22/2022, 06/21/2022, Additional history exists TSH [...] this encounter Medical Devices Implanted Type Area Juice Bar Team Member Device Identifier Shelf Expiration Date Model / Serial / Lot Shell 54mm - [id number] Implanted:Qty: 1 on 11/02/2015 by [place] [facility] [place] Hip ULYSSES : ORTHOPAEDICS 07/03/2020 502-03-5 4E / / Trident Acetabular X3 0 36 E - [id number] Implanted:Qty: 1 on 11/02/2015 [place] Wyatt M[place] [facility] Hip ULYSSES : ORTHOPAEDICS 08/22/2020 623-00-3 6E / / Screw Acetabular 6.5mm Kristina 20m - [id number] Implanted:Qty: 1 on 11/02/2015 by Wyatt Mane [place] [facility] [place]: Hip ULYSSES : ORTHOPAEDICS 06/02/20202029-652 0-1 / / Screw Acetabular 6.5mm Kristina 25m - [id number] Implanted:Qty: 1 on 11/02/2015 by Wyatt M[place] [facility]: Hip ULYSSES : ORTHOPAEDICS 08/29/20202029-652 5-1 / / Hip Hd Nk Alumina Mod D 36/+5 - [id number] Implanted:Qty: 1 on 11/02/2015 by Wyatt Mane [place] [facility]: Hip ULYSSES : ORTHOPAEDICS 07/03/2020 6570-0-2 36 / / Stem Hip Sz6 - [id number] Implanted:Qty: 1 on 11/02/2015 by Wyatt M[place] [facility]: Hip ULYSSES : ORTHOPAEDICS 07/08/2020 6721-063 5 / / Triathlon All Poly Tibial Comp - [id number] Implanted:Qty: 1 on 01/24/2021 by Ha Wallace MD at [facility] Right: Knee ULYSSES : ORTHOPAEDICS 11/09/2025 5534-A-4 09 / / [id number] Cement Antibiotic Bone - [id number] Implanted:Qty: 1 on 01/24/2021 by Ha Wallace MD at OR [facility] Left: Knee ULYSSES : ORTHOPAEDICS 12/24/2021 6197-9-0 10 / / [id number] Triathlon All Poly Tibial Comp - [id number] Implanted:Qty: 1 on 01/24/2021 by Ha Wallace MD at OR [facility] Left: Knee ULYSSES : ORTHOPAEDICS 10/04/2025 5534-A-4 09 / / [id number] Knee Triathlon Bead No Audi L 5 - [id number] Implanted:Qty: 1 on 01/24/2021 by Ha Wallace MD at OR [facility] Left: Knee ULYSSES : ORTHOPAEDICS 12/12/2025 5517-F-5 01 / / [id number] Cement Antibiotic Bone - [id number] Implanted:Qty: 1 on 01/24/2021 by Ha Wallace MD at OR [facility] Right: Knee ULYSSES : ORTHOPAEDICS 12/24/2021 6197-9-0 10 / / [id number] Component Femoral Rt Size 5 T - [id number] Implanted:Qty: 1 on 01/24/2021 by Ha Wallace MD at OR [facility] Right: Knee ULYSSES : ORTHOPAEDICS 12/30/2024 5510-F-5 02 / / [id number] Triathlon X3 Symmetric Patella Implanted:Qty: 1 on 01/24/2021 by Ha Wallace MD at OR [facility] Right: Knee ULYSSES : ORTHOPAEDICS 01/10/2025 5550-G-3 60-E / / XTTY Cath Thermodilution 6fr - [id number] Implanted:Qty: 1 on 12/05/2021 by Luke Lynn DO [place] [facility] [employer] MARY [id number] 10/31/2023 096F6P / / [id number] Suture Steel 6 B&S19 M654g - [id number] Implanted:Qty: 7 on 02/26/2022 by Jeff Arreola MD [place] [facility] N/A: Sternum JNJ : [employer] 10/23/2026 M654G / / RPBCTE Valve Heart Mitral Epic 31mm - [id number] - [id number] Implanted:Qty: 1 on 02/26/2022 by eJff Arreola MD [place] [facility] N/A: Heart ST ERIN : CARDIOVASCULAR [id number] 04/18/2025 Q552-53N -00 / [id number] 3 / [id number] Cement Antibiotic Bone - [id number] Implanted:Qty: 2 on 06/17/2022 by Ha Wallace MD [place] [facility] [place]: Knee ULYSSES : ORTHOPAEDICS 08/23/2023 6197-9-0 10 / [id number] Tibia Implanted:Qty: 1 on 06/17/2022 by Ha Wallace MD [place] [facility] [place]: Knee KYE KNEE 10/07/2030 42-5420- 075-02 / / [id number] Insert Tib Sz 7-9+Cd Rt - [id number] Implanted:Qty: 1 on 06/17/2022 by Ha Wallace MD [place] [facility] [place]: Knee [employer] 09/30/2026 42-5228- 005-10 / / [id number] Stem Tib Ext 7l40m624ts - [id number] Implanted:Qty: 1 on 06/17/2022 by Ha Wallace MD [place] [facility] [place]: Knee [employer] 09/06/2030 42-5603- 135-12 / / [id number] Stem Extention Implanted:Qty: 1 on 06/17/2022 by Ha Wallace MD [place] [facility] [place]: Knee [employer] 03/16/2032 42-5601- 135-15 / / [id number] Femoral Distal Augment Implanted:Qty: 1 on 06/17/2022 by Ha Wallace MD [place] [facility] [place]: Knee KYE KNEE 03/26/2032 42-5566- 062-05 / / [id number] Fem Comp Ccr Std Sz 7 - [id number] Implanted:Qty: 1 on 06/17/2022 by Ha Wallace MD at [facility] Right: Knee [employer] 01/28/2031 42-5046- 062-02 [id number] documented as of this encounter Visit Diagnoses [...] occurred with: Not Discussed Care Teams Supervisor Twisting Department Relationship Specialty Start Date End Date Julius Lucas MD [address] [address] [place] [address] PCP - General Family Medicine 11/29/16 documented as of this encounter
--- OUTSIDE RECORDS SUMMARY | 2025-03-25 15:20 | External Medical Summary | Summary of Care ---
Author Name Unknown Organization [facility] Address [address] [place] [address] Phone [phone] Care Team Providers Care Tissue Coordinator Name Role Phone Julius Lucas MD Primary Care Provider Reason for Referral * Evaluate & Treat - Unlimited Visits (Within 10 days (routine)) - Authorized Specialty Diagnoses / Procedures Referred By Contac t Referred To Contact ANTI-COAG CLINIC / Pharmacy Diagnoses S/P MVR (mitral valve replacement) Carin Byrnes, [facility] [address] [place] [address] Phone: tel: fax: Referral ID Status Reason Start Date Expiration Date Visits Requested Visits Authorized [id number] Authorized Specialty Services Required 12/01/2024 05/30/2025 99 99 Question Answer Referral Priority Within 10 days (routine) Where should this appointment be scheduled? [facility] Anticoagulation referral for management of: Warfarin Indication and INR goal for Warfarin Management: Mitral valve replacement, goal INR 2.0 to 3.0 Relevant History: N/A Enoxaparin bridging required? No Minimum frequency patient should be seen in person for medication management: as appropriate per clinical condition and patient status By my signature, I understand that my patient Marta Villela will have her medication therapy managed by the [facility] ([facility]) per established policies, procedures, and protocols. I also certify that this referral may serve as an initiation of service for the management of drug therapy in the above noted patient. [facility] providers will be responsible for scheduling patient visits, obtaining appropriate laboratory studies, and adjusting medication management therapy per patient's need, in addition to those roles spelled out in the clinic policy, procedures, and drug management protocols. I understand that the service provided by the [facility] is voluntary and have informed patient that they can refuse the service at their discretion. I am aware that the [facility] Clinic will provide me with a copy of the patient encounter via my [employer] [employer]. I authorize the [facility] to carry out these activities on my behalf. I consider this program to be a necessary part of the patient's medical care. Carin Byrnes RP Reason for Visit * Reason Onset Date Comments Referral 12/01/2024 Encounter Details Date Type Department Care Team (Late st Contact Info) Description 12/01/2024 Telephone Centralized Clinical Pharmacy Services, Angelic Campbell [address] [place] [address] [place] [address] Carin Byrnes [facility] [address] [place] [address] Referral Allergies Active Allergy Reactions Criticality Noted Date [...] No 08/28/2023 Does the household have a up health systemr source of income? (Household - for ages [...] Telephone Encounter - Carin Byrnes RPh - 12/01/2024 8:59 AM EST Please approve pended referral for ongoing ACC management. Thank you, Carin Byrnse Rph, Pharm.D. Clinical Pharmacist [facility] Clinical [facility] Services ([facility]) [phone] 12/01/2024,9:01 AM documented in this encounter Plan of Treatment Upcoming Encounters Date Type Department Care Team (Late st Contact Info) Description 12/28/2024 11:00 AM EST Laboratory Laboratory, [place] [address] [place] [address] [place], [facility] [address] [place] [address] 12/29/2024 6:15 AM EST Anticoagulation Centralized Clinical Pharmacy Services, Angelic Campbell [address] [place] [address] [place] [address] [facility], [address] [place] [address] 01/05/2025 12:20 PM EST Office Visit [facility] [address] [place] [address] Julius Lucas MD [address] [place] [address] Scheduled Referrals Name Type Priority Associated Diagnoses [...] Ratio 08/05/2025 08/05/2024 CKD HGB USE SMARTSET 42287 08/05/202508/05, 02/17/2024, 11/10/2023, Additional history exists CKD PHOS USE SMARTSET 90537 08/05/202507/25, 06/22/2022, 06/21/2022, Additional history exists TSH [...] this encounter Medical Devices Implanted Type Area [employer] Device Identifier Shelf Expiration Date Model / Serial / Lot Shell 54mm - [id number] Implanted:Qty: 1 on 11/02/2015 by Wyatt Mane MD [place] [facility] [place]: Hip ULYSSES : ORTHOPAEDICS 07/03/2020 502-03-5 4E / / Trident Acetabular X3 0 36 E - [id number] Implanted:Qty: 1 on 11/02/2015 by Wyatt Mane MD [place] [facility] [place] Right: Hip ULYSSES : ORTHOPAEDICS 08/22/2020 623-00-3 6E / / Screw Acetabular 6.5mm Kristina 20m - [id number] Implanted:Qty: 1 on 11/02/2015 by Wyatt Mane MD [place] [facility] [place]: Hip ULYSSES : ORTHOPAEDICS 06/02/20202029-652 0-1 / / Screw Acetabular 6.5mm Kristina 25m - [id number] Implanted:Qty: 1 on 11/02/2015 by Wyatt Mane MD [place] [facility] [place] Right: Hip ULYSSES : ORTHOPAEDICS 08/29/20202029-652 5-1 / / Hip Hd Nk Alumina Mod D 36/+5 - [id number] Implanted:Qty: 1 on 11/02/2015 by Wyatt Mane MD [place] [facility] [place] Right: Hip ULYSSES : ORTHOPAEDICS 07/03/2020 6570-0-2 36 / / Stem Hip Sz6 - [id number] Implanted:Qty: 1 on 11/02/2015 by Wyatt Mane MD [place] [facility] [place] Right: Hip ULYSSES : ORTHOPAEDICS 07/08/2020 6721-063 5 / / Triathlon All Poly Tibial Comp - [id number] Implanted:Qty: 1 on 01/24/2021 by Ha Wallace MD at [facility] Right: Knee ULYSSES : ORTHOPAEDICS 11/09/2025 5534-A-4 09 / / [id number] Cement Antibiotic Bone - [id number] Implanted:Qty: 1 on 01/24/2021 by Ha Wallace MD at OR [facility] Left: Knee ULYSSES : ORTHOPAEDICS 12/24/2021 6197-9-0 10 / / [id number] Triathlon All Poly Tibial Comp - [id number] Implanted:Qty: 1 on 01/24/2021 by Ha Wallace MD at OR [facility] Left: Knee ULYSSES : ORTHOPAEDICS 10/04/2025 5534-A-4 09 / / [id number] Knee Triathlon Bead No Audi L 5 - [id number] Implanted:Qty: 1 on 01/24/2021 by Ha Wallace MD at OR [facility] Left: Knee ULYSSES : ORTHOPAEDICS 12/12/2025 5517-F-5 01 / / [id number] Cement Antibiotic Bone - [id number] Implanted:Qty: 1 on 01/24/2021 by Ha Wallace MD at OR [facility] Right: Knee ULYSSES : ORTHOPAEDICS 12/24/2021 6197-9-0 10 / / [id number] Component Femoral Rt Size 5 T - [id number] Implanted:Qty: 1 on 01/24/2021 by Ha Wallace MD at OR [facility] Right: Knee ULYSSES : ORTHOPAEDICS 12/30/2024 5510-F-5 02 / / [id number] Triathlon X3 Symmetric Patella Implanted:Qty: 1 on 01/24/2021 by Ha Wallace MD at OR [facility] Right: Knee ULYSSES : ORTHOPAEDICS 01/10/2025 5550-G-3 60-E / / XTTY Cath Thermodilution 6fr - [id number] Implanted:Qty: 1 on 12/05/2021 by Luke Lynn DO at [facility] [place] [employer] [id number] 10/31/2023 096F6P / / [id number] Suture Steel 6 B&S19 M654g - [id number] Implanted:Qty: 7 on 02/26/2022 by Jeff Arreola MD at [place] [facility] [place] N/A: Sternum JNJ : [employer] 10/23/2026 M654G / / RPBCTE Valve Heart Mitral Epic 31mm - [id number] - [id number] Implanted:Qty: 1 on 02/26/2022 by Jeff Arreola MD at [place] [facility] [place] N/A: Heart ST ERIN : CARDIOVASCULAR [id number] 04/18/2025 A982-12E -00 / [id number] 3 / [id number] Cement Antibiotic Bone - [id number] Implanted:Qty: 2 on 06/17/2022 by Ha Wallace MD at [place] [facility] [place] Right: Knee ULYSSES : ORTHOPAEDICS 08/23/2023 6197-9-0 10 / / [id number] Tibia Implanted:Qty: 1 on 06/17/2022 by Ha Wallace MD at [place] [facility] [place] Right: Knee KYE [employer] 10/07/2030 42-5420- 075-02 / / [id number] Insert Tib Sz 7-9+Cd Rt - [id number] Implanted:Qty: 1 on 06/17/2022 by Ha Wallace MD at [place] [facility] [place] Right: Knee [employer] 09/30/2026 42-5228- 005-10 / / [id number] Stem Tib Ext 2i46k624ae - [id number] Implanted:Qty: 1 on 06/17/2022 by Ha Wallace MD at [place] [facility] [place] Right: Knee [employer] 09/06/2030 42-5603- 135-12 / / [id number] Stem Extention Implanted:Qty: 1 on 06/17/2022 by Ha Wallace MD at [place] [facility] Right: Knee [employer] K[employer] 03/16/2032 42-5601- 135-15 / / [id number] Femoral Distal Augment Implanted:Qty: 1 on 06/17/2022 by Ha Wallace MD at [place] [facility] [place] Right: Knee [employer]YE K[employer]EE 03/26/2032 42-5566- 062-05 / / [id number] Fem Comp Ccr Std Sz 7 - [id number] Implanted:Qty: 1 on 06/17/2022 by Ha Wallace MD at [place] [facility] Right: Knee [employer] 01/28/2031 42-5046- 062-02 [id number] documented as of this encounter Visit Diagnoses Diagnosis S/P MVR (mitral valve replacement)- Primary Heart valve replaced by other means documented in this encounter Advance Directives * [...] Directives occurred with: Not Discussed Care Teams Tissue Coordinator Relationship Specialty Start Date End Date Julius Lucas MD [address] [facility] [place] [address] PCP - General Family Medicine 11/29/16 documented as of this encounter
[2025-03-25] MEDS ORDERED: LEVALBUTEROL HCL 0.63 MG/3 ML NEB NEB PRN (15:31)
[2025-03-25] MEDS: WARFARIN SOD 5 MG TAB PO ONE (15:49)
--- NOTE | 2025-03-25 15:50 | Pulmonary Consultation ---
Date of Consultation March 25, 2025 Assessment & Plan (1) Acute hypoxic respiratory failure: (2) Abnormal chest x-ray: (3) Short of breath on exertion: (4) Acute heart failure with preserved ejection fraction (HFpEF): (5) Pulmonary HTN: Plan Chest x-ray 03/25/2025 personally reviewed: Portable film, patchy alveolar opacities appreciated bilaterally, increased cardiac silhouette, blunting of bilateral costophrenic angles 2D echo 01/05/2024: EF 55-60%, borderline concentric LVH, diastolic dysfunction, LA moderately enlarged, mild to moderate AR, mild TR -- Acute hypoxic respiratory failure Does have lymphopenia on CBC BNP 403 Respiratory BioFire negative for everything Procalcitonin 0.10 Differential for the abnormality includes but not limited to infectious process Noninfectious process includes autoimmune disease like sarcoidosis, amiodarone toxicity also possibility I would order autoimmune work-up including RAJ with reflex, rheumatoid factor, anti-CCP, CRP, ESR, PARISA Usually amiodarone toxicity can be considered in somebody who is taking amiodarone >/= 200 mg a day for 6 to 12 months --History of paroxysmal atrial tachycardia Was started on amiodarone 03/2022, discontinued February 2025 --Pulmonary hypertension Likely a combination of type II and type III --HFpEF with mechanical mitral valve On warfarin Plan: Strict in and out Get CT of the chest to look at the lung parenchyma Autoimmune workup BiPAP 10/ nightly and as needed shortness of breath Keep O2 saturation between 90-92% given the history of pulmonary hypertension Whether to consider bronchoscopy or not will be decided based on the CAT scan finding. I will try to get images from [place] as well which she has done not too long ago We need to keep in mind given the patient's HFpEF, mitral valve replacement, she will be at high risk for bleeding with bronchoscopy Case was discussed with primary team, RN at bedside All questions and queries of the patient as well as patient's daughters were answered in depth I spent more than 75 minutes looking in the chart, images, discussing the plan of care with the patient, RN as well as primary team Please note the above document was generated using voice recognition software. It may contain grammatical, syntax or spelling errors.Any formal questions or concerns about the content, text or information contained within the body of this dictation should be directly addressed to the provider for clarification. History of Present Illness History of Present Illness 74-year-old female presented to the hospital with complaints of shortness of breath Past medical history: HFpEF, pulmonary hypertension, CKD, hypothyroidism, paroxysmal atrial tachycardia, s/p MVR Pulmonary consulted for hypoxia At the time of examination patient's daughters were in the room Patient was having dinner. She was not in any respiratory distress She was saturating 94-95% on 4 L nasal cannula She stated that she has been having issues with her breathing for approximately 10-14 days. Progressively getting worse She has been complaining of cough as well. She did have pneumonia approximately couple of months ago for which she was given antibiotics and steroids. She did have a CT chest then approximately 4-6 weeks ago for which she was given prednisone Had some chest pain earlier today lasting for a minute or so, nonradiating, resolved on its own. Patient was started on amiodarone approximately in 2021, she was taking 200 mg on a daily basis. She stopped taking it 3 weeks ago. Denies any fever or chills No dysuria or diarrhea No hematuria, no hematochezia, no epistaxis No personal or family history of any autoimmune disease like lupus, sarcoid, Sjogren's, rheumatoid No Raynaud's No dry eyes, no dry mouth, no difficulty swallowing Social history: Lifetime non-smoker. Worked on a farm for approximately 10 years Pets: Dog at home. No birds or poultry nearby Allergies Allergy/AdvReac Type Severity Reaction Status Date / Time sulfamethoxazole Allergy Rash Verified 07/09/23 07:26 [From Bactrim] trimethoprim [From Bactrim] Allergy Rash Verified 07/09/23 07:26 Home Medications Medication Instructions Recorded Confirmed Type Acetaminophen Extra Strength 2 tab PO Q6 PRN Pain 01/30/21 03/25/25 History amiodarone 200 mg tablet 200 mg PO QAM 07/03/23 03/25/25 History furosemide 40 mg tablet 40 mg PO QAM 07/03/23 03/25/25 History metoprolol succinate 25 mg 25 mg PO QAM 07/03/23 03/25/25 History tablet,extended release 24 hr albuterol sulfate 90 mcg/actuation 2 inh inhalation Q4H PRN Shortness 03/25/25 03/25/25 History aerosol inhaler Of Breath Or Wheezing levothyroxine 50 mcg tablet 50 mcg PO DAILY 03/25/25 03/25/25 History potassium 99 mg tablet 99 mg PO DAILY 03/25/25 03/25/25 History warfarin 2.5 mg tablet 1.25 mg PO MOFR@1600 03/25/25 03/25/25 History warfarin 2.5 mg tablet 2.5 mg PO SUTUWETHSA@1600 03/25/25 03/25/25 History Patient History Medical History (Updated 03/25/25 @ 17:07 by Goran Lemos MD, [facility]) PAT (paroxysmal atrial tachycardia) CKD (chronic kidney disease), stage III Tricuspid valve insufficiency Mitral valve insufficiency Pulmonary HTN Hypothyroidism [place] (hard of hearing) History of uterine fibroid Surgical History (Updated 03/25/25 @ 14:45 by May Villela PA-C) H/O mitral valve replacement History of myomectomy History of hysterectomy History of esophagogastroduodenoscopy (EGD) History of colonoscopy History of cardiac catheterization 2021 pre op valve replacement. no stents. History of heart valve replacement 02/2022. follows with Dr. Henning. History of tonsillectomy History of right hip replacement History of x 2 History of bilateral knee replacement + Rt knee revision Social History Smoking Status: Never smoker Second Hand Exposure: No; Do You Dip or Chew Tobacco: No; Hx Alcohol Use: Yes Alcohol type: wine Hx Substance Use: No Preferred Language: Latvian Communication Ability: Effective Waxer Tender Required: No Beliefs That Will Affect Care: None Current Living Situation: Family Current Living Situation Comment: lives with daughter Feels Safe at Home: Yes Assistive Devices: Denture - Upper, Denture - Lower, Glasses and Hearing Aid - Bilateral Review of Systems 2 Review of Systems: All systems reviewed & are unremarkable except as noted in HPI & below Physical Exam 2 Physical Exam: Constitutional: No acute distress HEENT: EOMI, PERRLA Respiratory system: Decreased air entry bilaterally, no wheeze, no rhonchi, positive crackles appreciated bilaterally, more on the right side CVS: S1-S2 positive, mechanical heart sound, positive 2 out of 6 systolic murmur appreciated best at apex Abdomen: Soft, nontender, nondistended, positive bowel sounds x4 Extremities: +2 pulses bilaterally radialis/ dorsalis pedis, no cyanosis, +1 pitting edema bilateral lower extremity Neuro: Awake alert oriented x3 Psych: Normal mood and affect G/U: No Dupree Skin: no rashes, warm and dry Lymphatic: no cervical or axillary lymphadenopathy Results & Data Results & Data Vital Signs (Past 12 Hours) Vital Signs Temp Pulse Pulse Resp BP BP Pulse Ox 03/25/25 15:00 78 20 127/67 97 03/25/25 13:13 83 20 142/78 H 96 03/25/25 11:52 86 03/25/25 11:51 96 03/25/25 11:33 03/25/25 11:26 37.0 C 82 22 136/76 72 L O2 Del Method O2 Flow Rate 03/25/25 15:00 Nasal Cannula 5 03/25/25 13:13 Nasal Cannula 5 03/25/25 11:52 03/25/25 11:51 Nasal Cannula 4 03/25/25 11:33 Nasal Cannula 4 03/25/25 11:26 Room Air Laboratory Results 03/25/25 11:51 03/25/25 11:51 PG Care Time/CCT Total # of Minutes Spent Total Time Spent with Patient: Total time spent is greater than 50% in coordination of care (as documented) at patient's floor/unit and/or counseling patient: Coding Level of Care Code 67187 INT INP/OBS CARE 3/75MIN Diagnoses Acute hypoxic respiratory failure J96.01 Abnormal chest x-ray R93.89 Short of breath on exertion R06.02 Acute heart failure with preserved ejection fraction (HFpEF) I50.31 Pulmonary HTN I27.20
[2025-03-25] MEDS: OPTIRAY 320 125ml IV ONE (15:56)
[2025-03-25] MEDS ORDERED: POLYETHYLENE (MIRALAX) 17 GM PACK PO PRN (16:16)
[2025-03-25] MEDS ORDERED: ALBUTEROL HFA 8 GM INHALER INH PRN (16:16)
--- NOTE | 2025-03-25 17:15 | CT Scan Report ---
EXAM: CT angio chest PE protocol CLINICAL HISTORY: Pulmonary Embolism. TECHNIQUE: Contiguous 3.[address] angiographic images of the chest were acquired PE protocol with the administration of intravenous contrast. Coronal and sagittal reconstructions were obtained. One of these 3D techniques was utilized: Maximum Intensity Pixel (MIP), 3D Reconstructed Images, Volume Rendered Images, Surface Shaded Rendering. One of the following dose reduction techniques were utilized for this exam: Automated exposure control, adjustment of the mA and/or kV according to patient size, and use of iterative reconstruction. COMPARISON: None. FINDINGS: Aorta: The ascending aorta is dilated, measuring 3.6 cm for followup. No evidence of aneurysm, dissection. Atherosclerotic changes are seen involving the aorta and its main branches. Aortic arch and descending thoracic aorta are unremarkable. Pulmonary Arteries: Pulmonary arteries are normal in size and opacification. No evidence of pulmonary embolism. No stenosis or filling defects. Superior Vena Cava (SVC) and Inferior Vena Cava (IVC): Normal opacification and caliber. No evidence of thrombus or obstruction. Coronary Arteries: Coronary arteries are well-opacified. No significant stenosis or atherosclerotic changes. Mediastinum: Multiple enlarged mediastinal lymph nodes the largest subcarinal measuring 2.5 cm in short axis Heart: Cardiomegaly with enlarged left atrium with mitral valvular thesis and pericardial been calcifications No pericardial effusion. Lungs: Multiple bilateral nodules, areas of ground glass density and areas of consolidation showing air bronchograms are seen scattered at both lungs No pleural effusion or thickening. Bones: No fractures or lytic/sclerotic lesions of the visualized bony structures. Spondylodegenerative changes of the thoracic spine are noted. Diffuse osteopenic texture is noted. Mid line sternotomy sutures are noted. Soft Tissues: Normal appearance of the visualized soft tissues. No abnormal masses or fluid collections. Upper abdominal cuts revealed multiple hepatic and splenic calcific foci likely representing old granulomatous disease. IMPRESSION: 1. No CT evidence of pulmonary embolism. 2. Extensive pulmonary infiltrates and nodular opacities seen involving both lungs suggesting an inflammatory process with the possibility of an underlying neoplastic process cannot be totally excluded. Clinical correlation and follow-up CT are advised 3. Multiple enlarged mediastinal lymph nodes the largest subcarinal measuring 2.5 cm in short axis, Suggesting pathological lymphadenopathy. Electronically signed by Kennedy Fernandez 03-25-2025 5:15 PM
[2025-03-25 17:33] LABS: C Reactive Protein 23.61 mg/dl (0-0.5)
[2025-03-25] MEDS ORDERED: methylPREDNISolone 125 MG/2 ML VIAL IV SCH (18:05)
[2025-03-25] MEDS: methylPREDNISolone 40 MG in SYRINGE 0 ML IV SCH (18:26)
[2025-03-25] MEDS: DOXYCYCLINE HYCLATE 100 MG CAP PO SCH (18:27)
[2025-03-25] MEDS: cefTRIAXone SODIUM 2,000 MG/50 ML BAG IV SCH (18:27)
--- NOTE | 2025-03-25 23:20 | Electrocardiogram Report ---
Test Reason : Blood Pressure : */* mmHG Vent. Rate : 89 BPM Atrial Rate : 89 BPM P-R Int : 232 ms QRS Dur : 100 ms QT Int : 416 ms P-R-T Axes : * -9 46 degrees QTcB Int : 506 ms Sinus rhythm with 1st degree A-V block Moderate voltage criteria for LVH, may be normal variant ( R in aVL , Polo product ) Prolonged QT Abnormal ECG No previous ECGs available Confirmed by Gary Chambers ([id number]) on 03/25/2025 11:20:33 PM Referred By: Confirmed By: Gary Chambers
[2025-03-26] MEDS: LEVOTHYROXINE SODIUM 50 MCG TABLET PO SCH (05:42)
[2025-03-26 06:45] LABS: Hematocrit (blood only) 36.7 % (37.0-47.0); Mean Corpuscular Hemoglobin 29.6 pg (25.0-34.0); Mean Corpuscular Hgb Conc 32.7 g/dL (32.0-36.0); Mean Corpuscular Volume 90.4 fL (80.0-100.0); Platelet Count 274 K/uL (130-400); RDW Standard Deviation 49.8 fL (36.4-46.3); Red Blood Count 4.06 M/uL (4.20-5.40); White Blood Count 6.98 K/ul (4.8-10.8)
[2025-03-26 07:09] LABS: Albumin Globulin Ratio 0.7 (0.9-2); Albumin Level 3.1 gm/dl (3.4-5.0); Bilirubin,Total 0.4 mg/dl (0.2-1.0); Calcium 8.8 mg/dl (8.6-10.3); Creatinine Clr Calc Pharmacy 53.7 ml/min; Globulin 4.3 gm/dl (2.5-4.0); Potassium 3.7 mmol/L (3.5-5.1); Total Protein 7.4 gm/dl (6.0-8.3)
--- NOTE | 2025-03-26 07:22 | Pulmonology Progress Note ---
Date of Service March 26, 2025 Assessment & Plan (1) Acute hypoxic respiratory failure: (2) Abnormal chest x-ray: (3) Short of breath on exertion: (4) Acute heart failure with preserved ejection fraction (HFpEF): (5) Pulmonary HTN: Plan CT chest 03/25/2025 personally reviewed: Diffuse patchy alveolar opacities appreciated bilaterally, more pronounced in bilateral lower lobes Cardiomegaly Significant subcarinal and right hilar lymphadenopathy The CAT scan seems to be worse compared to the one which was done on 03/11/2025 I was even able to look at the chest x-ray from 07/2024 and patient did have evidence of opacities Likely seems to be getting worse. 2D echo 01/05/2024: EF 55-60%, borderline concentric LVH, diastolic dysfunction, LA moderately enlarged, mild to moderate AR, mild TR -- Acute hypoxic respiratory failure Does have lymphopenia on CBC BNP 403 Respiratory BioFire negative for everything Procalcitonin 0.10 ESR 117, CRP 23.61 Differential for the abnormality includes but not limited to infectious process and/or malignancy Noninfectious process includes autoimmune disease like sarcoidosis, amiodarone toxicity also possibility Follow-up autoimmune work-up including RAJ with reflex, rheumatoid factor, anti- CCP, CRP, ESR, PARISA Usually amiodarone toxicity can be considered in somebody who is taking amiodarone >/= 200 mg a day for 6 to 12 months --History of paroxysmal atrial tachycardia Was started on amiodarone 03/2022, discontinued February 2025 --Pulmonary hypertension Likely a combination of type II and type III --HFpEF with mechanical mitral valve On warfarin Plan: In/out: -328, urine output 1078 CAT scan of the chest from yesterday as well as from 03/11/2025 personally reviewed. There is definitely worsening in the alveolar opacities bilaterally. I do think she is good to benefit from bronchoscopy We need to keep in mind given the patient's HFpEF, mitral valve replacement, she will be at high risk for bleeding with bronchoscopy I had in-depth discussion with patient as well as patient's daughters who are at bedside. Pros and cons of bronchoscopy versus conservative treatment with prednisone and diuretics was explained Patient opted for conservative treatment which I think is reasonable Given amiodarone toxicity is in the differential, usually treatment for amiodarone toxicity is 40-60 mg of prednisone on a daily basis and when there is improvement then taper off over 2-6 months. There have been cases where people needed even a year of prednisone. She will need Bactrim prophylaxis while she is on prednisone as well as pantoprazole Continue with 40 mg twice daily which will be almost 1 Mg per KG Continue with diuretics Keep O2 saturation between 90-92% given the history of pulmonary hypertension Case was discussed with primary team, counseling aide at bedside I spent more than 50 minutes looking in the chart, images, discussing the plan of care with the patient, RN as well as primary team Please note the above document was generated using voice recognition software. It may contain grammatical, syntax or spelling errors.Any formal questions or concerns about the content, text or information contained within the body of this dictation should be directly addressed to the provider for clarification. Admission and Anticipated Discharge Date Admission Date: March 25, 2025 Subjective Patient seen and examined at bedside. No acute distress, no adverse events overnight She was saturating 96-97% on 3 to nasal cannula, I went down to 1 L. I was able to go and see the patient again to talk to the daughters and she was saturating 94-95% on 1 L and I took her off oxygen Overall she stated she is feeling better when it comes to her breathing Denied any chest pain, no unusual headache or blurry vision Diuresing well No abdominal pain Review of Systems 2 Review of Systems: All systems reviewed & are unremarkable except as noted in Subjective Physical Exam 2 Physical Exam: Constitutional: No acute distress HEENT: EOMI, PERRLA Respiratory system: Decreased air entry bilaterally, no wheeze, no rhonchi, positive crackles appreciated bilaterally, more on the right side, question Velcro-like CVS: S1-S2 positive, mechanical heart sound, positive 2 out of 6 systolic murmur appreciated best at apex Abdomen: Soft, nontender, nondistended, positive bowel sounds x4 Extremities: +2 pulses bilaterally radialis/ dorsalis pedis, no cyanosis, +1 pitting edema bilateral lower extremity Neuro: Awake alert oriented x3 Psych: Normal mood and affect G/U: No Dupree Skin: no rashes, warm and dry Lymphatic: no cervical or axillary lymphadenopathy Results & Data Results & Data Vital Signs (Past 12 Hours) Vital Signs Temp Pulse Pulse Resp BP Pulse Ox O2 Del Method 03/26/25 04:45 36.4 C L 72 16 112/62 92 Nasal Cannula 03/25/25 23:54 36.6 C 67 18 117/65 94 Nasal Cannula 03/25/25 21:53 71 03/25/25 20:00 37.2 C 74 18 118/65 94 Nasal Cannula 03/25/25 19:48 Nasal Cannula O2 Flow Rate 03/26/25 04:45 4 03/25/25 23:54 4 03/25/25 21:53 03/25/25 20:00 3 03/25/25 19:48 3 Laboratory Results 03/26/25 06:16 03/26/25 06:16 PG Care Time/CCT Total # of Minutes Spent Total Time Spent with Patient: Total time spent is greater than 50% in coordination of care (as documented) at patient's floor/unit and/or counseling patient: Coding Level of Care Code 92855 SUB INP/OBS CARE 3/50MIN Diagnoses Acute hypoxic respiratory failure J96.01 Abnormal chest x-ray R93.89 Short of breath on exertion R06.02 Acute heart failure with preserved ejection fraction (HFpEF) I50.31 Pulmonary HTN I27.20
[2025-03-26] MEDS ORDERED: ENOXAPARIN 1 MG/KG SC SCH (08:00)
--- NOTE | 2025-03-26 08:17 | Cardiology Progress Note ---
Date of Service March 26, 2025 Assessment & Plan (1) Acute hypoxic respiratory failure: (2) At risk for amiodarone toxicity with termite helper use: (3) Acute heart failure with preserved ejection fraction (HFpEF): Plan Assessment: 74 year old female who presented with worsening dyspnea and recent CT chest concerning for interstitial lung disease and likely amiodarone toxicity. chest xray questions HF component and cardiology service was requested. Plan: 1. Acute hypoxic respiratory failure 2. Possible drug induced interstitial lung disease 3. Acute on Chronic HFpEF -Patient is saturating well on supplemental O2 5LPM -Self discontinued Amiodarone after recent CT chest which shows interstitial lung disease as well as evidence of a hyperdense liver. -Telemetry shows SR with 1st degree AVB, will continue to monitor. No ectopy. -BNP with mild elevation -Troponin negative -Patient received one time dose of IV Lasix upon arrival to the ER, does not appear volume overloaded on exam. -will obtain echocardiogram to assess overall structure and function, paying close attention to LVEF, prior mitral valve replacement and evaluate for TR. Tech currently at bedside obtaining. -Recommend pulmonology consultation. Dr. Grande has spoken directly to primary team -Avoid Amiodarone. Please continue Metoprolol succinate 25mg PO Daily as per home regimen. -Continue warfarin -TSH stable, continue Levothyroxine - Will continue to follow 03/26/2025: -Patient is resting comfortably in bed without acute concern. She remains on supplemental O2 which has made breathing easier, and today requires lower demand. -Diuresed overnight. Trace Pedal edema. -328cc fluid balance -Strict I&O with daily weights on standing scale. Close monitoring of renal function, and serum electrolytes. -Goal serum K > 4.0 and Serum Mag > 2.0 -BNP shows mild elevation; however, patient has a history of a bioprosthetic mitral valve which will have known increased atrial pressures and often show an elevated BNP. No evidence of JVD and no significant volume overlaod on exam. -Will give Furosemide 40mg IV x1 dose this AM -Start spironolactone 12.5mg PO QD with close monitoring of labs. -Continue Metoprolol succinate 25mg PO QD as per current regimen. continue to monitor on telemetry for atrial arrhythmias -Pulmonology on consult, appreciate all recommendations with regards to evidence of interstitial lung disease Case has been discussed with Dr. Grande. Further recommendations regarding plan of care as per his assessment. I spent a total of 30 minutes on the date of service in preparation, delivery, documentation of the care provided to the patient excluding any time spent in the performance of separately billed services. REN Terrazas [facility] Cardiology [facility] Patient was seen and personally examined. Chart medical records and prior x-ray studies reviewed. Full assessment and plan as outlined by advanced provider as above. Care and management discussed in detail with provider and personally endorsed Impression: 74-year-old female status post mitral valve replacement with bioprosthetic (31 mm epic) February 2022 postoperative issues include difficulties with recurrent atrial arrhythmias treated with oral amiodarone. Patient presents with difficulties with gradually progressive dyspnea now hypoxia and dyspnea with minimal exertion. Chest x-rays and outpatient CT scans have demonstrated progressively worsening interstitial lung disease as well as hyperdense liver. Patient self discontinued amiodarone slightly greater than 1 week ago but still dyspneic and hypoxic on presentation. Chest x-ray today demonstrates diffuse patchy infiltrative disease Examination not notable for significant volume overload with neck veins flat at 30 degrees fine crackles basilar Preliminary echocardiogram done at bedside demonstrates normal to hyperdynamic LV function EF 65% or greater. Bioprosthetic mitral valve functioning normally without valvular insufficiency. Trace tricuspid insufficiency Recommendations: Progressive interstitial lung disease in the setting of amiodarone use suggesting possible drug-induced toxicity versus progressive underlying interstitial lung disease. Volume status does not suggest findings that would concur with pulmonary edema Patient has received 1 dose of IV furosemide May require more but cautiously with following her renal function Would recommend consultation pulmonology question indications for corticosteroids/immunosuppressive treatment Admission and Anticipated Discharge Date Admission Date: March 25, 2025 Supervising Physician Co-Signing Physician Notes Patient was seen and personally examined. Full assessment and plan as outlined by advanced provider as above. 74-year-old female admitted with acute hypoxic respiratory failure with diffuse interstitial lung disease progressive from x-ray in July 2024. Appreciate pulmonology input Echocardiogram with preserved LV systolic function normally functioning bioprosthesis. No profound pulmonary hypertension on current study. Plan as above additional dose of IV furosemide and begin spironolactone Subjective 03/26/2025: Patient seen and examined in follow up today. Feeling better than yesterday. Patient remains on supplemental O2 2.5LPM (decrease from time of arrival) and is saturating well. No chest pain, pressure or palpitations, no pre-syncope, syncope. Labs, vitals, diagnostics, telemetry and documentation reviewed. Telemetry reviewed showing SR with 1st degree AVB 70's no acute events overnight. Review of Systems Review of Systems: All systems reviewed & are unremarkable except as noted in HPI & below Physical Exam Constitutional: well developed, well nourished and + ill appearing Neck: normal visual inspection and trachea midline Respiratory: normal respiratory effort; no respiratory distress, no labored breathing and no retractions Auscultation: + diminished lung sounds (diminished bilateral bases ) and + wheezes (faint exp wheeze ); no crackles, no rales and no rhonchi Cardiovascular: Rate/Rhythm: regular rate and regular rhythm Heart Sounds: normal S1, normal S2 and + murmur (+1/6) Vessels: dorsalis pedis pulses present; no JVD Extremities: no edema Skin: no rashes, warm and dry Psychiatric: A+Ox3, euthymic affect Results & Data Vital Signs (Past 12 Hours) Vital Signs Temp Pulse Pulse Resp BP Pulse Ox O2 Del Method 03/26/25 07:37 37.1 C 70 18 119/61 95 Nasal Cannula 03/26/25 04:45 36.4 C L 72 16 112/62 92 Nasal Cannula 03/25/25 23:54 36.6 C 67 18 117/65 94 Nasal Cannula 03/25/25 21:53 71 O2 Flow Rate 03/26/25 07:37 2.5 03/26/25 04:45 4 03/25/25 23:54 4 03/25/25 21:53 Laboratory Results Cardiac Enzymes 03/25/25 03/25/25 03/25/25 Range/Units 11:51 16:56 22:29 AST 26 (13-39) U/L Troponin I High Sens 10.5 12.5 12.7 (0-14) pg/ml B-Natriuretic Peptide 403 H (0-100) pg/ml 03/26/25 Range/Units 06:16 AST 17 (13-39) U/L Troponin I High Sens (0-14) pg/ml B-Natriuretic Peptide 377 H (0-100) pg/ml Coagulation 03/25/25 03/26/25 Range/Units 11:51 06:16 PT 18.3 H 20.0 H (9.0-12.0) Seconds B-Natriuretic Peptide 403 H 377 H (0-100) pg/ml CBC 03/25/25 03/26/25 Range/Units 11:51 06:16 WBC 10.57 6.98 (4.8-10.8) K/ul RBC 4.48 4.06 L (4.20-5.40) M/uL Hgb 13.4 12.0 (12.0-16.0) g/dl Hct 40.3 36.7 L (37.0-47.0) % Plt Count 278 274 (130-400) K/uL Neut # (Auto) 8.24 H (1.40-6.50) K/uL Lymph # (Auto) 0.71 L (1.20-3.40) K/uL [place] # (Auto) 1.50 H (0.11-0.59) K/uL Eos # (Auto) 0.06 (0.00-0.50) K/uL Baso # (Auto) 0.03 (0.00-0.20) K/uL Comprehensive Metabolic Panel 03/25/25 03/26/25 Range/Units 11:51 06:16 Sodium 136 136 (136-145) mmol/L Potassium 3.4 L 3.7 (3.5-5.1) mmol/L Chloride 99 98 (98-107) mmol/L Carbon Dioxide 30 33 H (21-32) mmol/L BUN 17 16 (6-23) mg/dl Creatinine 1.00 0.94 (0.6-1.2) mg/dl Glucose 127 H 130 H (70-99(Fasting)) mg/dl Calcium 8.9 8.8 (8.6-10.3) mg/dl AST 26 17 (13-39) U/L ALT 13 12 (7-52) U/L Alkaline Phosphatase 135 H 122 H (34-104) U/L Total Protein 8.2 7.4 (6.0-8.3) gm/dl Albumin 3.6 3.1 L (3.4-5.0) gm/dl Intake and Output 03/25/25 03/26/25 03/26/25 22:59 06:59 14:59 Intake Total 750 / 750 Output Total 753 / 1078 325 / 1078 Balance -3 / -328 -325 / -328 Intake: IV 50 / 50 cefTRIAXone SODIUM 2,000 mg In 50 / 50 50 ml @ 100 mls/hr IV Q24H [facility] Rx#:[id number] Oral 700 / 700 Output: Urine 753 / 1078 325 / 1078 Other: # Unmeasured Voids 1 Weight 82.5 kg 81.6 kg Weight Measurement Method Standing Scale Standing Scale
--- NOTE | 2025-03-26 09:09 | XRay Report ---
EXAM: XR chest 1V portable CLINICAL HISTORY: F/u TECHNIQUE: An X-ray image of the chest is obtained in AP projection. COMPARISON: Prior CR 03/25/2025 FINDINGS: Pulmonary Parenchyma: Bilateral scattered ill-defined patchy consolidations and ground glass opacity nodules, more evident at middle and lower lung zones. Enlarged both hilar shadows were enlarged. Blunting of the left costophrenic angle is seen. Heart and Mediastinum: Heart size and shape are normal. No mediastinal widening or masses. No hilar or mediastinal lymphadenopathy. Median sternotomy sutures. Bony Thorax: Bony thorax appears intact without fractures or deformities. Soft Tissues: Soft tissues overlying the chest wall are unremarkable. IMPRESSION: - Bilateral scattered ill-defined patchy consolidations and ground glass opacity nodules, more evident at middle and lower lung zones( stable). Clinical lab correlation is advised. - Enlarged both hilar shadows. (Stable ) Electronically signed by Kennedy Fernandez 03-26-2025 09:08 AM
[2025-03-26] MEDS: SPIRONOLACTONE 12.5 MG TAB PO SCH (10:02)
[2025-03-26] MEDS: POTASSIUM CHLORIDE CRTAB 20 MEQ TABCR PO SCH (10:02)
[2025-03-26] MEDS: METOPROLOL SUCC 25MG EXT REL TAB PO SCH (10:03)
[2025-03-26] MEDS: PANTOprazole 40 MG TAB PO SCH (10:03)
[2025-03-26] MEDS: FUROSEMIDE 40 MG/4 ML VIAL IV ONE (10:03)
[2025-03-26] MEDS: ENOXAPARIN 80 MG/0.8 ML SYR SQ SCH (10:03)
[2025-03-26] MEDS: ACETAMINOPHEN 325 MG TAB PO PRN (10:03)
--- NOTE | 2025-03-26 11:39 | Hospitalist Progress Note ---
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 Reviewed pulmonary consultation and recommendations. Planning for possible bronchoscopy. Will hold warfarin, full dose Lovenox for mechanical aortic valve, can hold just prior to anticipated bronchoscopy Reviewed cardiology recommendations, agree with additional Lasix today, diuresis dosing daily based on evaluation Antibiotics and steroids started on pulmonary recommendation for possible inflammatory infectious process contributing to her hypoxia Continue to monitor intake output and daily weight Encourage activity as able Titrate oxygen as able, continue to use BiPAP at night. Updated patient's daughter, Grecia, via phone Admission and Anticipated Discharge Date Admission Date: March 25, 2025 Subjective Patient reports feeling a little bit better with her breathing this morning. No chest pain. Physical Exam Physical Exam: Constitutional: Alert, no acute distress HEENT: Mucous membranes moist. Lungs: Decreased, few crackles at bases, no wheezes CV: S1-S2, regular Abdomen: Soft, nontender, nondistended Extremities: Trace to 1+ pitting pretibial edema Neuro: No focal deficits Psych: Cooperative, normal mood Results & Data Results & Data Vital Signs (Past 12 Hours) Vital Signs Temp Pulse Resp BP Pulse Ox O2 Del Method O2 Flow Rate 03/26/25 07:37 37.1 C 70 18 119/61 95 Nasal Cannula 2.5 03/26/25 04:45 36.4 C L 72 16 112/62 92 Nasal Cannula 4 03/25/25 23:54 36.6 C 67 18 117/65 94 Nasal Cannula 4 Diagnostic Findings Reviewed imaging, laboratory and diagnostic studies. Pertinent findings as below. Hemoglobin 12.0 ESR 117 INR 2.0 Carbon dioxide 33 Creatinine 0.94 C-reactive protein 23.6 B LAMP MECH[employer]IC 377
[2025-03-26] MEDS: WARFARIN SOD 2.5 MG TAB PO SCH ×2 (17:37→18:32)
[2025-03-27 06:21] LABS: Hematocrit (blood only) 36.2 % (37.0-47.0); Hemoglobin 11.9 g/dl (12.0-16.0); Mean Corpuscular Hemoglobin 29.7 pg (25.0-34.0); Mean Corpuscular Hgb Conc 32.9 g/dL (32.0-36.0); Mean Corpuscular Volume 90.3 fL (80.0-100.0); Mean Platelet Volume 11.2 fL (9.4-12.4); Platelet Count 307 K/uL (130-400); RDW Coefficient of Variation 15.2 % (11.5-14.5); Red Blood Count 4.01 M/uL (4.20-5.40); White Blood Count 14.71 K/ul (4.8-10.8)
[2025-03-27 06:44] LABS: Albumin Globulin Ratio 0.8 (0.9-2); BUN Creatinine Ratio 28.3 (10-20); Bilirubin,Total 0.2 mg/dl (0.2-1.0); Creatinine Clr Calc Pharmacy 51.2 ml/min; Magnesium 2.1 mg/dl (1.7-2.4); Potassium 4.6 mmol/L (3.5-5.1)
[2025-03-27 06:47] LABS: INR 3.3 (0.9-1.1); Prothrombin Time 31.9 Seconds (9.0-12.0)
--- NOTE | 2025-03-27 08:19 | Cardiology Progress Note ---
Date of Service March 27, 2025 Assessment & Plan (1) Acute hypoxic respiratory failure: (2) At risk for amiodarone toxicity with long term acute care registered nurse use: (3) Acute heart failure with preserved ejection fraction (HFpEF): Plan Assessment: 74 year old female who presented with worsening dyspnea and recent CT chest concerning for interstitial lung disease and likely amiodarone toxicity. chest xray questions HF component and cardiology service was requested. Plan: 1. Acute hypoxic respiratory failure 2. Possible drug induced interstitial lung disease 3. Acute on Chronic HFpEF -Patient is saturating well on supplemental O2 5LPM -Self discontinued Amiodarone after recent CT chest which shows interstitial lung disease as well as evidence of a hyperdense liver. -Telemetry shows SR with 1st degree AVB, will continue to monitor. No ectopy. -BNP with mild elevation -Troponin negative -Patient received one time dose of IV Lasix upon arrival to the ER, does not appear volume overloaded on exam. -will obtain echocardiogram to assess overall structure and function, paying close attention to LVEF, prior mitral valve replacement and evaluate for TR. Tech currently at bedside obtaining. -Recommend pulmonology consultation. Dr. Grande has spoken directly to primary team -Avoid Amiodarone. Please continue Metoprolol succinate 25mg PO Daily as per home regimen. -Continue warfarin -TSH stable, continue Levothyroxine - Will continue to follow 03/26/2025: -Patient is resting comfortably in bed without acute concern. She remains on supplemental O2 which has made breathing easier, and today requires lower demand. -Diuresed overnight. Trace Pedal edema. -328cc fluid balance -Strict I&O with daily weights on standing scale. Close monitoring of renal function, and serum electrolytes. -Goal serum K > 4.0 and Serum Mag > 2.0 -BNP shows mild elevation; however, patient has a history of a bioprosthetic mitral valve which will have known increased atrial pressures and often show an elevated BNP. No evidence of JVD and no significant volume overlaod on exam. -Will give Furosemide 40mg IV x1 dose this AM -Start spironolactone 12.5mg PO QD with close monitoring of labs. -Continue Metoprolol succinate 25mg PO QD as per current regimen. continue to monitor on telemetry for atrial arrhythmias -Pulmonology on consult, appreciate all recommendations with regards to evidence of interstitial lung disease 03/27/2025: -patient is resting comfortably in bed without acute concern. She remains on supplemental O2; however, did attempt to ambulate in halls yesterday without. Sats dropped and she needed to resume. -Continues to diurese well. Trace pedal edema. -1580cc fluid balance. Trace pedal edema. Patient received one dose of IV lasix today as ordered by Primary team. Reassess volume status and labs in the AM. -Strict I&O with daily weights on standing scale. Close monitoring of renal function, and serum electrolytes. -Goal serum K > 4.0 and Serum Mag > 2.0 -Serum K 4.6. Continue Spironolactone. Pending labs tomorrow, may need to stop potassium supplementation to avoid hyperkalemia -Review of telemetry shows SR with 1st degree AV block. Continue Metoprolol succinate 25mg PO QD, continue to monitor on telemetry -Pulmonology on consult, appreciate all recommendations with regards to management of interstitial lung disease/Amio induced toxicity. -Continue warfarin as per current regimen, ok to hold if necessary for procedure. -Sputum culture pending Case has been discussed with Dr. Grande. Further recommendations regarding plan of care as per his assessment. I spent a total of 30 minutes on the date of service in preparation, delivery, documentation of the care provided to the patient excluding any time spent in the performance of separately billed services. REN Terrazas [facility] Cardiology [facility] Patient was seen and personally examined. Chart medical records and prior x-ray studies reviewed. Full assessment and plan as outlined by advanced provider as above. Care and management discussed in detail with provider and personally endorsed Impression: 74-year-old female status post mitral valve replacement with bioprosthetic (31 mm epic) February 2022 postoperative issues include difficulties with recurrent atrial arrhythmias treated with oral amiodarone. Patient presents with difficulties with gradually progressive dyspnea now hypoxia and dyspnea with minimal exertion. Chest x-rays and outpatient CT scans have demonstrated progressively worsening interstitial lung disease as well as hyperdense liver. Patient self discontinued amiodarone slightly greater than 1 week ago but still dyspneic and hypoxic on presentation. Admission and Anticipated Discharge Date Admission Date: March 25, 2025 Supervising Physician Co-Signing Physician Notes Patient was seen and personally examined. Full assessment and plan as outlined by advanced provider as above. Care management discussed and personally endorsed 74-year-old female admitted with acute hypoxic respiratory failure with diffuse interstitial lung disease progressive from x-ray in July 2024. Appreciate pulmonology input Echocardiogram with preserved LV systolic function normally functioning mitral valve bioprosthesis. No profound pulmonary hypertension on current study. Patient appears to be responding to corticosteroids but remains hypoxic with ambulation and at rest. Will continue diuretics. Dose ordered for today. Renal function tolerating. Discussed patient may require bronchoscopy as part of evaluation. Patient with bioprosthetic mitral valve on warfarin. Anticoagulant may be held for procedure if planned with bridge anticoagulation Subjective 03/27/2025: Patient seen and examined in follow up today. Feeling better today. Offers no acute concerns. She was out of bed yesterday ambulating with her daughters in the [place] without O2, unfortunately her O2 sats dropped and she required supplementation. No chest pain, pressure or palpitations. trace lower extremity edema Labs, vitals, diagnostics, telemetry and documentation reviewed. Telemetry reviewed showing SR with 1st degree AVB. No acute events overnight. Review of Systems Review of Systems: All systems reviewed & are unremarkable except as noted in HPI & below Physical Exam Constitutional: well developed and well nourished; no acute distress Neck: normal visual inspection and trachea midline Respiratory: normal respiratory effort; no respiratory distress, no labored breathing and no retractions Auscultation: + diminished lung sounds (diminished bilateral bases ); no crackles, no rales and no rhonchi Cardiovascular: Rate/Rhythm: regular rate and regular rhythm Heart Sounds: normal S1, normal S2 and + murmur (+1/6) Vessels: dorsalis pedis pulses present; no JVD Extremities: no edema Skin: no rashes, warm and dry Psychiatric: A+Ox3, euthymic affect Results & Data Vital Signs (Past 12 Hours) Vital Signs Temp Pulse Pulse Resp BP Pulse Ox O2 Del Method 03/27/25 07:45 36.7 C 69 19 120/64 94 Nasal Cannula 03/27/25 03:50 36.5 C 66 17 119/67 90 Nasal Cannula 03/27/25 00:18 36.6 C 65 16 100/55 L 91 Room Air 03/26/25 21:39 68 O2 Flow Rate 03/27/25 07:45 1.5 03/27/25 03:50 2 03/27/25 00:18 05/03/25 21:39 Laboratory Results Cardiac Enzymes 03/27/25 Range/Units 05:44 AST 14 (13-39) U/L Coagulation 03/27/25 Range/Units 05:44 PT 31.9 H (9.0-12.0) Seconds CBC 03/27/25 Range/Units 05:44 WBC 14.71 H (4.8-10.8) K/ul RBC 4.01 L (4.20-5.40) M/uL Hgb 11.9 L (12.0-16.0) g/dl Hct 36.2 L (37.0-47.0) % Plt Count 307 (130-400) K/uL Comprehensive Metabolic Panel 03/27/25 Range/Units 05:44 Sodium 136 (136-145) mmol/L Potassium 4.6 D (3.5-5.1) mmol/L Chloride 102 (98-107) mmol/L Carbon Dioxide 31 (21-32) mmol/L BUN 28 H (6-23) mg/dl Creatinine 0.99 (0.6-1.2) mg/dl Glucose 147 H (70-99(Fasting)) mg/dl Calcium 9.0 (8.6-10.3) mg/dl AST 14 (13-39) U/L ALT 11 (7-52) U/L Alkaline Phosphatase 115 H (34-104) U/L Total Protein 7.0 (6.0-8.3) gm/dl Albumin 3.0 L (3.4-5.0) gm/dl Intake and Output 03/26/25 03/27/25 03/27/25 22:59 06:59 14:59 Intake Total 870 / 870 Output Total 900 / 2450 1050 / 2450 Balance -30 / -1580 -1050 / -1580 Intake: IV 50 / 50 cefTRIAXone SODIUM 2,000 mg In 50 / 50 50 ml @ 100 mls/hr IV Q24H [facility] Rx#:[id number] Oral 820 / 820 Output: Urine 900 / 2450 1050 / 2450 Other: Weight 82.3 kg Weight Measurement Method Standing Scale Diagnostic Findings Echocardiogram 03/26/2025 -LV normal in size -LVEF 55-60% -NOrmal LV wall motion -Grade I diastolic dysfunction -Aortic valve sclerosis is moderate, without significant aortic stenosis -Bioprosthetic mitral valve -Gradients normal for this type of valve -No MR -Trace TR -No findings of pulmonary HTN
[2025-03-27] MEDS: CEFDINIR 300 MG CAP PO SCH (08:38)
[2025-03-27] MEDS: FUROSEMIDE 40 MG/4 ML VIAL IV ONE (08:38)
[2025-03-27] MEDS: predniSONE 20 MG TAB PO SCH (08:38)
--- NOTE | 2025-03-27 09:20 | Electrocardiogram Report ---
Test Reason : Blood Pressure : */* mmHG Vent. Rate : 66 BPM Atrial Rate : 66 BPM P-R Int : 254 ms QRS Dur : 100 ms QT Int : 442 ms P-R-T Axes : 35 -5 49 degrees QTcB Int : 463 ms Sinus rhythm with 1st degree A-V block with with sinus arrhythmia Left ventricular hypertrophy Lateral Q waves cannot r/o old PA Abnormal ECG When compared with ECG of 25-Mar-2025 11:45, Premature atrial complexes are now Present Confirmed by Jasmyn Ron (Ross) on 03/27/2025 9:20:34 AM Referred By: REFERRED SELF Confirmed By: Jasmyn Ron
--- NOTE | 2025-03-27 10:35 | Pulmonology Progress Note ---
Date of Service March 27, 2025 Assessment & Plan (1) Acute hypoxic respiratory failure: (2) Abnormal chest x-ray: (3) Short of breath on exertion: (4) Acute heart failure with preserved ejection fraction (HFpEF): (5) Pulmonary HTN: Plan CT chest 03/25/2025 personally reviewed: Diffuse patchy alveolar opacities appreciated bilaterally, more pronounced in bilateral lower lobes Cardiomegaly Significant subcarinal and right hilar lymphadenopathy The CAT scan seems to be worse compared to the one which was done on 03/11/2025 I was even able to look at the chest x-ray from 07/2024 and patient did have evidence of opacities 2D echo 01/05/2024: EF 55-60%, borderline concentric LVH, diastolic dysfunction, LA moderately enlarged, mild to moderate AR, mild TR -- Acute hypoxic respiratory failure Does have lymphopenia on CBC BNP 403 Respiratory BioFire negative for everything Procalcitonin 0.10 ESR 117, CRP 23.61 Differential for the abnormality includes but not limited to infectious process and/or malignancy Noninfectious process includes autoimmune disease like sarcoidosis, amiodarone toxicity also possibility Follow-up autoimmune work-up including RAJ with reflex, rheumatoid factor, anti- CCP, CRP, ESR, PARISA Usually amiodarone toxicity can be considered in somebody who is taking amiodarone >/= 200 mg a day for 6 to 12 months CAT scan of the chest from yesterday as well as from 03/11/2025 personally reviewed. There is definitely worsening in the alveolar opacities bilaterally. I do think she is good to benefit from bronchoscopy We need to keep in mind given the patient's HFpEF, mitral valve replacement, she will be at high risk for bleeding with bronchoscopy I had in-depth discussion with patient as well as patient's daughters who are at bedside. Pros and cons of bronchoscopy versus conservative treatment with prednisone and diuretics was explained Patient opted for conservative treatment which I think is reasonable --History of paroxysmal atrial tachycardia Was started on amiodarone 03/2022, discontinued February 2025 --Pulmonary hypertension Likely a combination of type II and type III --HFpEF with mechanical mitral valve On warfarin Plan: In/out: - 1.5 L, urine output 2450, -1.9 L since coming to the hospital Continue with diuretics Given amiodarone toxicity is in the differential, usually treatment for amiodarone toxicity is 40-60 mg of prednisone on a daily basis and when there is improvement then taper off over 2-6 months. There have been cases where people needed even a year of prednisone. On discharge would recommend the following, 50 mg prednisone to be taken for 2 weeks followed by 40 mg for 2 weeks and then decrease by 5 mg every 10 days. Pantoprazole on a daily basis while on prednisone Bactrim prophylaxis Otrwam-Kthxwmtqq-Ypcvul while on prednisone > 20 mg a day Follow-up autoimmune workup Keep O2 saturation between 90-92% given the history of pulmonary hypertension Case was discussed with primary team, daughters at bedside as well as patient's Please note the above document was generated using voice recognition software. It may contain grammatical, syntax or spelling errors.Any formal questions or concerns about the content, text or information contained within the body of this dictation should be directly addressed to the provider for clarification. Admission and Anticipated Discharge Date Admission Date: March 25, 2025 Subjective Patient seen and examined at bedside. No acute distress, no adverse events overnight She was saturating 95 to 96% on 2 L nasal cannula. I discontinued the oxygen but at the end of the visit she desaturated to 87-88%. I went and put the oxygen back on at 1 L She did desaturate significantly when she is exerting Overall she says she is feeling better compared to when she came to the hospital Has been diuresing well No nausea vomiting, fair appetite Denies any chest pain Review of Systems 2 Review of Systems: All systems reviewed & are unremarkable except as noted in Subjective Physical Exam 2 Physical Exam: Constitutional: No acute distress HEENT: EOMI, PERRLA Respiratory system: Decreased air entry bilaterally, no wheeze, no rhonchi, positive crackles appreciated bilaterally, more on the right side, question Velcro-like CVS: S1-S2 positive, mechanical heart sound, positive 2 out of 6 systolic murmur appreciated best at apex Abdomen: Soft, nontender, nondistended, positive bowel sounds x4 Extremities: +2 pulses bilaterally radialis/ dorsalis pedis, no cyanosis, +1 pitting edema bilateral lower extremity Neuro: Awake alert oriented x3 Psych: Normal mood and affect G/U: No [place] Skin: no rashes, warm and dry Lymphatic: no cervical or axillary lymphadenopathy Results & Data Results & Data Vital Signs (Past 12 Hours) Vital Signs Temp Pulse Pulse Resp BP Pulse Ox O2 Del Method 03/27/25 09:00 64 03/27/25 09:00 Nasal Cannula 03/27/25 07:45 36.7 C 69 19 120/64 94 Nasal Cannula 03/27/25 03:50 36.5 C 66 17 119/67 90 Nasal Cannula 03/27/25 00:18 36.6 C 65 16 100/55 L 91 Room Air O2 Flow Rate 03/27/25 09:00 03/27/25 09:00 1.5 03/27/25 07:45 1.5 03/27/25 03:50 2 03/27/25 00:18 Laboratory Results 03/27/25 05:44 03/27/25 05:44 PG Care Time/CCT Total # of Minutes Spent Total Time Spent with Patient: Total time spent is greater than 50% in coordination of care (as documented) at patient's floor/unit and/or counseling patient: Coding Level of Care Code 28461 SUB INP/OBS CARE 2/35MIN Diagnoses Acute hypoxic respiratory failure J96.01 Abnormal chest x-ray R93.89 Short of breath on exertion R06.02 Acute heart failure with preserved ejection fraction (HFpEF) I50.31 Pulmonary HTN I27.20
--- NOTE | 2025-03-27 10:35 | Hospitalist Progress Note ---
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 Patient still appears somewhat volume overloaded, Lasix 40 mg IV x 1 dose today, continue to monitor her weight and intake and output Transition to oral antibiotics Transition to oral prednisone Encouraged activity Continue titrate oxygen to off as able Possibly discharge home with or without oxygen, anticipate need for two-step oxygen testing tomorrow Continue to monitor electrolytes INR is now therapeutic for her valve, discontinue Lovenox, adjust warfarin dose Admission and Anticipated Discharge Date Admission Date: March 25, 2025 Subjective Patient states that she feels her breathing is a little bit better compared to yesterday. But did get hypoxic with ambulation yesterday. At rest she is doing well and maintaining O2 sat Physical Exam Physical Exam: Constitutional: Alert HEENT: Mucous membranes moist. Lungs: Decreased breath sounds, crackles and rales at bases CV: S1-S2, regular Abdomen: Soft, nontender, nondistended Extremities: Pretibial edema Neuro: No focal deficits Psych: Cooperative, normal mood Results & Data Results & Data Vital Signs (Past 12 Hours) Vital Signs Temp Pulse Pulse Resp BP Pulse Ox O2 Del Method 03/27/25 09:00 64 03/27/25 09:00 Nasal Cannula 03/27/25 07:45 36.7 C 69 19 120/64 94 Nasal Cannula 03/27/25 03:50 36.5 C 66 17 119/67 90 Nasal Cannula 03/27/25 00:18 36.6 C 65 16 100/55 L 91 Room Air O2 Flow Rate 03/27/25 09:00 03/27/25 09:00 1.5 03/27/25 07:45 1.5 03/27/25 03:50 2 03/27/25 00:18 Diagnostic Findings Reviewed imaging, laboratory and diagnostic studies. Pertinent findings as below. Intake and output reviewed, weight slightly increased compared to yesterday WBCs 14.7, increased due to steroids Hemoglobin 0.9 INR 3.3 Electrolytes stable Creatinine 0.99
[2025-03-27] MEDS: WARFARIN SOD 2 MG TAB PO SCH (16:37)
[2025-03-28 06:41] LABS: BUN Creatinine Ratio 35.3 (10-20); Calcium 8.8 mg/dl (8.6-10.3); Creatinine Clr Calc Pharmacy 50.1 ml/min; Potassium 4.8 mmol/L (3.5-5.1)
[2025-03-28 06:47] LABS: INR 3.7 (0.9-1.1); Prothrombin Time 36.1 Seconds (9.0-12.0)
[2025-03-28 07:38] VITALS: BP 119/61; TEMP 97.7
[2025-03-28] MEDS: predniSONE 50 MG TAB PO SCH (10:01)
--- NOTE | 2025-03-28 10:23 | Cardiology Progress Note ---
Date of Service March 28, 2025 Assessment & Plan (1) Acute hypoxic respiratory failure: (2) At risk for amiodarone toxicity with jail use: (3) Acute heart failure with preserved ejection fraction (HFpEF): Plan Assessment: 74 year old female who presented with worsening dyspnea and recent CT chest concerning for interstitial lung disease and likely amiodarone toxicity. chest xray questions HF component and cardiology service was requested. Plan: 1. Acute hypoxic respiratory failure 2. Possible drug induced interstitial lung disease 3. Acute on Chronic HFpEF -Patient is saturating well on supplemental O2 5LPM -Self discontinued Amiodarone after recent CT chest which shows interstitial lung disease as well as evidence of a hyperdense liver. -Telemetry shows SR with 1st degree AVB, will continue to monitor. No ectopy. -BNP with mild elevation -Troponin negative -Patient received one time dose of IV Lasix upon arrival to the ER, does not appear volume overloaded on exam. -will obtain echocardiogram to assess overall structure and function, paying close attention to LVEF, prior mitral valve replacement and evaluate for TR. Tech currently at bedside obtaining. -Recommend pulmonology consultation. Dr. Grande has spoken directly to primary team -Avoid Amiodarone. Please continue Metoprolol succinate 25mg PO Daily as per home regimen. -Continue warfarin -TSH stable, continue Levothyroxine - Will continue to follow 03/26/2025: -Patient is resting comfortably in bed without acute concern. She remains on supplemental O2 which has made breathing easier, and today requires lower demand. -Diuresed overnight. Trace Pedal edema. -328cc fluid balance -Strict I&O with daily weights on standing scale. Close monitoring of renal function, and serum electrolytes. -Goal serum K > 4.0 and Serum Mag > 2.0 -BNP shows mild elevation; however, patient has a history of a bioprosthetic mitral valve which will have known increased atrial pressures and often show an elevated BNP. No evidence of JVD and no significant volume overlaod on exam. -Will give Furosemide 40mg IV x1 dose this AM -Start spironolactone 12.5mg PO QD with close monitoring of labs. -Continue Metoprolol succinate 25mg PO QD as per current regimen. continue to monitor on telemetry for atrial arrhythmias -Pulmonology on consult, appreciate all recommendations with regards to evidence of interstitial lung disease 03/27/2025: -patient is resting comfortably in bed without acute concern. She remains on supplemental O2; however, did attempt to ambulate in halls yesterday without. Sats dropped and she needed to resume. -Continues to diurese well. Trace pedal edema. -1580cc fluid balance. Trace pedal edema. Patient received one dose of IV lasix today as ordered by Primary team. Reassess volume status and labs in the AM. -Strict I&O with daily weights on standing scale. Close monitoring of renal function, and serum electrolytes. -Goal serum K > 4.0 and Serum Mag > 2.0 -Serum K 4.6. Continue Spironolactone. Pending labs tomorrow, may need to stop potassium supplementation to avoid hyperkalemia -Review of telemetry shows SR with 1st degree AV block. Continue Metoprolol succinate 25mg PO QD, continue to monitor on telemetry -Pulmonology on consult, appreciate all recommendations with regards to management of interstitial lung disease/Amio induced toxicity. -Continue warfarin as per current regimen, ok to hold if necessary for procedure. -Sputum culture pending March 28, 2025: Very pleasant 74 year old female with history of severe mitral regurgitation status post mitral valve replacement with a 31 mm epic bioprosthetic valve on February 26, 2022. Catheterization prior to mitral valve replacement with angiographically normal coronary arteries. Patient prescribed amiodarone since March 2022 for PAT, admitted now with worsening dyspnea with hypoxemia, imaging with progressive interstitial lung disease raising concern for amiodarone induced pulmonary toxicity. Amiodarone discontinued. Patient has received diuresis during hospitalization. Volume status appears normovolemic today. Recommendations: * Amiodarone discontinued this admission. Do not resume. * Hold diuretics today, likely resuming oral furosemide tomorrow at prior to arrival dose of 40 mg/day * Continue spironolactone for now though decrease to 12.5 mg only on MWF. * Monitor potassium and renal function closely. * Xxze-eqs-imcdney potassium supplement to be discontinued. * Continue metoprolol. * Hold anticoagulation today given observed supratherapeutic INR. Daughter Janee Pendleton MARQUITA Ext [phone] updated as requested by patient. Patient would like to establish with Dr. Boo post hospitalization. Admission and Anticipated Discharge Date Admission Date: March 25, 2025 Supervising Physician Co-Signing Physician Notes Attending attestation: Case reviewed with the advanced practitioner. I have personally performed a history and physical examination on the patient. I have reviewed the advanced practitioner's documentation on the date of service referenced in note, and I agree with, and take responsibility for the plan of care. Subjective: Patient notes subjective improvement in presenting symptoms of shortness of breath. Exam: Bilateral crackles noted at the bases Data: Most recent chest x-ray reviewed, difficult to distinguish between interstitial edema and findings of interstitial lung disease. Sinus rhythm noted on telemetry. EKG performed 04/22/2025 interpreted by: Sinus rhythm at 66 bpm with first-degree AV block and sinus arrhythmia.Age-indeterminate lateral infarct cannot be excluded. Summary of transthoracic echocardiogram performed 03/26/2025: Moderate concentric left ventricular hypertrophy is present No regional wall motion abnormalities LVEF normal in the range of 55 to 60% Grade 1 diastolic dysfunction Aortic valve sclerosis, moderate, without significant aortic valve stenosis There is a bioprosthetic mitral valve The diastolic gradient across the bioprosthesis is within normal limits. There is no mitral regurgitation Trace tricuspid regurgitation is present Doppler findings do not suggest pulmonary hypertension Impression/ Plan: As noted above -Amiodarone discontinued -Oral diuretic therapy initiated -Pulmonary medicine input noted and appreciated. Continue prednisone, cefdinir. -Hold Coumadin for INR 3.7 I spent a total of 25 minutes coordinating, documenting, and providing care for this patient excluding time spent in the performance of separately billed services or time spent by another provider. Andrés Boo, Subjective Patient seen and examined. Chart, medications, telemetry reviewed. Breathing is much better as compared to admission. Ongoing desaturation with ambulation No chest pain or palpitations. Mild stable orthopnea without PND. Prior to arrival diuretic regimen with furosemide 40 mg/day with [id number]-[id number] potassium supplement Telemetry: Sinus with a first-degree AV block, heart rates in the 60s and 70s March 25, 2025 TTE ([facility], Dr. Grande): Normal size LV. Moderate concentric LVH. Normal LV wall motion. EF 55 to 60%. Grade 1 diastolic dysfunction. Moderate aortic valve sclerosis without significant stenosis. Bioprosthetic mitral valve appearing to open well, with normal mitral valve peak and/or mean gradients. No mitral regurgitation. Trace tricuspid regurgitation. Physical Exam Physical Exam: General: A&Ox3. NAD. HENT: Normocephalic. Atraumatic. Eyes: PER. Conjunctiva pink, sclera clear. Neck: No JVD. Heart: RRR. Grade II/ systolic murmur heart best at the left upper sternal border. No rub. Lungs: Dry inspratory crackles, right greater than left. No wheeze. Abdomen: +BS. No organomegaly. Extremities: Varicosities. No significant edema. No clubbing. No cyanosis. Limited neurological examination is without focal deficits. Pulses: Posterior tibial=1/4. Results & Data Vital Signs (Past 12 Hours) Vital Signs Temp Pulse Pulse Pulse Pulse Pulse Resp 03/28/25 08:55 78 78 76 72 03/28/25 07:36 36.5 C 66 19 03/28/25 07:00 03/28/25 02:56 36.7 C 65 18 03/27/25 23:14 36.3 C L 67 16 Resp Resp Resp Resp BP Pulse Ox Pulse Ox 03/28/25 08:55 18 18 16 16 86 L 03/28/25 07:36 119/61 90 03/28/25 07:00 03/28/25 02:56 110/60 94 03/27/25 23:14 121/65 93 Pulse Ox Pulse Ox Pulse Ox Pulse Ox O2 Del Method O2 Del Method O2 Flow Rate 03/28/25 08:55 93 83 L 93 03/28/25 07:36 Nasal Cannula 1 03/28/25 07:00 98 Nasal Cannula 03/28/25 02:56 Nasal Cannula 1.0 03/27/25 23:14 Nasal Cannula 1.0 O2 Flow Rate O2 Flow Rate O2 Flow Rate 03/28/25 08:55 2 3 03/28/25 07:36 03/28/25 07:00 1.5 03/28/25 02:56 03/27/25 23:14 Laboratory Results Coagulation 03/28/25 Range/Units 06:00 PT 36.1 H (9.0-12.0) Seconds Comprehensive Metabolic Panel 03/28/25 Range/Units 06:00 Sodium 136 (136-145) mmol/L Potassium 4.8 (3.5-5.1) mmol/L Chloride 101 (98-107) mmol/L Carbon Dioxide 32 (21-32) mmol/L BUN 36 H (6-23) mg/dl Creatinine 1.02 (0.6-1.2) mg/dl Glucose 140 H (70-99(Fasting)) mg/dl Calcium 8.8 (8.6-10.3) mg/dl Intake and Output 03/27/25 03/28/25 03/28/25 22:59 06:59 14:59 Intake Total 350 / 1550 200 / 1550 350 / 350 Output Total 700 / 2501 650 / 2501 Balance -350 / -951 -450 / -951 350 / 350 Intake: Oral 350 / 1550 200 / 1550 350 / 350 Output: Urine 700 / 2500 650 / 2500 Other: Weight 83.7 kg Weight Measurement Method Standing Scale
--- NOTE | 2025-03-28 11:13 | Discharge Summary ---
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 Also had an increasing cough. In the emergency room was noted to be hypoxic and required oxygen supplementation. Imaging in the ER was concerning for progressive interstitial lung disease. There was concern for possible amiodarone lung toxicity as well as possible volume overload and infection. Patient was admitted to a monitored setting. Cardiology and pulmonary consultations were obtained. She was evaluated by cardiology and her echocardiogram was updated echocardiogram showed normal ejection fraction and normal appearing prosthetic mitral valve but no significant pulmonary hypertension. Did recommend some IV diuresis with Lasix. She responded well to this diuresis and her oxygen requirements decreased. She was evaluated by pulmonary. They recommended treating with steroids for possible amiodarone lung toxicity and initial for lung disease. There is also concern with some lymphadenopathy that she may have an infectious process contributing and was started on antibiotics. Through the course of her hospitalization able to decrease her oxygen requirement to room air while at rest, however she had significant desaturation with activity. Two-step testing indicated that she required 3 L of oxygen with activity for her at home. This was coordinated through case management. There was discussion about being on a prolonged prednisone taper initially this was recommended along with PJP PE prophylaxis. However, patient has a significant allergy to Bactrim. Recommendations from pulmonary on the day of discharge was to treat with prednisone for 2 weeks, follow-up in their office to determine if prolonged steroids were required and to discuss alternatives to Bactrim prophylaxis at that time. However, would not need prophylaxis on the day of discharge. Patient was started on some Aldactone for additional diuresis. Cardiology recommending she continue her usual oral Lasix at discharge. She would not need any potassium supplementation with the introduction of Aldactone. On presentation her INR was subtherapeutic for her mechanical valve. She was initially started on Lovenox in anticipation of possible bronchoscopy. After conversation with pulmonary patient decided not to proceed with bronchoscopy and her warfarin was resumed. On the day of discharge her INR was therapeutic for her valve. She will continue her warfarin dosing and monitoring of her INR as outpatient as previous. Time of discharge daughters at the bedside and was also updated the plan of care and instructions. She will follow-up with her outpatient specialist and PCP. She will get an INR per her usual process on Friday with a decreased dose of warfarin at the time of discharge. Completed short course of antibiotics for presumed lung infection and outpatient follow-up with the specialist with additional laboratory testing for her lung disease as directed by pulmonary. Notes For Next Care Provider Follow-up with pulmonary determination need for ongoing steroids and following up the laboratory studies and potential rediscussion of bronchoscopy Follow-up with cardiology as directed to their office INR per usual process on Friday Patient requires oxygen 3 L nasal cannula with activity Medication Changes From Visit Prednisone 50 mg for amiodarone toxicity Amiodarone discontinued Aldactone 3 times weekly for diuresis Cefdinir and doxycycline for presumed lung infection Admission HPI Per Admitting Provider This is a 74-year-old female with PMH of paroxysmal atrial tachycardia, history of mitral valve replacement on anticoagulation, drug-induced interstitial lung disorder, HFpEF, pulmonary hypertension, CKD 3, hypothyroidism and other medical process of below who presents from home with progressive shortness of breath x 2 weeks. Patient has had a dry cough for the past few months and feels that she never fully recovered from a bout of pneumonia at the beginning of the year. However, she does not require home oxygen. Lives with her daughter and ambulates independently at baseline. Does take 40 mg p.o. Lasix daily for HFpEF and is compliant with medication. Had a dry cough in January and was seen in urgent care with suspected URI-completed steroid course and prescribed albuterol inhaler. Cough persisted, so underwent CT chest scan on 03/11/2025 which noted previously described irregular nodular and consolidative opacities throughout both lungs, trace bilateral pleural effusions, evidence of pulmonary arterial hypertension. Also noted a hyperdense liver, suggesting amiodarone toxicity. Patient stopped taking amiodarone 1 week ago. Is waiting to be seen in cardiology office. Developed sharp pain near her right breast earlier today that lasted for a minute at a time before resolving. Pain is nonradiating and occurred at rest. Not made any worse with exertion. No associated nausea or diaphoresis. Came to ED for further evaluation of chest pain and progressive shortness of breath. In ED, noted to be hypoxic at 72% on room air and improved to 96% on 5 L nasal cannula. Currently comfortable. Chest pain resolved prior to arrival and has not recurred. Continues to have a dry cough. No fever, chills, increased congestion, palpitations, nausea, vomiting, abdominal pain, dysuria, diarrhea or constipation. Admission Exam Per Admitting Provider See H&P Discharge Exam Constitutional: Alert HEENT: Mucous membranes moist. Lungs: Decreased breath sounds, few crackles at bases CV: S1-S2, regular, mechanical click Abdomen: Soft, nontender, nondistended Extremities: No significant edema Neuro: No focal deficits Psych: Cooperative, normal mood Updated Medication List Medication Instructions Recorded Confirmed Type Acetaminophen Extra Strength 2 tab PO Q6 PRN Pain 01/30/21 03/25/25 History furosemide 40 mg tablet 40 mg PO QAM 07/03/23 03/25/25 History metoprolol succinate 25 mg 25 mg PO QAM 07/03/23 03/25/25 History tablet,extended release 24 hr albuterol sulfate 90 mcg/actuation 2 inh inhalation Q4H PRN Shortness 03/25/25 03/25/25 History aerosol inhaler Of Breath Or Wheezing levothyroxine 50 mcg tablet 50 mcg PO DAILY 03/25/25 03/25/25 History cefdinir 300 mg capsule 300 mg PO BID 3 days #6 caps 03/28/25 Rx doxycycline hyclate 100 mg capsule 100 mg PO BID 3 days #6 caps 03/28/25 Rx pantoprazole 40 mg tablet,delayed 40 mg PO QAM #30 tabs 03/28/25 Rx release prednisone 50 mg tablet 50 mg PO DAILY #14 tabs 03/28/25 Rx spironolactone 25 mg tablet 12.5 mg (1/2 x 25 mg) PO MOWEFR 03/28/25 Rx #30 tabs warfarin 2.5 mg tablet 1.25 mg (1/2 x 2.5 mg) PO DAILY #0 03/28/25 03/25/25 Rx tabs Hospital Stay Data Consultations 03/25/25 13:10 ED Decision to Admit Stat 03/25/25 14:02 Consult Cardiology Routine 03/25/25 15:21 Consult Pulmonology Routine Diagnostic Imagining Performed 03/25/25 14:32 CT angio chest PE protocol Routine Reviewed imaging, laboratory and diagnostic studies. Pertinent findings as below. INR 3.7 Electrolytes within normal range Creatinine 1.02 Glucose 140 Echocardiogram showed ejection fraction 55 to 60%, no pulmonary hypertension Sputum culture light normal misbah WBCs 14.7 increased due to steroids Hemoglobin 11.9 Hematocrit 36.2 Platelets of 307 Pending Results Patient Have Any Pending Studies at Discharge: Yes Discharge Instructions Given to Patient (Per Discharging Provider) You will need to wear oxygen with activity, 3 L Follow-up with pulmonary to discuss need for ongoing steroids Follow-up with cardiology Have INR checked on Friday per your usual process Total Time Total Time Spent Total Time Spent (In Minutes): 36
[2025-03-28 12:45] VITALS: RESP 19
[2025-03-28 14:25] VITALS: O2SAT 93
[2025-03-28 14:53] VITALS: PULSE 69
[2025-03-28] MEDS ORDERED: WARFARIN SOD 1.25 MG TAB PO SCH (16:00)
[2025-03-28 17:32] LABS: Anti Nuclear Antibody Screen NEGATIVE (NEGATIVE)
[2025-03-30] MEDS ORDERED: SPIRONOLACTONE 12.5 MG TAB PO SCH (09:00)
== END 2025-03-28 15:39 | disposition home or self-care (01) | DRG 291 ==
LOC: ED 11:18 → SUATTDRO 13:20 → 2E 13:20

== ENCOUNTER 2025-05-20 07:39 | Inpatient (IN) ==
[2025-05-20 08:22] LABS: Basophils # (auto) 0.08 K/uL (0.00-0.20); Basophils % (auto) 0.5 %; Eosinophils # (auto) 0.05 K/uL (0.00-0.50); Eosinophils % (auto) 0.3 %; Hematocrit (blood only) 37.2 % (37.0-47.0); Immature Granulocytes # (auto) 0.75 K/uL (0.01-0.20); Immature Granulocytes % (auto) 4.6 %; Lymphocytes # (auto) 3.03 K/uL (1.20-3.40); Lymphocytes % (auto) 18.6 %; Mean Corpuscular Hemoglobin 29.9 pg (25.0-34.0); Mean Corpuscular Hgb Conc 32.3 g/dL (32.0-36.0); Mean Corpuscular Volume 92.8 fL (80.0-100.0); Mean Platelet Volume 10.8 fL (9.4-12.4); Monocytes # (auto) 2.04 K/uL (0.11-0.59); Monocytes % (auto) 12.5 %; Neutrophils # (auto) 10.38 K/uL (1.40-6.50); Neutrophils % (auto) 63.5 %; Platelet Count 195 K/uL (130-400); RDW Coefficient of Variation 17.4 % (11.5-14.5); RDW Standard Deviation 58.8 fL (36.4-46.3); Red Blood Count 4.01 M/uL (4.20-5.40); White Blood Count 16.33 K/ul (4.8-10.8)
[2025-05-20 08:29] LABS: Appearance Urine Clear (Clear); Bacteria Urine Automated None Seen (None Seen); Bilirubin Urine Negative (Negative); Blood Urine Trace (Negative); Color Urine Yellow; Epithelial Cell Urine Auto 0-2 /hpf (0-2); Glucose Urine UA Negative (Negative); Ketones Urine Negative (Negative); Leukocyte Esterase Urine Trace (Negative); Nitrite Urine Negative (Negative); Protein Urine Trace (Negative); Specific Gravity Urine 1.021 (1.000-1.030); Urobilinogen Urine Negative (Negative); WBC Urine Automated 0-5 /hpf (0-5); pH Urine 6.5 (4.5-7.5)
[2025-05-20 08:39] LABS: Albumin Globulin Ratio 1.3 (0.9-2); BUN Creatinine Ratio 25.2 (10-20); Bilirubin,Total 0.8 mg/dl (0.2-1.0); Calcium 8.7 mg/dl (8.6-10.3); Creatinine Clr Calc Pharmacy 45.5 ml/min; Globulin 2.7 gm/dl (2.5-4.0); Total Protein 6.3 gm/dl (6.0-8.3)
[2025-05-20 08:44] LABS: Troponin I High Sensitivity 24.4 pg/ml (0-14)
[2025-05-20 08:48] LABS: INR 5.3 (0.9-1.1); Prothrombin Time 49.2 Seconds (9.0-12.0)
[2025-05-20] MEDS: ONDANSETRON INJ 2 MG/ML 2 ML VIAL IV STA (09:16)
[2025-05-20] MEDS: ACETAMINOPHEN 1,000 MG/100 ML VIAL IV STA (09:16)
[2025-05-20] MEDS: MoRPHine SULFATE 2 MG/ML CARP IV STA (09:16)
[2025-05-20] MEDS: OPTIRAY 320 100ml IV ONE (09:29)
[2025-05-20] MEDS: MoRPHine SULFATE 2 MG/ML CARP IV PRN (09:42)
[2025-05-20 09:44] LABS: Partial Thromboplastin Ratio 1.6; Partial Thromboplastin Time 42 Seconds (21-31)
--- NOTE | 2025-05-20 09:46 | Emergency Department Note ---
Impression & Plan LLQ abdominal pain, Leukocytosis, Hematoma of rectus sheath, Anticoagulated on Coumadin ED Provider Note NAME: DARRION VILLELA AGE: 75 SEX: F : 1950 ARRIVES VIA: Walk-In INFORMANT: [Patient] ED PROVIDER(S): [Diego Cooper MD] CHIEF COMPLAINT: Abdominal pain HISTORY OF PRESENT ILLNESS: The patient is a 75-year-old female who presents to the ER with about 24 hours of abdominal pain in the left lower quadrant. She feels a fullness. The pain is worse today than it was yesterday. There has been no nausea or vomiting, no diarrhea or constipation, no urinary complaints. She has had no issues like this before. She has not noticed fever. PMHx/PSHx/Social Hx: See Below PHYSICAL EXAM: GENERAL: Patient is in no acute distress. HEENT: No acute trauma, normocephalic atraumatic, mucous membranes moist, no nasal congestion. NECK: No stridor, no adenopathy, no meningismus, trachea is midline. LUNGS: Clear to auscultation bilaterally, no wheeze, no rhonchi, breath sounds equal. HEART: 2/6 systolic murmur, regular rate and rhythm. ABDOMEN: Soft, tender in the left lower quadrant and there is a 5 to 6 cm fullness/firmness felt in this area. EXTREMITIES: No cyanosis, full range of motion of all the joints without pain or difficulty. NEUROLOGIC: Oriented x 3, no acute motor or sensory deficits, no focal weakness. SKIN: No jaundice, no diaphoresis. DIFFERENTIAL DIAGNOSIS: Abscess, mass, urinary retention, UTI, diverticulitis, among others. EMERGENCY DEPARTMENT PROCEDURES: MEDICAL DECISION MAKING: There is a moderate leukocytosis, this could be consistent with infection. No anemia. There is a normal platelet count. INR was quite high at over 5. No renal failure or significant electrolyte abnormality. No evidence for pancreatitis. Cardiac enzyme testing x 1 was slightly elevated, this elevation could be consistent with mismatch or, potential cardiac injury. Of note, there is no chest pain. Abdominal and pelvis CT shows a left lower abdominal rectus sheath hematoma with active extravasation. The patient received IV Zofran and IV morphine. She was given IV vitamin K and IV Kcentra. She was given IV Tylenol. I did speak with our coagulation marketing operations consultant. I spoke with interventional radiology, general surgery and eventually case management and the on-call hospitalist. The patient has an active area of bleeding in the left lower abdominal rectus sheath. She was quite over anticoagulated on warfarin. The patient is to be hospitalized and watched closely. No acute surgical intervention or radiologic intervention felt warranted as per our specialists on-call. I spoke with the patient, she understands need for a hospital stay. Prior/Outside records/notes reviewed: None Imaging/x-ray results per my interpretation: Chronic Medical/Social conditions affecting care: Advanced age, takes warfarin daily. Care/Management discussed with: Radiology-Dr. Roth. General surgical service- Dr. Camacho. Case management and the on-call hospitalist. Coagulation-Dr. Brito. Level of care consideration(s): After review of the information above and other included data: --I believe the patient requires escalation of care to admission DISPOSITION: Admission Past Med/Surg History Problem List (Updated 05/20/25 @ 17:28 by Diego Cooper MD) Anticoagulated on Coumadin (Acute) Hematoma of rectus sheath (Acute) Leukocytosis (Acute) LLQ abdominal pain (Acute) Abdominal wall hematoma Supratherapeutic INR Chronic respiratory failure with hypoxia Abnormal chest CT Amiodarone pulmonary toxicity Interstitial lung disease Short of breath on exertion Abnormal chest x-ray Hypoxia (Acute) Prolonged QT interval Acute hypoxic respiratory failure At risk for amiodarone toxicity with residential use Subtherapeutic international normalized ratio (INR) Acute heart failure with preserved ejection fraction (HFpEF) Medical History PAT (paroxysmal atrial tachycardia) CKD (chronic kidney disease), stage III Tricuspid valve insufficiency Mitral valve insufficiency Pulmonary HTN Hypothyroidism [place] (hard of hearing) History of uterine fibroid Surgical History (Updated 03/25/25 @ 14:45 by May Villela PA-C) H/O mitral valve replacement History of myomectomy History of hysterectomy History of esophagogastroduodenoscopy (EGD) History of colonoscopy History of cardiac catheterization 2021 pre op valve replacement. no stents. History of heart valve replacement 02/2022. follows with Dr. Henning. History of tonsillectomy History of right hip replacement History of x 2 History of bilateral knee replacement + Rt knee revision Social History Smoking Status: Never smoker Second Hand Exposure: No; Do You Dip or Chew Tobacco: No; Tobacco Cessation Education Requested by Patient: No Hx Alcohol Use: No Hx Substance Use: No Preferred Language: Hungarian Communication Ability: Effective Package Clerk Required: No Beliefs That Will Affect Care: None Current Living Situation: Family Current Living Situation Comment: lives with daughter Other Information That Helps Us Care for You: No Feels Safe at Home: Yes Safety Concerns: Feels Safe At This Time Assistive Devices: Denture - Upper, Denture - Lower, Glasses and Hearing Aid - Bilateral Allergies Allergies Allergy/AdvReac Type Severity Reaction Status Date / Time sulfamethoxazole Allergy Rash Verified 05/20/25 10:50 [From Bactrim] trimethoprim [From Bactrim] Allergy Rash Verified 05/20/25 10:50 Home Meds Home Medications Medication Instructions Recorded Confirmed furosemide 40 mg tablet 40 mg PO QAM 07/03/23 05/20/25 metoprolol succinate 25 mg 25 mg PO QAM 07/03/23 05/20/25 tablet,extended release 24 hr albuterol sulfate 90 mcg/actuation 2 inh inhalation Q4H PRN Shortness 03/25/25 05/20/25 aerosol inhaler Of Breath Or Wheezing levothyroxine 50 mcg tablet 50 mcg PO DAILY 03/25/25 05/20/25 warfarin 2.5 mg tablet 2.5 mg PO DAILY 05/06/25 05/20/25 prednisone 10 mg tablet 10 mg PO DIRECTED 05/20/25 05/20/25 spironolactone 25 mg tablet 12.5 mg PO [id number] 05/20/25 05/20/25 Previous Rx's Medication Instructions Recorded Portable Oxygen #1 ea 05/06/25 dapsone 100 mg tablet 100 mg PO DAILY #30 tabs 05/06/25 Oxygen Home #1 ea 05/09/25 Oxygen Home #1 ea 05/18/25 Results & Data (ED) Vital Signs Vital Signs - 24 hr 05/20/25 07:45 05/20/25 08:30 05/20/25 08:30 Temperature 36.8 C Temperature Source Oral Pulse Rate 78 71 Pulse Rate from SpO2 Sensor Respiratory Rate 20 Respiratory Effort / Characteristics Non-Labored Spontaneous Respiratory Depth Normal Blood Pressure 111/63 144/76 H Blood Pressure Mean 79 94 Pulse Oximetry 93 Oxygen Delivery Method Room Air Sepsis Recent Fever Within 48 Hours No Sepsis New/Unexplained Change in Mental Status No Sepsis Action Taken by Nursing No Action Required 05/20/25 08:30 05/20/25 08:30 05/20/25 09:00 Temperature Temperature Source Pulse Rate 72 Pulse Rate from SpO2 Sensor 72 Respiratory Rate 24 Respiratory Effort / Characteristics Respiratory Depth Blood Pressure 144/76 H 143/78 H Blood Pressure Mean 94 102 Pulse Oximetry 93 Oxygen Delivery Method Sepsis Recent Fever Within 48 Hours Sepsis New/Unexplained Change in Mental Status Sepsis Action Taken by Nursing 05/20/25 09:00 05/20/25 09:12 05/20/25 09:21 Temperature Temperature Source Pulse Rate 72 72 72 Pulse Rate from SpO2 Sensor 72 72 71 Respiratory Rate 19 22 14 Respiratory Effort / Characteristics Respiratory Depth Blood Pressure Blood Pressure Mean Pulse Oximetry 93 91 89 L Oxygen Delivery Method Sepsis Recent Fever Within 48 Hours Sepsis New/Unexplained Change in Mental Status Sepsis Action Taken by Nursing 05/20/25 09:41 05/20/25 09:41 05/20/25 09:42 Temperature Temperature Source Pulse Rate 70 Pulse Rate from SpO2 Sensor 70 Respiratory Rate 23 Respiratory Effort / Characteristics Respiratory Depth Blood Pressure 148/78 H 148/78 H Blood Pressure Mean 97 97 Pulse Oximetry 96 Oxygen Delivery Method Sepsis Recent Fever Within 48 Hours Sepsis New/Unexplained Change in Mental Status Sepsis Action Taken by Nursing 05/20/25 09:54 05/20/25 10:00 05/20/25 10:09 Temperature Temperature Source Pulse Rate 68 68 Pulse Rate from SpO2 Sensor 68 68 Respiratory Rate 21 24 Respiratory Effort / Characteristics Respiratory Depth Blood Pressure 139/75 Blood Pressure Mean 96 Pulse Oximetry 96 90 Oxygen Delivery Method Sepsis Recent Fever Within 48 Hours Sepsis New/Unexplained Change in Mental Status Sepsis Action Taken by Nursing 05/20/25 10:15 05/20/25 10:21 05/20/25 10:30 Temperature Temperature Source Pulse Rate 69 69 69 Pulse Rate from SpO2 Sensor 69 69 69 Respiratory Rate 15 24 16 Respiratory Effort / Characteristics Respiratory Depth Blood Pressure Blood Pressure Mean Pulse Oximetry 93 97 97 Oxygen Delivery Method Sepsis Recent Fever Within 48 Hours Sepsis New/Unexplained Change in Mental Status Sepsis Action Taken by Nursing 05/20/25 10:30 05/20/25 10:30 05/20/25 10:30 Temperature Temperature Source Pulse Rate Pulse Rate from SpO2 Sensor Respiratory Rate Respiratory Effort / Characteristics Respiratory Depth Blood Pressure 141/74 H 141/74 H 141/74 H Blood Pressure Mean 89 89 89 Pulse Oximetry Oxygen Delivery Method Sepsis Recent Fever Within 48 Hours Sepsis New/Unexplained Change in Mental Status Sepsis Action Taken by Nursing 05/20/25 10:42 05/20/25 11:00 05/20/25 11:21 Temperature Temperature Source Pulse Rate 68 69 Pulse Rate from SpO2 Sensor 68 69 Respiratory Rate 16 21 Respiratory Effort / Characteristics Respiratory Depth Blood Pressure 138/81 Blood Pressure Mean 89 Pulse Oximetry 97 95 Oxygen Delivery Method Sepsis Recent Fever Within 48 Hours Sepsis New/Unexplained Change in Mental Status Sepsis Action Taken by Shelter Medications Current Medication List: was personally reviewed by me Laboratory Data Attestation: I reviewed the patient's lab results. 05/20/25 13:56 05/20/25 08:00 Lab Results 05/20/25 05/20/25 Range/Units 08:00 10:29 WBC 16.33 H (4.8-10.8) K/ul RBC 4.01 L (4.20-5.40) M/uL Hgb 12.0 (12.0-16.0) g/dl Hct 37.2 (37.0-47.0) % MCV 92.8 (80.0-100.0) fL MCH 29.9 (25.0-34.0) pg MCHC 32.3 (32.0-36.0) g/dL RDW Std Deviation 58.8 H (36.4-46.3) fL RDW Coeff of Win 17.4 H (11.5-14.5) % Plt Count 195 (130-400) K/uL MPV 10.8 (9.4-12.4) fL Immature Gran % (Auto) 4.6 % Neut % (Auto) 63.5 % Lymph % (Auto) 18.6 % [place] % (Auto) 12.5 % Eos % (Auto) 0.3 % Baso % (Auto) 0.5 % Neut # (Auto) 10.38 H (1.40-6.50) K/uL Lymph # (Auto) 3.03 (1.20-3.40) K/uL [place] # (Auto) 2.04 H (0.11-0.59) K/uL Eos # (Auto) 0.05 (0.00-0.50) K/uL Baso # (Auto) 0.08 (0.00-0.20) K/uL Immature Gran # (Auto) 0.75 H (0.01-0.20) K/uL PT 49.2 H (9.0-12.0) Seconds INR 5.3 H (0.9-1.1) APTT 42 H (21-31) Seconds PTT Ratio 1.6 Sodium 136 (136-145) mmol/L Potassium 4.0 (3.5-5.1) mmol/L Chloride 98 (98-107) mmol/L Carbon Dioxide 33 H (21-32) mmol/L Anion Gap 5 (3-11) BUN 27 H (6-23) mg/dl Creatinine 1.07 (0.6-1.2) mg/dl Est Cr Clr Drug Dosing 45.5 ml/min eGFR 53.50 BUN/Creatinine Ratio 25.2 H (10-20) Glucose 102 H (70-99(Fasting)) mg/dl Calcium 8.7 (8.6-10.3) mg/dl Total Bilirubin 0.8 (0.2-1.0) mg/dl AST 17 (13-39) U/L ALT 29 (7-52) U/L Alkaline Phosphatase 78 (34-104) U/L Troponin I High Sens 24.4 H 23.2 H (0-14) pg/ml Total Protein 6.3 (6.0-8.3) gm/dl Albumin 3.6 (3.4-5.0) gm/dl Globulin 2.7 (2.5-4.0) gm/dl Albumin/Globulin Ratio 1.3 (0.9-2) Lipase 20 (11-82) U/L Urine Color Yellow Urine Appearance Clear (Clear) Urine pH 6.5 (4.5-7.5) Ur Specific [place] 1.021 (1.000-1.030) Urine Protein Trace H (Negative) Urine Glucose (UA) Negative (Negative) Urine Ketones Negative (Negative) Urine Blood Trace H (Negative) Urine Nitrite Negative (Negative) Urine Bilirubin Negative (Negative) Urine Urobilinogen Negative (Negative) Ur Leukocyte Esterase Trace H (Negative) Urine WBC (Auto) 0-5 (0-5) /hpf Urine RBC (Auto) 3-5 H (0-2) /hpf U Hyaline Cast (Auto) 3-5 H (0-2) /lpf U Epithel Cells (Auto) 0-2 (0-2) /hpf Urine Bacteria (Auto) None Seen (None Seen) Urine Comment Blood Type A Positive Antibody Screen NEGATIVE Administered Medications Dapsone (Dapsone 25 Mg Tab) 100 mg PO DAILY [facility] Stop: 06/19/25 12:29 Last Admin: 05/20/25 13:15 Dose: 100 mg Documented By: ALAN Furosemide (Furosemide 40 Mg Tab) 40 mg PO QAM [facility] Stop: 06/19/25 12:29 Last Admin: 05/20/25 13:16 Dose: 40 mg Documented By: ALAN Metoprolol Succinate (Metoprolol Succ 25mg Ext Rel Tab) [facility] [place] Stop: 06/19/25 12:29 Last Admin: 05/20/25 13:16 Dose: 25 mg Documented By: ALAN Morphine Sulfate (Morphine Sulfate 2 Mg/Ml Carp) 2 mg IV Q15M PRN PRN Reason: Pain Stop: 06/03/25 09:11 Last Admin: 05/20/25 09:42 Dose: 2 mg Documented By: YAMIL Pantoprazole Sodium (Pantoprazole 40 Mg Tab) [facility] [place] Stop: 06/19/25 11:59 Last Admin: 05/20/25 13:16 Dose: 40 mg Documented By: ALAN Prednisone (Prednisone 10 Mg Tablet) 30 mg PO DAILY [facility] Stop: 05/22/25 08:59 Last Admin: 05/20/25 14:18 Dose: 30 mg Documented By: ALAN Spironolactone (Spironolactone 12.5 Mg Tab) 12.5 mg PO MoWeFr@0900 [facility] Stop: 06/19/25 12:29 Last Admin: 05/20/25 17:08 Dose: 12.5 mg Documented By: ALAN Discontinued Medications Acetaminophen (Ofirmev) 1,000 mg in 100 mls @ 400 mls/hr IV NOW STA Stop: 05/20/25 09:26 Last Infusion: 05/20/25 09:45 Dose: Infused Documented By: Admin: 05/20/25 09:16 Dose: 400 mls/hr Documented By: YAMIL Phytonadione 10 mg/ Dextrose 51 mls @ 102 mls/hr IV ONE ONE Stop: 05/20/25 10:47 Last Infusion: 05/20/25 13:05 Dose: Infused Documented By: Admin: 05/20/25 11:29 Dose: 102 mls/hr Documented By: YAMIL Prothrombin Complex Concent ( (Human) 4,500 units/ Syringe) 180 mls @ 10 mls/min IV TODAY@1030 [facility]; Protocol Stop: 05/20/25 10:45 Last Admin: 05/20/25 10:37 Dose: 10 mls/min Documented By: YAMIL Ioversol (Optiray 320 100ml) 94 ml IV ONCE ONE Stop: 05/20/25 09:30 Last Admin: 05/20/25 09:29 Dose: 94 ml Documented By: SIM Morphine Sulfate (Morphine Sulfate 2 Mg/Ml Carp) 2 mg IV NOW STA Stop: 05/20/25 09:13 Last Admin: 05/20/25 09:16 Dose: 2 mg Documented By: YAMIL Ondansetron HCl (Ondansetron Inj 2 Mg/Ml 2 Ml Vial) 4 mg IV NOW STA Stop: 05/20/25 09:13 Last Admin: 05/20/25 09:16 Dose: 4 mg Documented By: YAMIL Imaging Data Radiologist's Impression: Abdomen/Pelvis CT 05/20/25 08:[address] WITH IV CONTRAST CT DOSE: 1360.67 mGy.cm HISTORY: llq pain TECHNIQUE: Multiaxial CT images of the abdomen and pelvis were performed following the IV administration of 90 cc of Optiray, A dose lowering technique was utilized adhering to the principles of ALARA. COMPARISON STUDY: Chest CT of 03/25/2025 FINDINGS: There are persistent reticular and patchy opacities in the lung bases, improved. ABDOMEN: There are calcifications of the liver and spleen consistent with prior granulomatous disease. There are gallstones without evidence of acute cholecystitis. Otherwise the liver, spleen, pancreas, and adrenal glands are unremarkable. Kidneys show no hydronephrosis or calculi. There is a tiny cyst at the left kidney. There are atherosclerotic calcifications. No abdominal aortic aneurysm. Pelvis: There is an acute hematoma at the left rectus muscle measuring 10 x 6 cm in greatest axial dimension by 13 cm craniocaudad. There is contrast extravasation within the hematoma consistent with continuing hemorrhage. Urinary bladder is nondistended. Uterus is absent. No adnexal mass. No bowel inflammation or obstruction. No free fluid, free air, or abscess. No enlarged adenopathy. Osseous structures: Right hip prosthesis is present. There is mild scoliosis. There is lumbar degenerative disc disease. No acute osseous findings. IMPRESSION: Acute left rectus muscle hematoma with active acute hemorrhage. ACT 112: Negative or not required by law. The above report was generated using voice recognition software. It may contain grammatical, syntax or spelling errors. Electronically signed by: Nithin Roth M.D. 05/20/2025 9:54 AM Discharge Plan Visit Data Chief Complaint: Abdominal Pain Stated Complaint: SHARP LT LOWER ABD PAIN ED Provider: Diego Cooper Discharge Problem: LLQ abdominal pain, Leukocytosis, Hematoma of rectus sheath, Anticoagulated on Coumadin Patient Disposition: Admitted As Inpatient Condition: Fair Discharge Instructions Interventions: ED Discharge Assessment Last Done: 05/20/25 12:10 Discharge Problem: Leukocytosis Qualifiers: Leukocytosis type: unspecified Qualified Code(s): D72.829 - Elevated white blood cell count, unspecified Hematoma of rectus sheath Qualifiers: Encounter type: initial encounter Qualified Code(s): S30.1XXA - Contusion of abdominal wall, initial encounter
--- NOTE | 2025-05-20 09:56 | CT Scan Report ---
ABDOMEN AND PELVIS CT WITH IV CONTRAST CT DOSE: 1360.67 mGy.cm HISTORY: llq pain TECHNIQUE: Multiaxial CT images of the abdomen and pelvis were performed following the IV administrat ion of 90 cc of Optiray, A dose lowering technique was utilized adhering to the principles of ALARA. COMPARISON STUDY: Chest CT of 03/25/2025 FINDINGS: There are persistent reticular and patchy opacities in the lung bases, improved. ABDOMEN: There are calcifications of the liver and spleen consistent with prior granulomatous disease . There are gallstones without evidence of acute cholecystitis. Otherwise the liver, spleen, pancreas , and adrenal glands are unremarkable. Kidneys show no hydronephrosis or calculi. There is a tiny cys t at the left kidney. There are atherosclerotic calcifications. No abdominal aortic aneurysm. Pelvis: There is an acute hematoma at the left rectus muscle measuring 10 x 6 cm in greatest axial di mension by 13 cm craniocaudad. There is contrast extravasation within the hematoma consistent with co ntinuing hemorrhage. Urinary bladder is nondistended. Uterus is absent. No adnexal mass. No bowel inflammation or obstruct ion. No free fluid, free air, or abscess. No enlarged adenopathy. Osseous structures: Right hip prosthesis is present. There is mild scoliosis. There is lumbar degener ative disc disease. No acute osseous findings. IMPRESSION: Acute left rectus muscle hematoma with active acute hemorrhage. ACT 112: Negative or not required by law. The above report was generated using voice recognition software. It may contain grammatical, syntax o r spelling errors. Electronically signed by: Nithin Roth M.D. 05/20/2025 9:54 AM
[2025-05-20] MEDS: PROTHROMBIN COMP KCENTRA IV SCH (10:37)
--- NOTE | 2025-05-20 11:20 | Surgery Consultation ---
Date of Consultation May 20, 2025 Assessment & Plan (1) Abdominal wall hematoma: Patient seen and evaluated this morning in the emergency department. Patient resting comfortably in bed, vital signs stable, and is nontoxic-appearing. All imaging and labs reviewed with attending surgeon, Dr. Camacho At this time patient is stable and there is no need for emergent surgical intervention. Will continue to trend Q6H H&H and if patient does have any signs of ongoing bleeding would recommend possible transfer for IR embolization vs surgical intervention. Medical management per primary team, surgery will continue to follow closely Supervising Physician Co-Signing Physician Notes Patient seen and examined, labs and imaging reviewed, agree with above. 75-year-old female on Coumadin presented with pain in left lower quadrant and sw elling. She was coughing earlier today right before she noticed the pain. She was found to have a rectus sheath hematoma, and there was a blush on the CT scan. She is currently hemodynamically stable, firm area in her left lower quadrant that is tender to the touch. She was given Kcentra and vitamin K in the emergency department. She has been admitted for observation. At this point recommend nonoperative management with reversal of anticoagulation and serial H&H. May benefit from compression with an abdominal binder. May use ice packs as needed for pain. If she continues to bleed and remained stable, then would recommend transfer for IR embolization. Surgery is usually only indicated for patients to continue to bleed and or unstable. Surgical follow-up, call with questions or concerns. History of Present Illness Reason for Consultation: left rectus muscle hematoma with active acute hemorrhage History of Present Illness The patient is a 75-year-old female who presented to the emergency room with complaints of left-sided abdominal pain. She states the pain started yesterday and has been persistent since. She denies any nausea or vomiting with the onset of her pain. Denies any changes in bowel or bladder habits. The patient has also noticed a new onset of a hard spot/fullness in the left side of her abdomen over the last 24 hours as well. The patient denies any recent trauma to the area. However, states that over the last few days she has been getting into "coughing fits" and has been using her abdominal muscles more because of this. The patient also does take Coumadin since her heart surgery in 2021, and states that her doctors have never taken her off of it since. Due to the patient's ongoing pain, she decided come to the emergency department for further evaluation. Upon workup, she was found to have CT findings concerning for a left rectus muscle hematoma with active hemorrhage, due to the patient being on blood thinners the ER has provided reversal agents. The emergency room physician did reach out to interventional radiology, at this time they do not feel the patient needs any intervention and recommends observation. The surgery team was also consulted for further evaluation. Patient was seen evaluated the emergency department this morning, she is resting comfortably in bed, vital signs stable, and is nontoxic-appearing. Patient on exam does have tenderness in the left side of the abdomen and is noted to have some palpable firmness in the area as well, no overlying skin ecchymosis appreciated. The patient states that she does have a surgical history of a partial hysterectomy and previous . Allergies Allergy/AdvReac Type Severity Reaction Status Date / Time sulfamethoxazole Allergy Rash Verified 05/20/25 10:50 [From Bactrim] trimethoprim [From Bactrim] Allergy Rash Verified 05/20/25 10:50 Home Medications Medication Instructions Recorded Confirmed Type furosemide 40 mg tablet 40 mg PO QAM 07/03/23 05/20/25 History metoprolol succinate 25 mg 25 mg PO QAM 07/03/23 05/20/25 History tablet,extended release 24 hr albuterol sulfate 90 mcg/actuation 2 inh inhalation Q4H PRN Shortness 03/25/25 05/20/25 History aerosol inhaler Of Breath Or Wheezing levothyroxine 50 mcg tablet 50 mcg PO DAILY 03/25/25 05/20/25 History Portable Oxygen #1 ea 05/06/25 05/06/25 Rx dapsone 100 mg tablet 100 mg PO DAILY #30 tabs 05/06/25 05/20/25 Rx warfarin 2.5 mg tablet 2.5 mg PO DAILY 05/06/25 05/20/25 History Oxygen Home #1 ea 05/09/25 Rx Oxygen Home #1 ea 05/18/25 Rx prednisone 10 mg tablet 10 mg PO DIRECTED 05/20/25 05/20/25 History spironolactone 25 mg tablet 12.5 mg PO 3XWK 05/20/25 05/20/25 History Patient History Medical History (Updated 05/20/25 @ 11:56 by Lisha Grove PA-C) PAT (paroxysmal atrial tachycardia) CKD (chronic kidney disease), stage III Tricuspid valve insufficiency Mitral valve insufficiency Pulmonary HTN Hypothyroidism [place] (hard of hearing) History of uterine fibroid Surgical History (Updated 03/25/25 @ 14:45 by May Villela PA-C) H/O mitral valve replacement History of myomectomy History of hysterectomy History of esophagogastroduodenoscopy (EGD) History of colonoscopy History of cardiac catheterization 2021 pre op valve replacement. no stents. History of heart valve replacement 02/2022. follows with Dr. Henning. 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 Beliefs That Will Affect Care: None Current Living Situation: Family Current Living Situation Comment: lives with daughter Feels Safe at Home: Yes Assistive Devices: Walker Review of Systems Constitutional: no fever, no chills, no sweats and no weakness Respiratory: + cough Cardiovascular: no chest pain, no palpitations and no syncope Gastrointestinal: as per Subjective / HPI and + abdominal pain; no nausea, no vomiting and no change in stools Genitourinary: no dysuria and no hematuria Physical Exam Constitutional: WD/WN, vitals as above Respiratory: normal respiratory effort, lungs clear to auscultation Cardiovascular: Rate/Rhythm: regular rate and regular rhythm Gastrointestinal (Abdomen): Abdomen soft, nondistended, +TTP in the left lower quadrant with associated firmness. However no overlying skin changes, no rebound, guarding, or signs of peritonitis Skin: no rashes, warm and dry Results & Data Vital Signs (Past 12 Hours) Vital Signs Temp Pulse Resp BP Pulse Ox O2 Del Method 05/20/25 09:00 72 19 93 05/20/25 09:00 143/78 H 05/20/25 08:30 72 24 93 05/20/25 08:30 144/76 H 05/20/25 08:30 144/76 H 05/20/25 08:30 71 05/20/25 07:45 36.8 C 78 20 111/63 93 Room Air Diagnostic Findings ABDOMEN AND PELVIS CT WITH IV CONTRAST CT DOSE: 1360.67 mGy.cm HISTORY: llq pain TECHNIQUE: Multiaxial CT images of the abdomen and pelvis were performed following the IV administration of 90 cc of Optiray, A dose lowering technique was utilized adhering to the principles of ALARA. COMPARISON STUDY: Chest CT of 03/25/2025 FINDINGS: There are persistent reticular and patchy opacities in the lung bases, improved. ABDOMEN: There are calcifications of the liver and spleen consistent with prior granulomatous disease. There are gallstones without evidence of acute cholecystitis. Otherwise the liver, spleen, pancreas, and adrenal glands are unremarkable. Kidneys show no hydronephrosis or calculi. There is a tiny cyst at the left kidney. There are atherosclerotic calcifications. No abdominal aortic aneurysm. Pelvis: There is an acute hematoma at the left rectus muscle measuring 10 x 6 cm in greatest axial dimension by 13 cm craniocaudad. There is contrast extravasation within the hematoma consistent with continuing hemorrhage. Urinary bladder is nondistended. Uterus is absent. No adnexal mass. No bowel inflammation or obstruction. No free fluid, free air, or abscess. No enlarged adenopathy. Osseous structures: Right hip prosthesis is present. There is mild scoliosis. There is lumbar degenerative disc disease. No acute osseous findings. IMPRESSION: Acute left rectus muscle hematoma with active acute hemorrhage. ACT 112: Negative or not required by law. PG Care Time/CCT Total # of Minutes Spent Total Time Spent with Patient: Total time spent is greater than 50% in coordination of care (as documented) at patient's floor/unit and/or counseling patient: [place] [address] IN/OBS CONSULT LVL 2,35M Patient Type Established Medical Decision Making Straight Forward Diagnoses Abdominal wall hematoma S30.1XXA
[2025-05-20] MEDS: PHYTONADIONE 10 MG in DEXTROSE 5% 50 ML IV ONE (11:29)
[2025-05-20] MEDS ORDERED: ALUMINUM/MAGNESIUM SUSP 30 ML UDC PO PRN (11:29)
[2025-05-20] MEDS ORDERED: POLYETHYLENE (MIRALAX) 17 GM PACK PO PRN (11:29)
[2025-05-20] MEDS ORDERED: MAGNESIUM HYDROXIDE SUSP 30 ML UDC PO PRN (11:29)
[2025-05-20] MEDS ORDERED: MoRPHine SULFATE 2 MG/ML CARP IV PRN (11:29)
[2025-05-20] MEDS ORDERED: ONDANSETRON INJ 2 MG/ML 2 ML VIAL IV PRN (11:29)
[2025-05-20] MEDS ORDERED: ACETAMINOPHEN 325 MG TAB PO PRN (11:29)
[2025-05-20] MEDS ORDERED: ALBUTEROL HFA 8 GM INHALER INH PRN (11:44)
--- NOTE | 2025-05-20 11:50 | History & Physical Report ---
Date of Service May 20, 2025 Assessment & Plan (1) Supratherapeutic INR: Plan Acute left rectus muscle hematoma in the setting of Coumadin coagulopathy Supratherapeutic INR Patient presents with progressive LLQ pain, denies trauma. CTAP w/ hematoma INR presentation 5.3, received 10 Mg IV vitamin K and Kcentra in the ED. ED physician reached out to IR and general surgery, not amenable to IR Ix, general surgery on board. Discussed with general surgery, for now manage conservatively with close H&H monitoring and transfusion as needed, clear liquid diet for now until further evaluation in AM. Hold Coumadin, repeat PT/INR and H&H about 2 PM. H&H every 6 hours. Blood transfusion consent obtained. Pain, anagement, manage nausea. Hold coumadin. Fall precaution. Other chronic medical conditions:Continue with/resume home meds as avoidable. 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 Chronic heart failure with preserved ejection fraction: Continue Lasix. Mitral valve replacement: Coumadin on hold, see above. CKD stage IIIb 3 yea: Creatinine about baseline, monitor. DVT prophylaxis: SCDs Full code History of Present Illness Chief Complaint: LLQ abdominal pain Primary Care Provider: Julius Lucas MD 75-year-old lady with PMH of drug-induced interstitial lung disorder, pulmonary toxicity, pulmonary hypertension, chronic heart failure with preserved ejection fraction, paroxysmal atrial tachycardia, mitral valve replacement on anticoagulation, tricuspid valve insufficiency, HTN, CKD stage IIIa, osteoarthritis presents to the ED with complaint of left lower belly pain since 1 day. It came on gradually, progressively worsened and hence patient presented to the ED. Patient denies fever/sore throat, reports ongoing cough [reports gradually improving per patient and is following pulmonology as an outpatient]. Patient denies any flulike illness/nausea/vomiting/diarrhea/chest pain/shortness of breath/pain or burning while passing urine. Pt denies trauma or violent coughing. Patient denies smoking, drinks alcohol very occasionally, denies recreational drug use. Medication reviewed with the patient and her daughter at bedside. Full code, patient would like to her daughter Janee make decisions if it comes to it. Plan of care discussed with the patient and her daughter at bedside, they voiced understanding. Allergies Allergy/AdvReac Type Severity Reaction Status Date / Time sulfamethoxazole Allergy Rash Verified 05/20/25 10:50 [From Bactrim] trimethoprim [From Bactrim] Allergy Rash Verified 05/20/25 10:50 Home Medications Medication Instructions Recorded Confirmed Type furosemide 40 mg tablet 40 mg PO QAM 07/03/23 05/20/25 History metoprolol succinate 25 mg 25 mg PO QAM 07/03/23 05/20/25 History tablet,extended release 24 hr albuterol sulfate 90 mcg/actuation 2 inh inhalation Q4H PRN Shortness 03/25/25 05/20/25 History aerosol inhaler Of Breath Or Wheezing levothyroxine 50 mcg tablet 50 mcg PO DAILY 03/25/25 05/20/25 History Portable Oxygen #1 ea 05/06/25 05/06/25 Rx dapsone 100 mg tablet 100 mg PO DAILY #30 tabs 05/06/25 05/20/25 Rx warfarin 2.5 mg tablet 2.5 mg PO DAILY 05/06/25 05/20/25 History Oxygen Home #1 ea 05/09/25 Rx Oxygen Home #1 ea 05/18/25 Rx prednisone 10 mg tablet 10 mg PO DIRECTED 05/20/25 05/20/25 History spironolactone 25 mg tablet 12.5 mg PO 3XWK 05/20/25 05/20/25 History Past Med/Surg History Problem List (Updated 05/20/25 @ 11:50 by Celina Hickman MD) Supratherapeutic INR Chronic respiratory failure with hypoxia Abnormal chest CT Amiodarone pulmonary toxicity Interstitial lung disease Short of breath on exertion Abnormal chest x-ray Hypoxia (Acute) Prolonged QT interval Acute hypoxic respiratory failure At risk for amiodarone toxicity with mcc use Subtherapeutic international normalized ratio (INR) Acute heart failure with preserved ejection fraction (HFpEF) Medical History (Updated 05/20/25 @ 11:50 by Celina Hickman MD) PAT (paroxysmal atrial tachycardia) CKD (chronic kidney disease), stage III Tricuspid valve insufficiency Mitral valve insufficiency Pulmonary HTN Hypothyroidism [place] (hard of hearing) History of uterine fibroid Surgical History (Updated 03/25/25 @ 14:45 by May Villela PA-C) H/O mitral valve replacement History of myomectomy History of hysterectomy History of esophagogastroduodenoscopy (EGD) History of colonoscopy History of cardiac catheterization 2021 pre op valve replacement. no stents. History of heart valve replacement 02/2022. follows with Dr. Henning. 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 Physical Exam Physical Exam: GENERAL: Alert and oriented x3. NAD, on 2L NC O2. HEENT: No pallor, no icterus. Pupils equal, round and reactive to light. Oral mucosa dry. NECK: No JVD, no neck masses. HEART: S1 and S2 heard. Regular rate and rhythm. No murmur, no gallop. RESPIRATORY SYSTEM: Normal AP diameter. No accessory muscle use. No wheezing, no crackles. ABDOMEN: Soft, bowel sounds present, LLQ induration/tender, no bruise, no distention. CENTRAL NERVOUS SYSTEM: No facial droop. Speech is clear. Obeys simple commands. Moves extremities. EXTREMITIES: No edema, no erythema seen. Results & Data Results & Data Vital Signs (Past 12 Hours) Vital Signs Temp Pulse Resp BP Pulse Ox O2 Del Method 05/20/25 09:00 72 19 93 05/20/25 09:00 143/78 H 05/20/25 08:30 72 24 93 05/20/25 08:30 144/76 H 05/20/25 08:30 144/76 H 05/20/25 08:30 71 05/20/25 07:45 36.8 C 78 20 111/63 93 Room Air
[2025-05-20] MEDS ORDERED: predniSONE 10 MG TABLET PO SCH (12:45)
[2025-05-20] MEDS: DAPSONE 25 MG TAB PO SCH (13:15)
[2025-05-20] MEDS: PANTOprazole 40 MG TAB PO SCH (13:16)
[2025-05-20] MEDS: FUROSEMIDE 40 MG TAB PO SCH (13:16)
[2025-05-20] MEDS: METOPROLOL SUCC 25MG EXT REL TAB PO SCH (13:16)
[2025-05-20] MEDS: predniSONE 10 MG TABLET PO SCH (14:18)
[2025-05-20 14:26] LABS: Hemoglobin 10.3 g/dl (12.0-16.0)
[2025-05-20 14:52] LABS: INR 1.1 (0.9-1.1); Prothrombin Time 11.6 Seconds (9.0-12.0)
[2025-05-20] MEDS: SPIRONOLACTONE 12.5 MG TAB PO SCH (17:08)
[2025-05-20 20:30] LABS: Hematocrit (blood only) 33.8 % (37.0-47.0); Hemoglobin 10.8 g/dl (12.0-16.0)
[2025-05-21 02:08] LABS: Hematocrit (blood only) 30.4 % (37.0-47.0); Hemoglobin 9.7 g/dl (12.0-16.0); Mean Corpuscular Hgb Conc 31.9 g/dL (32.0-36.0); Mean Corpuscular Volume 94.1 fL (80.0-100.0); Mean Platelet Volume 10.8 fL (9.4-12.4); Nucleated RBC # (auto) 0.02 K/uL (0.00-0.12); Nucleated RBC % (auto) 0.2 %; Platelet Count 160 K/uL (130-400); RDW Coefficient of Variation 17.7 % (11.5-14.5); RDW Standard Deviation 60.7 fL (36.4-46.3); Red Blood Count 3.23 M/uL (4.20-5.40); White Blood Count 13.22 K/ul (4.8-10.8)
--- NOTE | 2025-05-21 04:30 | Communication Note ---
Date of Service: May 21, 2025
[2025-05-21] MEDS: dexAMETHasone 4 MG in SYRINGE 0 ML IV ONE (04:45)
[2025-05-21] MEDS: SODIUM CHLORIDE 0.9% 1,000 ML IV ONE (04:45)
[2025-05-21 05:46] LABS: BUN Creatinine Ratio 18.8 (10-20); Calcium 8.2 mg/dl (8.6-10.3); Creatinine Clr Calc Pharmacy 47.5 ml/min; Magnesium 2.3 mg/dl (1.7-2.4); Phosphorus 3.9 mg/dl (2.5-4.9); Potassium 4.3 mmol/L (3.5-5.1)
[2025-05-21 06:01] LABS: Prothrombin Time 10.4 Seconds (9.0-12.0)
[2025-05-21 08:38] LABS: Basophils # (auto) 0.04 K/uL (0.00-0.20); Basophils % (auto) 0.3 %; Eosinophils # (auto) 0.01 K/uL (0.00-0.50); Eosinophils % (auto) 0.1 %; Hematocrit (blood only) 29.8 % (37.0-47.0); Hemoglobin 9.4 g/dl (12.0-16.0); Immature Granulocytes # (auto) 0.37 K/uL (0.01-0.20); Immature Granulocytes % (auto) 2.8 %; Mean Corpuscular Hemoglobin 29.8 pg (25.0-34.0); Mean Corpuscular Hgb Conc 31.5 g/dL (32.0-36.0); Mean Corpuscular Volume 94.6 fL (80.0-100.0); Mean Platelet Volume 11.2 fL (9.4-12.4); Monocytes # (auto) 1.61 K/uL (0.11-0.59); Monocytes % (auto) 12.1 %; Neutrophils # (auto) 9.65 K/uL (1.40-6.50); Neutrophils % (auto) 72.7 %; Nucleated RBC # (auto) 0.02 K/uL (0.00-0.12); Nucleated RBC % (auto) 0.2 %; Platelet Count 165 K/uL (130-400); RDW Standard Deviation 61.5 fL (36.4-46.3); Red Blood Count 3.15 M/uL (4.20-5.40); White Blood Count 13.28 K/ul (4.8-10.8)
[2025-05-21] MEDS: LEVOTHYROXINE SODIUM 50 MCG TABLET PO SCH (08:38)
--- NOTE | 2025-05-21 08:52 | Surgery Progress Note ---
Date of Service May 21, 2025 Assessment & Plan (1) Abdominal wall hematoma: Plan: Patient doing well, has remained hemodynamically stable. Can trend H&H daily at this point Continue abdominal binder for compression Patient may have a regular diet from our standpoint No need for emergent surgical intervention at this time. Will continue to trend H&H and if patient does have any signs of ongoing bleeding would recommend possible transfer for IR embolization. Surgery only indicated if patient becomes unstable Medical management per primary team, surgery will continue to follow Admission and Anticipated Discharge Date Admission Date: May 20, 2025 Supervising Physician Co-Signing Physician Notes Patient seen and examined, labs reviewed, agree with above. Admitted with rectus sheath hematoma in setting of Coumadin use for factor V Leiden disorder. Feeling better, still little sore. Tender palpation in left lower quadrant, improved from yesterday. No ecchymosis. H&H stable. Can decrease frequency of H&H to once daily, if stable tomorrow then can start heparin and start oral Coumadin. Surgery will follow. Subjective Patient doing well this morning Denies any worsening abdominal pain, nausea or vomiting overnight Hgb did slightly drop to 9.7 this morning however VSS and no overt signs of bleeding Physical Exam Constitutional: WD/WN, vitals as above Respiratory: normal respiratory effort, lungs clear to auscultation Cardiovascular: Rate/Rhythm: regular rate and regular rhythm Gastrointestinal (Abdomen): Abdomen soft, nondistended, +mild TTP over LLQ without any signs of rebound, guarding or peritonitis Skin: no rashes, warm and dry Results & Data Vital Signs (Past 12 Hours) Vital Signs Temp Pulse Pulse Resp BP BP Pulse Ox 05/21/25 07:03 36.6 C 69 18 100/59 L 91 05/21/25 05:41 70 100/66 05/21/25 04:25 99/60 L 05/21/25 04:08 36.6 C 71 16 93/58 L 91 05/20/25 23:41 36.8 C 84 17 99/63 L 92 05/20/25 21:50 77 O2 Del Method 05/21/25 07:03 Room Air 05/21/25 05:41 05/21/25 04:25 05/21/25 04:08 Room Air 05/20/25 23:41 Room Air 05/20/25 21:50 PG Care Time/CCT Total # of Minutes Spent Total Time Spent with Patient: Total time spent is greater than 50% in coordination of care (as documented) at patient's floor/unit and/or counseling patient: Coding [place] [address] SUB INP/OBS CARE 1/25MIN Patient Type Established Medical Decision Making Straight Forward Diagnoses Abdominal wall hematoma S30.1XXA
[2025-05-21 14:23] LABS: Basophils # (auto) 0.03 K/uL (0.00-0.20); Basophils % (auto) 0.2 %; Hemoglobin 10.5 g/dl (12.0-16.0); Immature Granulocytes # (auto) 0.55 K/uL (0.01-0.20); Immature Granulocytes % (auto) 3.4 %; Lymphocytes # (auto) 0.78 K/uL (1.20-3.40); Lymphocytes % (auto) 4.8 %; Mean Corpuscular Hemoglobin 29.9 pg (25.0-34.0); Mean Corpuscular Hgb Conc 31.8 g/dL (32.0-36.0); Mean Platelet Volume 10.9 fL (9.4-12.4); Monocytes # (auto) 0.74 K/uL (0.11-0.59); Monocytes % (auto) 4.6 %; Neutrophils # (auto) 14.12 K/uL (1.40-6.50); Nucleated RBC # (auto) 0.03 K/uL (0.00-0.12); Nucleated RBC % (auto) 0.2 %; Platelet Count 198 K/uL (130-400); RDW Coefficient of Variation 18.1 % (11.5-14.5); RDW Standard Deviation 61.3 fL (36.4-46.3); Red Blood Count 3.51 M/uL (4.20-5.40); White Blood Count 16.22 K/ul (4.8-10.8)
--- NOTE | 2025-05-21 14:27 | Hospitalist Progress Note ---
Date of Service May 21, 2025 Assessment & Plan (1) Supratherapeutic INR: Plan per admitting service notes with addendum: Acute left rectus muscle hematoma in the setting of Coumadin coagulopathy Supratherapeutic INR Chronic Coumadin therapy for status post mitral valve replacement Patient presents with progressive LLQ pain, denies trauma. CTAP w/ hematoma INR presentation 5.3, received 10 Mg IV vitamin K and Kcentra in the ED. ED physician reached out to IR and general surgery, not amenable to IR Ix, general surgery on board. Discussed with general surgery, for now manage conservatively with close H&H monitoring and transfusion as needed, clear liquid diet for now until further evaluation in AM. Hold Coumadin, repeat PT/INR and H&H about 2 PM. H&H every 6 hours. Blood transfusion consent obtained. Pain, anagement, manage nausea. Hold coumadin. Fall . 05/21 Hemodynamically stable Hemoglobin 10.3, 9.4, 10.5 INR 1.0 General Surgery consulted-no surgical intervention planned at this point Will consult cardiology service Other chronic medical conditions:Continue with/resume home meds as avoidable. 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 Chronic heart failure with preserved ejection fraction: Continue Lasix. Mitral valve replacement: Coumadin on hold, see above. CKD stage IIIb 3 yea: Creatinine about baseline, monitor. DVT prophylaxis: SCDs Full code Disposition lives at home Admission and Anticipated Discharge Date Admission Date: May 20, 2025 Subjective Follow-up for rectus sheath hematoma in the setting of supratherapeutic INR, etc. Seen resting in bed, sitting up, comfortable, not in distress States she feels okay overall except for mild left lower abdominal wall discomfort Denies dizziness, shortness of breath, chest pain, weakness No other new symptoms Review of Systems Review of Systems: all noted and negative except for above Physical Exam Physical Exam: General- oriented x 3, not in distress, speaks in sentences with no effort or accessory muscle use Eyes- anicteric Neck- no JVD Lungs- clear breath sounds bilaterally, no rales/wheezes Heart- normal rate, regular rhythm; no murmurs Abdomen- normal bowel sounds, nondistended, soft, mild LLQ tenderness Extremities- no pretibial edema, no calf tenderness Neuro- alert, oriented x 3; no gross focal neurologic deficits Skin- warm & dry Results & Data Results & Data Vital Signs (Past 12 Hours) Vital Signs Temp Pulse Resp BP BP Pulse Ox O2 Del Method 05/21/25 10:57 36.4 C L 79 16 103/65 91 Room Air 05/21/25 07:03 36.6 C 69 18 100/59 L 91 Room Air 05/21/25 05:41 70 100/66 05/21/25 04:25 99/60 L 05/21/25 04:08 36.6 C 71 16 93/58 L 91 Room Air all noted and reviewed including below
[2025-05-22 07:04] LABS: Basophils # (auto) 0.04 K/uL (0.00-0.20); Basophils % (auto) 0.2 %; Eosinophils # (auto) 0.03 K/uL (0.00-0.50); Eosinophils % (auto) 0.2 %; Hematocrit (blood only) 27.3 % (37.0-47.0); Hemoglobin 8.6 g/dl (12.0-16.0); Immature Granulocytes % (auto) 3.7 %; Lymphocytes # (auto) 1.91 K/uL (1.20-3.40); Lymphocytes % (auto) 11.8 %; Mean Corpuscular Hgb Conc 31.5 g/dL (32.0-36.0); Mean Corpuscular Volume 95.1 fL (80.0-100.0); Mean Platelet Volume 10.9 fL (9.4-12.4); Monocytes # (auto) 1.99 K/uL (0.11-0.59); Monocytes % (auto) 12.3 %; Neutrophils # (auto) 11.55 K/uL (1.40-6.50); Neutrophils % (auto) 71.8 %; Nucleated RBC # (auto) 0.03 K/uL (0.00-0.12); Nucleated RBC % (auto) 0.2 %; Platelet Count 152 K/uL (130-400); RDW Standard Deviation 62.5 fL (36.4-46.3); Red Blood Count 2.87 M/uL (4.20-5.40); White Blood Count 16.12 K/ul (4.8-10.8)
[2025-05-22 07:21] LABS: BUN Creatinine Ratio 24.5 (10-20); Calcium 8.1 mg/dl (8.6-10.3); Creatinine Clr Calc Pharmacy 50.7 ml/min; Potassium 4.7 mmol/L (3.5-5.1)
[2025-05-22 07:30] LABS: INR 0.9 (0.9-1.1); Prothrombin Time 10.3 Seconds (9.0-12.0)
--- NOTE | 2025-05-22 08:38 | Surgery Progress Note ---
Date of Service May 22, 2025 Assessment & Plan (1) Abdominal wall hematoma: Plan: Patient did have a slight drop in hemoglobin this morning to 8.6 however no overt signs of bleeding. Continue to monitor vitals Continue abdominal binder for compression and pain control as needed No need for emergent surgical intervention at this time. Patient with history of porcine valve and does not appear she has a strong indication for Coumadin at this time however would review her history and potentially discontinue anticoagulation if this is seems appropriate (will defer to medical team). If not, patient can start anticoagulation from a surgical standpoint. Surgery will follow peripherally at this time, please recall with any questions or concerns Admission and Anticipated Discharge Date Admission Date: May 20, 2025 Supervising Physician Co-Signing Physician Notes Patient seen and examined, labs reviewed, agree with above. Admitted with rectus sheath hematoma in setting of Coumadin use. H&H stable, abdominal tenderness improved. Surgery will sign off, call with questions or concerns. Restart anticoagulation if indicated by medicine. Subjective Patient seen and examined this morning. States that she feels well, sitting up in bed eating breakfast Denies any worsening abdominal pain, nausea or vomiting States her pain is well-controlled at this time, still does experience some soreness Hemoglobin slightly down trended this morning to 8.6 from 10.5 yesterday however no over signs of bleeding Physical Exam Constitutional: WD/WN, vitals as above Respiratory: normal respiratory effort, lungs clear to auscultation Cardiovascular: Rate/Rhythm: regular rate and regular rhythm Gastrointestinal (Abdomen): Abdomen soft, nondistended, mild tenderness palpation left lower quadrant. No overlying skin changes or ecchymosis No rebound, guarding or signs of peritonitis Skin: no rashes, warm and dry Results & Data Vital Signs (Past 12 Hours) Vital Signs Temp Pulse Pulse Resp BP BP Pulse Ox 05/22/25 07:35 36.7 C 69 18 93/55 L 91 05/22/25 04:28 36.9 C 66 16 106/58 L 93 05/21/25 23:51 36.9 C 70 16 110/65 90 05/21/25 22:02 70 05/21/25 21:41 105/63 O2 Del Method 05/22/25 07:35 Room Air 05/22/25 04:28 Room Air 05/21/25 23:51 Room Air 05/21/25 22:02 05/21/25 21:41 PG Care Time/CCT Total # of Minutes Spent Total Time Spent with Patient: Total time spent is greater than 50% in coordination of care (as documented) at patient's floor/unit and/or counseling patient: Coding [place] [address] SUB INP/OBS CARE 12/18MIN Patient Type Established Medical Decision Making Straight Forward Diagnoses Abdominal wall hematoma S30.1XXA
[2025-05-22] MEDS: predniSONE 5 MG TAB PO SCH (08:53)
[2025-05-22 11:27] LABS: Hematocrit (blood only) 28.3 % (37.0-47.0)
--- NOTE | 2025-05-22 12:05 | Cardiology Consultation ---
Date of Consultation May 22, 2025 Assessment & Plan (1) Hematoma of rectus sheath: (2) Supratherapeutic INR: (3) H/O mitral valve replacement: (4) Paroxysmal atrial flutter: Plan 75 year old female with past medical history of MR s/p bioprosthetic MVR 02/2022, HFpEF, PAT s/p DCCV, recurrent atrial arrhythmias, amiodarone toxicity, who presents with LLQ pain. CT abd/pelvis shows left rectus muscle hematoma with active acute hemorrhage. INR in ED 5.3, was given vitamin K and kcentra. Coumadin held. General surgery consulted, no plan for surgical intervention. Cardiology consulted for recommendations regarding anticoagulation. - on exam today, she feels well from cardiac standpoint - INR today 0.9, hgb 9.0 - in sinus rhythm on telemetry - she has bioprosthetic mitral valve, which does not require anticoagulation, however history of atrial arrhythmias, risk of bleeding currently outweighs benefits of anticoagulation, hold coumadin until hematoma improves, can reevaluate as outpatient - continue metoprolol succinate, spironolactone, furosemide - follow up with outpatient EP as scheduled Case discussed with attending physician, further recommendations per Dr. Castellanos. I spent a total of 30 minutes on the date of service in preparation, delivery, and documentation of the care provided to this patient excluding any time spent in the performance of separately billed services. This visit was a split-shared visit with the substantial portion of the decision making performed by the supervising pumper gauger/billing provider. Natali Rodríguez PA-C [facility] Cardiology [facility] Supervising Physician Co-Signing Physician Notes I have reviewed the advanced practitioner's documentation on the date of service referenced in note, and I agree with, and take responsibility for the plan of care. 75-year-old female with known history of bioprosthetic mitral valve in February 2022, heart failure with preserved ejection fraction, atrial fibrillation on anticoagulation presents with spontaneous rectus hematoma on CT scan about 10 cm size with the INR of 5. Anticoagulation has been on mild hemoglobin still slightly downtrending. Anticoagulation can be resumed after hemoglobin stable and hematoma is not increasing in size. consider restarting anticoagulation in 3 to 5 days Please call with questions I spent a total of 30 minutes coordinating, documenting, and providing care for this patient excluding time spent in the performance of separately billed services or time spent by another provider. History of Present Illness Reason for Consultation: Hematoma on coumadin for MV replacement Requesting Physician: Neymar klein Attending Physician: Mani Mcdermott MD History of Present Illness 75 year old female with past medical history of MR s/p bioprosthetic MVR 02/2022, HFpEF, PAT s/p DCCV, recurrent atrial arrhythmias, amiodarone toxicity, who presents with LLQ pain. CT abd/pelvis shows left rectus muscle hematoma with active acute hemorrhage. On coumadin at home, INR in ED 5.3, was given vitamin K and kcentra. Coumadin held. General surgery consulted, no plan for surgical intervention. Cardiology consulted for recommendations regarding anticoagulation. On exam today, she is resting comfortably in bed. Denies chest pain, palpitations, shortness of breath, edema. Has been compliant with all medications. No recent trauma or falls. Denies abnormal bleeding. Follows with outpatient cardiology clinic, is scheduled to see EP Dr. Ruano. Allergies Allergy/AdvReac Type Severity Reaction Status Date / Time sulfamethoxazole Allergy Rash Verified 05/20/25 10:50 [From Bactrim] trimethoprim [From Bactrim] Allergy Rash Verified 05/20/25 10:50 Home Medications Medication Instructions Recorded Confirmed Type furosemide 40 mg tablet 40 mg PO QAM 07/03/23 05/20/25 History metoprolol succinate 25 mg 25 mg PO QAM 07/03/23 05/20/25 History tablet,extended release 24 hr albuterol sulfate 90 mcg/actuation 2 inh inhalation Q4H PRN Shortness 03/25/25 05/20/25 History aerosol inhaler Of Breath Or Wheezing levothyroxine 50 mcg tablet 50 mcg PO DAILY 03/25/25 05/20/25 History Portable Oxygen #1 ea 05/06/25 05/06/25 Rx dapsone 100 mg tablet 100 mg PO DAILY #30 tabs 05/06/25 05/20/25 Rx warfarin 2.5 mg tablet 2.5 mg PO DAILY 05/06/25 05/20/25 History Oxygen Home #1 ea 05/09/25 Rx Oxygen Home #1 ea 05/18/25 Rx prednisone 10 mg tablet 10 mg PO DIRECTED 05/20/25 05/20/25 History spironolactone 25 mg tablet 12.5 mg PO 3XWK 05/20/25 05/20/25 History Patient History Medical History PAT (paroxysmal atrial tachycardia) CKD (chronic kidney disease), stage III Tricuspid valve insufficiency Mitral valve insufficiency Pulmonary HTN Hypothyroidism [place] (hard of hearing) History of uterine fibroid Surgical History H/O mitral valve replacement History of myomectomy History of hysterectomy History of esophagogastroduodenoscopy (EGD) History of colonoscopy History of cardiac catheterization 2021 pre op valve replacement. no stents. History of heart valve replacement 02/2022. follows with Dr. Henning. History of tonsillectomy History of right hip replacement History of x 2 History of bilateral knee replacement + Rt knee revision Social History Smoking Status: Never smoker Second Hand Exposure: No; Do You Dip or Chew Tobacco: No; Tobacco Cessation Education Requested by Patient: No Hx Alcohol Use: No Hx Substance Use: No Preferred Language: Citizen Of [place] Communication Ability: Effective Down Filler Required: No Beliefs That Will Affect Care: None Current Living Situation: Family Current Living Situation Comment: lives with daughter Other Information That Helps Us Care for You: No Feels Safe at Home: Yes Safety Concerns: Feels Safe At This Time Assistive Devices: Denture - Upper, Denture - Lower, Glasses and Hearing Aid - Bilateral Review of Systems Review of Systems: CONSTITUTIONAL: No change in weight, No weakness, No fatigue and No fevers, No sweats or chills. PULMONARY: No cough, sputum, or hemoptysis, No wheezing, No shortness of breath and No recent change in breathing. CARDIOVASCULAR: No chest pain, No dyspnea on exertion, No edema, No palpitations and No syncope. GASTROINTESTINAL: No abdominal pain, No change in bowel habits, No significant heartburn, No nausea, No vomiting, No diarrhea, No constipation, No blood in stools or black tarry stools. No dysphagia. HEMATOLOGIC: No abnormal bleeding and No bruising. NEUROLOGICAL: Normal balance, No headaches and No weakness. Physical Exam Physical Exam: General: No acute distress. A+Ox3. HEENT: Normocephalic. Atraumatic. PERRL. EOMI. Conjunctiva and sclera clear. NECK: No carotid bruits. No JVD. Carotid upstrokes are brisk. Heart: RRR. S1 and S2 noted. No murmur. No rubs or gallops. PMI non displaced. Lungs: Clear to auscultation. No wheezes. No rhonchi. No rales. Abdomen: Normal bowel sounds. Soft. Nontender. No masses or organomegaly. No abdominal bruits. Extremities: RLE 1+ edema, LLE no edema. No clubbing or cyanosis. Pulses: radial=2/4, posterior tibial=2/4, dorsalis pedis = 2/4. NEURO: No focal deficits. PSYCH: Appropriate affect and insight. Results & Data Vital Signs (Past 12 Hours) Vital Signs Temp Pulse Resp BP BP Pulse Ox O2 Del Method 05/22/25 11:21 36.7 C 74 18 101/61 90 Room Air 05/22/25 07:35 36.7 C 69 18 93/55 L 91 Room Air 05/22/25 04:28 36.9 C 66 16 106/58 L 93 Room Air 05/21/25 23:51 36.9 C 70 16 110/65 90 Room Air Laboratory Results Coagulation 05/22/25 Range/Units 06:30 PT 10.3 (9.0-12.0) Seconds CBC 05/21/25 05/22/25 05/22/25 Range/Units 14:02 06:30 11:17 WBC 16.22 H 16.12 H (4.8-10.8) K/ul RBC 3.51 L 2.87 L (4.20-5.40) M/uL Hgb 10.5 L 8.6 L 9.0 L (12.0-16.0) g/dl Hct 33.0 L 27.3 L 28.3 L (37.0-47.0) % Plt Count 198 152 (130-400) K/uL Neut # (Auto) 14.12 H 11.55 H (1.40-6.50) K/uL Lymph # (Auto) 0.78 L 1.91 (1.20-3.40) K/uL [place] # (Auto) 0.74 H 1.99 H (0.11-0.59) K/uL Eos # (Auto) 0.00 0.03 (0.00-0.50) K/uL Baso # (Auto) 0.03 0.04 (0.00-0.20) K/uL Comprehensive Metabolic Panel 05/22/25 Range/Units 06:30 Sodium 137 (136-145) mmol/L Potassium 4.7 (3.5-5.1) mmol/L Chloride 102 (98-107) mmol/L Carbon Dioxide 32 (21-32) mmol/L BUN 24 H (6-23) mg/dl Creatinine 0.98 (0.6-1.2) mg/dl Glucose 112 H (70-99(Fasting)) mg/dl Calcium 8.1 L (8.6-10.3) mg/dl Intake and Output 05/21/25 05/22/25 05/22/25 22:59 06:59 14:59 Intake Total 999 Output Total Balance 999 -2238 Intake: IV 1000 / 1000 Sodium Chloride 0.9% 1,000 ml @ 1000 / 1000 75 mls/hr IV .[id number] ONE Rx#: [id number] Output: Urine Other: Weight 88.3 kg Weight Measurement Method Built in [facility] Diagnostic Findings CT abd/pelvis 05/20/25 with acute left rectus muscle hematoma with active acute hemorrhage (1) Hematoma of rectus sheath Encounter type: initial encounter Qualified Code(s): S30.1XXA - Contusion of abdominal wall, initial encounter
--- NOTE | 2025-05-22 15:22 | Hospitalist Progress Note ---
Date of Service May 22, 2025 Assessment & Plan (1) Supratherapeutic INR: Plan per admitting service notes with addendum: Acute left rectus muscle hematoma in the setting of Coumadin coagulopathy Supratherapeutic INR Chronic Coumadin therapy for status post mitral valve replacement Patient presents with progressive LLQ pain, denies trauma. CTAP w/ hematoma INR presentation 5.3, received 10 Mg IV vitamin K and Kcentra in the ED. ED physician reached out to IR and general surgery, not amenable to IR Ix, general surgery on board. Discussed with general surgery, for now manage conservatively with close H&H monitoring and transfusion as needed, clear liquid diet for now until further evaluation in AM. Hold Coumadin, repeat PT/INR and H&H about 2 PM. H&H every 6 hours. Blood transfusion consent obtained. Pain, anagement, manage nausea. Hold coumadin. Fall . 05/21 Hemodynamically stable Hemoglobin 10.3, 9.4, 10.5, 9.0 INR 1.0 General Surgery consulted-no surgical intervention planned at this point patient started Dapsone last week for interstitial lung disease--> could have potentially increased coumadin level leading to supratherapeutic INR? cardiology service consulted for anticoagulation recommendations Other chronic medical conditions:Continue with/resume home meds as avoidable. 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 Chronic heart failure with preserved ejection fraction: Continue Lasix. Mitral valve replacement: Coumadin on hold, see above. CKD stage IIIb 3 yea: Creatinine about baseline, monitor. DVT prophylaxis: SCDs Full code Disposition lives at home Admission and Anticipated Discharge Date Admission Date: May 20, 2025 Subjective Follow-up for rectus sheath hematoma, supratherapeutic INR, etc. Seen resting in bed, sitting up, in good spirits States that she feels fine overall Minimal discomfort left lower abdominal wall No dizziness, chest pain, shortness of breath, weakness No other new symptoms Review of Systems Review of Systems: all noted and negative except for above Physical Exam Physical Exam: General- oriented x 3, not in distress, speaks in sentences with no effort or accessory muscle use Eyes- anicteric Neck- no JVD Lungs- clear breath sounds bilaterally, no rales/wheezes Heart- normal rate, regular rhythm; no murmurs Abdomen- normal bowel sounds, nondistended, soft, no tenderness Extremities- no pretibial edema, no calf tenderness Neuro- alert, oriented x 3; no gross focal neurologic deficits Skin- warm & dry Results & Data Results & Data Vital Signs (Past 12 Hours) Vital Signs Temp Pulse Resp BP BP Pulse Ox O2 Del Method 05/22/25 11:21 36.7 C 74 18 101/61 90 Room Air 05/22/25 07:35 36.7 C 69 18 93/55 L 91 Room Air 05/22/25 04:28 36.9 C 66 16 106/58 L 93 Room Air all noted and reviewed including below
[2025-05-23 07:07] VITALS: RESP 18
[2025-05-23 08:12] LABS: Hematocrit (blood only) 27.6 % (37.0-47.0); Hemoglobin 8.6 g/dl (12.0-16.0); Mean Corpuscular Hemoglobin 30.3 pg (25.0-34.0); Mean Corpuscular Hgb Conc 31.2 g/dL (32.0-36.0); Mean Corpuscular Volume 97.2 fL (80.0-100.0); Mean Platelet Volume 11.3 fL (9.4-12.4); Nucleated RBC # (auto) 0.08 K/uL (0.00-0.12); Nucleated RBC % (auto) 0.5 %; Platelet Count 168 K/uL (130-400); RDW Coefficient of Variation 18.5 % (11.5-14.5); RDW Standard Deviation 64.2 fL (36.4-46.3); Red Blood Count 2.84 M/uL (4.20-5.40); White Blood Count 14.82 K/ul (4.8-10.8)
[2025-05-23 08:36] LABS: Eosinophils % (auto) 0.5 %; Lymphocytes % (auto) 18.2 %; Monocytes % (auto) 11.4 %; Neutrophils % (auto) 64.5 %
[2025-05-23 08:37] LABS: Basophils # (auto) 0.05 K/uL (0.00-0.20); Basophils % (auto) 0.3 %; Eosinophils # (auto) 0.08 K/uL (0.00-0.50); Immature Granulocytes # (auto) 0.75 K/uL (0.01-0.20); Immature Granulocytes % (auto) 5.1 %; Lymphocytes # (auto) 2.69 K/uL (1.20-3.40); Monocytes # (auto) 1.69 K/uL (0.11-0.59); Neutrophils # (auto) 9.56 K/uL (1.40-6.50); Polychromasia 1+
--- NOTE | 2025-05-23 09:29 | Discharge Summary ---
Discharge Summary Date of Service May 23, 2025 Principal Dx & Hospital Course #1 = Principal Diagnosis (1) Supratherapeutic INR: Plan per admitting service notes with addendum: Acute left rectus muscle hematoma in the setting of Coumadin coagulopathy Supratherapeutic INR Chronic Coumadin therapy for status post mitral valve replacement Patient presents with progressive LLQ pain, denies trauma. INR presentation 5.3, received 10 Mg IV vitamin K and Kcentra in the ED. ED physician reached out to IR and general surgery, not amenable to IR Ix, general surgery on board. patient remained hemodynamically stable Hg remained around 9 INR 1.0 managed conservatively General Surgery consulted- no surgical intervention Cardiology Service consulted- can resume coumadin in 3-5 days patient started Dapsone last week for interstitial lung disease--> could have potentially increased coumadin level leading to supratherapeutic INR will need lower dose of coumadin and close INR monitoring coumadin clinic notified re: patient's discharge today, ff up with Coumadin Clinic in 2 days, can resume coumadin at that time Atherosclerotic calcifications noted on CT abd/pelvis Further work up, management, and ff up as outpatient Other chronic medical conditions:Continue with/resume home meds as avoidable. 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 Chronic heart failure with preserved ejection fraction: Continue Lasix. Mitral valve replacement: Coumadin management per above CKD stage IIIb 3 yea: Creatinine about baseline, monitor. d/c home PCP ff up in 1 week Coumadin Ff up this week, Wed plan of care discussed with patient in detail and at length all questions answered she isunderstanding, agreeable, comfortable with the plan of care Notes For Next Care Provider Medication Changes From Visit Resume coumadin on Wed, lower dose Admission HPI Per Admitting Provider 75-year-old lady with PMH of drug-induced interstitial lung disorder, pulmonary toxicity, pulmonary hypertension, chronic heart failure with preserved ejection fraction, paroxysmal atrial tachycardia, mitral valve replacement on anticoagulation, tricuspid valve insufficiency, HTN, CKD stage IIIa, osteoarthritis presents to the ED with complaint of left lower belly pain since 1 day. It came on gradually, progressively worsened and hence patient presented to the ED. Patient denies fever/sore throat, reports ongoing cough [reports gradually improving per patient and is following pulmonology as an outpatient]. Patient denies any flulike illness/nausea/vomiting/diarrhea/chest pain/shortness of breath/pain or burning while passing urine. Pt denies trauma or violent coughing. Patient denies smoking, drinks alcohol very occasionally, denies recreational drug use. Medication reviewed with the patient and her daughter at bedside. Full code, patient would like to her daughter Janee make decisions if it comes to it. Plan of care discussed with the patient and her daughter at bedside, they voiced understanding. Admission Exam Per Admitting Provider GENERAL: Alert and oriented x3. NAD, on 2L NC O2. HEENT: No pallor, no icterus. Pupils equal, round and reactive to light. Oral mucosa dry. NECK: No JVD, no neck masses. HEART: S1 and S2 heard. Regular rate and rhythm. No murmur, no gallop. RESPIRATORY SYSTEM: Normal AP diameter. No accessory muscle use. No wheezing, no crackles. ABDOMEN: Soft, bowel sounds present, LLQ induration/tender, no bruise, no dist ention. CENTRAL NERVOUS SYSTEM: No facial droop. Speech is clear. Obeys simple commands. Moves extremities. EXTREMITIES: No edema, no erythema seen. Discharge Exam General- oriented x 3, not in distress, speaks in sentences with no effort or accessory muscle use Eyes- anicteric Neck- no JVD Lungs- clear breath sounds bilaterally, no rales/wheezes Heart- normal rate, regular rhythm; no murmurs Abdomen- normal bowel sounds, nondistended, soft, nontender Extremities- no pretibial edema, no calf tenderness Neuro- alert, oriented x 3; no gross focal neurologic deficits Skin- warm & dry Updated Medication List Medication Instructions Recorded Confirmed Type furosemide 40 mg tablet 40 mg PO QAM 07/03/23 05/20/25 History metoprolol succinate 25 mg 25 mg PO QAM 07/03/23 05/20/25 History tablet,extended release 24 hr albuterol sulfate 90 mcg/actuation 2 inh inhalation Q4H PRN Shortness 03/25/25 05/20/25 History aerosol inhaler Of Breath Or Wheezing levothyroxine 50 mcg tablet 50 mcg PO DAILY 03/25/25 05/20/25 History Portable Oxygen #1 ea 05/06/25 05/06/25 Rx dapsone 100 mg tablet 100 mg PO DAILY #30 tabs 05/06/25 05/20/25 Rx warfarin 2.5 mg tablet 2.5 mg PO DAILY 05/06/25 05/20/25 History Oxygen Home #1 ea 05/09/25 Rx Oxygen Home #1 ea 05/18/25 Rx prednisone 10 mg tablet 10 mg PO DIRECTED 05/20/25 05/20/25 History spironolactone 25 mg tablet 12.5 mg PO 3XWK 05/20/25 05/20/25 History Hospital Stay Data Consultations 05/20/25 11:00 ED Decision to Admit Stat 05/21/25 14:27 Consult Cardiology Routine Diagnostic Imagining Performed Laboratory Results WBC 14.82 K/ul (4.8-10.8) H 05/23/25 06:16 RBC 2.84 M/uL (4.20-5.40) L 05/23/25 06:16 Hgb 8.6 g/dl (12.0-16.0) L 05/23/25 06:16 Hct 27.6 % (37.0-47.0) L 05/23/25 06:16 MCV 97.2 fL (80.0-100.0) 05/23/25 06:16 MCH 30.3 pg (25.0-34.0) 05/23/25 06:16 MCHC 31.2 g/dL (32.0-36.0) L 05/23/25 06:16 RDW Std Deviation 64.2 fL (36.4-46.3) H 05/23/25 06:16 RDW Coeff of Win 18.5 % (11.5-14.5) H 05/23/25 06:16 Plt Count 168 K/uL (130-400) 05/23/25 06:16 MPV 11.3 fL (9.4-12.4) 05/23/25 06:16 Immature Gran % (Auto) 5.1 % 05/23/25 06:16 Neut % (Auto) 64.5 % 05/23/25 06:16 Lymph % (Auto) 18.2 % 05/23/25 06:16 [place] % (Auto) 11.4 % 05/23/25 06:16 Eos % (Auto) 0.5 % 05/23/25 06:16 Baso % (Auto) 0.3 % 05/23/25 06:16 Neut # (Auto) 9.56 K/uL (1.40-6.50) H 05/23/25 06:16 Lymph # (Auto) 2.69 K/uL (1.20-3.40) 05/23/25 06:16 [place] # (Auto) 1.69 K/uL (0.11-0.59) H 05/23/25 06:16 Eos # (Auto) 0.08 K/uL (0.00-0.50) 05/23/25 06:16 Baso # (Auto) 0.05 K/uL (0.00-0.20) 05/23/25 06:16 Immature Gran # (Auto) 0.75 K/uL (0.01-0.20) H 05/23/25 06:16 Absolute Nucleated RBC 0.08 K/uL (0.00-0.12) 05/23/25 06:16 Nucleated RBC % (auto) 0.5 % 05/23/25 06:16 Polychromasia 1+ 05/23/25 06:16 PT 11.0 Seconds (9.0-12.0) 05/23/25 06:11 INR 1.0 (0.9-1.1) 05/23/25 06:11 APTT 42 Seconds (21-31) H 05/20/25 08:00 PTT Ratio 1.6 05/20/25 08:00 Sodium 137 mmol/L (136-145) 05/22/25 06:30 Potassium 4.7 mmol/L (3.5-5.1) 05/22/25 06:30 Chloride 102 mmol/L (98-107) 05/22/25 06:30 Carbon Dioxide 32 mmol/L (21-32) 05/22/25 06:30 Anion Gap 3 (3-11) 05/22/25 06:30 BUN 24 mg/dl (6-23) H 05/22/25 06:30 Creatinine 0.98 mg/dl (0.6-1.2) 05/22/25 06:30 Est Cr Clr Drug Dosing 50.7 ml/min 05/22/25 06:30 eGFR 59.45 05/22/25 06:30 BUN/Creatinine Ratio 24.5 (10-20) H 05/22/25 06:30 Glucose 112 mg/dl (70-99(Fasting)) H 05/22/25 06:30 Lactate 1.5 mmol/L (0.4-2.0) 05/21/25 05:04 Calcium 8.1 mg/dl (8.6-10.3) L 05/22/25 06:30 Phosphorus 3.9 mg/dl (2.5-4.9) 05/21/25 05:04 Magnesium 2.3 mg/dl (1.7-2.4) 05/21/25 05:04 Total Bilirubin 0.8 mg/dl (0.2-1.0) 05/20/25 08:00 AST 17 U/L (13-39) 05/20/25 08:00 ALT 29 U/L (7-52) 05/20/25 08:00 Alkaline Phosphatase 78 U/L (34-104) 05/20/25 08:00 Troponin I High Sens 23.2 pg/ml (0-14) H 05/20/25 10:29 Total Protein 6.3 gm/dl (6.0-8.3) 05/20/25 08:00 Albumin 3.6 gm/dl (3.4-5.0) 05/20/25 08:00 Globulin 2.7 gm/dl (2.5-4.0) 05/20/25 08:00 Albumin/Globulin Ratio 1.3 (0.9-2) 05/20/25 08:00 Lipase 20 U/L (11-82) 05/20/25 08:00 Urine Color Yellow 05/20/25 08:00 Urine Appearance Clear (Clear) 05/20/25 08:00 Urine pH 6.5 (4.5-7.5) 05/20/25 08:00 Ur Specific [place] 1.021 (1.000-1.030) 05/20/25 08:00 Urine Protein Trace (Negative) H 05/20/25 08:00 Urine Glucose (UA) Negative (Negative) 05/20/25 08:00 Urine Ketones Negative (Negative) 05/20/25 08:00 Urine Blood Trace (Negative) H 05/20/25 08:00 Urine Nitrite Negative (Negative) 05/20/25 08:00 Urine Bilirubin Negative (Negative) 05/20/25 08:00 Urine Urobilinogen Negative (Negative) 05/20/25 08:00 Ur Leukocyte Esterase Trace (Negative) H 05/20/25 08:00 Urine WBC (Auto) 0-5 /hpf (0-5) 05/20/25 08:00 Urine RBC (Auto) 3-5 /hpf (0-2) H 05/20/25 08:00 U Hyaline Cast (Auto) 3-5 /lpf (0-2) H 05/20/25 08:00 U Epithel Cells (Auto) 0-2 /hpf (0-2) 05/20/25 08:00 Urine Bacteria (Auto) None Seen (None Seen) 05/20/25 08:00 Urine Comment 05/20/25 08:00 Blood Type A Positive 05/20/25 10:29 Antibody Screen NEGATIVE 05/20/25 10:29 Impressions Abdomen/Pelvis CT 05/20/25 08:[address] WITH IV CONTRAST CT DOSE: 1360.67 mGy.cm HISTORY: llq pain TECHNIQUE: Multiaxial CT images of the abdomen and pelvis were performed following the IV administration of 90 cc of Optiray, A dose lowering technique was utilized adhering to the principles of ALARA. COMPARISON STUDY: Chest CT of 03/25/2025 FINDINGS: There are persistent reticular and patchy opacities in the lung bases, improved. ABDOMEN: There are calcifications of the liver and spleen consistent with prior granulomatous disease. There are gallstones without evidence of acute cholecystitis. Otherwise the liver, spleen, pancreas, and adrenal glands are unremarkable. Kidneys show no hydronephrosis or calculi. There is a tiny cyst at the left kidney. There are atherosclerotic calcifications. No abdominal aortic aneurysm. Pelvis: There is an acute hematoma at the left rectus muscle measuring 10 x 6 cm in greatest axial dimension by 13 cm craniocaudad. There is contrast extravasation within the hematoma consistent with continuing hemorrhage. Urinary bladder is nondistended. Uterus is absent. No adnexal mass. No bowel inflammation or obstruction. No free fluid, free air, or abscess. No enlarged adenopathy. Osseous structures: Right hip prosthesis is present. There is mild scoliosis. There is lumbar degenerative disc disease. No acute osseous findings. IMPRESSION: Acute left rectus muscle hematoma with active acute hemorrhage. ACT 112: Negative or not required by law. The above report was generated using voice recognition software. It may contain grammatical, syntax or spelling errors. Electronically signed by: Nithin Roth M.D. 05/20/2025 9:54 AM Pending Results Patient Have Any Pending Studies at Discharge: No Discharge Instructions Given to Patient (Per Discharging Provider) YOU MAY RESUME YOUR COUMADIN ON FRIDAY. YOUR COUMADIN DOSE NEEDS TO BE REDUCED TO PREVENT YOUR INR FROM EXCEEDING THE GOAL RANGE. THE COUMADIN CLINIC WILL BE CALLING YOU SOON FOR ADVICE ON YOUR COUMADIN DOSE AND INR CHECKS. DO NOT TAKE MEDICATIONS UNDER THE CLASS OF NSAIDS INCLUDING IBUPROFEN, NAPROXEN, ETC. PLEASE CALL YOUR PRIMARY CARE PHYSICIAN OR RETURN TO THE ER IF WITH WORSENING OF SYMPTOMS, INCLUDING ABDOMINAL PAIN, BLEEDING, FEVER/CHILLS, WEAKNESS, DIZZINESS, ETC FOLLOW UP WITH PRIMARY CARE PHYSICIAN OUTLINED ABOVE. Total Time Total Time Spent Total Time Spent (In Minutes): 40 minutes
[2025-05-23 11:11] VITALS: TEMP 97.5; O2SAT 92
[2025-05-23 15:00] VITALS: BP 134/72; PULSE 75
== END 2025-05-23 15:00 | disposition home or self-care (01) | DRG 605 ==
LOC: ED 07:39 → 2S 11:29 → SUATTDRO 11:29 → 2S 12:10